=== PATIENT | female | born 1930 | race Caucasian/White ===

== ENCOUNTER 2018-09-30 15:38 | Emergency (ER) | payer OTHER ==
--- OUTSIDE RECORDS SUMMARY | 2018-09-30 15:40 | XMS REPORT ---
:1930 [facility] Address [address] [place] [address] Dr. Gerardo. [address] [place] [address] Care Team Providers Name Role Phone Unavailable Unavailable Unavailable Problems This patient has no known problems. Allergies, Adverse Reactions, Alerts This patient has no known allergies or adverse reactions. Medications This patient has no known medications.
[2018-09-30 16:52] LABS: Absolute Lymphocytes (CBC) 1.4 K/uL (0.7-4.9); Absolute Monocytes 0.6 K/uL (0.1-1.3); Absolute Neutrophil 5.8 K/uL (1.8-8.0); Basophils % 0.4 % (0-1.3); Hematocrit 41.9 % (36.0-45.0); Lymphocytes % 17.7 % (15.3-44.8); MPV 11.3 fL (7.6-11.3); Monocytes % 7.9 % (3.3-12.3); RBC Red Blood Cell Count 4.56 M/uL (3.86-4.86)
--- NOTE | 2018-09-30 17:02 | RAD REPORT ---
EXAM DESCRIPTION: RAD - Pelvis - 09/30/2018 4:27 pm CLINICAL HISTORY: Fall, pelvic and pain COMPARISON: April 2016 TECHNIQUE: AP imaging of the pelvis was obtained. FINDINGS: No fracture of the bony pelvis identified. Sacral ala assessment is more limited but no ab normality confirmed. Lower lumbar degenerative changes are present. Lower lumbar level is partially s acralized on the right. Bilateral hip prostheses in place. No dislocation of the femoral components. No suspicious soft tissu e finding. IMPRESSION: No fracture or acute finding identifiable.
--- NOTE | 2018-09-30 17:03 | RAD REPORT ---
EXAM DESCRIPTION: RAD - Hip Left 2 View - 09/30/2018 4:27 pm CLINICAL HISTORY: Fall, left hip pain COMPARISON: March 2008 FINDINGS: AP and frogleg views of the left hip were obtained. There is no fracture or dislocation. T otal hip prosthesis remains present on the left. No radiographic evidence for loosening. No soft tissue abnormality. IMPRESSION: Negative left hip examination for acute or significant findings.
--- NOTE | 2018-09-30 17:05 | RAD REPORT ---
EXAM DESCRIPTION: RAD - Hip Right 2 View - 09/30/2018 4:27 pm CLINICAL HISTORY: Fall, right hip pain COMPARISON: None. FINDINGS: AP and frog-leg views of the right hip were obtained. There is no fracture or dislocation . Right total hip prosthesis in place. No radiographic evidence for loosening. No acute finding seen . IMPRESSION: Negative right hip examination for acute findings.
--- NOTE | 2018-09-30 17:07 | RAD REPORT ---
EXAM DESCRIPTION: Shoulder Right 2 View - 09/30/2018 4:27 pm CLINICAL HISTORY: Fall, right shoulder pain COMPARISON: None. TECHNIQUE: Internal and external rotation views of the right shoulder were obtained. FINDINGS: No fracture identified and no dislocation. Severe glenohumeral degenerative changes are pr esent with effacement of the joint space. Large marginal spurs project from the glenoid and the humer al head. There is flattening of the contour. AC joint degenerative changes minimal. No pathologic viji ne process. IMPRESSION: Severe degenerative change but no fracture or acute finding seen in the right shoulder.
--- NOTE | 2018-09-30 17:17 | RAD REPORT ---
EXAM DESCRIPTION: CT - Chest Abd Pelvis Wo Con - 09/30/2018 4:56 pm CLINICAL HISTORY: Recurring falls, chest, abdomen and pelvic pain COMPARISON: None. TECHNIQUE: During dynamic enhancement using 100 milliliters nonionic IV contrast, axial 5 millimeter thick images of the chest, abdomen and pelvis were obtained. Biphasic technique was utilized through the abdomen. Oral contrast was administered. All CT scans are performed using dose optimization technique as appropriate and may include automated exposure control or mA/KV adjustment according to patient size. FINDINGS: The lungs are clear of mass and infiltrate. No pneumothorax or pleural effusion. No ches t wall mass or abnormal axillary lymphadenopathy seen. Mediastinal and hilar regions show no mass or lymphadenopathy. No significant cardiac finding. Severe right shoulder degenerative changes are pre sent without an acute finding seen. Moderate left shoulder degenerative change. Thoracic spine degene rative changes are present. No displaced rib fracture pathologic bone process. The liver, spleen and pancreas show no significant findings. Gallbladder and biliary tree are normal . No hydronephrosis. No obstructing or nonobstructing calculi. No adrenal abnormalities. No urinary bl adder abnormalities. A 19 millimeter, 6 HU mass projects from the lateral margin left mid kidney. Th is is almost certainly a benign cyst. No dilated bowel loops or focal ball bowel wall thickening. Minimal hiatal hernia is present. Modera te stool volume throughout the colon. There is diverticulosis without diverticulitis. Acute GI proces s is not identified. No free air, free fluid, pneumatosis or focal inflammatory stranding. No hernia, mass or bulky lymphadenopathy. Arterial calcifications are present. Pelvic floor assessment is limited by the bilateral hip prosthes is spray artifact. Advanced degenerative change present in the lumbar spine. Acute bony pelvic finding not identified. IMPRESSION: CT chest shows no significant or suspicious finding. CT abdomen and pelvis also without acute or significant finding. Full findings detailed in the body of the report.
--- NOTE | 2018-09-30 18:09 | ER ---
Nurse's Notes [facility] Name: Alina Karimi Age: 88 yrs Sex: Female : 1930 Arrival Date: 09/30/2018 Time: 15:41 Bed 2 Private MD: Diagnosis: Other slipping, tripping and stumbling and falls;Low back pain-from fall;Pain in unspecified hip-Bilateral from fall;Pain in right shoulder Presentation: 09/30 15:41 Presenting complaint: Patient states: "I just fell trying to get up and fell straight aa5 to my butt". Pt denies head injury, denies LOC. Pt c/o right hip pain. 15:41 Care prior to arrival: IV initiated. 22 GA, in the right antecubital area, Glucose aa5 check: 201. Mechanism of Injury: Fall. Trauma event details: Injury occurred in the [facility], Injury occurred: at home. Injury occurred: September 30, 2018. 15:41 Acuity: REMIGIO 3 aa5 15:41 Method Of Arrival: EMS: [facility] aa5 15:41 Transition of care: patient was not received from another setting of care. Onset of aa5 symptoms was September 30, 2018. Risk Assessment: Do you want to hurt yourself or someone else? Patient reports no desire to harm self or others. Initial Sepsis Screen: Does the patient meet any 2 criteria? No. Patient's initial sepsis screen is negative. Does the patient have a suspected source of infection? No. Patient's initial sepsis screen is negative. Trauma Activation: Alert Physician: ED Physician; Name: ; Notified At: ; Arrived At: Physician: General Surgeon; Name: ; Notified At: ; Arrived At: Physician: Radiology; Name: ; Notified At: ; Arrived At: Physician: Respiratory; Name: ; Notified At: ; Arrived At: Physician: Lab; Name: ; Notified At: ; Arrived At: Historical: - Allergies: 15:45 Iodine; aa5 15:45 PENICILLINS; aa5 - PMHx: 15:45 Atrial Fib; chronic back pain; Diabetes - NIDDM; High Cholesterol; Thyroid problem; aa5 15:45 Chronic right shoulder pain; aa5 - PSHx: 15:45 Cataract removal; Hip replacement (bilateral); Right knee replacement; aa5 - Immunization history:: Flu vaccine is up to date. - Social history:: Smoking status: Patient/guardian denies using tobacco. - Ebola Screening: : No symptoms or risks identified at this time. Screenin:45 Fall Risk Fall in past 12 months (25 points). IV access (20 points). Total Cruz Fall aa5 Scale indicates High Risk Score (45 or more points). Fall prevention measures have been instituted. Side Rails Up X 2 Placed Close to Nursing Station. 15:45 Abuse screen: No signs of abuse noted. aa5 15:45 Nutritional screening: No deficits noted. Tuberculosis screening: No symptoms or risk aa5 factors identified. Primary Survey: 15:41 NO uncontrolled hemorrhage observed. A: Airway: patent. Breathing/Chest: Chest aa5 inspection: symmetrical rise and fall of the chest. Circulation: Skin color: pink. Disability Alert. Exposure/Environment: A warming method has been applied: A warm blanket has been provided to the patient. 16:00 Reassessment Airway Airway Breathing/Chest Respiratory pattern Regular Respiratory aa5 effort Spontaneous Unlabored Breath sounds Clear Chest inspection Symmetrical Circulation Color [place] Disability Alert. Assessment: 15:45 General: Appears comfortable, Behavior is calm, cooperative. Pain: Complains of pain in aa5 right hip Pain does not radiate. Quality of pain is described as sharp, Pain began post fall today Is continuous. Neuro: Level of Consciousness is awake, alert, obeys commands, Oriented to person, place, time, situation, Broker In Charge are equal bilaterally Moves all extremities. Speech is normal, Facial symmetry appears normal, Pupils are PERRLA. EENT: No signs and/or symptoms were reported regarding the EENT system. Cardiovascular: Patient's skin is warm and dry. Respiratory: Airway is patent Respiratory effort is even, unlabored, Respiratory pattern is regular, symmetrical, Breath sounds are clear bilaterally. GI: Abdomen is round Bowel sounds present X 4 quads. Abd is soft and non tender X 4 quads. : Reports incontinence. Derm: Skin is pink, warm \\T\\ dry. Musculoskeletal: Reports pain in right hip. 16:10 Reassessment: Pt assisted with bedpan, pt unable to void at this time, urine noted to aa5 incontinence pad. . 16:35 Reassessment: Pt back from radiology. Blood drawn and sent to lab. Pt now taken to CT aa5 via stretcher . 17:00 Reassessment: Patient is alert, oriented x 3, equal unlabored respirations, skin aa5 warm/dry/pink. Pt's family at bedside Pt back from CT . 18:40 Reassessment: Patient is alert, oriented x 3, equal unlabored respirations, skin aa5 warm/dry/pink. Vital Signs: 15:42 BP 128 / 71; Pulse 65; Resp 16 S; Temp 97.0(O); Pulse Ox 98% on R/A; aa5 16:35 BP 124 / 70; Pulse 68; Resp 16 S; Pulse Ox 99% on R/A; aa5 17:30 BP 122 / 76; Pulse 70; Resp 18 S; Temp 97.3(TE); Pulse Ox 99% on R/A; Pain 5/10; aa5 [place] Coma Score: 15:42 Eye Response: spontaneous(4). Verbal Response: oriented(5). Motor Response: obeys aa5 commands(6). Total: 15. Trauma Score (Adult): 15:42 Eye Response: spontaneous(1); Verbal Response: oriented(1); Motor Response: obeys aa5 commands(2); Systolic BP: > 89 mm Hg(4); Respiratory Rate: 10 to 29 per min(4); [place] Score: 15; Trauma Score: 12 16:35 Eye Response: spontaneous(1); Verbal Response: oriented(1); Motor Response: obeys aa5 commands(2); Systolic BP: > 89 mm Hg(4); Respiratory Rate: 10 to 29 per min(4); Rachel Score: 15; Trauma Score: 12 17:30 Eye Response: spontaneous(1); Verbal Response: oriented(1); Motor Response: obeys aa5 commands(2); Systolic BP: > 89 mm Hg(4); Respiratory Rate: 10 to 29 per min(4); [place] Score: 15; Trauma Score: 12 ED Course: 15:41 Patient arrived in ED. hj 15:41 Babatunde Laurent PA is PHCP. cp 15:41 Kraig Borja MD is Attending Physician. cp 15:41 Arm band placed on. aa5 15:41 Patient has correct armband on for positive identification. Placed in gown. Bed in low aa5 position. Call light in reach. Side rails up X2. 15:45 Potter, Mayuri, RN is Primary Nurse. aa5 15:45 Patient maintains SpO2 saturation greater than 95% on room air. Thermoregulation: warm aa5 blanket given to patient. 15:57 Triage completed. aa5 16:27 XRAY Pelvis In Process Unspecified. EDMS 16:27 XRAY Hip LEFT 2 view In Process Unspecified. EDMS 16:28 XRAY Hip RIGHT 2 view In Process Unspecified. EDMS 16:28 Shoulder Right (2 View) XRAY In Process Unspecified. EDMS 16:56 CT Chest Abdomen Pelvis W/O Contrast In Process Unspecified. EDMS 17:00 No provider procedures requiring assistance completed. aa5 18:40 IV discontinued, intact, bleeding controlled, No redness/swelling at site. Pressure aa5 dressing applied. Administered Medications: No medications were administered Output: 18:00 Urine: 250ml (Voided); Total: 250ml. aa5 Outcome: 18:08 Discharge ordered by MD. cp 18:08 Patient's length of stay in the Emergency Department was greater than 2 hours. Due to aa5 awaiting radiology results. Patient's length of stay extended due to 18:40 Discharged to home via wheelchair, with family. aa5 18:40 Condition: stable 18:40 Discharge instructions given to patient, family, Instructed on discharge instructions, follow up and referral plans. medication usage, Demonstrated understanding of instructions, follow-up care, medications, Prescriptions given X 1. 18:48 Patient left the ED. aa5 Signatures: Dispatcher [employer] [facility] Mayuri Potter RN RN aa5 Hawk Daugherty RN RN hj Page, Corey, PA PA cp Corrections: (The following items were deleted from the chart) 16:12 15:42 BP 128 / 71; aa5 aa5
--- NOTE | 2018-09-30 18:09 | EDPHYS ---
Physician Documentation [facility] Name: Alina Karimi Age: 88 yrs Sex: Female : 1930 Arrival Date: 09/30/2018 Time: 15:41 Bed 2 Private MD: ED Physician Kraig Borja HPI: 09/30 16:00 This 88 yrs old Female presents to ER via EMS with complaints of Hip Injury. cp 16:00 The patient or guardian reports an injury, pain. that occurred at home, sustained from cp a fall, while walking, There is no obvious deformity, The patient is able to ambulate with assistance. The complaints affect the right hip and pelvis. Associated signs and symptoms: Pertinent positives: back pain, Pertinent negatives: headache, neck pain. Severity of symptoms: in the emergency department the symptoms have improved, moderately. Patient reports fall backward onto bottom while walking at home today. Patient denies striking head or LOC. Patient denies taking blood thinners. Historical: - Allergies: 15:45 Iodine; aa5 15:45 PENICILLINS; aa5 - PMHx: 15:45 Atrial Fib; chronic back pain; Diabetes - NIDDM; High Cholesterol; Thyroid problem; aa5 15:45 Chronic right shoulder pain; aa5 - PSHx: 15:45 Cataract removal; Hip replacement (bilateral); Right knee replacement; aa5 - Immunization history:: Flu vaccine is up to date. - Social history:: Smoking status: Patient/guardian denies using tobacco. - Ebola Screening: : No symptoms or risks identified at this time. ROS: 16:05 Constitutional: Negative for body aches, chills, fever, poor PO intake. cp 16:05 Eyes: Negative for injury, pain, redness, and discharge. cp 16:05 ENT: Negative for drainage from ear(s), ear pain, sore throat, difficulty swallowing, difficulty handling secretions. 16:05 Neck: Negative for pain with movement, pain at rest, stiffness. 16:05 Cardiovascular: Negative for chest pain. 16:05 Respiratory: Negative for cough, shortness of breath, wheezing. 16:05 Abdomen/GI: Negative for abdominal pain, vomiting, diarrhea, constipation. 16:05 Back: Positive for pain at rest, pain with movement. 16:05 MS/extremity: Positive for pain, of the pelvis and right hip, Negative for deformity. 16:05 Neuro: Negative for altered mental status, headache, loss of consciousness, syncope, weakness. 16:05 All other systems are negative. Exam: 16:12 Constitutional: The patient appears in no acute distress, alert, awake, cp non-diaphoretic, non-toxic, well developed, well nourished. 16:12 Head/Face: Normocephalic, atraumatic. cp 16:12 Eyes: Periorbital structures: appear normal, Pupils: equal, round, and reactive to light and accomodation, Extraocular movements: intact throughout, Conjunctiva: normal, no exudate, no injection, Lids and lashes: appear normal, bilaterally. 16:12 ENT: External ear(s): are unremarkable, Ear canal(s): are normal, clear, TM's: bulging, is not appreciated, bilaterally, dullness, bilaterally, erythema, is not appreciated, bilaterally, Nose: is normal, Mouth: is normal, Posterior pharynx: Airway: no evidence of obstruction, patent, Tonsils: are normal in appearance, Uvula: midline, swelling, is not appreciated, erythema, is not appreciated, exudate, is not appreciated, Voice: is normal. 16:12 Neck: C-spine: vertebral tenderness, is not appreciated, crepitus, is not appreciated, ROM/movement: is normal, is supple, without pain, no range of motions limitations, no nuchal rigidity. 16:12 Chest/axilla: Inspection: normal, Palpation: is normal, no crepitus, no tenderness. 16:12 Cardiovascular: Rate: normal, Rhythm: regular, Pulses: Pulses are 2+ in right radial artery and left radial artery. JVD: is not appreciated. 16:12 Respiratory: the patient does not display signs of respiratory distress, Respirations: normal, no use of accessory muscles, no retractions, no splinting, no tachypnea, labored breathing, is not present, Breath sounds: are clear throughout, no decreased breath sounds, no stridor, no wheezing. 16:12 Abdomen/GI: Inspection: abdomen appears normal, Bowel sounds: active, all quadrants, Palpation: abdomen is soft and non-tender, in all quadrants. 16:12 Back: pain, that is mild, ROM is normal. 16:12 Musculoskeletal/extremity: Extremities: grossly normal except: noted in the pelvis: pain, noted in the right shoulder: pain, noted in the right hip: pain, tenderness. 16:12 Neuro: Orientation: to person, place \T\ time. Mentation: is normal, Motor: moves all fours, strength is normal, Sensation: no obvious gross deficits. Vital Signs: 15:42 BP 128 / 71; Pulse 65; Resp 16 S; Temp 97.0(O); Pulse Ox 98% on R/A; aa5 16:35 BP 124 / 70; Pulse 68; Resp 16 S; Pulse Ox 99% on R/A; aa5 17:30 BP 122 / 76; Pulse 70; Resp 18 S; Temp 97.3(TE); Pulse Ox 99% on R/A; Pain 5/10; aa5 [place] Coma Score: 15:42 Eye Response: spontaneous(4). Verbal Response: oriented(5). Motor Response: obeys aa5 commands(6). Total: 15. Trauma Score (Adult): 15:42 Eye Response: spontaneous(1); Verbal Response: oriented(1); Motor Response: obeys aa5 commands(2); Systolic BP: > 89 mm Hg(4); Respiratory Rate: 10 to 29 per min(4); Rachel Score: 15; Trauma Score: 12 16:35 Eye Response: spontaneous(1); Verbal Response: oriented(1); Motor Response: obeys aa5 commands(2); Systolic BP: > 89 mm Hg(4); Respiratory Rate: 10 to 29 per min(4); Rachel Score: 15; Trauma Score: 12 17:30 Eye Response: spontaneous(1); Verbal Response: oriented(1); Motor Response: obeys aa5 commands(2); Systolic BP: > 89 mm Hg(4); Respiratory Rate: 10 to 29 per min(4); Rachel Score: 15; Trauma Score: 12 MDM: 15:41 Patient medically screened. cp 16:00 Differential diagnosis: hip fracture, intertrochanteric fracture, femoral neck cp fracture, femoral shaft fracture, contusion. 18:05 Data reviewed: vital signs, nurses notes, lab test result(s), radiologic studies, CT cp scan, plain films, and as a result, I will discharge patient. 18:05 Counseling: I had a detailed discussion with the patient and/or guardian regarding: the cp historical points, exam findings, and any diagnostic results supporting the discharge/admit diagnosis, lab results, radiology results, to return to the emergency department if symptoms worsen or persist or if there are any questions or concerns that arise at home. Response to treatment: the patient's symptoms have markedly improved after treatment, VSS. Radiology studies negative for acute injury, and as a result, I will discharge patient. 09/30 15:48 Order name: Basic Metabolic Panel; Complete Time: 17:59 cp 09/30 17:59 Interpretation: Normal except: GLUC 180; BUN 22; GFR 58. 09/30 15:48 Order name: CBC with Diff; Complete Time: 17:59 cp 09/30 17:59 Interpretation: Normal except: PLT 146. 09/30 15:48 Order name: XRAY Pelvis; Complete Time: 17:59 cp 09/30 17:59 Interpretation: Report reviewed. 09/30 15:48 Order name: Creatinine for Radiology; Complete Time: 17:59 09/30 15:48 Order name: Type And Screen; Complete Time: 17:59 cp 09/30 15:48 Order name: XRAY Hip LEFT 2 view; Complete Time: 17:59 cp 09/30 17:59 Interpretation: Report reviewed. 09/30 15:48 Order name: Labs collected and sent; Complete Time: 16:40 cp 09/30 15:48 Order name: XRAY Hip RIGHT 2 view; Complete Time: 17:59 cp 09/30 18:00 Interpretation: Report reviewed. 09/30 16:11 Order name: Shoulder Right (2 View) XRAY; Complete Time: 17:59 aa5 09/30 18:00 Interpretation: Reviewed. 09/30 16:28 Order name: CT Chest Abdomen Pelvis W/O Contrast; Complete Time: 17:59 cp Administered Medications: No medications were administered Disposition: 09/30/18 18:08 Discharged to Home. Impression: Other slipping, tripping and stumbling and falls, Low back pain - from fall, Pain in unspecified hip - Bilateral from fall, Pain in right shoulder. - Condition is Stable. - Discharge Instructions: Fall Prevention in the Home, Shoulder Pain, Hip Pain. - Prescriptions for Tramadol 50 mg Oral Tablet - take 1 tablet by ORAL route every 8 hours as needed; 12 tablet. - Medication Reconciliation Form, Thank You Letter, Antibiotic Education, Prescription Opioid Use form. - Follow up: Private Physician; When: 2 - 3 days; Reason: Recheck today's complaints. - Problem is new. - Symptoms have improved. Addendum: 10/03/2018 07:05 Co-signature as Attending Physician, Kraig Borja MD. r n Signatures: Dispatcher [employer] [facility] Kraig Borja MD MD rn Calderon, Audri RN RN aa5 Babatunde Laurent PA PA cp Corrections: (The following items were deleted from the chart) 09/30 18:48 18:08 09/30/2018 18:08 Discharged to Home. Impression: Other slipping, tripping and aa5 stumbling and falls; Low back pain - from fall; Pain in unspecified hip - Bilateral from fall; Pain in right shoulder. Condition is Stable. Forms are Medication Reconciliation Form, Thank You Letter, Antibiotic Education, Prescription Opioid Use. Follow up: Private Physician; When: 2 - 3 days; Reason: Recheck today's complaints. Problem is new. Symptoms have improved. cp
== END 2018-09-30 18:48 | disposition home or self-care (01) ==
LOC: ER 15:38
DX: M25.551 Pain in right hip (principal); M25.552 Pain in left hip; M54.5 Low back pain; M25.511 Pain in right shoulder; W01.0XXA Fall on same level from slipping, tripping and stumbling without subsequent striking against object, initial encounter; Y93.01 Activity, walking, marching and hiking; Y92.009 Unspecified place in unspecified non-institutional (private) residence as the place of occurrence of the external cause; I48.91 Unspecified atrial fibrillation; E11.9 Type 2 diabetes mellitus without complications; E78.00 Pure hypercholesterolemia, unspecified; Z88.0 Allergy status to penicillin; Z88.8 Allergy status to other drugs, medicaments and biological substances
CPT/HCPCS: 36415; 71250; 72170; 74176; 80048; 85025; 86850; 86900; 86901; 99284

== ENCOUNTER 2018-11-10 16:06 | Inpatient (IN) | payer OTHER ==
--- OUTSIDE RECORDS SUMMARY | 2018-11-10 16:08 | XMS REPORT ---
:1930 [facility] Address [address] [place] [address] Dr. Gerardo. [address] [place] [address] Care Team Providers Name Role Phone Unavailable Unavailable Unavailable Problems This patient has no known problems. Allergies, Adverse Reactions, Alerts This patient has no known allergies or adverse reactions. Medications This patient has no known medications.
[2018-11-10 17:32] LABS: Absolute Lymphocytes (CBC) 1.5 K/uL (0.7-4.9); Absolute Monocytes 0.9 K/uL (0.1-1.3); Absolute Neutrophil 5.2 K/uL (1.8-8.0); Basophils % 0.7 % (0-1.3); Eosinophils % 1.4 % (0-4.4); Hematocrit 41.2 % (36.0-45.0); Lymphocytes % 19.6 % (15.3-44.8); MPV 11.2 fL (7.6-11.3); Monocytes % 11.1 % (3.3-12.3); RBC Red Blood Cell Count 4.49 M/uL (3.86-4.86)
[2018-11-10 17:33] LABS: Protime INR 0.95
--- NOTE | 2018-11-10 17:42 | RAD REPORT ---
EXAM DESCRIPTION: RAD - Chest Single View - 11/10/2018 5:33 pm CLINICAL HISTORY: infection Chest pain. COMPARISON: Chest Pa And Lat (2 Views) dated 09/18/2017; Chest Single View dated 06/22/2016; CHEST SI NGLE VIEW dated 01/24/2015; CHEST PA AND LAT 2 VIEW dated 12/17/2010 FINDINGS: Portable technique limits examination quality. Small calcified granuloma is present in the left mid lung. The lungs are otherwise emphysematous but clear. The heart is normal in size. No displaced fractures. IMPRESSION: No acute intrathoracic process suspected.
--- NOTE | 2018-11-10 17:44 | RAD REPORT ---
EXAM DESCRIPTION: RAD - Foot Left 3 View - 11/10/2018 5:33 pm CLINICAL HISTORY: foul odor;Pain;Swelling COMPARISON: FOOT W OBLIQUES dated 06/01/2007 FINDINGS: Changes related to chronic Charcot arthropathy noted. Subluxation of the subtalar joints i s seen. Large soft tissue ulceration is seen adjacent to the medial forefoot. Fusion plate is present spanning the first MTP joint. No definitive radiographic finding for osteomyelitis.
[2018-11-10 17:55] LABS: Albumin 3.8 g/dL (3.4-5.0); Bilirubin Direct 0.1 mg/dL (0-0.2); Bilirubin Total 0.4 mg/dL (0.2-1.0); Magnesium 2.3 mg/dL (1.8-2.4); Potassium 4.2 mmol/L (3.5-5.1)
--- NOTE | 2018-11-10 18:03 | EDPHYS ---
Physician Documentation [facility] Name: Alina Karimi Age: 88 yrs Sex: Female : 1930 Arrival Date: 11/10/2018 Time: 16:08 Bed 23 Private MD: Nate Roland V ED Physician Kraig Borja HPI: 11/10 17:11 This 88 yrs old Female presents to ER via Wheelchair with complaints of Foot snw Infection. 17:11 Onset: The symptoms/episode began/occurred 7 month(s) ago, and became worse today. snw Associated signs and symptoms: Pertinent positives: malodorous foot wound . It is unknown whether or not the patient has had similar symptoms in the past. Saw Dr. Small 3 days ago, sees Dr. Lowe, Sees Dr. Roland. Historical: - Allergies: 16:32 Iodine; la1 16:32 PENICILLINS; la1 - Home Meds: 19:11 Synthroid Oral [Active]; Aspirin Oral [Active]; Betapace Oral [Active]; Cozaar Oral mg2 [Active]; Fish Oil Oral [Active]; Norvasc Oral [Active]; Vitamin B-12 Oral [Active]; Potassium Chloride Oral [Active]; tramadol Oral [Active]; Omeprazole Oral [Active]; tylenol 250 mg [Active]; - PMHx: 16:32 Atrial Fib; chronic back pain; Chronic right shoulder pain; Diabetes - NIDDM; High la1 Cholesterol; Thyroid problem; - Immunization history:: Adult Immunizations up to date. - Social history:: Smoking status: Patient/guardian denies using tobacco. - Ebola Screening: : No symptoms or risks identified at this time. ROS: 17:11 Constitutional: Negative for fever, chills, and weight loss, Eyes: Negative for injury, snw pain, redness, and discharge, ENT: Negative for injury, pain, and discharge, Neck: Negative for injury, pain, and swelling, Cardiovascular: Negative for chest pain, palpitations, and edema, Respiratory: Negative for shortness of breath, cough, wheezing, and pleuritic chest pain, Abdomen/GI: Negative for abdominal pain, nausea, vomiting, diarrhea, and constipation, Back: Negative for injury and pain, : Negative for injury, bleeding, discharge, and swelling, Skin: Negative for injury, rash, and discoloration, Neuro: Negative for headache, weakness, numbness, tingling, and seizure. 17:11 MS/extremity: Positive for callused area that home health nurse told her was red and malodorous. Exam: 17:11 Constitutional: This is a well developed, well nourished patient who is awake, alert, snw and in no acute distress. Head/Face: Normocephalic, atraumatic. Eyes: Pupils equal round and reactive to light, extra-ocular motions intact. Lids and lashes normal. Conjunctiva and sclera are non-icteric and not injected. Cornea within normal limits. Periorbital areas with no swelling, redness, or edema. ENT: Nares patent. No nasal discharge, no septal abnormalities noted. Tympanic membranes are normal and external auditory canals are clear. Oropharynx with no redness, swelling, or masses, exudates, or evidence of obstruction, uvula midline. Mucous membranes moist. Neck: Trachea midline, no thyromegaly or masses palpated, and no cervical lymphadenopathy. Supple, full range of motion without nuchal rigidity, or vertebral point tenderness. No Meningismus. Chest/axilla: Normal chest wall appearance and motion. Nontender with no deformity. No lesions are appreciated. Cardiovascular: Regular rate and rhythm with a normal S1 and S2. No gallops, murmurs, or rubs. Normal PMI, no JVD. No pulse deficits. Respiratory: Lungs have equal breath sounds bilaterally, clear to auscultation and percussion. No rales, rhonchi or wheezes noted. No increased work of breathing, no retractions or nasal flaring. Abdomen/GI: Soft, non-tender, with normal bowel sounds. No distension or tympany. No guarding or rebound. No evidence of tenderness throughout. Back: No spinal tenderness. No costovertebral tenderness. Full range of motion. Neuro: Awake and alert, GCS 15, oriented to person, place, time, and situation. Cranial nerves II-XII grossly intact. Motor strength 5/5 in all extremities. Sensory grossly intact. Cerebellar exam normal. Normal gait. Psych: Awake, alert, with orientation to person, place and time. Behavior, mood, and affect are within normal limits. 17:11 Musculoskeletal/extremity: Extremities: grossly normal except: noted in the right foot: swelling, right lateral pip of fifth toe with soft, pus filled, malodorous wound with surrounding erythema, ROM: no acute changes, Circulation is intact in all extremities. decreased sensation. Vital Signs: 16:34 Pulse 52; Resp 16; Temp 98.7; Pulse Ox 100% on R/A; Weight 76.66 kg; Height 5 ft. 6 in. la1 (167.64 cm); Pain 8/10; 16:36 BP 128 / 62; la1 18:23 BP 133 / 59; Pulse 51; Resp 18; Temp 98.8; Pulse Ox 100% on R/A; mg2 19:16 BP 138 / 62; Pulse 52; Resp 18; Temp 98.7; Pulse Ox 100% on R/A; Pain 0/10; mg2 16:34 Body Mass Index 27.28 (76.66 kg, 167.64 cm) la1 MDM: 16:42 Patient medically screened. snw 18:00 Data reviewed: vital signs, nurses notes. Data interpreted: Pulse oximetry: on room air snw is 100 %. Interpretation: normal. Counseling: I had a detailed discussion with the patient and/or guardian regarding: the historical points, exam findings, and any diagnostic results supporting the discharge/admit diagnosis, lab results, radiology results, the need for further work-up and treatment in the hospital. Physician consultation: Alonzo Valadez MD was called at 18:01, was contacted at 18:01, regarding admission, to the telemetry unit. to the medical/surgical unit. to Dr. Roland, would like admission per Dr. Nate Roland MD. 11/10 16:46 Order name: Basic Metabolic Panel snw 11/10 16:46 Order name: CBC with Diff snw 11/10 16:46 Order name: LFT's; Complete Time: 17:55 snw 11/10 16:46 Order name: Magnesium; Complete Time: 17:55 snw 11/10 16:46 Order name: NT PRO-BNP; Complete Time: 17:55 snw 11/10 16:46 Order name: PT-INR; Complete Time: 17:37 snw 11/10 16:46 Order name: Foot Left 3 View XRAY; Complete Time: 17:46 snw 11/10 16:46 Order name: XRAY Chest (1 view); Complete Time: 17:43 snw 11/10 16:46 Order name: EKG; Complete Time: 16:48 snw 11/10 16:46 Order name: Blood Culture Adult (2) snw 11/10 16:46 Order name: Sed Rate; Complete Time: 17:54 snw 11/10 16:47 Order name: Basic Metabolic Panel; Complete Time: 17:55 EDMS 11/10 16:47 Order name: CBC with Automated Diff; Complete Time: 17:54 EDMS 11/10 16:46 Order name: Cardiac monitoring; Complete Time: 17:05 snw 11/10 16:46 Order name: EKG - Nurse/Tech; Complete Time: 17:06 snw 11/10 16:46 Order name: IV Saline Lock; Complete Time: 17:29 snw 11/10 16:46 Order name: Labs collected and sent; Complete Time: 17:29 snw 11/10 16:46 Order name: O2 Per Protocol; Complete Time: 17:06 snw 11/10 16:46 Order name: O2 Sat Monitoring; Complete Time: 17:06 snw Administered Medications: 17:50 Drug: vancoMYCIN 1 grams Route: IVPB; Infused Over: 2 hrs; Site: left antecubital; mg2 19:33 Follow up: Response: No adverse reaction; IV Status: Infusion continued upon admission mg2 Disposition: 11/10/18 18:02 Hospitalization ordered by Nate Roland for Inpatient Admission. Preliminary diagnosis is Personal history of diabetic foot ulcer - with infection. - Bed requested for Telemetry/MedSurg (Inpatient). - Status is Inpatient Admission. mg2 - Condition is Stable. - Problem is an acute exacerbation. - Symptoms have worsened. UTI on Admission? No Addendum: 11/12/2018 07:02 Co-signature as Attending Physician, Kraig Borja MD. r n Signatures: Dispatcher [employer] [facility] Martha Love RN RN dw Jeanne Mayo, W[employer]-C WEL[employer] AR[employer]-Csnw Kraig Borja MD MD rn Attema, Lee RN RN la1 Mk Aguilar RN RN mg2 Corrections: (The following items were deleted from the chart) 11/10 18:39 18:02 Hospitalization Ordered by Nate Roland MD for Inpatient Admission. Preliminary dw diagnosis is Personal history of diabetic foot ulcer - with infection. Bed requested for Telemetry/MedSurg (Inpatient). Status is Inpatient Admission. Condition is Stable. Problem is an acute exacerbation. Symptoms have worsened. UTI on Admission? No. snw 19:50 18:39 11/10/2018 18:02 Hospitalization Ordered by Nate Roland MD for Inpatient mg2 Admission. Preliminary diagnosis is Personal history of diabetic foot ulcer - with infection. Bed requested for Telemetry/MedSurg (Inpatient). Status is Inpatient Admission. Condition is Stable. Problem is an acute exacerbation. Symptoms have worsened. UTI on Admission? No. dw
--- NOTE | 2018-11-10 18:03 | ER ---
Nurse's Notes [facility] Name: Alina Karimi Age: 88 yrs Sex: Female : 1930 Arrival Date: 11/10/2018 Time: 16:08 Bed 23 Private MD: Nate Roland V Diagnosis: Personal history of diabetic foot ulcer-with infection Presentation: 11/10 16:32 Presenting complaint:. Presenting complaint: Patient states: Home health care came by la1 today and she said she could smell my foot and it was swollen and I need to come to the hospital (Left foot), pt reports chronic right shoulder pain that is worse. Transition of care: patient was not received from another setting of care. Onset of symptoms was November 10, 2018. Risk Assessment: Do you want to hurt yourself or someone else? Patient reports no desire to harm self or others. Initial Sepsis Screen: Does the patient meet any 2 criteria? No. Patient's initial sepsis screen is negative. Does the patient have a suspected source of infection? No. Patient's initial sepsis screen is negative. Care prior to arrival: None. 16:32 Method Of Arrival: Wheelchair la1 16:32 Acuity: REMIGIO 3 la1 Historical: - Allergies: 16:32 Iodine; la1 16:32 PENICILLINS; la1 - Home Meds: 19:11 Synthroid Oral [Active]; Aspirin Oral [Active]; Betapace Oral [Active]; Cozaar Oral mg2 [Active]; Fish Oil Oral [Active]; Norvasc Oral [Active]; Vitamin B-12 Oral [Active]; Potassium Chloride Oral [Active]; tramadol Oral [Active]; Omeprazole Oral [Active]; tylenol 250 mg [Active]; - PMHx: 16:32 Atrial Fib; chronic back pain; Chronic right shoulder pain; Diabetes - NIDDM; High la1 Cholesterol; Thyroid problem; - Immunization history:: Adult Immunizations up to date. - Social history:: Smoking status: Patient/guardian denies using tobacco. - Ebola Screening: : No symptoms or risks identified at this time. Screenin:07 Abuse screen: Denies threats or abuse. Denies injuries from another. Nutritional mg2 screening: No deficits noted. Tuberculosis screening: No symptoms or risk factors identified. Fall Risk IV access (20 points). Ambulatory Aid- None/Bed Rest/Nurse Assist (0 pts). Assessment: 17:06 General: Appears comfortable, Behavior is calm, cooperative. Pain: Complains of pain in mg2 right foot. Neuro: Level of Consciousness is awake, alert, obeys commands, Oriented to person, place, time, situation. Cardiovascular: Capillary refill < 3 seconds Patient's skin is warm and dry. Respiratory: Airway is patent Respiratory effort is even, unlabored, Respiratory pattern is regular, symmetrical. GI: No signs and/or symptoms were reported involving the gastrointestinal system. : No signs and/or symptoms were reported regarding the genitourinary system. EENT: No signs and/or symptoms were reported regarding the EENT system. Derm: Skin is intact, is healthy with good turgor, Skin is pink, warm \T\ dry. normal. Musculoskeletal: Circulation, motion, and sensation intact. Capillary refill < 3 seconds, Swelling present in right foot. 18:22 Reassessment: patient informed about the plan for hospitalization. mg2 Vital Signs: 16:34 Pulse 52; Resp 16; Temp 98.7; Pulse Ox 100% on R/A; Weight 76.66 kg; Height 5 ft. 6 in. la1 (167.64 cm); Pain 8/10; 16:36 BP 128 / 62; la1 18:23 BP 133 / 59; Pulse 51; Resp 18; Temp 98.8; Pulse Ox 100% on R/A; mg2 19:16 BP 138 / 62; Pulse 52; Resp 18; Temp 98.7; Pulse Ox 100% on R/A; Pain 0/10; mg2 16:34 Body Mass Index 27.28 (76.66 kg, 167.64 cm) la1 ED Course: 16:08 Patient arrived in ED. rg4 16:08 Nate Roland MD is Private Physician. rg4 16:21 Jeanne Mayo FNP-C [facility]. snw 16:21 Kraig Borja MD is Attending Physician. snw 16:34 Triage completed. la1 16:34 Arm band placed on left wrist. la1 17:06 kM Aguilar, STEFFANIE is Primary Nurse. mg2 17:09 No provider procedures requiring assistance completed. mg2 17:30 Patient has correct armband on for positive identification. Pulse ox on. NIBP on. mg2 17:30 Inserted saline lock: 20 gauge in left antecubital area, using aseptic technique. Blood mg2 collected. 17:34 Foot Left 3 View XRAY In Process Unspecified. EDMS 17:34 XRAY Chest (1 view) In Process Unspecified. EDMS 18:02 Nate Roland MD is Hospitalizing Provider. snw 19:38 Patient admitted, IV remains in place. mg2 Administered Medications: 17:50 Drug: vancoMYCIN 1 grams Route: IVPB; Infused Over: 2 hrs; Site: left antecubital; mg2 19:33 Follow up: Response: No adverse reaction; IV Status: Infusion continued upon admission mg2 Outcome: 18:02 Decision to Hospitalize by Provider. snw 19:38 Admitted to Med/surg accompanied by nurse, via wheelchair, room 229, with chart, Report mg2 called to STEFFANIE Li 19:38 Condition: stable 19:38 Instructed on the need for admit, Demonstrated understanding of instructions. 19:50 Patient left the ED. mg2 Signatures: Dispatcher [employer] [facility] Jeanne Mayo, INSTRUCTOR [employer]-C INSTRUCTOR [employer]-Csnw Ender Araya, RN RN la1 Aileen Hernandez rg4 Mk Aguilar, RN RN mg2
[2018-11-10] MEDS ORDERED: VANCOMYCIN 1 GM/VIAL ONE (18:17)
[2018-11-10] MEDS ORDERED: NA CHLORIDE 0.9% 250 ML ONE (18:17)
[2018-11-10] MEDS ORDERED: D50W 25 GM/50 ML SYRINGE IV PRN (20:16)
[2018-11-10] MEDS ORDERED: GLUCAGON 1 MG/VIAL IM PRN (20:16)
[2018-11-10] MEDS ORDERED: VANCOMYCIN 500 MG in NA CHLORIDE 0.9% 100 ML IVPB ONE (21:00)
[2018-11-10] MEDS ORDERED: Levofloxacin500mg IV 500 MG/100 ML BAG IV ONE (21:00)
[2018-11-10] MEDS ORDERED: VANCOMYCIN 1 GM in NA CHLORIDE 0.9% 500 ML IVPB SCH (21:00)
[2018-11-10] MEDS ORDERED: INSULIN -REGULAR HUMAN 50 UNIT/0.5 ML ML SQ SCH (21:00)
[2018-11-10] MEDS: NA CHLORIDE 0.9% 1,000 ML IV SCH (22:32)
[2018-11-10] MEDS ORDERED: VANCOMYCIN 500 MG/VIAL ONE (22:37)
[2018-11-10] MEDS ORDERED: NA CHLORIDE 0.9% 100 ML ONE (22:39)
[2018-11-10] MEDS ORDERED: ACETAMINOPHEN 500 MG TAB PO PRN (23:48)
[2018-11-11 03:22] VITALS: BMI 27.2
[2018-11-11 04:21] LABS: Urine Appearance CLEAR; Urine Bilirubin NEGATIVE (NEG); Urine Blood NEGATIVE (NEG); Urine Color YELLOW; Urine Glucose 2+ (NEG); Urine Protein NEGATIVE (NEG); Urine Specific Gravity 1.015 (1.005-1.030); Urine pH 7.5 (5.0-7.0)
[2018-11-11 04:22] LABS: Urine Microscopic Reflex ORDER UMIC
[2018-11-11 05:08] LABS: Urine Bacteria <20 /HPF (<20); Urine Culture Reflex Order REFLEXED; Urine RBC <5 /HPF (NONE SEEN)
[2018-11-11 05:44] LABS: Potassium 3.8 mmol/L (3.5-5.1)
[2018-11-11 05:52] LABS: Absolute Lymphocytes (CBC) 1.5 K/uL (0.7-4.9); Absolute Monocytes 0.9 K/uL (0.1-1.3); Absolute Neutrophil 3.8 K/uL (1.8-8.0); Basophils % 0.5 % (0-1.3); Eosinophils % 2.1 % (0-4.4); Hematocrit 36.2 % (36.0-45.0); MPV 11.5 fL (7.6-11.3); Monocytes % 13.6 % (3.3-12.3); RBC Red Blood Cell Count 3.98 M/uL (3.86-4.86)
[2018-11-11] MEDS ORDERED: INSULIN -REGULAR HUMAN 50 UNIT/0.5 ML ML SQ SCH (06:05)
[2018-11-11] MEDS ORDERED: PNEUMOCOCCAL VACCINE 0.5 ML IMVAC ONE (08:00)
--- NOTE | 2018-11-11 08:48 | EKG ---
Test Date: 2018-11-10 Test Time: 17:04:04 [employer]ed Circuit [employer] Panels Plater: MEASUREMENT RESULTS: Intervals: Rate: 51 DC: 170 QRSD: 88 QT: 450 QTc: 414 Guadalupe: P: 22 DC: 170 QRS: 57 T: 73 INTERPRETIVE STATEMENTS: Sinus bradycardia Otherwise normal ECG Compared to ECG 06/22/2016 13:49:01 No significant changes Electronically Signed On 11-11-18 08:46:12 CDT by Enrique Scott
[2018-11-11] MEDS: NA CHLORIDE 0.9% 1,000 ML IV SCH ×2 (09:14→13:31)
--- NOTE | 2018-11-11 11:28 | P.HP ---
Certification for Inpatient Patient admitted to: Inpatient With expected LOS: >2 Midnights Practitioner: I am a practitioner with admitting privileges, knowledge of patient current condition, hospital course, and medical plan of care. Services: Services provided to patient in accordance with Admission requirements found in Title 42 Section 412.3 of the Code of Federal Regulations Patient History Date of Service: 11/11/18 Reason for admission: RIGHT FOOT INFECTION History of Present Illness: MS LA HAS CHRONIC DIABETIC ULCER TAKEN CARE BY DR. TAO WHO DEBRIDES IT INDICATED. HOME HEALTH NURSE SMELLED A FOUL DISCHARGE AND ASKED HER TO COME TO ER. IN ER SHE WAS SEEN BY A NPP AND PUT ON LEVAQUIN AND VANCOMYCIN. I SEE HER TODAY AND GOT MAIN HISTORY FROM DAUGHTER MS. LA CAN GO AROUND THE QUESTION WITH LOT OF UNNEEDED DETAILS AND THAT IS WHAT SHE DID TODAY. SHE NEVER CAME TO MY QUESTION ABOUT WHAT BROUGHT HER HERE SO I TURNED TO THE DAUGHTER. Allergies Penicillins Allergy (Intermediate, Verified 11/10/18 21:08) Itching/Hives/Rash iodine Allergy (Verified 11/10/18 21:08) Unknown Home Medications: Acetaminophen [Tylenol Extra Strength] 250 mg PO BEDTIME 11/11/18 Amlodipine Besylate 5 mg PO DAILY 11/11/18 Aspirin [Aspir-Low] 81 mg PO DAILY 11/11/18 Furosemide 20 mg PO DAILY 11/11/18 Insulin Aspart [Novolog] 10 unit SQ TID 11/11/18 Insulin NPH Human [Novolin N (Humulin N)*] 15 units SQ SEECOM 11/11/18 Insulin NPH Human [Novolin N (Humulin N)*] 20 unit SQ SEECOM 11/11/18 Levothyroxine [Synthroid] 50 mcg PO [id number] 11/11/18 Losartan Potassium 100 mg PO DAILY 11/11/18 Multivitamin [Multivitamins] 1 each PO DAILY 11/11/18 Renny/Polymyx B Sulf/Dexameth [Aledht-Qihhc-Wewpzbn Eye Ointm] 1 appl TOP BEDTIME 11/11/18 [place]-3 Fatty Acids [[place]-3] 1,040 mg PO DAILY 11/11/18 Potassium Chloride 10 meq PO DAILY 11/11/18 Sotalol HCl [Betapace] 40 mg PO DAILY 11/11/18 - Past Medical/Surgical History Has patient received pneumonia vaccine in the past: No Diabetic: Yes -: IDDM -: AFIB -: HTN -: heart problems -: diabetes -: hypothyroid -: neuopathy -: neuropathy -: cholelithiasis -: right and left hip replacements -: right knee replacement -: hysterectomy -: toe surg. -: left knee replacement -: bilateral carpal repair - Family History Father -: Diabetes Mother -: Heart disease, Hypertension Sister -: Heart disease, Diabetes, Cancer - Social History Smoking Status: Never smoker Alcohol use: No CD- Drugs: No Caffeine use: No Place of Residence: Home Review of Systems 10-point ROS is otherwise unremarkable Integumentary: As per HPI Physical Examination - Vital Signs Temperature: 98.0 F Blood Pressure: 151/65 Pulse: 57 Respirations: 16 Pulse Ox (%): 97 - Physical Exam General: Alert, Mild distress HEENT: Atraumatic, PERRLA, Mucous membr. 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 R FOOT SOLE HAS NECROTIC ULCER NEAR THE FIRST METATARSAL, WITH FLUCTUATING DARK AREA ABOUT 3-3 CM. ) Neurological: Normal speech, Abnormal strength (WALKS WITH WALKER OR MANY TIMES IN WHEELCHAIR.) Lymphatics: No axilla or inguinal lymphadenopathy - Studies Laboratory Data (last 24 hrs) 11/10/18 17:00: PT 11.2, INR 0.95 11/10/18 17:00: WBC 7.8, Hgb 14.2, Hct 41.2, Plt Count 182 11/10/18 17:00: Sodium 141, Potassium 4.2, BUN 22 H, Creatinine 0.95, Glucose 215 H, Magnesium 2.3, Total Bilirubin 0.4, AST 17, ALT 16, Alkaline Phosphatase 100 Assessment and Plan - Problems (Diagnosis) (1) Diabetic ulcer of right foot Current Visit: Yes Status: Chronic Plan: IV MERREM AND IV VACOMYCIN. STOP LEVAQUIN IT WILL NOT BE ENOUGH TO ANEROBES AND ALSO IT WILL INTERACT WITH SOTALOL. DEBRIDE BY DR. YOUSSEF. MAY NEED LTAC OR NH. MRI OF R FOOT IN AM. SHE HAS GOOD PT PULSE. WILL ORDER ARTERIAL DOPPLER. PROGNOSIS IS GUARDED. Qualifiers: Diabetic foot ulcer location: other Diabetes mellitus type: type 2 Non- pressure ulcer stage: with fat layer exposed Qualified Code(s): E11.621 - Type 2 diabetes mellitus with foot ulcer; L97.512 - Non-pressure chronic ulcer of other part of right foot with fat layer exposed - Advance Directives Does patient have a Living Will: Yes Does patient have a Durable POA for Healthcare: Yes
[2018-11-11] MEDS: INSULIN -REGULAR HUMAN 50 UNIT/0.5 ML ML SQ SCH ×3 (11:30→21:00)
[2018-11-11] MEDS: Meropenem 1,000 MG in NA CHLORIDE 0.9% 100 ML IV SCH ×2 (13:18→21:18)
[2018-11-11] MEDS: AMLODIPINE 5 MG TAB PO SCH (13:19)
[2018-11-11] MEDS: POTASSIUM CL SA 10 MEQ TAB PO SCH (13:19)
[2018-11-11] MEDS: LOSARTAN POTASSIUM 50 MG TABLET PO SCH (13:19)
[2018-11-11] MEDS: FUROSEMIDE 20 MG TABLET PO SCH (13:19)
[2018-11-11] MEDS ORDERED: INSULIN ASPART 10 UNIT SQ SCH (14:00)
[2018-11-11] MEDS: NPH (HUMAN) 100 UNITS/ML INSULIN SQ SCH (16:30)
--- NOTE | 2018-11-11 18:48 | RAD REPORT ---
EXAM DESCRIPTION: US - Lower Extremity Arterial Bilat - 11/11/2018 6:32 pm CLINICAL HISTORY: Leg pain COMPARISON: None FINDINGS: The waveforms of right common femoral, right superficial femoral, right popliteal, right p osterior tibial, and right anterior to arteries are biphasic. Waveforms of the left superficial femoral and left common femoral arteries R biphasic The waveform of the left popliteal, left dorsalis pedis artery and left posterior tibial arteries are monophasic. A high-grade proximal stenosis is not seen. An occlusion is not visualized IMPRESSION: Mild arterial disease involving the right lower extremity Mild arterial disease involving the proximal arteries of the left lower extremity Mild to moderate disease involving the mid and lower arteries of the left lower extremity
[2018-11-11] MEDS ORDERED: Meropenem 1000 MG/VIAL IV SCH (21:00)
[2018-11-11] MEDS ORDERED: Levofloxacin 250mg IV 250 MG/50 ML BAG IV SCH (21:00)
[2018-11-11] MEDS: ACETAMINOPHEN 500 MG TAB PO SCH (21:21)
--- NOTE | 2018-11-12 02:51 | CON ---
Date of Consultation: 11/11/2018 Reason For Consult: Left foot necrotic and infected diabetic ulcer. History Of Present Illness: This is a case of an 88-year-old patient with multiple medical problems including diabetes with an ulcer on the left foot that has been dealt with, with the primary doctors and also home comfort advisor, but this time she came to the hospital with foul smelling ulcer with infection, and a surgical consult was obtained for debridement. It is hard to get the information from her exac tly how this got initiated since this is chronic, she says being closed and then reopened once again on its own. She does not recall at least any trauma. She denies any dysuria, hematuria, hematochezi a, or melena. Denies any recent travel out of the country. Denies any family member sick at home. The patient was advised the importance of using proper diabetic shoes. Past Medical History: Includes diabetes, AFib, neuropathies. Past Surgical History: Surgeries includes knee replacement, hysterectomy, and multiple foot debridem ents. Family History: Includes diabetes, heart disease. Allergies: PENICILLIN AND IODINE. Social History: She does not smoke. She does not drink alcohol. Medications: Reviewed including aspirin. Review of Systems: Ten points otherwise unremarkable. Physical Examination: General: The patient is awake and alert. HEENT: Pupils are equal and reactive, anicteric. Neck: Supple. Chest: Clear. Abdomen: Soft and depressible. No guarding or rebound. Pelvic: Deferred. Breasts: Deferred. Rectal: Deferred. Extremities: Over the left foot region, the patient has a diabetic infected ulcer. This ulcer is lo cated in the medial aspect of the left foot into the metatarsophalangeal joint. Dorsalis pedis pulse s bilaterally are diminished. No cyanosis. Imaging: X-ray of the left foot interpreted by Dr. Astorga as large soft tissue ulceration adjacent to the forefoot. Fusion plate is present in the first MTP joint. Assessment: This is an 88-year-old patient with an area of infection of the left metatarsophalangeal joint. Right on that area, she has a plate. The patient cannot give information about when that pl ate was placed, but it is right in the area where she has an ulcer nearby and we cannot rule out that it is involved. in that area, I understand why this area heals and improves partially an d then reopened once again. We might have to keep that plate off, so I have to consult with the Orth opedics or Podiatry Service. CAITLYN Voice ID: [id number] Report ID: [id number]
[2018-11-12] MEDS: NA CHLORIDE 0.9% 1,000 ML IV SCH ×3 (04:29→18:00)
[2018-11-12] MEDS: LEVOTHYROXINE SOD 0.05 MG TABLET PO SCH (05:43)
[2018-11-12] MEDS ORDERED: NPH (HUMAN) 100 UNITS/ML INSULIN SQ SCH ×2 (07:30)
[2018-11-12] MEDS: FUROSEMIDE 20 MG TABLET PO SCH (08:47)
[2018-11-12] MEDS: SOTALOL HCL 80 MG TAB PO SCH (08:47)
[2018-11-12] MEDS: MULTIVIT W/ MINERAL TAB PO SCH (08:47)
[2018-11-12] MEDS: Meropenem 1,000 MG in NA CHLORIDE 0.9% 100 ML IV SCH ×2 (08:47→20:23)
[2018-11-12] MEDS: AMLODIPINE 5 MG TAB PO SCH (08:47)
[2018-11-12] MEDS: ASPIRIN EC 81 MG TAB PO SCH (08:48)
[2018-11-12] MEDS: LOSARTAN POTASSIUM 50 MG TABLET PO SCH (08:48)
[2018-11-12] MEDS: POTASSIUM CL SA 10 MEQ TAB PO SCH (08:48)
[2018-11-12] MEDS: INSULIN -REGULAR HUMAN 50 UNIT/0.5 ML ML SQ SCH ×4 (08:49→20:22)
--- NOTE | 2018-11-12 08:53 | RAD REPORT ---
EXAM DESCRIPTION: MRIFoot Left Wo Cont11/12/2018 8:35 am CLINICAL HISTORY: Left foot pain and swelling COMPARISON: November 10, 2018 x-ray TECHNIQUE: Axial, sagittal and coronal magnetic resonance imaging of the left foot was obtained. FINDINGS: Artifact from plate and screws within the first metatarsal and first proximal phalanx limi ts evaluation for osteomyelitis. Obvious significant abnormal signal in this region is not seen. No significant abnormal signal is not ed within the remainder of the bones A subcutaneous fluid collection medial to the first MTP joint measures 17 x 3 millimeters IMPRESSION: No obvious osteomyelitis involving the first metatarsal/first proximal phalanx although evaluation is limited as described above 17 x 3 millimeter subcutaneous fluid collection medial to the first MTP joint consistent with an absc ess
[2018-11-12] MEDS ORDERED: VANCOMYCIN 1.5 GM in NA CHLORIDE 0.9% 500 ML IVPB SCH (09:00)
[2018-11-12] MEDS: NPH (HUMAN) 100 UNITS/ML INSULIN SQ SCH (16:48)
--- NOTE | 2018-11-12 17:52 | P.PN ---
Subjective Date of Service: 11/12/18 Chief Complaint: RIGHT FOOT INFECTION Subjective: No new changes NO NEW ISSUES. SHE HAS BEEN GOING TO WATER TREATMENT OPERATOR FOR FOOT CARE AND ULCER CARE. SHE IS HERE FOR INFECTION OF THE FOOT. Review of Systems 10-point ROS is otherwise unremarkable Integumentary: As per HPI Physical Examination - Vital Signs Temperature: 97.5 F Blood Pressure: 168/72 Pulse: 51 Respirations: 20 Pulse Ox (%): 97 - Physical Exam General: Alert, In no apparent distress, Other (VERY DETAIL ORIENTED FOR ALL QUESTIONS AND ANSWERS ALSO. 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 STOP LEVAQUIN IT WILL NOT BE ENOUGH TO ANEROBES AND ALSO IT WILL INTERACT WITH SOTALOL. DEBRIDE BY DR. YOUSSEF. MAY NEED LTAC OR NH. MRI OF R FOOT IN AM. SHE HAS GOOD PT PULSE. WILL ORDER ARTERIAL DOPPLER. PROGNOSIS IS GUARDED. IV ABX. ADVISE NH OR LTAC BUT I KNOW SHE WILL REFUSE. SHE LIVES ALONE AND POSSIBLY NOT ABLE TO TAKE CARE OF FOOT. 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
[2018-11-12] MEDS: ACETAMINOPHEN 500 MG TAB PO SCH (20:23)
[2018-11-13 05:51] LABS: Absolute Lymphocytes (CBC) 1.6 K/uL (0.7-4.9); Absolute Monocytes 0.6 K/uL (0.1-1.3); Basophils % 0.5 % (0-1.3); Eosinophils % 2.7 % (0-4.4); Hematocrit 38.4 % (36.0-45.0); Lymphocytes % 24.8 % (15.3-44.8); MPV 11.2 fL (7.6-11.3); Monocytes % 9.9 % (3.3-12.3); RBC Red Blood Cell Count 4.17 M/uL (3.86-4.86)
[2018-11-13] MEDS: LEVOTHYROXINE SOD 0.05 MG TABLET PO SCH (06:00)
[2018-11-13 06:12] LABS: C-Reactive Protein 8.86 mg/L (<3.00)
[2018-11-13] MEDS ORDERED: PROPOFOL 200 MG/20 ML VIAL IV ONE (07:07)
[2018-11-13] MEDS ORDERED: FENTANYL CITR 100 MCG/2 ML ONE (07:08)
[2018-11-13] MEDS: INSULIN -REGULAR HUMAN 50 UNIT/0.5 ML ML SQ SCH ×4 (07:10→23:31)
[2018-11-13] MEDS ORDERED: LIDOCAINE 1% MPF 2 ML AMPULE ONE (07:10)
[2018-11-13] MEDS ORDERED: NPH (HUMAN) 100 UNITS/ML INSULIN SQ SCH (07:30)
[2018-11-13] MEDS ORDERED: BUPIVACA 0.5%/EPI 0.0005%/PF 10 ML VIAL ONE (07:37)
[2018-11-13] MEDS ORDERED: GLYCOPYRROLATE 0.2 MG/ML SYR ONE (08:01)
--- NOTE | 2018-11-13 08:13 | P.BOP ---
Preoperative diagnosis: LEft foot infected diabetic ulcer with abscess Postoperative diagnosis: same Primary procedure: I & D of left foot abscess with excisional subq debridement 4x4cm Estimated blood loss: <10cc Specimen: culture, devitalized tissue Findings: deep abscess with tendon exposed Anesthesia: General Complications: None Transferred to: Recovery Room Condition: Good
[2018-11-13] MEDS ORDERED: BUPIVACAINE 0.5% PF 10 ML VIAL ONE (08:46)
[2018-11-13] MEDS: ASPIRIN EC 81 MG TAB PO SCH (09:26)
[2018-11-13] MEDS: POTASSIUM CL SA 10 MEQ TAB PO SCH (09:26)
[2018-11-13] MEDS: LOSARTAN POTASSIUM 50 MG TABLET PO SCH (09:26)
[2018-11-13] MEDS: Meropenem 1,000 MG in NA CHLORIDE 0.9% 100 ML IV SCH ×2 (09:26→20:46)
[2018-11-13] MEDS: MULTIVIT W/ MINERAL TAB PO SCH (09:26)
[2018-11-13] MEDS: AMLODIPINE 5 MG TAB PO SCH (09:26)
[2018-11-13] MEDS: FUROSEMIDE 20 MG TABLET PO SCH (09:26)
[2018-11-13] MEDS: SOTALOL HCL 80 MG TAB PO SCH (09:27)
[2018-11-13] MEDS: VANCOMYCIN 1.5 GM in NA CHLORIDE 0.9% 500 ML IVPB SCH (10:02)
[2018-11-13] MEDS: NPH (HUMAN) 100 UNITS/ML INSULIN SQ SCH (16:18)
[2018-11-13] MEDS: NA CHLORIDE 0.9% 1,000 ML IV SCH (16:18)
--- NOTE | 2018-11-13 18:35 | P.PN ---
Subjective Date of Service: 11/13/18 Chief Complaint: RIGHT FOOT INFECTION NO NEW ISSUES. SHE HAS BEEN GOING TO EDUCATION NURSE FOR FOOT CARE AND ULCER CARE. SHE IS HERE FOR INFECTION OF THE FOOT. MS LA IS DOING BETTER. SHE WANT TO GO TO SNF IN [place]. SISTER CAMETO OFFICE. Review of Systems 10-point ROS is otherwise unremarkable General: Weakness, Malaise Physical Examination - Vital Signs Temperature: 97.2 F Blood Pressure: 155/67 Pulse: 51 Respirations: 18 Pulse Ox (%): 98 - Physical Exam General: Alert, In no apparent distress HEENT: Atraumatic, PERRLA, EOMI Neck: Supple, JVD not distended Respiratory: Clear to auscultation bilaterally, Normal air movement Cardiovascular: Regular rate/rhythm, Normal S1 S2 Gastrointestinal: Normal bowel sounds, No tenderness Musculoskeletal: No tenderness Integumentary: No rashes, Diabetic ulcer (PER DR. 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 STOP LEVAQUIN IT WILL NOT BE ENOUGH TO ANEROBES AND ALSO IT WILL INTERACT WITH SOTALOL. DEBRIDE BY DR. YOUSSEF. MAY NEED LTAC OR NH. MRI OF R FOOT IN AM. SHE HAS GOOD PT PULSE. WILL ORDER ARTERIAL DOPPLER. PROGNOSIS IS GUARDED. IV ABX. ADVISE NH OR LTAC BUT I KNOW SHE WILL REFUSE. SHE LIVES ALONE AND POSSIBLY NOT ABLE TO TAKE CARE OF FOOT. ADVISE SNF SHE AGREES AND I HAVE WRITTEN ORDER FOR SW. 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
--- NOTE | 2018-11-13 19:16 | OP ---
Date of Procedure: 11/13/2018 Surgeon: Hawk Matthews MD Preoperative Diagnosis: Left foot infected diabetic ulcer with abscess. Postoperative Diagnosis: Left foot infected diabetic ulcer with abscess. Procedures: Incision and drainage of left foot abscess with excision of the subcutaneous debridement , 4 x 4 cm. Anesthesia: General plus local. Findings: Deep abscess down to the tendon. There is a plate in the vicinity of this abscess, althou gh I did not see it during this procedure. Indications For Procedure: This is the case of 88-year-old patient with necrotic ulcer of the left f oot. She has been trying to heal this in the past. It is becoming difficult. Right now, she has an abscess present in that area with cellulitis. I was called for debridement incision and drainage wi th benefits, alternatives, and risks including, but not limited to infection, bleeding, damage to adj acent structures, anesthesia complication, nonhealing of wound, MO, and even . She also underst ands this may not relieve any symptoms. She might need more than one surgical intervention. Her and her family were instructed importance of following up with her orthopedic surgeons to see the possib ility of removing the metal plate that she has in the vicinity of this abscess since it is not possib le for me at this moment to say that is not involved and contaminated and may be of the reasons why t hat ulcer does not heal. Procedure In Detail: The patient was brought to the operating room, placed in supine position. A ti me-out was called. Left foot was prepped and draped in usual sterile fashion. Using a sharp instrum ent, we proceeded to make a sharp knife debridement of the necrotic blister. That led us into an abs cess. This abscess goes all the way down into the tendons and ligaments of the first metatarsal vinod on. I did not see the plate at this moment. I know it was in a very close vicinity, cannot rule out any involvement of this. The necrotic tissue was removed. Devitalized tissue was removed. All loc ulations were explored and opened and cultured. Area was packed with dry dressing after hemostasis. The patient tolerated the procedure well. The patient was sent to Recovery in stable condition. OPAL/JASS Voice ID: [id number] Report ID: [id number]
[2018-11-13] MEDS: ACETAMINOPHEN 500 MG TAB PO SCH (20:50)
[2018-11-14 06:07] LABS: Absolute Lymphocytes (CBC) 1.9 K/uL (0.7-4.9); Absolute Monocytes 0.8 K/uL (0.1-1.3); Absolute Neutrophil 4.3 K/uL (1.8-8.0); Basophils % 0.5 % (0-1.3); Eosinophils % 2.5 % (0-4.4); Hematocrit 40.1 % (36.0-45.0); Lymphocytes % 26.5 % (15.3-44.8); MPV 10.8 fL (7.6-11.3); Monocytes % 11.2 % (3.3-12.3)
[2018-11-14] MEDS: LEVOTHYROXINE SOD 0.05 MG TABLET PO SCH (06:47)
[2018-11-14] MEDS: INSULIN -REGULAR HUMAN 50 UNIT/0.5 ML ML SQ SCH ×4 (07:30→21:29)
[2018-11-14] MEDS: NPH (HUMAN) 100 UNITS/ML INSULIN SQ SCH ×2 (08:54→17:22)
[2018-11-14] MEDS: Meropenem 1,000 MG in NA CHLORIDE 0.9% 100 ML IV SCH ×2 (08:56→21:29)
[2018-11-14] MEDS: FUROSEMIDE 20 MG TABLET PO SCH (08:59)
[2018-11-14] MEDS: POTASSIUM CL SA 10 MEQ TAB PO SCH (08:59)
[2018-11-14] MEDS: MULTIVIT W/ MINERAL TAB PO SCH (08:59)
[2018-11-14] MEDS: ASPIRIN EC 81 MG TAB PO SCH (08:59)
[2018-11-14] MEDS: AMLODIPINE 5 MG TAB PO SCH (09:00)
[2018-11-14] MEDS: LOSARTAN POTASSIUM 50 MG TABLET PO SCH (09:00)
[2018-11-14] MEDS: NA CHLORIDE 0.9% 1,000 ML IV SCH (09:00)
[2018-11-14] MEDS: SOTALOL HCL 80 MG TAB PO SCH (09:02)
[2018-11-14] MEDS: VANCOMYCIN 1.5 GM in NA CHLORIDE 0.9% 500 ML IVPB SCH (09:19)
[2018-11-14] MEDS: ACETAMINOPHEN 500 MG TAB PO SCH (21:28)
--- NOTE | 2018-11-14 21:41 | P.PN ---
Subjective Date of Service: 11/14/18 Chief Complaint: RIGHT FOOT INFECTION Subjective: Improving NO NEW ISSUES. SHE HAS BEEN GOING TO INDUSTRIAL MAINTENANCE TECHNICIAN FOR FOOT CARE AND ULCER CARE. SHE IS HERE FOR INFECTION OF THE FOOT. MS LA IS DOING BETTER. SHE WANT TO GO TO SNF IN [place]. SISTER CAMET[facility] OFFICE. SHE IS VERY STABLE. 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 SHE TODAY ASKED FOR REHAB HERE BUT THERE IS NO NEW REHAB RELATED PROBLEM. Review of Systems 10-point ROS is otherwise unremarkable Integumentary: As per HPI Physical Examination - Vital Signs Temperature: 97.7 F Blood Pressure: 150/76 Pulse: 56 Respirations: 18 Pulse Ox (%): 94 - Physical Exam General: Alert, In no apparent distress HEENT: Atraumatic, PERRLA, EOMI Neck: Supple, JVD not distended Respiratory: Clear to auscultation bilaterally, Normal air movement Cardiovascular: Regular rate/rhythm, Normal S1 S2 Gastrointestinal: Normal bowel sounds, No tenderness Musculoskeletal: No tenderness Integumentary: No rashes, Diabetic ulcer (MANAGED BY DR Juan Luis YOUSSEF.) Neurological: Normal speech, Normal tone, Normal affect Lymphatics: No axilla or inguinal lymphadenopathy - Studies Medications List Reviewed: Yes Assessment And Plan - Current Problems (Diagnosis) (1) Diabetic ulcer of right foot Current Visit: Yes Status: Chronic Plan: IV MERREM AND IV VACOMYCIN. STOP LEVAQUIN IT WILL NOT BE ENOUGH TO ANEROBES AND ALSO IT WILL INTERACT WITH SOTALOL. DEBRIDE BY DR. YOUSSEF. MAY NEED LTAC OR NH. MRI OF R FOOT IN AM. SHE HAS GOOD PT PULSE. WILL ORDER ARTERIAL DOPPLER. PROGNOSIS IS GUARDED. IV ABX. ADVISE NH OR LTAC BUT I KNOW SHE WILL REFUSE. SHE LIVES ALONE AND POSSIBLY NOT ABLE TO TAKE CARE OF FOOT. ADVISE SNF SHE AGREES AND I HAVE WRITTEN ORDER FOR SW. CHANGE TO ORAL ABX BACTRIM IS GOING TO WORK PER CULTURE. 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
[2018-11-15] MEDS: SMZ./TMP. 800/160 MG TABLET PO SCH ×3 (01:27→22:43)
[2018-11-15] MEDS: NA CHLORIDE 0.9% 1,000 ML IV SCH (06:00)
[2018-11-15 06:04] LABS: Absolute Lymphocytes (CBC) 1.8 K/uL (0.7-4.9); Absolute Monocytes 0.8 K/uL (0.1-1.3); Absolute Neutrophil 5.1 K/uL (1.8-8.0); Basophils % 0.6 % (0-1.3); Eosinophils % 2.2 % (0-4.4); Hematocrit 39.5 % (36.0-45.0); Lymphocytes % 22.2 % (15.3-44.8); MPV 10.9 fL (7.6-11.3); Monocytes % 10.3 % (3.3-12.3); RBC Red Blood Cell Count 4.34 M/uL (3.86-4.86)
[2018-11-15 06:14] LABS: BUN Blood Urea Nitrogen 19 mg/dL (7-18); Bicarbonate 28 mmol/L (21-32); Glucose Level 98 mg/dL (74-106); Potassium 3.8 mmol/L (3.5-5.1); Sodium Level 143 mmol/L (136-145)
[2018-11-15] MEDS: LEVOTHYROXINE SOD 0.05 MG TABLET PO SCH (06:35)
[2018-11-15] MEDS: INSULIN -REGULAR HUMAN 50 UNIT/0.5 ML ML SQ SCH ×4 (07:30→22:50)
[2018-11-15] MEDS: POTASSIUM CL SA 10 MEQ TAB PO SCH (08:40)
[2018-11-15] MEDS: FUROSEMIDE 20 MG TABLET PO SCH (08:40)
[2018-11-15] MEDS: MULTIVIT W/ MINERAL TAB PO SCH (08:40)
[2018-11-15] MEDS: LOSARTAN POTASSIUM 50 MG TABLET PO SCH (08:41)
[2018-11-15] MEDS: SOTALOL HCL 80 MG TAB PO SCH (08:41)
[2018-11-15] MEDS: ASPIRIN EC 81 MG TAB PO SCH (08:41)
[2018-11-15] MEDS: AMLODIPINE 5 MG TAB PO SCH (08:45)
[2018-11-15] MEDS: NPH (HUMAN) 100 UNITS/ML INSULIN SQ SCH ×2 (08:45→17:53)
--- NOTE | 2018-11-15 20:33 | PN ---
Subjective: Status post foot debridement, doing well, no complaint. Objective: On exam, foot area was intact. Surgical site intact. Decreased erythema. Plan: The patient is waiting for placement for wound care and antibiotics. Continue dressing change s today. OPAL/JASS Voice ID: [id number] Report ID: [id number]
--- NOTE | 2018-11-15 21:11 | P.PN ---
Subjective Date of Service: 11/15/18 Chief Complaint: RIGHT FOOT INFECTION NO NEW ISSUES. SHE HAS BEEN GOING TO SPECIAL ASSEMBLIES SUPERVISOR FOR FOOT CARE AND ULCER CARE. SHE IS HERE FOR INFECTION OF THE FOOT. MS LA IS DOING BETTER. SHE WANT TO GO TO SNF IN [place]. SISTER CAMETO OFFICE. SHE IS VERY STABLE. 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 SHE TODAY ASKED FOR REHAB HERE BUT THERE IS NO NEW REHAB RELATED PROBLEM. SHE IS READY TO BE DISCHARGED BUT BECAUSE OF AMBULANCE ISSUES SHE CAN'T GO TONIGHT. [facility]. Review of Systems 10-point ROS is otherwise unremarkable Physical Examination - Vital Signs Temperature: 97.7 F Blood Pressure: 150/70 Pulse: 56 Respirations: 18 Pulse Ox (%): 98 - Physical Exam General: Alert, In no apparent distress HEENT: Atraumatic, PERRLA, EOMI Neck: Supple, JVD not distended Respiratory: Clear to auscultation bilaterally, Normal air movement Cardiovascular: Regular rate/rhythm, Normal S1 S2 Gastrointestinal: Normal bowel sounds, No tenderness Musculoskeletal: No tenderness Integumentary: No rashes, Diabetic ulcer (SP ABSCESS DRAINAGE. SHE HAS NO PAIN IN THE REGION. ULCER IS 3-3 CM. CLEAN, NO PUS, DOES NOT HAVE HEALTHY GRANULATION YET.) Neurological: Normal speech, Normal tone, Normal affect Lymphatics: No axilla or inguinal lymphadenopathy - Studies Microbiology Data (last 24 hrs): 11/10/18 17:15 Blood - Blood Aerobic Blood Culture - Final No growth in 5 days. 11/10/18 17:15 Blood - Blood Anaerobic Blood Culture - Final No growth in 5 days. 11/10/18 17:00 Blood - Blood Aerobic Blood Culture - Final No growth in 5 days. 11/10/18 17:00 Blood - Blood Anaerobic Blood Culture - Final No growth in 5 days. Medications List Reviewed: Yes Assessment And Plan - Current Problems (Diagnosis) (1) Diabetic ulcer of right foot Current Visit: Yes Status: Chronic Plan: IV MERREM AND IV VACOMYCIN. STOP LEVAQUIN IT WILL NOT BE ENOUGH TO ANEROBES AND ALSO IT WILL INTERACT WITH SOTALOL. DEBRIDE BY DR. YOUSSEF. MAY NEED LTAC OR NH. MRI OF R FOOT IN AM. SHE HAS GOOD PT PULSE. WILL ORDER ARTERIAL DOPPLER. PROGNOSIS IS GUARDED. IV ABX. ADVISE NH OR LTAC BUT I KNOW SHE WILL REFUSE. SHE LIVES ALONE AND POSSIBLY NOT ABLE TO TAKE CARE OF FOOT. ADVISE SNF SHE AGREES AND I HAVE WRITTEN ORDER FOR SW. CHANGE TO ORAL ABX BACTRIM IS GOING TO WORK PER CULTURE. ORAL ABX GIVEN. WOUND CARE ORDERS PER. DR. YOUSSEF. 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
[2018-11-15] MEDS ORDERED: SODIUM CHLORIDE 0.9% 10ML INJ IV PRN (21:47)
[2018-11-15] MEDS: ACETAMINOPHEN 500 MG TAB PO SCH (22:42)
[2018-11-15] MEDS ORDERED: PANTOPRAZOLE 40 MG INJ IVP SCH (23:00)
[2018-11-16] MEDS: PANTOPRAZOLE 40MG TABLET PO SCH ×3 (00:04→17:53)
[2018-11-16] MEDS: NA CHLORIDE 0.9% 1,000 ML IV SCH (02:00)
[2018-11-16 06:16] LABS: Absolute Lymphocytes (CBC) 1.8 K/uL (0.7-4.9); Absolute Monocytes 0.9 K/uL (0.1-1.3); Absolute Neutrophil 8.1 K/uL (1.8-8.0); Basophils % 0.5 % (0-1.3); Eosinophils % 1.5 % (0-4.4); Hematocrit 38.4 % (36.0-45.0); MPV 10.4 fL (7.6-11.3); Monocytes % 8.4 % (3.3-12.3); RBC Red Blood Cell Count 4.23 M/uL (3.86-4.86)
[2018-11-16 06:29] LABS: Potassium 3.9 mmol/L (3.5-5.1)
[2018-11-16] MEDS: LEVOTHYROXINE SOD 0.05 MG TABLET PO SCH (06:44)
[2018-11-16] MEDS: INSULIN -REGULAR HUMAN 50 UNIT/0.5 ML ML SQ SCH ×3 (07:30→16:30)
[2018-11-16] MEDS: NPH (HUMAN) 100 UNITS/ML INSULIN SQ SCH ×2 (08:59→16:30)
[2018-11-16] MEDS ORDERED: levoFLOXacin 250 MG TAB PO SCH (09:00)
[2018-11-16] MEDS: SOTALOL HCL 80 MG TAB PO SCH (09:01)
[2018-11-16] MEDS: ASPIRIN EC 81 MG TAB PO SCH (09:01)
[2018-11-16] MEDS: POTASSIUM CL SA 10 MEQ TAB PO SCH (09:01)
[2018-11-16] MEDS: AMLODIPINE 5 MG TAB PO SCH (09:02)
[2018-11-16] MEDS: SMZ./TMP. 800/160 MG TABLET PO SCH (09:02)
[2018-11-16] MEDS: LOSARTAN POTASSIUM 50 MG TABLET PO SCH (09:02)
[2018-11-16] MEDS: FUROSEMIDE 20 MG TABLET PO SCH (09:03)
[2018-11-16] MEDS: MULTIVIT W/ MINERAL TAB PO SCH (09:03)
[2018-11-16 10:32] VITALS: O2SAT 98
--- NOTE | 2018-11-16 10:40 | RAD REPORT ---
EXAM DESCRIPTION: RAD - Chest Single View - 11/16/2018 10:31 am CLINICAL HISTORY: cough Chest pain. COMPARISON: Chest Single View dated 11/10/2018; Chest Pa And Lat (2 Views) dated 09/18/2017; Chest Sin gle View dated 06/22/2016; CHEST SINGLE VIEW dated 01/24/2015 FINDINGS: Portable technique limits examination quality. Calcified granuloma is present in the left mid lung. The lungs are otherwise clear. The heart is norm al in size. Advanced arthritic changes right shoulder. IMPRESSION: No acute intrathoracic process suspected.
[2018-11-16] MEDS ORDERED: OSELTAMIVIR 75 MG CAP PO SCH (11:19)
--- NOTE | 2018-11-16 14:41 | P.DS ---
Admission Date: 11/10/18 Discharge Date: 11/16/18 Disposition: TRANSFER TO SNF - MEDICAL Discharge Condition: FAIR Reason for Admission: RIGHT FOOT INFECTION - Problems (1) Diabetic ulcer of right foot Current Visit: Yes Status: Chronic Qualifiers: Diabetic foot ulcer location: other Diabetes mellitus type: type 2 Non- pressure ulcer stage: with fat layer exposed Qualified Code(s): E11.621 - Type 2 diabetes mellitus with foot ulcer; L97.512 - Non-pressure chronic ulcer of other part of right foot with fat layer exposed Brief History of Present Illness: MS LA HAS CHRONIC DIABETIC ULCER TAKEN CARE BY DR. TAO WHO DEBRIDES IT INDICATED. HOME HEALTH NURSE SMELLED A FOUL DISCHARGE AND ASKED HER TO COME TO ER. IN ER SHE WAS SEEN BY A NPP AND PUT ON LEVAQUIN AND VANCOMYCIN. I SEE HER TODAY AND GOT MAIN HISTORY FROM DAUGHTER MS. AL CAN GO AROUND THE QUESTION WITH LOT OF UNNEEDED DETAILS AND THAT IS WHAT SHE DID TODAY. SHE NEVER CAME TO MY QUESTION ABOUT WHAT BROUGHT HER HERE SO I TURNED TO THE DAUGHTER. IS DOING GOOD. THIS AM SHE COMPLAINS OF FATIGUE AND SORE THROAT. SHE HAS FLU B POSITIVE AND WILL BE ON TAMIFLU. SHE IS MEDICALLY STABLE TO BE DISCHARGED FLU IS AN OUTPATIENT DISEASE. [facility] TO TAKE OVER THE CARE AND WOUND CARE CENTER CAN TAKE CARE OF HER WOUND. Vital Signs/Physical Exam: Temp Pulse Resp BP Pulse Ox 98 F 55 20 129/65 98 11/16/18 12:00 11/16/18 12:00 11/16/18 12:00 11/16/18 12:00 11/16/18 12:00 Laboratory Data at Discharge: WBC 11.1 K/uL (4.3-10.9) H D 11/16/18 06:03 Hgb 12.7 g/dL (12.0-15.0) 11/16/18 06:03 Hct 38.4 % (36.0-45.0) 11/16/18 06:03 Plt Count 184 K/uL (152-406) 11/16/18 06:03 PT 11.2 SECONDS (9.5-12.5) 11/10/18 17:00 INR 0.95 11/10/18 17:00 Sodium 141 mmol/L (136-145) 11/16/18 06:03 Potassium 3.9 mmol/L (3.5-5.1) 11/16/18 06:03 BUN 22 mg/dL (7-18) H 11/16/18 06:03 Creatinine 0.79 mg/dL (0.55-1.3) 11/16/18 06:03 Glucose 106 mg/dL (74-106) 11/16/18 06:03 Magnesium 2.3 mg/dL (1.8-2.4) 11/10/18 17:00 Total Bilirubin 0.4 mg/dL (0.2-1.0) 11/10/18 17:00 AST 17 U/L (15-37) 11/10/18 17:00 ALT 16 U/L (12-78) 11/10/18 17:00 Alkaline Phosphatase 100 U/L (45-117) 11/10/18 17:00 Home Medications: Acetaminophen [Tylenol Extra Strength] 250 mg PO BEDTIME 11/11/18 Amlodipine Besylate 5 mg PO DAILY 11/11/18 Aspirin [Aspir-Low] 81 mg PO DAILY 11/11/18 Furosemide 20 mg PO DAILY 11/11/18 Insulin Aspart [Novolog] 10 unit SQ TID 11/11/18 Insulin NPH Human [Novolin N (Humulin N)*] 15 units SQ SEECOM 11/11/18 Insulin NPH Human [Novolin N (Humulin N)*] 20 unit SQ SEECOM 11/11/18 Levothyroxine [Synthroid] 50 mcg PO [id number] 11/11/18 Losartan Potassium 100 mg PO DAILY 11/11/18 Multivitamin [Multivitamins] 1 each PO DAILY 11/11/18 Renny/Polymyx B Sulf/Dexameth [Huzcup-Qoivq-Hyxlepm Eye Ointm] 1 appl TOP BEDTIME 11/11/18 Selah-3 Fatty Acids [Selah-3] 1,040 mg PO DAILY 11/11/18 Potassium Chloride 10 meq PO DAILY 11/11/18 Sotalol HCl [Betapace] 40 mg PO DAILY 11/11/18 Smz./Tmp. [Bactrim Ds 800 MG/160 MG] 1 tab PO BID #20 tab 11/15/18 Oseltamivir [Tamiflu] 75 mg PO BID #9 cap 11/16/18 New Medications: Oseltamivir [Tamiflu] 75 mg PO BID #9 cap Smz./Tmp. [Bactrim Ds 800 MG/160 MG] 1 tab PO BID #20 tab Diet: ADA Followup: Nate Roland MD [Primary Care Provider] - Hawk Matthews MD [ACTIVE - CAN ADMIT] - 1-2 Weeks
[2018-11-16 18:28] VITALS: BP 143/79; TEMP 97.9
--- NOTE | 2018-11-19 19:15 | P.PN ---
Subjective Date of Service: 11/12/18 Chief Complaint: FOOT INFECTION/abscess Subjective: No new changes, Tolerating diet Review of Systems General: Weakness (no) Respiratory: Cough (no), Shortness of Breath (no) Cardiovascular: Chest Pain (no) Gastrointestinal: Nausea (no) Integumentary: As per HPI Physical Examination - Vital Signs Temperature: 97.9 F Blood Pressure: 143/79 Pulse: 56 Respirations: 20 Pulse Ox (%): 98 - Physical Exam General: Alert, Oriented x3, Cooperative HEENT: PERRLA, EOMI Integumentary: Erythema, Warmth (cellultis, abscess, infected ulcer) - Studies Medications List Reviewed: Yes Assessment And Plan - Plan Debridemetn BAR explained again. Per pt request family explained all plan and BAR and future expected treatment including revisiting her ortho surgeon for plates removal if possible abx
== END 2018-11-16 19:03 | disposition swing bed (61) | DRG 623 ==
LOC: ER 16:06 → ERHOLD 18:27 → 2ND 19:37
PROVIDERS: ADMIT Internal Medicine; ATTEND Internal Medicine
PROC: 0L9W0ZZ Drainage of Left Foot Tendon, Open Approach (ICD-10-PCS; 2018-11-13)
PROC: 0JBR0ZZ Excision of Left Foot Subcutaneous Tissue and Fascia, Open Approach (ICD-10-PCS; principal; 2018-11-13 07:30)
DX: E11.621 Type 2 diabetes mellitus with foot ulcer (principal); L02.612 Cutaneous abscess of left foot; L03.116 Cellulitis of left lower limb; L97.522 Non-pressure chronic ulcer of other part of left foot with fat layer exposed; E11.610 Type 2 diabetes mellitus with diabetic neuropathic arthropathy; I48.91 Unspecified atrial fibrillation; E11.40 Type 2 diabetes mellitus with diabetic neuropathy, unspecified; I10 Essential (primary) hypertension; E03.9 Hypothyroidism, unspecified; Z23 Encounter for immunization; Z79.82 Long term (current) use of aspirin; Z79.4 Long term (current) use of insulin; Z88.0 Allergy status to penicillin
CPT/HCPCS: 36415; 71045; 80048; 80076; 80202; 81003; 81015; 82962; 83735; 83880; 85025; 85610; 85652; 86140; 87040; 87070; 87075; 87077; 87081; 87086; 87088; 87186; 87205; 87804; 88304; 90670; 93005; 93925; 96365; 96366; 96367; 97116; 97163; 99285; C9113; J2001; J2704; J3010; J7030

== ENCOUNTER 2019-02-06 15:18 | Inpatient (IN) | payer OTHER ==
--- NOTE | 2019-02-06 11:49 | R.PREADM ---
SCREENING DATE AND TIME 02/05/2019 17:22 (CDT) ANTICIPATED REHAB ADMISSION DATE 02/07/2019 REFERRING FACILITY [facility] [place] [facility] BED REFERRAL DATE AND TIME 02/05/2019 17:22 (CDT) ACUTE ADMIT DATE 01/07/2019 Previous Rehabilitation(s): No. 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 Garcia REHAB FACILITY [facility] PHYSICIAN REVIEWER Dr. Leydi Kapadia MR# [id number] NAME MAC LA ADDRESS [address] PHONE [facility] [id number] DATE OF 1930 AGE 88 SSN# [id number] GENDER female MARITAL STATUS RACE white ADMIT FROM 03 - Assisted Facility (SNF) PRE-HOSPITAL LIVING SETTING 01 - Home (private home/apt. board/care, assisted living, custodial, transitional living) HOME TYPE AND DETAILS Type of home: single family house # of steps within the residence: 0 # of levels in the residence: 1 # of steps to enter the residence: 0 PRE-HOSPITAL LIVING WITH Alone FAMILY SUPPORT Yes PRIMARY FAMILY CONTACT NAME Kate Coulter PRIMARY FAMILY CONTACT PHONE PRIMARY FAMILY CONTACT RELATIONSHIP Sister PHONE PRIMARY FAMILY CONTACT ON ADM.? no IS PRIMARY FAMILY CONTACT AUTH. REP.? no 1ST EMERGENCY CONTACT Kate Coulter 1ST CONTACT PHONE 1ST CONTACT RELATIONSHIP Sister PHONE 1ST CONTACT ON ADM. no IS 1ST CONTACT AUTH. REP.? no PHONE 2ND CONTACT ON ADM.? no PATIENT EMPLOYMENT STATUS Retired (for age) PATIENT EMPLOYER No Employer PAYOR INFORMATION: 1ST PAYOR NAME MEDICARE 1ST PAYOR PHONE [phone] 1ST PAYOR INJURY/ILLNESS DUE TO ACCIDENT? No ANOTHER GREEN PARTY RESPONSIBLE? No PRIMARY REHAB/ACUTE DIAGNOSIS: Left Diabetic Foot Ulcer ONSET DATE 01/04/2019 REHAB IMPAIRMENT CATEGORY (KIP): 10 Amputation, lower extremity (Amp/LE) MEETS 60% rule AFFECTED EXTREMITIES: LLE PRIMARY DIAGNOSIS-RELATED SURGERIES: Left First Ray Partial Amputation - performed by Dr. 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 is a 88 yo Right-handed white female. On 01/04/2019 she was admitted to [facility] with diagnosis Left Diabetic Foot Ulcer. Her impairment category is Amputation of Limb 05 - Unilateral Lower Limb Below the Knee (BK) (05.4). Pre-morbidly, Pt. was independent/mod-I in Self-Care, Sphincter Control, Transfers Control, Locomotio n, Communication, and Social Cognition; and she had good Sphincter Control. Currently, she has deficits of Self-Care, Transfers Control, Locomotion, Endurance, Balance, and Safe ty Awareness. Pt. is now referred to [facility] for acute in-patient rehabilitation in order to maximize patient's functional independence in activities of daily living, strength, ROM, and mobi lity. Patient has realistic goal of being discharged at assistance level 6-Latoya to reside at Home with Fam rosi/Relatives. Mac La is an 88 old female that lives alone in a single alicia house. She was independent with self care and ADLs. On 01/04/2019, she had a diabetic foot ulcer and had an amputation of left great toe and treated at [facility]. She is now medically stable but in need of 24-hour nursing, doctor supervision and oversite while receivi ng active and ongoing intensive (PT, reasonably expected to participate in 3hours of therapy a day/15 hours per week and receive care with an intensive interdisciplinary approach. 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 Treatment - Per Physician's Orders. REVIEW OF SYSTEMS: - Gen Alert and awake Lying in bed No apparent distress Oriented to: person, time, and place - Vital Signs Temperature: 97.3 F SBP/DBP: 159/57 Pulse: 68 Resp: 16 Vital signs stable, afebrile - CVS RRR VITAL SIGNS Temperature: 97.3 F SBP/DBP: 159/57 Pulse: 68 Resp: 16 Vital signs stable, afebrile MEDICATIONS/TREATMENT: Other- See attached MAR (Medication Administration Record) Sachi Mac.pdf. CURRENT SPHINCTER CONTROL: Pre-hospital bladder status: continent # of bladder accidents in the last 7 days prior to screenin Pre-hospital bowel status: continent # of bowel accidents in the last 7 days prior to screenin Last Bowel Movement Date: DETAILED CURRENT FUNCTIONAL STATUS: - Bladder accident frequency: Ind - No accidents in the past 7 days - Bowel accident frequency: Ind - No accidents in the past 7 days - Walking score based on distance walked: 0(N/A) - Wheelchair score based on distance traveled: 0(N/A) FUNCTIONAL STATUS: - Self-Care A. Eating Ind sup B. Grooming Ind sup C. Bathing Ind sup D. Dressing - Upper Ind sup E. Dressing - Lower Ind modA F. Toileting Ind modA - Sphincter Control G: Bladder control Ind Ind H: Bowel control Ind Ind - Transfers Control I. Bed/Chair/Wheelchair Ind modA J. Toilet Ind modA K. Tub/Shower Ind ADNO - Locomotion L. Walk/Wheelchair (C) Ind Dep L. Walk/Wheelchair (W) Ind Dep M. Stairs Ind ADNO - Communication N. Comprehension (B) Ind Ind O. Expression (B) Ind Ind - Social Cognition P. Social Interaction Ind Ind Q. Problem Solving Ind Ind R. Memory Ind Ind - Endurance Fair - Balance Fair - Safety Awareness Fair CURRENT FUNC. DEFICITS: Self-Care, Transfers Control, Locomotion, Endurance, Balance, and Safety Awareness THERAPY NOTES FROM ACUTE CARE: Attached. SPECIAL NEEDS: - Safety Concerns Skin breakdown precautions needed due to skin breakdown risk PRECAUTIONS: - Weight Bearing Precaution NWB left LE PATIENT NEEDS ACTIVE AND ONGOING THERAPEUTIC INTERVENTION OF MULTIPLE THERAPY DISCIPLINES, INCLUDING: - Orthotics/Prosthetics Prosthetic Evaluation. - Dietary and Nutrition Adequate Nutrition. Nutritional Education. Nutritional Supplements. PATIENT NEEDS CLOSE MEDICAL SUPERVISION BY A REHABILITATION PHYSICIAN FOR: Bowel and Bladder Management Coordination of Treatment Team Diabetes Management Medical and Co-Morbidity Management Wound Care PATIENT REQUIRES 24X7 REHAB NURSING FOR MEDICAL AND FUNCTIONAL MGT. OF THE FOLLOWING DEFICITS: ADL's Ambulation Bowel and Bladder Management Communication Disease Management Medication Management Patient/Family Education Providing Safe Environment Skin Integrity Transfers DVT Management Pain Management PATIENT REQUIRES INTENSIVE, COORDINATED INTERDISCIPLINARY APPROACH TO REHAB: Arranging Home Equipment/Services Discharge Planning Family Intervention/Training Pharmacovigilance Scientist/Case Management PATIENT REHAB POTENTIAL: Juan LA is able and expected to receive 3 hours of individualized therapy daily on at least 5 of cain ry 7 days Juan ROAs prognosis for significant practical improvement within a reasonable period of time appears Good Expected level of measurable improvement will be of a practical value to Juan LA's functional capaci ty or adaptations to impairments Has a viable Discharge Plan Medically appropriate; condition is sufficiently stable to participate in intensive rehab program DISCHARGE PLAN: - Estimated Length of Stay (days) 11. - Consensus on plan Discharge plan has been discussed with primary caregiver. Patient/Family is in agreement with the gomez n. Primary caregiver is in agreement with the plan. - Patient/Family Goals Return home with assistance. - Planned Living Setting Upon Discharge Home, to live with Family/Relatives. Transitional Living. RECOMMENDED CARE LEVEL: IRF RECOMMENDATION DETAILS: Recommended Admission to Comprehensive Rehabilitation Program to Increase Functional [place] PHYSICIANS REVIEW AND ADMISSION DETERMINATION Admit - Based on my review of the Pre-Admission Screening results, in my medical judgment and experie nce, I concur with the findings and recommend admission to [facility], as this patient requires an IRF level of care. SIGNATURE PANEL: Clinical Liaison - [electronically] signed by Perry Cook on 02/06/2019 at 11:29 (CDT) Physician Reviewer - [electronically] signed by Dr. Leydi Kapadia on 02/06/2019 at 11:48 (CDT)
--- OUTSIDE RECORDS SUMMARY | 2019-02-06 15:32 | XMS REPORT ---
:1930 [facility] Address [address] [place] [address] Dr. Hernandez [address] [place] [id number] Care Team Providers Name Role Phone Unavailable Unavailable Unavailable Problems This patient has no known problems. Allergies, Adverse Reactions, Alerts This patient has no known allergies or adverse reactions. Medications This patient has no known medications.
--- OUTSIDE RECORDS SUMMARY | 2019-02-06 15:32 | XMS REPORT | Continuity of Care Document ---
:1930 Author Organization [facility] Address [address] [place] [address] Phone Unavailable Care Team Providers Name Role Phone MONIK PALMER MD Primary Care Physician Insurance Providers Guarantor Mac La Address [address] [place] [address] Email NONE Payer Medicare Policy Number [id number] Subscriber's Name Mac La Relationship Self / Same As Patient Group Number NA Group Name NA Payer [employer] Policy Number [id number] Subscriber's Name Mac La Relationship Self / Same As Patient Group Number [id number] Group Name NA Advance Directives Directive Response Recorded Date/Time Advance Directive on File No 01/03/19 7:43am Name of Surrogate/Decision Maker SISTER-AVTAR VILLARHUNTER 01/03/19 7:16am WILD Patient/Family Given Education Y - KR...01/03/19 01/03/19 7:43am Material R/T Directives? Chief Complaint and Reason for Visit Chief Complaint DIABETIC FOOT ULCER Reason for Visit Chronic osteomyelitis Hypothyroid Atrial fibrillation HTN (hypertension) Urinary incontinence Constipation Arthritis Diabetes mellitus Depression Anxiety Problems Medical Problem Onset Date Status Anxiety Unknown Chronic Arthritis Unknown Chronic Atrial fibrillation Unknown Chronic Chronic osteomyelitis Unknown Constipation Unknown Chronic Depression Unknown Chronic Diabetes mellitus Unknown Chronic HTN (hypertension) Unknown Chronic Hypothyroid Unknown Chronic Urinary incontinence Unknown Chronic Medications Current Home Medications Medication Dose Units Route Directions Days Qty Instructions Start Date Acetaminophen 325 Mg ORAL Every 4 Hours (Tylenol 325 As Needed Mg*) 325 Mg Tab Amlodipine 10 Mg ORAL Daily 30 30 Tablet Besylate Days (Norvasc *) 10 Mg Tab Aspirin 81 Mg 81 Mg ORAL Daily for Cad 30 Tablet 01/07/ Chew 19 Atorvastatin 20 Mg ORAL Once Daily for 30 Tablet 01/07/ Calcium (Lipitor Hld 19 *) 20 Mg Tab Diphenhydramine 25 Mg ORAL Every 4 Hrs As Hcl (Benadryl Needed Cap *) 25 Mg Cap Docusate Sodium 1 Cap ORAL Daily for 30 30 Cap (Docusate Sodium Constipation Days 100 Mg (Colace) *) 100 Mg Cap Insulin Human 15 Units SUBCUTANEOU Every Evening 100 07/08/ Isoph/Insulin S for Diabetes Millilite 19 Regular (Novolin r 70/30 100 Units/Ml Insulin *) 100 Units/ Inj Insulin Human 20 Units SUBCUTANEOU Every Morning 100 /08/ Isoph/Insulin S for Diabetes Millilite 19 Regular (Novolin r 70/30 100 Units/Ml Insulin *) 100 Units/ Inj Insulin Human 0 Units SUBCUTANEOU Sliding Scale 100 check blood 01/07/ Regular (Humulin S Insulin as Millilite sugars ac/hs 19 R) 100 Unit/Ml needed for r and cover Inj Hyperglycemia with regular insulin sliding scale Losartan 50 Mg ORAL Once Daily for 30 Tablet 01/07/ Potassium Hypertension 19 (Cozaar 50 Mg *) 50 Mg Tab Magnesium 30 Ml ORAL Daily As Hydroxide (Milk Needed as Of Magnesia *) needed for 400 Mg/5 Ml Idania Constipation Pantoprazole 40 Mg ORAL Daily 30 60 Tablet Sodium (Protonix Days Ec *) 40 Mg Tab Past Home Medications Medication Directions Ordered Status Meropenem (Merrem 500 Mg *) 500 Mg Inj, 500 Mg Every 12 Hours Discontinued Intravenous Social History Smoking Status Start Date Stop Date Never smoker Hospital Discharge Instructions No hospital discharge instruction information available. Plan of Care Discharge Date 01/07/19 8:32pm Disposition DC[facility] Instructions/Education Provided Bone and Joint Infections, Adult Losartan tablets Living With Depression Hypertension, Dapv-[id number] Generalized Anxiety Disorder, Adult Atorvastatin tablets Regular Insulin injection Type 2 Diabetes Mellitus, Diagnosis, Adult, [id number]-[id number] Forms Provided Portal Welcome Letter Prescriptions See Medication Section Additional Instructions/Education Notify Dr. Garcia if patient develops a fever Functional Status No functional status information available. Allergies, Adverse Reactions, Alerts Allergen Type Severity Reaction Status Last Updated Iodine ([id number]) Allergy Severe SWELLING Active 01/03/19 Penicillins ([id number]) Allergy Unknown Active 01/03/19 Immunizations No immunization information available. Vital Signs Acute Vital Signs Vital Response Date/Time Blood Pressure 165/71 mm Hg 01/07/2019 11:23am Pulse Pulse Rate (adult) 88 beats per minute (60 - 100) 01/07/2019 11:23am Respiratory Rate 18 breaths per minute (10 - 24) 01/07/2019 11:23am Temperature Source Oral 01/07/2019 11:23am Results Laboratory Results Test Name Result Units Flags Reference Collection Result Comments Date/Time Date/Time White Blood Count 7.2 K/ul 4.0-11.5 01/07/2019 01/07/2019 2:45am 4:55am Red Blood Count 3.93 M/ul 3.80-5.20 01/07/2019 01/07/2019 2:45am 4:55am Hemoglobin 11.1 g/dL 10.5-15.7 01/07/2019 01/07/2019 2:45am 4:55am Hematocrit 34.9 % 34.0-50.0 01/07/2019 01/07/2019 2:45am 4:55am Mean Corpuscular 88.8 fl 86-100 01/07/2019 01/07/2019 Volume 2:45am 4:55am Mean Corpuscular 28.2 pg 26.2-33.4 01/07/2019 01/07/2019 Hemoglobin 2:45am 4:55am Mean Corpuscular 31.8 g/dL 30-34 01/07/2019 01/07/2019 Hemoglobin Concent 2:45am 4:55am Red Cell 11.8 % L 12.0-15.5 01/07/2019 01/07/2019 Distribution Width 2:45am 4:55am Platelet Count 181 K/uL 165-450 01/07/2019 01/07/2019 2:45am 4:55am Mean Platelet 12.9 fL H 9.4-12.6 01/07/2019 01/07/2019 Volume 2:45am 4:55am Neutrophils (%) 69.1 % 44.4-80.1 01/07/2019 01/07/2019 (Auto) 2:45am 4:55am Immature 0.4 % 0.0-0.4 01/07/2019 01/07/2019 Granulocyte % 2:45am 4:55am (Auto) Lymphocytes (%) 18.6 % 10.0-50.0 01/07/2019 01/07/2019 (Auto) 2:45am 4:55am Monocytes (%) 9.5 % 3.6-12.0 01/07/2019 01/07/2019 (Auto) 2:45am 4:55am Eosinophils (%) 2.1 % 0.0-5.4 01/07/2019 01/07/2019 (Auto) 2:45am 4:55am Basophils (%) 0.3 % 0.1-1.2 01/07/2019 01/07/2019 (Auto) 2:45am 4:55am Neutrophils # 4.94 K/uL 1.56-6.13 01/07/2019 01/07/2019 (Auto) 2:45am 4:55am Absolute Immature 0.0 K/uL 0.0-0.03 01/07/2019 01/07/2019 Granulocyte (auto 2:45am 4:55am Lymphocytes # 1.3 K/uL 1.18-3.74 01/07/2019 01/07/2019 (Auto) 2:45am 4:55am Monocytes # (Auto) 0.68 K/uL 0.24-0.86 01/07/2019 01/07/2019 2:45am 4:55am Eosinophils # 0.15 K/uL 0.04-0.36 01/07/2019 01/07/2019 (Auto) 2:45am 4:55am Basophils # (Auto) 0.02 K/uL 0.01-0.08 01/07/2019 01/07/2019 2:45am 4:55am Nucleated Red 0 /100 WBC 0-0.2 01/07/2019 01/07/2019 Blood Cells % 2:45am 4:55am Nucleated Red 0 K/uL 0 01/07/2019 01/07/2019 Blood Cells # 2:45am 4:55am Erythrocyte 41 mm/hr H 0.00-20 01/03/2019 01/03/2019 Sedimentation Rate 8:48am 9:04am Prothrombin Time 10.3 SECONDS 10.3-12.3 01/04/2019 01/04/2019 3:23am 4:39am THERAPEUTIC LEVEL: 1.5 to 1.9 times normal range of PT Prothromb Time 0.93 01/04/2019 01/04/2019 International 3:23am 4:39am Recommended therapeutic range for patients receiving Ratio warfarin (coumadin) therapy: INR is 2.0 to 3.0 Recommended range for patients with mechanical prosthetic heart valves: INR is 2.5 to 3.5 POC Capillary 243 mg/dL H 70.0 - 110 01/07/2019 01/07/2019 Blood Glucose 11:25am 11:26am (Chem) Random Glucose 264 mg/dL H 82-115 01/07/2019 01/07/2019 2:45am 5:26am Blood Urea 17 mg/dL 8-23 01/07/2019 01/07/2019 Nitrogen 2:45am 5:26am Serum Osmolality 292 280-300 01/07/2019 01/07/2019 2:45am 5:26am Creatinine 0.7 mg/dL 0.50-0.90 01/07/2019 01/07/2019 2:45am 5:26am Glomerular > 60.00 01/07/2019 01/07/2019 GFR RESULTS ARE REPORTED IN mL/min/1.73m2. Filtration Rate 2:45am 5:26am Calc Normal GFR: >60mL/min Moderately decreased GFR: 30-59 mL/min Severely decreased GFR: 15-29 mL/min Kidney Failure (or Dialysis): <15 mL/min The calculated eGFR is not valid for patients younger than 18 years or older than 75 years. BUN/Creatinine 24.3 H 12-20 01/07/2019 01/07/2019 Ratio 2:45am 5:26am Sodium Level 141 mmol/L 135-145 01/07/2019 01/07/2019 2:45am 5:26am Potassium Level 4.5 mmol/L 3.5-5.2 01/07/2019 01/07/2019 2:45am 5:26am Chloride Level 105 mmol/L 98-108 01/07/2019 01/07/2019 2:45am 5:26am Carbon Dioxide 26 mmol/L 21-32 01/07/2019 01/07/2019 Level 2:45am 5:26am Anion Gap 14.5 mEq/L 12-20 01/07/2019 01/07/2019 2:45am 5:26am Calcium Level 9.0 mg/dL 8.8-10.2 01/07/2019 01/07/2019 2:45am 5:26am Total Protein 6.7 g/dL 6.6-8.7 01/07/2019 01/07/2019 2:45am 5:26am Albumin 3.6 g/dL 3.5-5.2 01/07/2019 01/07/2019 2:45am 5:26am Globulin 3.1 gm/dL 01/07/2019 01/07/2019 2:45am 5:26am Albumin/Globulin 1.2 >1.0 01/07/2019 01/07/2019 Ratio 2:45am 5:26am Total Bilirubin 0.5 mg/dL 0.0-1.2 01/07/2019 01/07/2019 2:45am 5:26am Aspartate Amino 16 U/L 15-32 01/07/2019 01/07/2019 Transf (AST/SGOT) 2:45am 5:26am Alanine 12 U/L 0-33 01/07/2019 01/07/2019 Aminotransferase 2:45am 5:26am (ALT/SGPT) Hemoglobin A1c 8.3 % H 4.0-6.0 01/03/2019 01/03/2019 8:48am 9:47am MF-Eaz-W-Type 80 pg/mL 0-450 01/03/2019 01/03/2019 Natriuretic 8:48am 9:48am Peptide Total Alkaline 128 U/L H 35-105 01/07/2019 01/07/2019 Phosphatase 2:45am 5:26am Cholesterol Level 229 mg/dL H 150-200 01/03/2019 01/03/2019 8:48am 10:26am Triglycerides 137 mg/dL <150 01/03/2019 01/03/2019 Level 8:48am 10:26am HDL Cholesterol 53 mg/dL L >65 01/03/2019 01/03/2019 HDL EXPECTED VALUES : 8:48am 10:26am FEMALES: >65 mg/dL NO RISK 45-65 mg/dL MODERATE RISK <45 mg/dL HIGH RISK MALES: >55 mg/dL NO RISK 35-55 mg/dL MODERATE RISK <35 mg/dL HIGH RISK LDL Cholesterol 180 mg/dL H <100 01/03/2019 01/03/2019 LDL Expected Values: 8:48am 10:26am Optimal <100 mg/dL Near optimal/above optimal 100-129 mg/dL Borderline high 130-159 mg/dL High 160-189 mg/dL Very high >190 mg/dL Coronary Heart 4.320 01/03/2019 01/03/2019 NATIONAL CHOLESTEROL GUIDELINES Disease Risk Ratio 8:48am 10:26am [facility] ([facility]) guidelines for classificaton, testing and management of cholesterol levels in adults over 20 years of age. This new classification creates three categories of risk for coronary heart disease, regardless of age or sex, according to total and LDL cholesterols levels: Based on total cholesterol level Desirable <200 mg/dl Borderline-high 200-239 mg/dl High >=240 mg/dl Based on cholesterol ratio CHD RISK CHOL/HDL RATIO MALE FEMALE 0.5 x Average 3.4 3.3 1.0 x Average 5.0 4.4 2.0 x Average 9.6 7.1 3.0 x Average 13.5 11.0 Thyroid 3.33 uIU/mL 0.36-3.74 01/03/2019 01/03/2019 Stimulating 8:48am 10:26am Hormone (TSH) Creatine Kinase 55 U/L 20-180 01/03/2019 01/03/2019 8:48am 9:48am Troponin I < 0.30 ng/mL 0.0-0.5 01/03/2019 01/03/2019 Published clinical studies have shown elevations of cTnI in 8:48am 9:48am patients with myocardial injury, as seen in unstable angina pectoris, cardiac contusions, and heart transplants. Elevations have also been seen in patients with rhabdomyolysis and polymyositis. Elevated troponin levels point to myocardial injury, but are not necessarily indicative of an ischemic mechanism. The term RI should be used when there is evidence of cardiac damage, as detected by marker proteins in a clinical setting consistent with myocardial ischemia. If the clinical circumstance suggests that an ischemic mechanism is unlikely, other causes of cardiac injury should be considered. For diagnostic purposes, the results should always be assessed in conjunction with the patient's medical history, clinical examination and other findings. Creatine Kinase MB 1.5 ng/ml 0.0-3.6 01/03/2019 01/03/2019 8:48am 9:48am DIAGNOSTIC CITERIA: CKMB CKMB RELATIVE INDEX SUGGESTIVE OF NON-AMI < or=5 N/A BURNS ZONE (INCONCLUSIVE) > 5 < or=4 SUGGESTIVE OF AMI >5 > 4 Procedures Procedure Status Date Provider(s) [facility] 5 YR+ W/O IMAGING Completed 12/25/18 LC BLACK DO US GUIDE VASCULAR ACCESS Completed 12/25/18 Partial First Ray Amputation Left [place].. Completed 01/04/19 JETHRO GARCIA DPFlora X-ray of chest, single view Completed 01/03/19 SAVANNAH BIANCHI MD X-ray of left foot, three views Completed 01/03/19 KHANH BEY THREAD SPINNER-C Magnetic resonance imaging of left foot Completed 01/04/19 KHANH BEY THREAD SPINNER-C without contrast X-ray of left foot, three views Completed 01/04/19 JETHRO GARCIA DPFlora Encounters Encounter Location Arrival/Admit Date Discharge/Depart Date Attending Provider Admitted [place] 01/04/19 12:27pm DAILY [facility], [facility] BRIA [facility] Registered [place] 12/25/18 8:32am LC BLACK [facility] DO Medical Ctr Recent Diagnosis Chronic osteomyelitis Hypothyroid Atrial fibrillation HTN (hypertension) Urinary incontinence Constipation Arthritis Diabetes mellitus Depression Anxiety
[2019-02-06] MEDS ORDERED: WATER FOR INJ,STERILE 10 ML IM PRN (15:34)
[2019-02-06] MEDS ORDERED: D50W 25 GM/50 ML SYRINGE IV PRN (15:34)
[2019-02-06] MEDS ORDERED: ZINC OXIDE 20% OINTMENT 60gm TOP PRN (15:34)
[2019-02-06] MEDS ORDERED: ZIPRASIDONE MESYLA 20 MG/VIAL IM PRN (15:34)
[2019-02-06] MEDS ORDERED: GLUCAGON 1 MG/VIAL IM PRN (15:34)
[2019-02-06] MEDS: INSULIN -REGULAR HUMAN 50 UNIT/0.5 ML ML SQ SCH ×2 (17:13→21:00)
[2019-02-06] MEDS: PIPER/TAZO/NS 3.375gm 3.375 GM/100 ML BAG IVPB SCH (17:13)
[2019-02-06] MEDS: ATORVASTATIN 20 MG TAB PO SCH (20:15)
[2019-02-06] MEDS: DOCUSATE NA 100 MG CAP PO SCH (20:16)
[2019-02-06] MEDS ORDERED: ACETAMINOPHEN 325 MG TABLET PO SCH (21:00)
[2019-02-06 21:22] LABS: Urine Appearance CLEAR; Urine Bilirubin NEGATIVE (NEG); Urine Blood NEGATIVE (NEG); Urine Color YELLOW; Urine Glucose NEGATIVE (NEG); Urine Protein NEGATIVE (NEG); Urine Specific Gravity 1.025 (1.005-1.030); Urine Urobilinogen 0.2 mg/dL (0.2-1.0)
[2019-02-06 21:29] LABS: Urine Bacteria <20 /HPF (<20); Urine Culture Reflex Order NOT NEEDED; Urine RBC <5 /HPF (NONE SEEN)
[2019-02-07] MEDS: PIPER/TAZO/NS 3.375gm 3.375 GM/100 ML BAG IVPB SCH ×3 (00:48→16:36)
--- NOTE | 2019-02-07 03:41 | FAST ---
SHIFT START DATE/TIME: 02/06/2019 19:00 (CDT) SHIFT END DATE/TIME: 02/07/2019 07:00 (CDT) NAME MAC LA DATE OF : 1930 DATE OF ADMISSION: 02/06/2019 15:18 (CDT) PHONE: AGE: 88 SSN# [id number] GENDER: Female ENCOUNTER PHYSICIAN: Dr. Leydi Kapadia ADMISSION DIAGNOSIS: - Amputation of Limb 05 - Unilateral Lower Limb Below the Knee (BK) (05.4) Left Diabetic Foot Ulcer. EATING: Activity did not occur on this shift EATING - SCORE: 0-UNK GROOMING: Activity did not occur on this shift GROOMING - SCORE: 0-UNK BATHING: Activity did not occur on this shift BATHING - SCORE: 0-UNK DRESSING - UPPER BODY: Activity did not occur on this shift ARTICLES SCORE Total number of steps: 0 DRESSING - UPPER BODY - SCORE: 0-UNK DRESSING - LOWER BODY: Activity did not occur on this shift ARTICLES SCORE Total number of steps: 0 DRESSING - LOWER BODY - SCORE: 0-UNK TOILETING: TOILETING - SCORE: 0-UNK BLADDER MANAGEMENT: BLADDER MANAGEMENT - STEP 1: Does the patient control the bladder completely and intentionally without equipment or devices or med ications, and is always continent? No. BLADDER MANAGEMENT - STEP 2: Does the patient require the assistance of a helper? Yes. BLADDER MANAGEMENT - STEP 3: How much assistance does the patient require from the helper? Patient requires contact assistance fro m the helper BLADDER MANAGEMENT - STEP 4: How much contact assistance does the patient require from the helper? Patient requires minimal assist ance to maintain an external device - by positioning, and the patient performs 75% or more of bladder management tasks, while the helper provides less than 25% of the assistance to position patient on / off bedpan BLADDER MANAGEMENT - SCORE: 4-MIN BLADDER MANAGEMENT - FREQUENCY OF ACCIDENTS: BLADDER MANAGEMENT(FA) - STEP 1: How many accidents has the patient had during the current shift? 0 BOWEL MANAGEMENT: Activity did not occur on this shift BOWEL MANAGEMENT - SCORE: 7-IND BOWEL MANAGEMENT - FREQUENCY OF ACCIDENTS: BOWEL MANAGEMENT(FA) - STEP 1: How many accidents has the patient had during the current shift? 0 TRANSFERS: BED, CHAIR, WHEELCHAIR: TRANSFERS: BED, CHAIR, WHEELCHAIR - STEP 1: Does the patient require assistance of a person or device, or need extra time with bed, chair, or whe elchair transfers? Yes. TRANSFERS: BED, CHAIR, WHEELCHAIR - STEP 2: Does the patient require the assistance of a helper? Yes. TRANSFERS: BED, CHAIR, WHEELCHAIR - STEP 3: How much assistance does the patient require from the helper? Lifting of the legs TRANSFERS: BED, CHAIR, WHEELCHAIR - STEP 4: How many legs does the patient require the helper to lift? both legs TRANSFERS: BED, CHAIR, WHEELCHAIR - SCORE: 3-MOD TRANSFERS: TOILET: TRANSFERS: TOILET - STEP 1: Does the patient require the assistance of a person or device, or need extra time with toilet transfe rs? Yes. TRANSFERS: TOILET - STEP 2: Does the patient require the assistance of a helper? Yes. TRANSFERS: TOILET - STEP 3: How much assistance does the patient require from the helper? Patient performs half or more of the tr ansferring tasks TRANSFERS: TOILET - STEP 4: Does the patient need only incidental help such as contact guard or steadying during toilet transfer? No. Patient needs more than incidental help TRANSFERS: TOILET - SCORE: 3-MOD TRANSFERS: SHOWER: Activity did not occur on this shift TRANSFERS: SHOWER - SCORE: 0-UNK TRANSFERS: TUB: Activity did not occur on this shift TRANSFERS: TUB - SCORE: 0-UNK LOCOMOTION: WALK: Activity did not occur on this shift LOCOMOTION: WALK - SCORE: 0-UNK LOCOMOTION: WHEELCHAIR: Activity did not occur on this shift LOCOMOTION: WHEELCHAIR - SCORE: 0-UNK COMPREHENSION: COMPREHENSION: TYPE: Both COMPREHENSION - STEP 1: Does the patient require help from a person or device, or need extra time to understand complex and a bstract ideas (such as current events, finances, discharge planning, medical issues, relationships, e tc)? Yes. COMPREHENSION - STEP 2: Does the patient require help to understand questions or statements about basic needs or ideas (such as hunger, thirst, sleep, safety, daily schedule, room location, or discomfort) half or more of the t marshall? No. COMPREHENSION - STEP 3: How often does the patient need help to understand directions and conversation about basic needs? 10% - 24% of the time COMPREHENSION - SCORE: 4-MIN EXPRESSION EXPRESSION: TYPE: Both EXPRESSION - STEP 1: Does the patient require help from a person or device, or need extra time expressing complex and abst ract ideas (such as current events, finances, discharge planning, medical issues, relationships, etc) ? Yes. EXPRESSION - STEP 2: Does the patient require help to express basic necessities or ideas (such as hunger, thirst, sleep, s afety, daily schedule, room location, or discomfort) half or more of the time? No. EXPRESSION - STEP 3: How often does the patient need help to express directions and conversation about basic needs? Less t peña 10% of the time EXPRESSION - SCORE: 5-SUP SOCIAL INTERACTION: SOCIAL INTERACTION - STEP 1: Does the patient require a helper to interact with others in social and therapeutic situations? No. SOCIAL INTERACTION - STEP 2: Does the patient need extra time in social situations, OR does s/he interact with staff, other patien ts, and family members ONLY in structured environments, OR does s/he require medication for social in teraction? Yes, patient needs extra time SOCIAL INTERACTION - SCORE: 6-BETH PROBLEM SOLVING: PROBLEM SOLVING - STEP 1: Does the patient need help from a person or device, or need extra time to solve complex problems such as managing a checking account or confronting interpersonal problems? Yes. PROBLEM SOLVING - STEP 2: Does the patient solve basic routine problems half or more of the time? Yes. PROBLEM SOLVING - STEP 3: How often does the patient need help to solve basic routine problems? 10%-24% of the time PROBLEM SOLVING - SCORE: 4-MIN MEMORY: MEMORY - STEP 1: Does the patient need help from a person or device, or need extra time to remember frequently encount ered people, daily routines, and executing requests? Yes. MEMORY - STEP 2: How often does the patient need help to remember frequently encountered people, daily routines, and e xecuting requests? 25% - 49% of the time MEMORY - SCORE: 3-MOD SIGNATURE PANEL: The following modified sections: Eating - Score, Grooming - Score, Bathing - Score, Dressing - Upper Body - Score, Dressing - Lower Body - Score, Bladder Management - Score, Bowel Management - Score, Tr ansfers: Bed, Chair, Wheelchair - Score, Transfers: Toilet - Score, Transfers: Shower - Score, Transf ers: Tub - Score, Locomotion: Walk - Score, Locomotion: Wheelchair - Score, Comprehension - Score, Ex pression - Score, Social Interaction - Score, Problem Solving - Score, Memory - Score were [vilma [email or web address]] signed by Summer Martinez RN on MonFeb 07 2019 03:41:15 GMT-0500 (Central Daylight Time)
[2019-02-07] MEDS: ENOXAPARIN 40 MG/0.4 ML SQ SCH (06:26)
[2019-02-07] MEDS: PANTOPRAZOLE 40MG TABLET PO SCH (06:26)
[2019-02-07] MEDS: LEVOTHYROXINE SOD 0.05 MG TABLET PO SCH (06:26)
[2019-02-07 06:40] LABS: Absolute Lymphocytes (CBC) 1.3 K/uL (0.7-4.9); Basophils % 0.9 % (0-1.3); Hematocrit 34.8 % (36.0-45.0); Lymphocytes % 19.3 % (15.3-44.8); MPV 10.8 fL (7.6-11.3); RBC Red Blood Cell Count 3.84 M/uL (3.86-4.86)
[2019-02-07] MEDS: INSULIN -REGULAR HUMAN 50 UNIT/0.5 ML ML SQ SCH ×4 (06:43→21:00)
[2019-02-07 06:58] LABS: Albumin 3.3 g/dL (3.4-5.0); Magnesium 2.3 mg/dL (1.8-2.4); Potassium 3.8 mmol/L (3.5-5.1)
[2019-02-07] MEDS: LOSARTAN POTASSIUM 50 MG TABLET PO SCH (07:16)
[2019-02-07] MEDS: DOCUSATE NA 100 MG CAP PO SCH ×2 (08:55→20:00)
[2019-02-07] MEDS: ASPIRIN 81 MG CHEWABLE TABLET PO SCH (08:55)
[2019-02-07] MEDS: AMLODIPINE 5 MG TAB PO SCH (08:55)
[2019-02-07] MEDS: FUROSEMIDE 20 MG TABLET PO SCH (08:56)
[2019-02-07] MEDS: NPH (HUMAN) 100 UNITS/ML INSULIN SQ SCH (09:00)
--- NOTE | 2019-02-07 10:14 | P.RH.PN ---
Estimated Length of Stay: 12 Expected Discharge Date: 02/17/19 Discharge Disposition Plan[facility] Family Support: No Dinkey Brakeman Goal: Mobility Vital Signs: Last Vital Signs Temp 96.8 F 02/07/19 07:09 Pulse 59 02/07/19 08:56 Resp 16 02/07/19 07:09 BP 181/85 H 02/07/19 08:56 Pulse Ox 98 02/07/19 07:09 Laboratory: Laboratory Last Values WBC 6.5 K/uL (4.3-10.9) 02/07/19 06:15 RBC 3.84 M/uL (3.86-4.86) L 02/07/19 06:15 Hgb 11.5 g/dL (12.0-15.0) L 02/07/19 06:15 Hct 34.8 % (36.0-45.0) L 02/07/19 06:15 MCV 90.7 fL (80-100) 02/07/19 06:15 MCH 30.1 pg (27.0-35.0) 02/07/19 06:15 MCHC 33.2 g/dL (32.0-36.0) 02/07/19 06:15 RDW 13.1 % (12.1-15.2) 02/07/19 06:15 Plt Count 181 K/uL (152-406) 02/07/19 06:15 MPV 10.8 fL (7.6-11.3) 02/07/19 06:15 Neutrophils % 64.1 % (41.7-73.7) 02/07/19 06:15 Lymphocytes % 19.3 % (15.3-44.8) 02/07/19 06:15 Monocytes % 11.9 % (3.3-12.3) 02/07/19 06:15 Eosinophils % 3.8 % (0-4.4) 02/07/19 06:15 Basophils % 0.9 % (0-1.3) 02/07/19 06:15 Absolute Neutrophils 4.2 K/uL (1.8-8.0) 02/07/19 06:15 Absolute Lymphocytes 1.3 K/uL (0.7-4.9) 02/07/19 06:15 Absolute Monocytes 0.8 K/uL (0.1-1.3) 02/07/19 06:15 Absolute Eosinophils 0.2 K/uL (0-0.5) 02/07/19 06:15 Absolute Basophils 0.1 K/uL (0-0.5) 02/07/19 06:15 Sodium 144 mmol/L (136-145) 02/07/19 06:15 Potassium 3.8 mmol/L (3.5-5.1) 02/07/19 06:15 Chloride 110 mmol/L (98-107) H 02/07/19 06:15 Carbon Dioxide 30 mmol/L (21-32) 02/07/19 06:15 BUN 21 mg/dL (7-18) H 02/07/19 06:15 Creatinine 0.97 mg/dL (0.55-1.3) 02/07/19 06:15 Estimated GFR 54 mL/min (=/>90) L 02/07/19 06:15 Glucose 168 mg/dL (74-106) H 02/07/19 06:15 POC Glucose 194 mg/dl (65-120) H 02/07/19 06:31 Calcium 8.6 mg/dL (8.5-10.1) 02/07/19 06:15 Magnesium 2.3 mg/dL (1.8-2.4) 02/07/19 06:15 Albumin 3.3 g/dL (3.4-5.0) L 02/07/19 06:15 Prealbumin 17.0 mg/dL (20-40) L 02/07/19 06:15 Urine Color Yellow 02/06/19 19:40 Urine Appearance Clear 02/06/19 19:40 Urine pH 5.0 (5.0-7.0) 02/06/19 19:40 Ur Specific [place] 1.025 (1.005-1.030) 02/06/19 19:40 Urine Ketones Negative (NEG) 02/06/19 19:40 Urine Blood Negative (NEG) 02/06/19 19:40 Urine Nitrite Negative (NEG) 02/06/19 19:40 Urine Bilirubin Negative (NEG) 02/06/19 19:40 Urine Urobilinogen 0.2 mg/dL (0.2-1.0) 02/06/19 19:40 Ur Leukocyte Esterase 1+ (NEG) H 02/06/19 19:40 Urine RBC <5 /HPF (NONE SEEN) 02/06/19 19:40 Urine WBC 5-10 /HPF (<5) H 02/06/19 19:40 Ur Squamous Epith Cells 5-10 /HPF (NONE SEEN) H 02/06/19 19:40 Ur Urothelial Cells <5 /HPF (NONE SEEN) 02/06/19 19:40 Urine Bacteria <20 /HPF (<20) 02/06/19 19:40 Urine Culture Reflexed Not needed 02/06/19 19:40 Urine Glucose Negative (NEG) 02/06/19 19:40 Urine Total Protein Negative (NEG) 02/06/19 19:40 Vancomycin Trough 14.3 ug/mL (5.0-20.0) 02/07/19 06:15 Wound Present: Yes Closed Surgical Incision Present: Yes Negative Pressure Wound Therapy Present: No Physician Update: to evaluate today Summary: 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 Please see the Rehabilitation Signature page for all necessary signatures.
[2019-02-07] MEDS: SPIRONOLACTONE 25 MG TABLET PO SCH (10:34)
[2019-02-07] MEDS: VANCOMYCIN 1.5 GM in NA CHLORIDE 0.9% 500 ML IVPB SCH (10:35)
--- NOTE | 2019-02-07 11:47 | PAPE ---
PATIENT: [facility] MR# [id number] REFERRING DOCTOR Dr. Garcia EVALUATION DATE AND TIME 02/07/2019 11:44 (CDT) NAME MAC LA DATE OF 1930 AGE 88 PHONE N# [id number] GENDER female EVALUATING PHYSICIAN Dr. 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 PRE-ADMISSION FUNCTIONAL/MEDICAL STATUS: - Bladder accident frequency: 7-Ind - No accidents in the past 7 days - Bowel accident frequency: 7-Ind - No accidents in the past 7 days - Walking score based on distance walked: 0(N/A) - Wheelchair score based on distance traveled: 0(N/A) PATIENT NEEDS CLOSE MEDICAL SUPERVISION BY A REHABILITATION PHYSICIAN FOR: Bowel and Bladder Management Coordination of Treatment Team Diabetes Management Medical and Co-Morbidity Management Wound Care PATIENT REQUIRES 24X7 REHAB NURSING FOR MEDICAL AND FUNCTIONAL MGT. OF THE FOLLOWING DEFICITS: ADL's Ambulation Bowel and Bladder Management Communication Disease Management Medication Management Patient/Family Education Providing Safe Environment Skin Integrity Transfers DVT Management Pain Management PATIENT REQUIRES INTENSIVE, COORDINATED INTERDISCIPLINARY APPROACH TO REHAB: Arranging Home Equipment/Services Discharge Planning Family Intervention/Training Bus Repair Supervisor/Case Management LIST OF IDENTIFIED AND POTENTIAL PROBLEMS: Alteration in leisure activities Bladder, Incontinence Bowel, Incontinence Diabetes, Hyperglycemia/hypoglycemia Issues Fluid volume overload related to Congestive Heart Failure (CHF) Infection, Actual or Potential Mobility Impaired Pain, Alteration in Comfort Self Care Deficit Skin Integrity, Actual or Potential Urinary Tract Infection (UTI), Actual or Potential RISK FOR COMPLICATIONS - Atrial Fibrillation CVA. Heart failure. Limb embolus. - GERD Alteration in sleep. Aspiration. Dehydration. Malnutrition. Pain. INTERVENTIONS - Atrial Fibrillation Anticoagulation. Medications. VS. - GERD Altered diet. Elevation of head of bed. Medications. Nausea/vomiting. Nighttime food/fluid restrictio ns. Nutrition. PATIENT COULD BE AT RISK FOR COMPLICATIONS FROM ADVERSE MEDICAL CONDITIONS DUE TO HIS/HER COMORBIDITI ES AND THE RIGORS OF THE INTENSIVE REHABILLITATION PROGRAM. METHODS OR INTERVENTIONS TO AVOID COMPLIC ATIONS INCLUDE: - Bleeding Assess lab values and manage abnormalities. Nursing to teach precautions for anti-coagulation therapy . Wound to be assessed every shift. - Infection Clinical staff to assess and manage the signs and symptoms of infection including fever, redness, war mth, etc. - Urinary Tract Infection - Falls Patient will be evaluated for Fall Precautions and will be placed on Fall Precautions as indicated pe r protocol. - Skin Breakdown Nursing will assess skin daily using assessment tool and will place on Skin Breakdown Precautions as indicated per protocol. - Pain Clinical staff may employ non-medication methods such as massage, distraction, decrease stimulus, etc . as needed. Clinical staff will assess patient's pain level every shift per protocol to assess and e nsure pain management effectiveness. Medications will be given and the pain level re-assessed. PRELIMINARY PLAN OF CARE: - Physical Therapy Patient needs Physical Therapy for a daily minimum of 1.5 hours at least 5 out of 7 days, to improve: Mobility, Strengthening, Transfers, Stretching, ROM, Endurance, Ability to manage stairs, Gait, and Balance. - Speech Therapy Patient needs Speech Therapy for a daily minimum of 1 hours at least 5 out of 7 days, to improve: Swa llowing, Cognition, Language Skills, and Compensatory Strategies. - Rehabilitation Nursing Patient requires 24x7 Rehabilitation Nursing for: Pain Issues, Identifying and preventing risk factor s, Monitoring and reporting current medical conditions, Assisting with ambulation and transfer, [place] ting with all ADL-s, Teaching patients about disease process and medications, Family teaching, Provid ing safe environment, Bowel and Bladder Issues, Skin Integrity, and Medication Management. Patient needs Bus Repair Supervisor and/or Case Management for: Discharge Planning, Arranging Home Equipmen t or Services, and Family Interventions. - Dietary and Nutrition Services Patient needs Dietary and Nutrition Services for: Adequate Nutrition, Nutritional Supplements, and Nu tritional Education. - Occupational Therapy Patient needs Occupational Therapy for a daily minimum of 1.5 hours at least 5 out of 7 days, to impr ove Activities of Daily Living, including: Eating, Grooming, Bathing, Dressing, Toileting, Toilet Tra nsfers, Community Reintegration, Higher functional activities, Adaptive Equipment, Splinting, Househo ld Tasks, and Other activities as determined. POTENTIAL FUNCTIONAL GOALS FOR PATIENT TO ACHIEVE BY DISCHARGE: - Safety Precaution Patient will remain free from falls or injury at time of discharge. - Bed Mobility Patient will perform bed mobility at 4-Joanna level of assistance. - Transfers Patient will complete transfers from bed to chair at 4-Joanna level of assistance. - Mobility Patient will ambulate 150 ft with 4-Joanna level of assistance with RW. PATIENT REHAB POTENTIAL Juan LA is able and expected to receive 3 hours of individualized therapy daily on at least 5 of cain ry 7 days Juan LA's prognosis for significant practical improvement within a reasonable period of time appears Good Expected level of measurable improvement will be of a practical value to Juan LA's functional capaci ty or adaptations to impairments Has a viable Discharge Plan Medically appropriate; condition is sufficiently stable to participate in intensive rehab program DISCHARGE PLAN: - Estimated Length of Stay (days) 11. - Consensus on plan Discharge plan has been discussed with primary caregiver. Patient/Family is in agreement with the gomez n. Primary caregiver is in agreement with the plan. - Patient/Family Goals Return home with assistance. - Planned Living Setting Upon Discharge Home, to live with Family/Relatives. Transitional Living. CONCLUSION ON REHABILITATION NECESSITY: I have evaluated patient's pre-admission functional status and, comparing it to the patient's post-ad mission functional status now, I conclude that the pre-admission assessment was accurate. Patient's c ondition on admission supports the medical necessity of admission to [facility]. It is safe to proceed with patient's therapy program. SIGNATURE PANEL: (CDT)
--- NOTE | 2019-02-07 11:53 | R.HP ---
FACILITY: [facility] ENCOUNTER DATE AND TIME: 02/07/2019 11:50 (CDT) MR#: [id number] NAME MAC KARIMI ADDRESS: [address] [place] [address] [address] CITY: [place]IP [id number] PHONE: DATE OF : 1930 AGE: 88 SSN# [id number] GENDER: Female DEXTERITY Right-handed MARITAL STATUS RACE White PRE-HOSPITAL LIVING SETTING 01 - Home (private home/apt. board/care, assisted living, fci, transitional living) PRE-HOSPITAL LIVING WITH Alone ENCOUNTER PHYSICIAN: Dr. Leydi Kapadia REFERRING DOCTOR: Dr. Garcia DATE OF ADMISSION: 02/06/2019 15:18 (CDT) REFERRING FACILITY [facility] HOME TYPE AND DETAILS: Type of home: single family house # of steps within the residence: 0 # of levels in the residence: 1 # of steps to enter the residence: 0 ADMISSION DIAGNOSIS: Left Diabetic Foot Ulcer ONSET DATE: 01/04/2019 PRIMARY DIAGNOSIS-RELATED SURGERIES: Left First Ray Partial Amputation - performed by Dr. 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 is a 88 yo Right-handed white female. On 01/04/2019 she was admitted to [facility] with diagnosis Left Diabetic Foot Ulcer. Her impairment category is Amputation of Limb 05 - Unilateral Lower Limb Below the Knee (BK) (05.4). Pre-morbidly, Pt. was independent/mod-I in Self-Care, Sphincter Control, Transfers Control, Locomotio n, Communication, and Social Cognition; and she had good Sphincter Control. Currently, she has deficits of Self-Care, Transfers Control, Locomotion, Endurance, Balance, and Safe ty Awareness. Pt. is now referred to [facility] for acute in-patient rehabilitation in order to maximize patient's functional independence in activities of daily living, strength, ROM, and mobi lity. Patient has realistic goal of being discharged at assistance level 6-Latoya to reside at Home with Fam rosi/Relatives. Mac Karimi is an 88 old female that lives alone in a single alicia house. She was independent with self care and ADLs. On 01/04/2019, she had a diabetic foot ulcer and had an amputation of left great toe and treated at [facility]. She is now medically stable but in need of 24-hour nursing, doctor supervision and oversite while receivi ng active and ongoing intensive (PT, reasonably expected to participate in 3hours of therapy a day/15 hours per week and receive care with an intensive interdisciplinary approach. 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 SOCIAL HISTORY: - Home Living Alone REVIEW OF SYSTEMS: - Gen No Chills No Fatigue No Fever - Eyes No Double Vision No itchiness - ENMT No Difficulty Swallowing - CVS No Chest Discomfort No Chest Pain No Fatigue No Weight Gain - Resp No Cough No Shortness of Breath - GI Continent No Abdominal Pain No Constipation No Diarrhea - Continent No Kidney Pain No Painful Urination No Urinary Urgency - MSK No Joint Pain No Muscle Cramps No Stiffness - Skin No Itching No Rash No Suspicious Lesions - Neuro No Coordination Difficulty No Difficulty with Concentration No Memory Loss No Seizures No Weakness - Psych No Anxiety No Depression No HIV Exposure No Persistent Infections No Seasonal Allergies - Endo No Cold/Heat Intolerance No Excessive Hunger No Excessive Thirst No Excessive Urination PHYSICAL EXAM - Gen Alert and awake Lying in bed No apparent distress Oriented to: person, time, and place - Vital Signs Temperature: 97.3 F SBP/DBP: 159/57 Pulse: 68 Resp: 16 Vital signs stable, afebrile - CVS RRR VITAL SIGNS Temperature: 97.3 F SBP/DBP: 159/57 Pulse: 68 Resp: 16 Vital signs stable, afebrile NURSING: - Shower allowing shower - Lab Results blood Sugar Check ACHS - Skin care per protocol PRECAUTIONS: - Weight Bearing Precaution NWB left LE ACTIVITIES OOB only with supervision FUNCTIONAL STATUS: - Self-Care A. Eating Ind sup B. Grooming Ind sup C. Bathing Ind sup D. Dressing - Upper Ind sup E. Dressing - Lower Ind modA F. Toileting Ind modA - Sphincter Control G: Bladder control Ind Ind H: Bowel control Ind Ind - Transfers Control I. Bed/Chair/Wheelchair Ind modA J. Toilet Ind modA K. Tub/Shower Ind ADNO - Locomotion L. Walk/Wheelchair (C) Ind Dep L. Walk/Wheelchair (W) Ind Dep M. Stairs Ind ADNO - Communication N. Comprehension (B) Ind Ind O. Expression (B) Ind Ind - Social Cognition P. Social Interaction Ind Ind Q. Problem Solving Ind Ind R. Memory Ind Ind - Endurance Fair - Balance Fair - Safety Awareness Fair CURRENT FUNC. DEFICITS: Self-Care, Transfers Control, Locomotion, Endurance, Balance, and Safety Awareness MEDICATIONS: - Other See attached MAR (Medication Administration Record) Mac Karimi.pdf ASSESSMENT: Pt. is a 88 yo Right-handed white female.On 01/04/2019 she was admitted to [facility] with diag nosis Left Diabetic Foot Ulcer.Her impairment category is Amputation of Limb 05 - Unilateral Lower L imb Below the Knee (BK) (05.4).Pre-morbidly, Pt. was independent/mod-I in Self-Care, Sphincter Contro l, Transfers Control, Locomotion, Communication, and Social Cognition; and she had good Sphincter Con trol.Currently, she has deficits of Self-Care, Transfers Control, Locomotion, Endurance, Balance, and Safety Awareness.Pt. is now referred to [facility] for acute in-patient rehab ilitation in order to maximize patient's functional independence in activities of daily living, stren gth, ROM, and mobility.- Rehab Goal Patient has realistic goal of being discharged at assistance level 6-Latoya to reside at Home with Fam rosi/Relatives. Mac Karimi is an 88 old female that lives alone in a single alicia house. She was independent with self care and ADLs. On 01/04/2019, she had a diabetic foot ulcer and had an amputation of left great toe and treated at [facility]. She is now medically stable but in need of 24-hour nursing, doctor supervision and oversite while receivi ng active and ongoing intensive (PT, reasonably expected to participate in 3hours of therapy a day/15 hours per week and receive care with an intensive interdisciplinary approach.REHAB PLAN: - Physical Therapy Gait dysfunction - to improve, our physical therapists will perform initial evaluation of pt's status upon admission and devise an individualized program for Gait Training, and Wheel Chair mobility Inability to transfer - to improve, our physical therapists will perform initial evaluation of pt's s tatus upon admission and devise an individualized program for Bed mobility Need for home safety evaluation - to improve, our physical therapists will perform initial evaluation of pt's status upon admission and devise an individualized program for Home Evaluation Need in caregiver upon discharge - to improve, our physical therapists will perform initial evaluatio n of pt's status upon admission and devise an individualized program for Caregiver Training New precaution - to improve, our physical therapists will perform initial evaluation of pt's status u vivian admission and devise an individualized program for Patient precaution education Poor balance - to improve, our physical therapists will perform initial evaluation of pt's status upo n admission and devise an individualized program for Balance Training Poor endurance - to improve, our physical therapists will perform initial evaluation of pt's status u vivian admission and devise an individualized program for Endurance Training Weakness - to improve, our physical therapists will perform initial evaluation of pt's status upon ad mission and devise an individualized program for Aquatic Therapy, Neuromuscular Reeducation, and Stre ngthening Achieving independence - to improve, our physical therapists will perform initial evaluation of pt's status upon admission and devise an individualized program for Community Reintegration Activities - Occupational Therapy ADL deficits - to improve, our occupation therapists will perform initial evaluation of pt's status u vivian admission and devise an individualized program for Bathing, Bed mobility, Community Reintegration , Cooking, Dressing, Eating, Fine Motor Skills, Grooming, Homemaking, Kitchen Mobility, Laundry, Wendy ent Education, Safety Awareness, Splinting - Positioning, Transfers(Toilet, Tub, Shower), and Wheel C hair Management Need for respiratory care assistant - to improve, our occupation therapists will perform initial evaluation of pt's s tatus upon admission and devise an individualized program for Caregiver Training Weakness - to improve, our occupation therapists will perform initial evaluation of pt's status upon admission and devise an individualized program for Aquatic Therapy, Balance, Endurance, UE ROM, and U E strengthening MEDICAL PLAN: - Diet Type Start Regular - Diet - Liquid Texture Start Regular - Tube Feed Start N/A - Lab Results blood Sugar Check ACHS - Weight Bearing Precaution WBAT left LE NWB left LE - Skin care per protocol - Other See attached MAR (Medication Administration Record) See attached MAR (Medication Administration Record) Mac Karimi.pdf - N/A Perform Consult Certified Prosthetic for prosthesis construction - Diet - Solid Texture Regular - Shower shower DISCHARGE PLAN: - Estimated Length of Stay (days) 11. - Consensus on plan Discharge plan has been discussed with primary caregiver. Patient/Family is in agreement with the gomez n. Primary caregiver is in agreement with the plan. - Patient/Family Goals Return home with assistance. - Planned Living Setting Upon Discharge Home, to live with Family/Relatives. Transitional Living. SIGNATURE PANEL: (CDT)
[2019-02-07] MEDS ORDERED: ACETAMINOPHEN 325 MG TABLET PO PRN (12:07)
--- NOTE | 2019-02-07 16:49 | FAST ---
ENCOUNTER DATE AND TIME: 02/07/2019 08:00 (CDT) NAME MAC LA DATE OF : 1930 DATE OF ADMISSION: 02/06/2019 15:18 (CDT) PHONE: AGE: 88 SSN# [id number] GENDER: Female ENCOUNTER PHYSICIAN: Dr. Leydi Kapadia ADMISSION DIAGNOSIS: - Amputation of Limb 05 - Unilateral Lower Limb Below the Knee (BK) (05.4) Left Diabetic Foot Ulcer. EATING: Activity did not occur on this shift EATING - SCORE: 0-UNK GROOMING: Activity did not occur on this shift GROOMING - SCORE: 0-UNK BATHING: Activity did not occur on this shift BATHING - SCORE: 0-UNK DRESSING - UPPER BODY: Activity did not occur on this shift Patient is not dressing in public clothing ARTICLES SCORE Total number of steps: 0 DRESSING - UPPER BODY - SCORE: 0-UNK DRESSING - LOWER BODY: Activity did not occur on this shift Patient is not dressing in public clothing ARTICLES SCORE Total number of steps: 0 DRESSING - LOWER BODY - SCORE: 0-UNK TOILETING: Activity did not occur on this shift TOILETING - SCORE: 0-UNK BLADDER MANAGEMENT: Activity did not occur on this shift BLADDER MANAGEMENT - SCORE: 7-IND BOWEL MANAGEMENT: Activity did not occur on this shift BOWEL MANAGEMENT - SCORE: 7-IND TRANSFERS: BED, CHAIR, WHEELCHAIR: TRANSFERS: BED, CHAIR, WHEELCHAIR - STEP 1: Does the patient require assistance of a person or device, or need extra time with bed, chair, or whe elchair transfers? Yes. TRANSFERS: BED, CHAIR, WHEELCHAIR - STEP 2: Does the patient require the assistance of a helper? Yes. TRANSFERS: BED, CHAIR, WHEELCHAIR - STEP 3: How much assistance does the patient require from the helper? Lifting of the patient TRANSFERS: BED, CHAIR, WHEELCHAIR - STEP 4: Does the helper lift the patient ONLY up? ONLY down? Up AND Down? Up AND Down. TRANSFERS: BED, CHAIR, WHEELCHAIR - SCORE: 2-MAX TRANSFERS: TOILET: Activity did not occur on this shift TRANSFERS: TOILET - SCORE: 0-UNK TRANSFERS: SHOWER: Activity did not occur on this shift TRANSFERS: SHOWER - SCORE: 0-UNK TRANSFERS: TUB: Activity did not occur on this shift TRANSFERS: TUB - SCORE: 0-UNK LOCOMOTION: WALK: Activity did not occur on this shift LOCOMOTION: WALK - SCORE: 0-UNK LOCOMOTION: WHEELCHAIR: Patient propels wheelchair less than 50 ft LOCOMOTION: WHEELCHAIR - SCORE: 1-DEP LOCOMOTION: STAIRS: Activity did not occur on this shift LOCOMOTION: STAIRS - SCORE: 0-UNK COMPREHENSION: COMPREHENSION - SCORE: 0-UNK EXPRESSION EXPRESSION - SCORE: 0-UNK SOCIAL INTERACTION: SOCIAL INTERACTION - SCORE: 0-UNK PROBLEM SOLVING: PROBLEM SOLVING - SCORE: 0-UNK MEMORY: MEMORY - SCORE: 0-UNK SIGNATURE PANEL: The following modified sections: Transfers: Bed, Chair, Wheelchair - Score, Transfers: Toilet - Score , Locomotion: Walk - Score, Locomotion: Wheelchair - Score, Locomotion: Stairs - Score were [electron paula] signed by Bruce Jensen, PT on MonFeb 07 2019 16:48:01 T-0500 (Central Daylight Time)
[2019-02-07] MEDS: CRANBERRY FRUIT EXTRACT 200 MG CAP PO SCH (20:30)
[2019-02-07] MEDS: PROMOD 30 ML DOSE PO SCH (20:30)
[2019-02-07] MEDS: ATORVASTATIN 20 MG TAB PO SCH (20:30)
[2019-02-08] MEDS: PIPER/TAZO/NS 3.375gm 3.375 GM/100 ML BAG IVPB SCH ×3 (00:58→17:31)
--- NOTE | 2019-02-08 03:34 | FAST ---
SHIFT START DATE/TIME: 02/07/2019 19:00 (CDT) SHIFT END DATE/TIME: 02/08/2019 07:00 (CDT) NAME MAC LA DATE OF : 1930 DATE OF ADMISSION: 02/06/2019 15:18 (CDT) PHONE: AGE: 88 SSN# [id number] GENDER: Female ENCOUNTER PHYSICIAN: Dr. Leydi Kapadia ADMISSION DIAGNOSIS: - Amputation of Limb 05 - Unilateral Lower Limb Below the Knee (BK) (05.4) Left Diabetic Foot Ulcer. EATING: Activity did not occur on this shift EATING - SCORE: 0-UNK GROOMING: Activity did not occur on this shift GROOMING - SCORE: 0-UNK BATHING: Activity did not occur on this shift BATHING - SCORE: 0-UNK DRESSING - UPPER BODY: Activity did not occur on this shift ARTICLES SCORE Total number of steps: 0 DRESSING - UPPER BODY - SCORE: 0-UNK DRESSING - LOWER BODY: Activity did not occur on this shift ARTICLES SCORE Total number of steps: 0 DRESSING - LOWER BODY - SCORE: 0-UNK TOILETING: TOILETING - SCORE: 0-UNK BLADDER MANAGEMENT: BLADDER MANAGEMENT - STEP 1: Does the patient control the bladder completely and intentionally without equipment or devices or med ications, and is always continent? No. BLADDER MANAGEMENT - STEP 2: Does the patient require the assistance of a helper? Yes. BLADDER MANAGEMENT - STEP 3: How much assistance does the patient require from the helper? Only set-up of equipment - such as plac ing it within reach of the patient or emptying a device - to maintain either satisfactory voiding pat tern or managing an external device, such as an absorbent pad, ileal device, or catheter BLADDER MANAGEMENT - SCORE: 5-SUP BLADDER MANAGEMENT - FREQUENCY OF ACCIDENTS: BLADDER MANAGEMENT(FA) - STEP 1: How many accidents has the patient had during the current shift? 0 BOWEL MANAGEMENT: BOWEL MANAGEMENT - STEP 1: Does the patient control bowels completely and intentionally without equipment devices or medications AND is always continent? No. BOWEL MANAGEMENT - STEP 2: Does the patient require the assistance of a helper? Yes. BOWEL MANAGEMENT - STEP 3: How much assistance does the patient require from the helper? Patient requires supervision, stand by, cueing, coaxing, or setup of equipment - placing within reach of patient and emptying device / bedpa nd or BSC bucket - to maintain either satisfactory bowel pattern or managing an external device such as an absorbent pad, colostomy bag / ileostomy bag BOWEL MANAGEMENT - SCORE: 5-SUP BOWEL MANAGEMENT - FREQUENCY OF ACCIDENTS: BOWEL MANAGEMENT(FA) - STEP 1: How many accidents has the patient had during the current shift? 0 TRANSFERS: BED, CHAIR, WHEELCHAIR: TRANSFERS: BED, CHAIR, WHEELCHAIR - STEP 1: Does the patient require assistance of a person or device, or need extra time with bed, chair, or whe elchair transfers? Yes. TRANSFERS: BED, CHAIR, WHEELCHAIR - STEP 2: Does the patient require the assistance of a helper? Yes. TRANSFERS: BED, CHAIR, WHEELCHAIR - STEP 3: How much assistance does the patient require from the helper? Lifting of the legs TRANSFERS: BED, CHAIR, WHEELCHAIR - STEP 4: How many legs does the patient require the helper to lift? both legs TRANSFERS: BED, CHAIR, WHEELCHAIR - SCORE: 3-MOD TRANSFERS: TOILET: TRANSFERS: TOILET - STEP 1: Does the patient require the assistance of a person or device, or need extra time with toilet transfe rs? Yes. TRANSFERS: TOILET - STEP 2: Does the patient require the assistance of a helper? Yes. TRANSFERS: TOILET - STEP 3: How much assistance does the patient require from the helper? Patient performs half or more of the tr ansferring tasks TRANSFERS: TOILET - STEP 4: Does the patient need only incidental help such as contact guard or steadying during toilet transfer? No. Patient needs more than incidental help TRANSFERS: TOILET - SCORE: 3-MOD TRANSFERS: SHOWER: Activity did not occur on this shift TRANSFERS: SHOWER - SCORE: 0-UNK TRANSFERS: TUB: Activity did not occur on this shift TRANSFERS: TUB - SCORE: 0-UNK LOCOMOTION: WALK: Activity did not occur on this shift LOCOMOTION: WALK - SCORE: 0-UNK LOCOMOTION: WHEELCHAIR: Activity did not occur on this shift LOCOMOTION: WHEELCHAIR - SCORE: 0-UNK COMPREHENSION: COMPREHENSION: TYPE: Both COMPREHENSION - STEP 1: Does the patient require help from a person or device, or need extra time to understand complex and a bstract ideas (such as current events, finances, discharge planning, medical issues, relationships, e tc)? Yes. COMPREHENSION - STEP 2: Does the patient require help to understand questions or statements about basic needs or ideas (such as hunger, thirst, sleep, safety, daily schedule, room location, or discomfort) half or more of the t marshall? No. COMPREHENSION - STEP 3: How often does the patient need help to understand directions and conversation about basic needs? Les s than 10% of the time COMPREHENSION - SCORE: 5-SUP EXPRESSION EXPRESSION: TYPE: Both EXPRESSION - STEP 1: Does the patient require help from a person or device, or need extra time expressing complex and abst ract ideas (such as current events, finances, discharge planning, medical issues, relationships, etc) ? Yes. EXPRESSION - STEP 2: Does the patient require help to express basic necessities or ideas (such as hunger, thirst, sleep, s afety, daily schedule, room location, or discomfort) half or more of the time? No. EXPRESSION - STEP 3: How often does the patient need help to express directions and conversation about basic needs? Less t peña 10% of the time EXPRESSION - SCORE: 5-SUP SOCIAL INTERACTION: SOCIAL INTERACTION - STEP 1: Does the patient require a helper to interact with others in social and therapeutic situations? Yes. SOCIAL INTERACTION - STEP 2: Does the patient interact appropriately half or more of the time? Yes. SOCIAL INTERACTION - STEP 3: How often does the patient need help to interact appropriately? Less than 10% of the time SOCIAL INTERACTION - SCORE: 5-SUP PROBLEM SOLVING: PROBLEM SOLVING - STEP 1: Does the patient need help from a person or device, or need extra time to solve complex problems such as managing a checking account or confronting interpersonal problems? Yes. PROBLEM SOLVING - STEP 2: Does the patient solve basic routine problems half or more of the time? Yes. PROBLEM SOLVING - STEP 3: How often does the patient need help to solve basic routine problems? Less than 10% of the time PROBLEM SOLVING - SCORE: 5-SUP MEMORY: MEMORY - STEP 1: Does the patient need help from a person or device, or need extra time to remember frequently encount ered people, daily routines, and executing requests? Yes. MEMORY - STEP 2: How often does the patient need help to remember frequently encountered people, daily routines, and e xecuting requests? 10% - 24% of the time MEMORY - SCORE: 4-MIN SIGNATURE PANEL: The following modified sections: Eating - Score, Grooming - Score, Bathing - Score, Dressing - Upper Body - Score, Dressing - Lower Body - Score, Bladder Management - Score, Bowel Management - Score, Tr ansfers: Bed, Chair, Wheelchair - Score, Transfers: Toilet - Score, Transfers: Shower - Score, Transf ers: Tub - Score, Locomotion: Walk - Score, Locomotion: Wheelchair - Score, Comprehension - Score, Ex pression - Score, Social Interaction - Score, Problem Solving - Score, Memory - Score were [vilma [email or web address]] signed by Summer Martinez RN on MonFeb 08 2019 03:33:48 GMT-0500 (Central Daylight Time)
[2019-02-08] MEDS: PANTOPRAZOLE 40MG TABLET PO SCH (06:49)
[2019-02-08] MEDS: LEVOTHYROXINE SOD 0.05 MG TABLET PO SCH (06:50)
[2019-02-08] MEDS: INSULIN -REGULAR HUMAN 50 UNIT/0.5 ML ML SQ SCH ×4 (07:30→21:12)
[2019-02-08] MEDS: ENOXAPARIN 40 MG/0.4 ML SQ SCH (08:19)
[2019-02-08] MEDS: NPH (HUMAN) 100 UNITS/ML INSULIN SQ SCH (08:19)
[2019-02-08] MEDS: FUROSEMIDE 20 MG TABLET PO SCH (08:21)
[2019-02-08] MEDS: ASPIRIN 81 MG CHEWABLE TABLET PO SCH (08:21)
[2019-02-08] MEDS: AMLODIPINE 5 MG TAB PO SCH (08:22)
[2019-02-08] MEDS: LOSARTAN POTASSIUM 50 MG TABLET PO SCH (08:23)
[2019-02-08] MEDS: SPIRONOLACTONE 25 MG TABLET PO SCH (08:23)
[2019-02-08] MEDS: DOCUSATE NA 100 MG CAP PO SCH ×2 (08:23→20:13)
[2019-02-08] MEDS: CRANBERRY FRUIT EXTRACT 200 MG CAP PO SCH ×2 (08:23→20:13)
[2019-02-08] MEDS: PROMOD 30 ML DOSE PO SCH ×2 (08:24→20:13)
[2019-02-08] MEDS: VANCOMYCIN 1.5 GM in NA CHLORIDE 0.9% 500 ML IVPB SCH (09:00)
--- NOTE | 2019-02-08 15:29 | FAST ---
ENCOUNTER DATE AND TIME: 02/08/2019 08:00 (CDT) NAME MAC LA DATE OF : 1930 DATE OF ADMISSION: 02/06/2019 15:18 (CDT) PHONE: AGE: 88 SSN# [id number] GENDER: Female ENCOUNTER PHYSICIAN: Dr. Leydi Kapadia ADMISSION DIAGNOSIS: - Amputation of Limb 05 - Unilateral Lower Limb Below the Knee (BK) (05.4) Left Diabetic Foot Ulcer. EATING: Activity did not occur on this shift EATING - SCORE: 0-UNK GROOMING: Activity did not occur on this shift GROOMING - SCORE: 0-UNK BATHING: Activity did not occur on this shift BATHING - SCORE: 0-UNK DRESSING - UPPER BODY: Activity did not occur on this shift Patient is not dressing in public clothing ARTICLES SCORE Total number of steps: 0 DRESSING - UPPER BODY - SCORE: 0-UNK DRESSING - LOWER BODY: Activity did not occur on this shift Patient is not dressing in public clothing ARTICLES SCORE Total number of steps: 0 DRESSING - LOWER BODY - SCORE: 0-UNK TOILETING: Activity did not occur on this shift TOILETING - SCORE: 0-UNK BLADDER MANAGEMENT: Activity did not occur on this shift BLADDER MANAGEMENT - SCORE: 7-IND BOWEL MANAGEMENT: Activity did not occur on this shift BOWEL MANAGEMENT - SCORE: 7-IND TRANSFERS: BED, CHAIR, WHEELCHAIR: TRANSFERS: BED, CHAIR, WHEELCHAIR - STEP 1: Does the patient require assistance of a person or device, or need extra time with bed, chair, or whe elchair transfers? Yes. TRANSFERS: BED, CHAIR, WHEELCHAIR - STEP 2: Does the patient require the assistance of a helper? Yes. TRANSFERS: BED, CHAIR, WHEELCHAIR - STEP 3: How much assistance does the patient require from the helper? Lifting of the legs TRANSFERS: BED, CHAIR, WHEELCHAIR - STEP 4: How many legs does the patient require the helper to lift? both legs TRANSFERS: BED, CHAIR, WHEELCHAIR - SCORE: 3-MOD TRANSFERS: TOILET: Activity did not occur on this shift TRANSFERS: TOILET - SCORE: 0-UNK TRANSFERS: SHOWER: Activity did not occur on this shift TRANSFERS: SHOWER - SCORE: 0-UNK TRANSFERS: TUB: Activity did not occur on this shift TRANSFERS: TUB - SCORE: 0-UNK LOCOMOTION: WALK: Activity did not occur on this shift LOCOMOTION: WALK - SCORE: 0-UNK LOCOMOTION: WHEELCHAIR: Activity did not occur on this shift LOCOMOTION: WHEELCHAIR - SCORE: 0-UNK LOCOMOTION: STAIRS: Activity did not occur on this shift LOCOMOTION: STAIRS - SCORE: 0-UNK COMPREHENSION: COMPREHENSION - SCORE: 0-UNK EXPRESSION EXPRESSION - SCORE: 0-UNK SOCIAL INTERACTION: SOCIAL INTERACTION - SCORE: 0-UNK PROBLEM SOLVING: PROBLEM SOLVING - SCORE: 0-UNK MEMORY: MEMORY - SCORE: 0-UNK SIGNATURE PANEL: The following modified sections: Transfers: Bed, Chair, Wheelchair - Score, Transfers: Toilet - Score , Locomotion: Walk - Score, Locomotion: Wheelchair - Score, Locomotion: Stairs - Score were [electron ically] signed by Michael Esteban PTA on MonFeb 08 2019 15:28:45 GMT-0500 (Central Daylight Time)
[2019-02-08] MEDS: ATORVASTATIN 20 MG TAB PO SCH (20:13)
[2019-02-09] MEDS: PIPER/TAZO/NS 3.375gm 3.375 GM/100 ML BAG IVPB SCH ×3 (00:45→17:06)
--- NOTE | 2019-02-09 02:23 | FAST ---
SHIFT START DATE/TIME: 02/08/2019 19:00 (CDT) SHIFT END DATE/TIME: 02/09/2019 07:00 (CDT) NAME MAC LA DATE OF : 1930 DATE OF ADMISSION: 02/06/2019 15:18 (CDT) PHONE: AGE: 88 SSN# [id number] GENDER: Female ENCOUNTER PHYSICIAN: Dr. Leydi Kapadia ADMISSION DIAGNOSIS: - Amputation of Limb 05 - Unilateral Lower Limb Below the Knee (BK) (05.4) Left Diabetic Foot Ulcer. EATING: Activity did not occur on this shift EATING - SCORE: 0-UNK GROOMING: Comb/brush hair Oral care Wash, rinse, and dry face Wash, rinse, and dry hands GROOMING - STEP 1: Does the patient require the assistance of a person or device, or need extra time when grooming? Yes. GROOMING - STEP 2: Does the patient require the assistance of a helper? Yes. GROOMING - STEP 3: How much assistance does the patient require from the helper? Steadying assistance from the helper GROOMING - SCORE: 4-MIN BATHING: Activity did not occur on this shift BATHING - SCORE: 0-UNK DRESSING - UPPER BODY: Patient is not dressing in public clothing ARTICLES SCORE Total number of steps: 0 DRESSING - UPPER BODY - SCORE: 0-UNK DRESSING - LOWER BODY: Patient is not dressing in public clothing ARTICLES SCORE Total number of steps: 0 DRESSING - LOWER BODY - SCORE: 0-UNK TOILETING: TOILETING - STEP 1: Does the patient require the assistance of a person or device, or need extra time with toileting? Yes . TOILETING - STEP 2: Does the patient require the assistance of a helper? Yes. TOILETING - STEP 3: How much assistance does the patient require from the helper? Hands-on assistance from the helper TOILETING - STEP 4: Of the 3 tasks: 1) Adjusting clothing prior to use, 2) Cleansing of perineal area, 3) Adjusting clot [place] after use; How many tasks does the patient perform WITHOUT assistance of the helper? Two tasks TOILETING - SCORE: 3-MOD BLADDER MANAGEMENT: BLADDER MANAGEMENT - STEP 1: Does the patient control the bladder completely and intentionally without equipment or devices or med ications, and is always continent? No. BLADDER MANAGEMENT - STEP 2: Does the patient require the assistance of a helper? Yes. BLADDER MANAGEMENT - STEP 3: How much assistance does the patient require from the helper? Patient requires contact assistance fro m the helper BLADDER MANAGEMENT - STEP 4: How much contact assistance does the patient require from the helper? Patient requires minimal assist ance to maintain an external device - by positioning, and the patient performs 75% or more of bladder management tasks, while the helper provides less than 25% of the assistance to position patient on / off bedpan BLADDER MANAGEMENT - SCORE: 4-MIN BOWEL MANAGEMENT: Activity did not occur on this shift BOWEL MANAGEMENT - SCORE: 7-IND TRANSFERS: BED, CHAIR, WHEELCHAIR: TRANSFERS: BED, CHAIR, WHEELCHAIR - STEP 1: Does the patient require assistance of a person or device, or need extra time with bed, chair, or whe elchair transfers? Yes. TRANSFERS: BED, CHAIR, WHEELCHAIR - STEP 2: Does the patient require the assistance of a helper? Yes. TRANSFERS: BED, CHAIR, WHEELCHAIR - STEP 3: How much assistance does the patient require from the helper? Lifting of the legs TRANSFERS: BED, CHAIR, WHEELCHAIR - STEP 4: How many legs does the patient require the helper to lift? both legs TRANSFERS: BED, CHAIR, WHEELCHAIR - SCORE: 3-MOD TRANSFERS: TOILET: TRANSFERS: TOILET - STEP 1: Does the patient require the assistance of a person or device, or need extra time with toilet transfe rs? Yes. TRANSFERS: TOILET - STEP 2: Does the patient require the assistance of a helper? Yes. TRANSFERS: TOILET - STEP 3: How much assistance does the patient require from the helper? Patient performs half or more of the tr ansferring tasks TRANSFERS: TOILET - STEP 4: Does the patient need only incidental help such as contact guard or steadying during toilet transfer? No. Patient needs more than incidental help TRANSFERS: TOILET - SCORE: 3-MOD TRANSFERS: SHOWER: Activity did not occur on this shift TRANSFERS: SHOWER - SCORE: 0-UNK TRANSFERS: TUB: Activity did not occur on this shift TRANSFERS: TUB - SCORE: 0-UNK LOCOMOTION: WALK: Activity did not occur on this shift LOCOMOTION: WALK - SCORE: 0-UNK LOCOMOTION: WHEELCHAIR: Activity did not occur on this shift LOCOMOTION: WHEELCHAIR - SCORE: 0-UNK COMPREHENSION: COMPREHENSION: TYPE: Both COMPREHENSION - STEP 1: Does the patient require help from a person or device, or need extra time to understand complex and a bstract ideas (such as current events, finances, discharge planning, medical issues, relationships, e tc)? Yes. COMPREHENSION - STEP 2: Does the patient require help to understand questions or statements about basic needs or ideas (such as hunger, thirst, sleep, safety, daily schedule, room location, or discomfort) half or more of the t marshall? No. COMPREHENSION - STEP 3: How often does the patient need help to understand directions and conversation about basic needs? Les s than 10% of the time COMPREHENSION - SCORE: 5-SUP EXPRESSION EXPRESSION: TYPE: Both EXPRESSION - STEP 1: Does the patient require help from a person or device, or need extra time expressing complex and abst ract ideas (such as current events, finances, discharge planning, medical issues, relationships, etc) ? Yes. EXPRESSION - STEP 2: Does the patient require help to express basic necessities or ideas (such as hunger, thirst, sleep, s afety, daily schedule, room location, or discomfort) half or more of the time? No. EXPRESSION - STEP 3: How often does the patient need help to express directions and conversation about basic needs? Less t peña 10% of the time EXPRESSION - SCORE: 5-SUP SOCIAL INTERACTION: SOCIAL INTERACTION - STEP 1: Does the patient require a helper to interact with others in social and therapeutic situations? Yes. SOCIAL INTERACTION - STEP 2: Does the patient interact appropriately half or more of the time? Yes. SOCIAL INTERACTION - STEP 3: How often does the patient need help to interact appropriately? Less than 10% of the time SOCIAL INTERACTION - SCORE: 5-SUP PROBLEM SOLVING: PROBLEM SOLVING - STEP 1: Does the patient need help from a person or device, or need extra time to solve complex problems such as managing a checking account or confronting interpersonal problems? Yes. PROBLEM SOLVING - STEP 2: Does the patient solve basic routine problems half or more of the time? Yes. PROBLEM SOLVING - STEP 3: How often does the patient need help to solve basic routine problems? Less than 10% of the time PROBLEM SOLVING - SCORE: 5-SUP MEMORY: MEMORY - STEP 1: Does the patient need help from a person or device, or need extra time to remember frequently encount ered people, daily routines, and executing requests? Yes. MEMORY - STEP 2: How often does the patient need help to remember frequently encountered people, daily routines, and e xecuting requests? 10% - 24% of the time MEMORY - SCORE: 4-MIN
[2019-02-09] MEDS: ENOXAPARIN 40 MG/0.4 ML SQ SCH (06:59)
[2019-02-09] MEDS: PANTOPRAZOLE 40MG TABLET PO SCH (07:00)
[2019-02-09] MEDS: LEVOTHYROXINE SOD 0.05 MG TABLET PO SCH (07:00)
[2019-02-09] MEDS: INSULIN -REGULAR HUMAN 50 UNIT/0.5 ML ML SQ SCH ×4 (08:23→21:00)
[2019-02-09] MEDS: CRANBERRY FRUIT EXTRACT 200 MG CAP PO SCH ×2 (08:24→21:33)
[2019-02-09] MEDS: NPH (HUMAN) 100 UNITS/ML INSULIN SQ SCH (08:24)
[2019-02-09] MEDS: SPIRONOLACTONE 25 MG TABLET PO SCH (08:24)
[2019-02-09] MEDS: ASPIRIN 81 MG CHEWABLE TABLET PO SCH (08:25)
[2019-02-09] MEDS: LOSARTAN POTASSIUM 50 MG TABLET PO SCH (08:25)
[2019-02-09] MEDS: FUROSEMIDE 20 MG TABLET PO SCH (08:25)
[2019-02-09] MEDS: AMLODIPINE 5 MG TAB PO SCH (08:25)
[2019-02-09] MEDS: DOCUSATE NA 100 MG CAP PO SCH ×2 (08:26→20:00)
[2019-02-09] MEDS: PROMOD 30 ML DOSE PO SCH ×2 (08:26→21:38)
--- NOTE | 2019-02-09 09:55 | FAST ---
ENCOUNTER DATE AND TIME: 02/07/2019 08:00 (CDT) NAME MAC LA DATE OF : 1930 DATE OF ADMISSION: 02/06/2019 15:18 (CDT) PHONE: AGE: 88 SSN# [id number] GENDER: Female ENCOUNTER PHYSICIAN: Dr. Leydi Kapadia ADMISSION DIAGNOSIS: - Amputation of Limb 05 - Unilateral Lower Limb Below the Knee (BK) (05.4) Left Diabetic Foot Ulcer. EATING: EATING - STEP 1: Does the patient require the assistance of a person or device, or need extra time when eating? Yes. EATING - STEP 2: Does the patient require the assistance of a helper? Yes. EATING - STEP 3: Does the patient perform half or more of the eating tasks? Yes. EATING - STEP 4: Does the patient need only supervision, cuing, coaxing OR help to apply an orthosis OR help to cut fo od, open containers, pour liquids, or butter bread? Yes. EATING - SCORE: 5-SUP GROOMING: Comb/brush hair Oral care Wash, rinse, and dry face Wash, rinse, and dry hands GROOMING - STEP 1: Does the patient require the assistance of a person or device, or need extra time when grooming? Yes. GROOMING - STEP 2: Does the patient require the assistance of a helper? No. The patient only requires an assistive devic e, OR takes more than reasonable time to groom, OR there is a concern for safety as the patient groom s GROOMING - SCORE: 6-BETH BATHING: Abdomen Buttocks Chest Left arm Left lower leg and foot Left upper leg Perineal area Right arm Right lower leg and foot Right upper leg BATHING - STEP 1: Does the patient require the assistance of a person or device, or need extra time when bathing? Yes. BATHING - STEP 2: Does the patient require the assistance of a helper? Yes. BATHING - STEP 3: How much assistance does the patient require from the helper? More than just incidental help BATHING - STEP 4: What percent of the body parts did the patient bathe WITHOUT the helper? Less than half of the body p arts BATHING - SCORE: 2-MAX DRESSING - UPPER BODY: T-shirt/pullover shirt (four steps) ARTICLES SCORE Total number of steps: 4 DRESSING - UPPER BODY - STEP 1: Does the patient require help from a person or device, or need extra time when dressing above the pilar st? Yes. DRESSING - UPPER BODY - STEP 2: Does the patient require the assistance of a helper? Yes. DRESSING - UPPER BODY - STEP 3: Does the helper touch the patient while dressing? No. DRESSING - UPPER BODY - SCORE: 5-SUP DRESSING - LOWER BODY: Slip-on shoe - Right foot (one step) Sock - Right foot (one step) Underwear (three steps) ARTICLES SCORE Total number of steps: 5 DRESSING - LOWER BODY - STEP 1: Does the patient require help from a person or device, or need extra time when dressing below the pilar st? Yes. DRESSING - LOWER BODY - STEP 2: Does the patient require the assistance of a helper? Yes. DRESSING - LOWER BODY - STEP 3: Does the helper touch the patient while dressing? Yes. DRESSING - LOWER BODY - STEP 4: How many of the total steps does the patient complete on his/her own? 0 DRESSING - LOWER BODY - STEP 5: Does patient require total assistance for dressing below the waist such as the helper holding clothin g and performing basically all the activities? Yes. DRESSING - LOWER BODY - SCORE: 1-DEP TOILETING: Activity did not occur on this shift TOILETING - SCORE: 0-UNK BLADDER MANAGEMENT: Activity did not occur on this shift BLADDER MANAGEMENT - SCORE: 7-IND BOWEL MANAGEMENT: Activity did not occur on this shift BOWEL MANAGEMENT - SCORE: 7-IND TRANSFERS: BED, CHAIR, WHEELCHAIR: Activity did not occur on this shift TRANSFERS: BED, CHAIR, WHEELCHAIR - SCORE: 0-UNK TRANSFERS: TOILET: Activity did not occur on this shift TRANSFERS: TOILET - SCORE: 0-UNK TRANSFERS: SHOWER: TRANSFERS: SHOWER - STEP 1: Does the patient require the assistance of a person or device, or need extra time with shower transfe rs? Yes. TRANSFERS: SHOWER - STEP 2: Does the patient require the assistance of a helper? Yes. TRANSFERS: SHOWER - STEP 3: How much assistance does the patient require from the helper? More than incidental help TRANSFERS: SHOWER - STEP 4: How much more help does the patient require from the helper? Lifting the patient either up OR down fr om the wheelchair onto the shower chair TRANSFERS: SHOWER - SCORE: 3-MOD TRANSFERS: TUB: Activity did not occur on this shift TRANSFERS: TUB - SCORE: 0-UNK LOCOMOTION: WALK: Activity did not occur on this shift LOCOMOTION: WALK - SCORE: 0-UNK LOCOMOTION: WHEELCHAIR: Activity did not occur on this shift LOCOMOTION: WHEELCHAIR - SCORE: 0-UNK LOCOMOTION: STAIRS: Activity did not occur on this shift LOCOMOTION: STAIRS - SCORE: 0-UNK COMPREHENSION: COMPREHENSION: TYPE: Both COMPREHENSION - STEP 1: Does the patient require help from a person or device, or need extra time to understand complex and a bstract ideas (such as current events, finances, discharge planning, medical issues, relationships, e tc)? Yes. COMPREHENSION - STEP 2: Does the patient require help to understand questions or statements about basic needs or ideas (such as hunger, thirst, sleep, safety, daily schedule, room location, or discomfort) half or more of the t marshall? No. COMPREHENSION - STEP 3: How often does the patient need help to understand directions and conversation about basic needs? 10% - 24% of the time COMPREHENSION - SCORE: 4-MIN EXPRESSION EXPRESSION: TYPE: Both EXPRESSION - STEP 1: Does the patient require help from a person or device, or need extra time expressing complex and abst ract ideas (such as current events, finances, discharge planning, medical issues, relationships, etc) ? Yes. EXPRESSION - STEP 2: Does the patient require help to express basic necessities or ideas (such as hunger, thirst, sleep, s afety, daily schedule, room location, or discomfort) half or more of the time? No. EXPRESSION - STEP 3: How often does the patient need help to express directions and conversation about basic needs? Less t peña 10% of the time EXPRESSION - SCORE: 5-SUP SOCIAL INTERACTION: SOCIAL INTERACTION - STEP 1: Does the patient require a helper to interact with others in social and therapeutic situations? Yes. SOCIAL INTERACTION - STEP 2: Does the patient interact appropriately half or more of the time? Yes. SOCIAL INTERACTION - STEP 3: How often does the patient need help to interact appropriately? Less than 10% of the time SOCIAL INTERACTION - SCORE: 5-SUP PROBLEM SOLVING: PROBLEM SOLVING - STEP 1: Does the patient need help from a person or device, or need extra time to solve complex problems such as managing a checking account or confronting interpersonal problems? Yes. PROBLEM SOLVING - STEP 2: Does the patient solve basic routine problems half or more of the time? Yes. PROBLEM SOLVING - STEP 3: How often does the patient need help to solve basic routine problems? 10%-24% of the time PROBLEM SOLVING - SCORE: 4-MIN MEMORY: MEMORY - STEP 1: Does the patient need help from a person or device, or need extra time to remember frequently encount ered people, daily routines, and executing requests? Yes. MEMORY - STEP 2: How often does the patient need help to remember frequently encountered people, daily routines, and e xecuting requests? 25% - 49% of the time MEMORY - SCORE: 3-MOD SIGNATURE PANEL: The following modified sections: Eating - Score, Grooming - Score, Bathing - Score, Dressing - Upper Body - Score, Dressing - Lower Body - Score, Toileting - Score, Transfers: Bed, Chair, Wheelchair - S core, Transfers: Toilet - Score, Transfers: Tub - Score, Transfers: Shower - Score, Comprehension - S core, Expression - Score, Social Interaction - Score, Problem Solving - Score, Memory - Score were [e lectronically] signed by Smita Sloan OT on MonFeb 09 2019 09:54:47 GMT-0500 ([facility] [place] T marshall)
--- NOTE | 2019-02-09 10:09 | FAST ---
SHIFT START DATE/TIME: 02/09/2019 07:00 (CDT) SHIFT END DATE/TIME: 02/09/2019 19:00 (CDT) NAME MAC LA DATE OF : 1930 DATE OF ADMISSION: 02/06/2019 15:18 (CDT) PHONE: AGE: 88 N# [id number] GENDER: Female ENCOUNTER PHYSICIAN: Dr. Leydi Kapadia ADMISSION DIAGNOSIS: - Amputation of Limb 05 - Unilateral Lower Limb Below the Knee (BK) (05.4) Left Diabetic Foot Ulcer. EATING: EATING - STEP 1: Does the patient require the assistance of a person or device, or need extra time when eating? Yes. EATING - STEP 2: Does the patient require the assistance of a helper? Yes. EATING - STEP 3: Does the patient perform half or more of the eating tasks? Yes. EATING - STEP 4: Does the patient need only supervision, cuing, coaxing OR help to apply an orthosis OR help to cut fo od, open containers, pour liquids, or butter bread? Yes. EATING - SCORE: 5-SUP GROOMING: Comb/brush hair Patient applied make-up Wash, rinse, and dry hands GROOMING - STEP 1: Does the patient require the assistance of a person or device, or need extra time when grooming? Yes. GROOMING - STEP 2: Does the patient require the assistance of a helper? Yes. GROOMING - STEP 3: How much assistance does the patient require from the helper? Cuing, coaxing, instructions, or encour agement for completion of grooming GROOMING - SCORE: 5-SUP BATHING: Activity did not occur on this shift BATHING - SCORE: 0-UNK DRESSING - UPPER BODY: Activity did not occur on this shift ARTICLES SCORE Total number of steps: 0 DRESSING - UPPER BODY - SCORE: 0-UNK DRESSING - LOWER BODY: Activity did not occur on this shift ARTICLES SCORE Total number of steps: 0 DRESSING - LOWER BODY - SCORE: 0-UNK TOILETING: TOILETING - STEP 1: Does the patient require the assistance of a person or device, or need extra time with toileting? Yes . TOILETING - STEP 2: Does the patient require the assistance of a helper? Yes. TOILETING - STEP 3: How much assistance does the patient require from the helper? Hands-on assistance from the helper TOILETING - STEP 4: Of the 3 tasks: 1) Adjusting clothing prior to use, 2) Cleansing of perineal area, 3) Adjusting clot [place] after use; How many tasks does the patient perform WITHOUT assistance of the helper? One task TOILETING - SCORE: 2-MAX BLADDER MANAGEMENT: BLADDER MANAGEMENT - STEP 1: Does the patient control the bladder completely and intentionally without equipment or devices or med ications, and is always continent? No. BLADDER MANAGEMENT - STEP 2: Does the patient require the assistance of a helper? No, patient requires and independently uses an a ssistive device, such as a urinal, bedpan, bedside commode, catheter, absorbent pad, or collecting de vice BLADDER MANAGEMENT - SCORE: 6-BETH BOWEL MANAGEMENT: Activity did not occur on this shift BOWEL MANAGEMENT - SCORE: 7-IND TRANSFERS: BED, CHAIR, WHEELCHAIR: TRANSFERS: BED, CHAIR, WHEELCHAIR - STEP 1: Does the patient require assistance of a person or device, or need extra time with bed, chair, or whe elchair transfers? Yes. TRANSFERS: BED, CHAIR, WHEELCHAIR - STEP 2: Does the patient require the assistance of a helper? Yes. TRANSFERS: BED, CHAIR, WHEELCHAIR - STEP 3: How much assistance does the patient require from the helper? Lifting of the patient TRANSFERS: BED, CHAIR, WHEELCHAIR - STEP 4: Does the helper lift the patient ONLY up? ONLY down? Up AND Down? Up AND Down. TRANSFERS: BED, CHAIR, WHEELCHAIR - SCORE: 2-MAX TRANSFERS: TOILET: TRANSFERS: TOILET - STEP 1: Does the patient require the assistance of a person or device, or need extra time with toilet transfe rs? Yes. TRANSFERS: TOILET - STEP 2: Does the patient require the assistance of a helper? Yes. TRANSFERS: TOILET - STEP 3: How much assistance does the patient require from the helper? Patient performs less than half of the transferring tasks TRANSFERS: TOILET - STEP 4: Does the patient require total assistance for the toilet transfer such as the helper doing basically all the lifting? No. TRANSFERS: TOILET - SCORE: 2-MAX TRANSFERS: SHOWER: Activity did not occur on this shift TRANSFERS: SHOWER - SCORE: 0-UNK TRANSFERS: TUB: Activity did not occur on this shift TRANSFERS: TUB - SCORE: 0-UNK LOCOMOTION: WALK: Activity did not occur on this shift LOCOMOTION: WALK - SCORE: 0-UNK LOCOMOTION: WHEELCHAIR: Activity did not occur on this shift LOCOMOTION: WHEELCHAIR - SCORE: 0-UNK COMPREHENSION: COMPREHENSION: TYPE: Both COMPREHENSION - STEP 1: Does the patient require help from a person or device, or need extra time to understand complex and a bstract ideas (such as current events, finances, discharge planning, medical issues, relationships, e tc)? Yes. COMPREHENSION - STEP 2: Does the patient require help to understand questions or statements about basic needs or ideas (such as hunger, thirst, sleep, safety, daily schedule, room location, or discomfort) half or more of the t marshall? No. COMPREHENSION - STEP 3: How often does the patient need help to understand directions and conversation about basic needs? 25% - 49% of the time COMPREHENSION - SCORE: 3-MOD EXPRESSION EXPRESSION: TYPE: Both EXPRESSION - STEP 1: Does the patient require help from a person or device, or need extra time expressing complex and abst ract ideas (such as current events, finances, discharge planning, medical issues, relationships, etc) ? Yes. EXPRESSION - STEP 2: Does the patient require help to express basic necessities or ideas (such as hunger, thirst, sleep, s afety, daily schedule, room location, or discomfort) half or more of the time? No. EXPRESSION - STEP 3: How often does the patient need help to express directions and conversation about basic needs? 25-49% of the time EXPRESSION - SCORE: 3-MOD SOCIAL INTERACTION: SOCIAL INTERACTION - STEP 1: Does the patient require a helper to interact with others in social and therapeutic situations? Yes. SOCIAL INTERACTION - STEP 2: Does the patient interact appropriately half or more of the time? Yes. SOCIAL INTERACTION - STEP 3: How often does the patient need help to interact appropriately? 25-49% of the time SOCIAL INTERACTION - SCORE: 3-MOD PROBLEM SOLVING: PROBLEM SOLVING - STEP 1: Does the patient need help from a person or device, or need extra time to solve complex problems such as managing a checking account or confronting interpersonal problems? Yes. PROBLEM SOLVING - STEP 2: Does the patient solve basic routine problems half or more of the time? Yes. PROBLEM SOLVING - STEP 3: How often does the patient need help to solve basic routine problems? 10%-24% of the time PROBLEM SOLVING - SCORE: 4-MIN MEMORY: MEMORY - STEP 1: Does the patient need help from a person or device, or need extra time to remember frequently encount ered people, daily routines, and executing requests? Yes. MEMORY - STEP 2: How often does the patient need help to remember frequently encountered people, daily routines, and e xecuting requests? 25% - 49% of the time MEMORY - SCORE: 3-MOD SIGNATURE PANEL: The following modified sections: Eating - Score, Grooming - Score, Bathing - Score, Dressing - Upper Body - Score, Dressing - Lower Body - Score, Toileting - Score, Bladder Management - Score, Bowel Man agement - Score, Transfers: Bed, Chair, Wheelchair - Score, Transfers: Toilet - Score, Transfers: Mary wer - Score, Transfers: Tub - Score, Locomotion: Walk - Score, Locomotion: Wheelchair - Score, Compre hension - Score, Expression - Score, Social Interaction - Score, Problem Solving - Score, Memory - Sc ore were [electronically] signed by Rufus Redding on Sat Feb 09 2019 10:08:28 GMT-0500 (Central Daylight Time)
[2019-02-09] MEDS: VANCOMYCIN 1.5 GM in NA CHLORIDE 0.9% 500 ML IVPB SCH (10:10)
--- NOTE | 2019-02-09 13:30 | FAST ---
ENCOUNTER DATE AND TIME: 02/09/2019 08:00 (CDT) NAME MAC LA DATE OF : 1930 DATE OF ADMISSION: 02/06/2019 15:18 (CDT) PHONE: AGE: 88 SSN# [id number] GENDER: Female ENCOUNTER PHYSICIAN: Dr. Leydi Kapadia ADMISSION DIAGNOSIS: - Amputation of Limb 05 - Unilateral Lower Limb Below the Knee (BK) (05.4) Left Diabetic Foot Ulcer. EATING: Activity did not occur on this shift EATING - SCORE: 0-UNK GROOMING: Activity did not occur on this shift GROOMING - SCORE: 0-UNK BATHING: Activity did not occur on this shift BATHING - SCORE: 0-UNK DRESSING - UPPER BODY: Activity did not occur on this shift Patient is not dressing in public clothing ARTICLES SCORE Total number of steps: 0 DRESSING - UPPER BODY - SCORE: 0-UNK DRESSING - LOWER BODY: Activity did not occur on this shift Patient is not dressing in public clothing ARTICLES SCORE Total number of steps: 0 DRESSING - LOWER BODY - SCORE: 0-UNK TOILETING: Activity did not occur on this shift TOILETING - SCORE: 0-UNK BLADDER MANAGEMENT: Activity did not occur on this shift BLADDER MANAGEMENT - SCORE: 7-IND BOWEL MANAGEMENT: Activity did not occur on this shift BOWEL MANAGEMENT - SCORE: 7-IND TRANSFERS: BED, CHAIR, WHEELCHAIR: TRANSFERS: BED, CHAIR, WHEELCHAIR - STEP 1: Does the patient require assistance of a person or device, or need extra time with bed, chair, or whe elchair transfers? Yes. TRANSFERS: BED, CHAIR, WHEELCHAIR - STEP 2: Does the patient require the assistance of a helper? Yes. TRANSFERS: BED, CHAIR, WHEELCHAIR - STEP 3: How much assistance does the patient require from the helper? Lifting of the patient TRANSFERS: BED, CHAIR, WHEELCHAIR - STEP 4: Does the helper lift the patient ONLY up? ONLY down? Up AND Down? Patient needs help with all lifting TRANSFERS: BED, CHAIR, WHEELCHAIR - SCORE: 1-DEP TRANSFERS: TOILET: Activity did not occur on this shift TRANSFERS: TOILET - SCORE: 0-UNK TRANSFERS: SHOWER: Activity did not occur on this shift TRANSFERS: SHOWER - SCORE: 0-UNK TRANSFERS: TUB: Activity did not occur on this shift TRANSFERS: TUB - SCORE: 0-UNK LOCOMOTION: WALK: Activity did not occur on this shift LOCOMOTION: WALK - SCORE: 0-UNK LOCOMOTION: WHEELCHAIR: LOCOMOTION: WHEELCHAIR - STEP 1: Does the patient need help to go 150 feet in a wheelchair? Yes. LOCOMOTION: WHEELCHAIR - STEP 2: How much assistance does the patient need from the helper? More than incidental help LOCOMOTION: WHEELCHAIR - SCORE: 3-MOD LOCOMOTION: STAIRS: Activity did not occur on this shift LOCOMOTION: STAIRS - SCORE: 0-UNK COMPREHENSION: COMPREHENSION - SCORE: 0-UNK EXPRESSION EXPRESSION - SCORE: 0-UNK SOCIAL INTERACTION: SOCIAL INTERACTION - SCORE: 0-UNK PROBLEM SOLVING: PROBLEM SOLVING - SCORE: 0-UNK MEMORY: MEMORY - SCORE: 0-UNK SIGNATURE PANEL: The following modified sections: Transfers: Bed, Chair, Wheelchair - Score, Transfers: Toilet - Score , Locomotion: Walk - Score, Locomotion: Wheelchair - Score, Locomotion: Stairs - Score were [electron paula] signed by Pau Bartholomew PTA on Sat Feb 09 2019 13:29:26 T-0500 (Central Daylight Time)
--- NOTE | 2019-02-09 17:01 | FAST ---
ENCOUNTER DATE AND TIME: 02/09/2019 08:00 (CDT) NAME MAC LA DATE OF : 1930 DATE OF ADMISSION: 02/06/2019 15:18 (CDT) PHONE: AGE: 88 SSN# [id number] GENDER: Female ENCOUNTER PHYSICIAN: Dr. Leydi Kapadia ADMISSION DIAGNOSIS: - Amputation of Limb 05 - Unilateral Lower Limb Below the Knee (BK) (05.4) Left Diabetic Foot Ulcer. EATING: Activity did not occur on this shift EATING - SCORE: 0-UNK GROOMING: Comb/brush hair Oral care Patient applied make-up Wash, rinse, and dry face GROOMING - STEP 1: Does the patient require the assistance of a person or device, or need extra time when grooming? Yes. GROOMING - STEP 2: Does the patient require the assistance of a helper? No. The patient only requires an assistive devic e, OR takes more than reasonable time to groom, OR there is a concern for safety as the patient groom s GROOMING - SCORE: 6-BETH BATHING: Abdomen Buttocks Chest Left arm Left lower leg and foot Left upper leg Perineal area Right arm Right lower leg and foot Right upper leg BATHING - STEP 1: Does the patient require the assistance of a person or device, or need extra time when bathing? Yes. BATHING - STEP 2: Does the patient require the assistance of a helper? Yes. BATHING - STEP 3: How much assistance does the patient require from the helper? Only incidental help such as placement of a wash cloth in his/her hand a few times as s/he bathes OR help to bathe just one or two areas of the body BATHING - SCORE: 4-MIN DRESSING - UPPER BODY: T-shirt/pullover shirt (four steps) ARTICLES SCORE Total number of steps: 4 DRESSING - UPPER BODY - STEP 1: Does the patient require help from a person or device, or need extra time when dressing above the pilar st? Yes. DRESSING - UPPER BODY - STEP 2: Does the patient require the assistance of a helper? Yes. DRESSING - UPPER BODY - STEP 3: Does the helper touch the patient while dressing? No. DRESSING - UPPER BODY - SCORE: 5-SUP DRESSING - LOWER BODY: Underwear (three steps) ARTICLES SCORE Total number of steps: 3 DRESSING - LOWER BODY - STEP 1: Does the patient require help from a person or device, or need extra time when dressing below the pilar st? Yes. DRESSING - LOWER BODY - STEP 2: Does the patient require the assistance of a helper? Yes. DRESSING - LOWER BODY - STEP 3: Does the helper touch the patient while dressing? Yes. DRESSING - LOWER BODY - STEP 4: How many of the total steps does the patient complete on his/her own? 2 DRESSING - LOWER BODY - SCORE: 3-MOD TOILETING: Activity did not occur on this shift TOILETING - SCORE: 0-UNK BLADDER MANAGEMENT: Activity did not occur on this shift BLADDER MANAGEMENT - SCORE: 7-IND BOWEL MANAGEMENT: Activity did not occur on this shift BOWEL MANAGEMENT - SCORE: 7-IND TRANSFERS: BED, CHAIR, WHEELCHAIR: Activity did not occur on this shift TRANSFERS: BED, CHAIR, WHEELCHAIR - SCORE: 0-UNK TRANSFERS: TOILET: Activity did not occur on this shift TRANSFERS: TOILET - SCORE: 0-UNK TRANSFERS: SHOWER: TRANSFERS: SHOWER - STEP 1: Does the patient require the assistance of a person or device, or need extra time with shower transfe rs? Yes. TRANSFERS: SHOWER - STEP 2: Does the patient require the assistance of a helper? Yes. TRANSFERS: SHOWER - STEP 3: How much assistance does the patient require from the helper? More than incidental help TRANSFERS: SHOWER - STEP 4: How much more help does the patient require from the helper? Lifting the patient up AND down from the wheelchair onto the shower chair TRANSFERS: SHOWER - SCORE: 2-MAX TRANSFERS: TUB: Activity did not occur on this shift TRANSFERS: TUB - SCORE: 0-UNK LOCOMOTION: WALK: Activity did not occur on this shift LOCOMOTION: WALK - SCORE: 0-UNK LOCOMOTION: WHEELCHAIR: Activity did not occur on this shift LOCOMOTION: WHEELCHAIR - SCORE: 0-UNK LOCOMOTION: STAIRS: Activity did not occur on this shift LOCOMOTION: STAIRS - SCORE: 0-UNK COMPREHENSION: COMPREHENSION - SCORE: 0-UNK EXPRESSION EXPRESSION - SCORE: 0-UNK SOCIAL INTERACTION: SOCIAL INTERACTION - SCORE: 0-UNK PROBLEM SOLVING: PROBLEM SOLVING - SCORE: 0-UNK MEMORY: MEMORY - SCORE: 0-UNK SIGNATURE PANEL: The following modified sections: Eating - Score, Grooming - Score, Bathing - Score, Dressing - Upper Body - Score, Dressing - Lower Body - Score, Toileting - Score, Transfers: Bed, Chair, Wheelchair - S core, Transfers: Toilet - Score, Transfers: Shower - Score, Transfers: Tub - Score, Comprehension - S core, Expression - Score, Social Interaction - Score, Problem Solving - Score, Memory - Score were [e lectronically] signed by EVELYN Chase on Sat Feb 09 2019 16:59:51 [facility]-0500 ([place] [facility])
[2019-02-09] MEDS: ATORVASTATIN 20 MG TAB PO SCH (21:38)
[2019-02-10] MEDS: PIPER/TAZO/NS 3.375gm 3.375 GM/100 ML BAG IVPB SCH ×4 (01:15→17:12)
[2019-02-10] MEDS: LEVOTHYROXINE SOD 0.05 MG TABLET PO SCH (05:32)
[2019-02-10] MEDS: PANTOPRAZOLE 40MG TABLET PO SCH (05:32)
[2019-02-10] MEDS: CRANBERRY FRUIT EXTRACT 200 MG CAP PO SCH ×2 (06:43→22:25)
[2019-02-10] MEDS: FUROSEMIDE 20 MG TABLET PO SCH (06:46)
[2019-02-10] MEDS: SPIRONOLACTONE 25 MG TABLET PO SCH (06:48)
[2019-02-10] MEDS: DOCUSATE NA 100 MG CAP PO SCH ×2 (06:48→22:25)
[2019-02-10] MEDS: AMLODIPINE 5 MG TAB PO SCH (06:50)
[2019-02-10] MEDS: ENOXAPARIN 40 MG/0.4 ML SQ SCH (06:50)
[2019-02-10] MEDS: LOSARTAN POTASSIUM 50 MG TABLET PO SCH (06:50)
[2019-02-10] MEDS: NPH (HUMAN) 100 UNITS/ML INSULIN SQ SCH (06:51)
[2019-02-10] MEDS: PROMOD 30 ML DOSE PO SCH ×2 (06:51→22:27)
[2019-02-10] MEDS: ASPIRIN 81 MG CHEWABLE TABLET PO SCH (06:55)
[2019-02-10] MEDS: INSULIN -REGULAR HUMAN 50 UNIT/0.5 ML ML SQ SCH ×4 (07:36→22:27)
--- NOTE | 2019-02-10 11:29 | FAST ---
SHIFT START DATE/TIME: 02/10/2019 07:00 (CDT) SHIFT END DATE/TIME: 02/10/2019 19:00 (CDT) NAME MAC LA DATE OF : 1930 DATE OF ADMISSION: 02/06/2019 15:18 (CDT) PHONE: AGE: 88 SSN# [id number] GENDER: Female ENCOUNTER PHYSICIAN: Dr. Leydi Kapadia ADMISSION DIAGNOSIS: - Amputation of Limb 05 - Unilateral Lower Limb Below the Knee (BK) (05.4) Left Diabetic Foot Ulcer. EATING: EATING - STEP 1: Does the patient require the assistance of a person or device, or need extra time when eating? Yes. EATING - STEP 2: Does the patient require the assistance of a helper? Yes. EATING - STEP 3: Does the patient perform half or more of the eating tasks? Yes. EATING - STEP 4: Does the patient need only supervision, cuing, coaxing OR help to apply an orthosis OR help to cut fo od, open containers, pour liquids, or butter bread? Yes. EATING - SCORE: 5-SUP GROOMING: Comb/brush hair Patient applied make-up Wash, rinse, and dry face Wash, rinse, and dry hands GROOMING - STEP 1: Does the patient require the assistance of a person or device, or need extra time when grooming? Yes. GROOMING - STEP 2: Does the patient require the assistance of a helper? No. The patient only requires an assistive devic e, OR takes more than reasonable time to groom, OR there is a concern for safety as the patient groom s GROOMING - SCORE: 6-BETH BATHING: Activity did not occur on this shift BATHING - SCORE: 0-UNK DRESSING - UPPER BODY: T-shirt/pullover shirt (four steps) ARTICLES SCORE Total number of steps: 4 DRESSING - UPPER BODY - STEP 1: Does the patient require help from a person or device, or need extra time when dressing above the pilar st? Yes. DRESSING - UPPER BODY - STEP 2: Does the patient require the assistance of a helper? Yes. DRESSING - UPPER BODY - STEP 3: Does the helper touch the patient while dressing? Yes. DRESSING - UPPER BODY - STEP 4: How many of the total steps does the patient complete on his/her own? 2 DRESSING - UPPER BODY - SCORE: 3-MOD DRESSING - LOWER BODY: Activity did not occur on this shift ARTICLES SCORE Total number of steps: 0 DRESSING - LOWER BODY - SCORE: 0-UNK TOILETING: TOILETING - STEP 1: Does the patient require the assistance of a person or device, or need extra time with toileting? Yes . TOILETING - STEP 2: Does the patient require the assistance of a helper? Yes. TOILETING - STEP 3: How much assistance does the patient require from the helper? Hands-on assistance from the helper TOILETING - STEP 4: Of the 3 tasks: 1) Adjusting clothing prior to use, 2) Cleansing of perineal area, 3) Adjusting clot [place] after use; How many tasks does the patient perform WITHOUT assistance of the helper? Two tasks TOILETING - SCORE: 3-MOD BLADDER MANAGEMENT: BLADDER MANAGEMENT - STEP 1: Does the patient control the bladder completely and intentionally without equipment or devices or med ications, and is always continent? Yes. BLADDER MANAGEMENT - SCORE: 7-IND BOWEL MANAGEMENT: Activity did not occur on this shift BOWEL MANAGEMENT - SCORE: 7-IND TRANSFERS: BED, CHAIR, WHEELCHAIR: TRANSFERS: BED, CHAIR, WHEELCHAIR - STEP 1: Does the patient require assistance of a person or device, or need extra time with bed, chair, or whe elchair transfers? Yes. TRANSFERS: BED, CHAIR, WHEELCHAIR - STEP 2: Does the patient require the assistance of a helper? Yes. TRANSFERS: BED, CHAIR, WHEELCHAIR - STEP 3: How much assistance does the patient require from the helper? Lifting of the patient TRANSFERS: BED, CHAIR, WHEELCHAIR - STEP 4: Does the helper lift the patient ONLY up? ONLY down? Up AND Down? ONLY up. TRANSFERS: BED, CHAIR, WHEELCHAIR - SCORE: 3-MOD TRANSFERS: TOILET: TRANSFERS: TOILET - STEP 1: Does the patient require the assistance of a person or device, or need extra time with toilet transfe rs? Yes. TRANSFERS: TOILET - STEP 2: Does the patient require the assistance of a helper? Yes. TRANSFERS: TOILET - STEP 3: How much assistance does the patient require from the helper? Patient performs half or more of the tr ansferring tasks TRANSFERS: TOILET - STEP 4: Does the patient need only incidental help such as contact guard or steadying during toilet transfer? Yes. TRANSFERS: TOILET - SCORE: 4-MIN TRANSFERS: SHOWER: Activity did not occur on this shift TRANSFERS: SHOWER - SCORE: 0-UNK TRANSFERS: TUB: Activity did not occur on this shift TRANSFERS: TUB - SCORE: 0-UNK LOCOMOTION: WALK: Activity did not occur on this shift LOCOMOTION: WALK - SCORE: 0-UNK LOCOMOTION: WHEELCHAIR: Activity did not occur on this shift LOCOMOTION: WHEELCHAIR - SCORE: 0-UNK COMPREHENSION: COMPREHENSION: TYPE: Both COMPREHENSION - STEP 1: Does the patient require help from a person or device, or need extra time to understand complex and a bstract ideas (such as current events, finances, discharge planning, medical issues, relationships, e tc)? Yes. COMPREHENSION - STEP 2: Does the patient require help to understand questions or statements about basic needs or ideas (such as hunger, thirst, sleep, safety, daily schedule, room location, or discomfort) half or more of the t marshall? No. COMPREHENSION - STEP 3: How often does the patient need help to understand directions and conversation about basic needs? Les s than 10% of the time COMPREHENSION - SCORE: 5-SUP EXPRESSION EXPRESSION: TYPE: Both EXPRESSION - STEP 1: Does the patient require help from a person or device, or need extra time expressing complex and abst ract ideas (such as current events, finances, discharge planning, medical issues, relationships, etc) ? Yes. EXPRESSION - STEP 2: Does the patient require help to express basic necessities or ideas (such as hunger, thirst, sleep, s afety, daily schedule, room location, or discomfort) half or more of the time? No. EXPRESSION - STEP 3: How often does the patient need help to express directions and conversation about basic needs? 10-24% of the time EXPRESSION - SCORE: 4-MIN SOCIAL INTERACTION: SOCIAL INTERACTION - STEP 1: Does the patient require a helper to interact with others in social and therapeutic situations? Yes. SOCIAL INTERACTION - STEP 2: Does the patient interact appropriately half or more of the time? Yes. SOCIAL INTERACTION - STEP 3: How often does the patient need help to interact appropriately? 10-24% of the time SOCIAL INTERACTION - SCORE: 4-MIN PROBLEM SOLVING: PROBLEM SOLVING - STEP 1: Does the patient need help from a person or device, or need extra time to solve complex problems such as managing a checking account or confronting interpersonal problems? Yes. PROBLEM SOLVING - STEP 2: Does the patient solve basic routine problems half or more of the time? Yes. PROBLEM SOLVING - STEP 3: How often does the patient need help to solve basic routine problems? 10%-24% of the time PROBLEM SOLVING - SCORE: 4-MIN MEMORY: MEMORY - STEP 1: Does the patient need help from a person or device, or need extra time to remember frequently encount ered people, daily routines, and executing requests? Yes. MEMORY - STEP 2: How often does the patient need help to remember frequently encountered people, daily routines, and e xecuting requests? 10% - 24% of the time MEMORY - SCORE: 4-MIN SIGNATURE PANEL: The following modified sections: Eating - Score, Grooming - Score, Bathing - Score, Dressing - Upper Body - Score, Dressing - Lower Body - Score, Toileting - Score, Bladder Management - Score, Bowel Man agement - Score, Transfers: Bed, Chair, Wheelchair - Score, Transfers: Toilet - Score, Transfers: Mary wer - Score, Transfers: Tub - Score, Locomotion: Walk - Score, Locomotion: Wheelchair - Score, Compre hension - Score, Expression - Score, Social Interaction - Score, Problem Solving - Score, Memory - Sc ore were [electronically] signed by Rufus Redding on MonFeb 10 2019 11:28:21 GMT-0500 (Central Daylight Time)
[2019-02-10] MEDS: VANCOMYCIN 1.5 GM in NA CHLORIDE 0.9% 500 ML IVPB SCH (12:48)
[2019-02-10] MEDS: ATORVASTATIN 20 MG TAB PO SCH (22:25)
[2019-02-11] MEDS: PIPER/TAZO/NS 3.375gm 3.375 GM/100 ML BAG IVPB SCH ×3 (00:55→16:12)
--- NOTE | 2019-02-11 02:15 | FAST ---
SHIFT START DATE/TIME: 02/10/2019 19:00 (CDT) SHIFT END DATE/TIME: 02/11/2019 07:00 (CDT) NAME MAC LA DATE OF : 1930 DATE OF ADMISSION: 02/06/2019 15:18 (CDT) PHONE: AGE: 88 SSN# [id number] GENDER: Female ENCOUNTER PHYSICIAN: Dr. Leydi Kapadia ADMISSION DIAGNOSIS: - Amputation of Limb 05 - Unilateral Lower Limb Below the Knee (BK) (05.4) Left Diabetic Foot Ulcer. EATING: Activity did not occur on this shift EATING - SCORE: 0-UNK GROOMING: Oral care Wash, rinse, and dry hands GROOMING - STEP 1: Does the patient require the assistance of a person or device, or need extra time when grooming? Yes. GROOMING - STEP 2: Does the patient require the assistance of a helper? Yes. GROOMING - STEP 3: How much assistance does the patient require from the helper? Only prior equipment preparation/set up from the helper GROOMING - SCORE: 5-SUP BATHING: Activity did not occur on this shift BATHING - SCORE: 0-UNK DRESSING - UPPER BODY: Patient is not dressing in public clothing ARTICLES SCORE Total number of steps: 0 DRESSING - UPPER BODY - SCORE: 0-UNK DRESSING - LOWER BODY: Patient is not dressing in public clothing ARTICLES SCORE Total number of steps: 0 DRESSING - LOWER BODY - SCORE: 0-UNK TOILETING: TOILETING - STEP 1: Does the patient require the assistance of a person or device, or need extra time with toileting? Yes . TOILETING - STEP 2: Does the patient require the assistance of a helper? Yes. TOILETING - STEP 3: How much assistance does the patient require from the helper? Hands-on assistance from the helper TOILETING - STEP 4: Of the 3 tasks: 1) Adjusting clothing prior to use, 2) Cleansing of perineal area, 3) Adjusting clot [place] after use; How many tasks does the patient perform WITHOUT assistance of the helper? One task TOILETING - SCORE: 2-MAX BLADDER MANAGEMENT: BLADDER MANAGEMENT - STEP 1: Does the patient control the bladder completely and intentionally without equipment or devices or med ications, and is always continent? No. BLADDER MANAGEMENT - STEP 2: Does the patient require the assistance of a helper? Yes. BLADDER MANAGEMENT - STEP 3: How much assistance does the patient require from the helper? Only set-up of equipment - such as plac ing it within reach of the patient or emptying a device - to maintain either satisfactory voiding pat tern or managing an external device, such as an absorbent pad, ileal device, or catheter BLADDER MANAGEMENT - SCORE: 5-SUP BOWEL MANAGEMENT: BOWEL MANAGEMENT - STEP 1: Does the patient control bowels completely and intentionally without equipment devices or medications AND is always continent? No. BOWEL MANAGEMENT - STEP 2: Does the patient require the assistance of a helper? No, patient requires medication for control such as stool softeners, suppositories, laxatives, enemas, or OTC medications BOWEL MANAGEMENT - SCORE: 6-BETH TRANSFERS: BED, CHAIR, WHEELCHAIR: TRANSFERS: BED, CHAIR, WHEELCHAIR - STEP 1: Does the patient require assistance of a person or device, or need extra time with bed, chair, or whe elchair transfers? Yes. TRANSFERS: BED, CHAIR, WHEELCHAIR - STEP 2: Does the patient require the assistance of a helper? Yes. TRANSFERS: BED, CHAIR, WHEELCHAIR - STEP 3: How much assistance does the patient require from the helper? Lifting of the legs TRANSFERS: BED, CHAIR, WHEELCHAIR - STEP 4: How many legs does the patient require the helper to lift? both legs TRANSFERS: BED, CHAIR, WHEELCHAIR - SCORE: 3-MOD TRANSFERS: TOILET: TRANSFERS: TOILET - STEP 1: Does the patient require the assistance of a person or device, or need extra time with toilet transfe rs? Yes. TRANSFERS: TOILET - STEP 2: Does the patient require the assistance of a helper? Yes. TRANSFERS: TOILET - STEP 3: How much assistance does the patient require from the helper? Patient performs half or more of the tr ansferring tasks TRANSFERS: TOILET - STEP 4: Does the patient need only incidental help such as contact guard or steadying during toilet transfer? Yes. TRANSFERS: TOILET - SCORE: 4-MIN TRANSFERS: SHOWER: Activity did not occur on this shift TRANSFERS: SHOWER - SCORE: 0-UNK TRANSFERS: TUB: Activity did not occur on this shift TRANSFERS: TUB - SCORE: 0-UNK LOCOMOTION: WALK: Activity did not occur on this shift LOCOMOTION: WALK - SCORE: 0-UNK LOCOMOTION: WHEELCHAIR: Activity did not occur on this shift LOCOMOTION: WHEELCHAIR - SCORE: 0-UNK COMPREHENSION: COMPREHENSION: TYPE: Both COMPREHENSION - STEP 1: Does the patient require help from a person or device, or need extra time to understand complex and a bstract ideas (such as current events, finances, discharge planning, medical issues, relationships, e tc)? Yes. COMPREHENSION - STEP 2: Does the patient require help to understand questions or statements about basic needs or ideas (such as hunger, thirst, sleep, safety, daily schedule, room location, or discomfort) half or more of the t marshall? No. COMPREHENSION - STEP 3: How often does the patient need help to understand directions and conversation about basic needs? 25% - 49% of the time COMPREHENSION - SCORE: 3-MOD EXPRESSION EXPRESSION: TYPE: Both EXPRESSION - STEP 1: Does the patient require help from a person or device, or need extra time expressing complex and abst ract ideas (such as current events, finances, discharge planning, medical issues, relationships, etc) ? No. EXPRESSION - STEP 2: Does the patient need extra time, require an assistive device (such as augmentive communication syste m or a communication board), OR does s/he have mild difficulty expressing complex and abstract ideas (including mild dysarthria or mild word-find problems)? Yes. EXPRESSION - SCORE: 6-BETH SOCIAL INTERACTION: SOCIAL INTERACTION - STEP 1: Does the patient require a helper to interact with others in social and therapeutic situations? No. SOCIAL INTERACTION - STEP 2: Does the patient need extra time in social situations, OR does s/he interact with staff, other patien ts, and family members ONLY in structured environments, OR does s/he require medication for social in teraction? Yes, patient needs extra time SOCIAL INTERACTION - SCORE: 6-BETH PROBLEM SOLVING: PROBLEM SOLVING - STEP 1: Does the patient need help from a person or device, or need extra time to solve complex problems such as managing a checking account or confronting interpersonal problems? Yes. PROBLEM SOLVING - STEP 2: Does the patient solve basic routine problems half or more of the time? Yes. PROBLEM SOLVING - STEP 3: How often does the patient need help to solve basic routine problems? 25%-49% of the time PROBLEM SOLVING - SCORE: 3-MOD MEMORY: MEMORY - STEP 1: Does the patient need help from a person or device, or need extra time to remember frequently encount ered people, daily routines, and executing requests? Yes. MEMORY - STEP 2: How often does the patient need help to remember frequently encountered people, daily routines, and e xecuting requests? 25% - 49% of the time MEMORY - SCORE: 3-MOD SIGNATURE PANEL: The following modified sections: Eating - Score, Grooming - Score, Dressing - Upper Body - Score, Cosmo ssing - Lower Body - Score, Toileting - Score, Bladder Management - Score, Bowel Management - Score, Transfers: Bed, Chair, Wheelchair - Score, Transfers: Toilet - Score, Transfers: Shower - Score, [place] sfers: Tub - Score, Locomotion: Walk - Score, Locomotion: Wheelchair - Score, Comprehension - Score, Expression - Score, Social Interaction - Score, Problem Solving - Score, Memory - Score were [electro nically] signed by Lisa Wolf CNA on MonFeb 11 2019 02:14:35 T-0500 (Central Daylight Time)
[2019-02-11] MEDS: LEVOTHYROXINE SOD 0.05 MG TABLET PO SCH (05:15)
[2019-02-11] MEDS: PANTOPRAZOLE 40MG TABLET PO SCH (05:15)
[2019-02-11] MEDS: ENOXAPARIN 40 MG/0.4 ML SQ SCH (06:30)
[2019-02-11] MEDS: INSULIN -REGULAR HUMAN 50 UNIT/0.5 ML ML SQ SCH ×4 (07:25→21:30)
[2019-02-11] MEDS: CRANBERRY FRUIT EXTRACT 200 MG CAP PO SCH ×2 (08:34→20:13)
[2019-02-11] MEDS: ASPIRIN 81 MG CHEWABLE TABLET PO SCH (08:35)
[2019-02-11] MEDS: FUROSEMIDE 20 MG TABLET PO SCH (08:35)
[2019-02-11] MEDS: SPIRONOLACTONE 25 MG TABLET PO SCH (08:36)
[2019-02-11] MEDS: AMLODIPINE 5 MG TAB PO SCH (08:36)
[2019-02-11] MEDS: DOCUSATE NA 100 MG CAP PO SCH ×2 (08:36→20:13)
[2019-02-11] MEDS: NPH (HUMAN) 100 UNITS/ML INSULIN SQ SCH (08:37)
[2019-02-11] MEDS: PROMOD 30 ML DOSE PO SCH ×2 (08:38→20:14)
[2019-02-11 10:04] LABS: Albumin 3.4 g/dL (3.4-5.0); Bilirubin Total 0.6 mg/dL (0.2-1.0); Magnesium 2.2 mg/dL (1.8-2.4); Phosphorus 3.6 mg/dL (2.5-4.9); Protein, Total 7.2 g/dL (6.4-8.2)
[2019-02-11 10:10] LABS: Absolute Lymphocytes (CBC) 1.2 K/uL (0.7-4.9); Basophils % 0.7 % (0-1.3); Hematocrit 35.1 % (36.0-45.0); Lymphocytes % 17.1 % (15.3-44.8); RBC Red Blood Cell Count 3.86 M/uL (3.86-4.86)
[2019-02-11] MEDS: LOSARTAN POTASSIUM 50 MG TABLET PO SCH (11:00)
[2019-02-11] MEDS: VANCOMYCIN 1.5 GM in NA CHLORIDE 0.9% 500 ML IVPB SCH (11:00)
[2019-02-11] MEDS: ATORVASTATIN 20 MG TAB PO SCH (20:13)
[2019-02-12] MEDS: PIPER/TAZO/NS 3.375gm 3.375 GM/100 ML BAG IVPB SCH ×3 (00:38→16:18)
--- NOTE | 2019-02-12 04:57 | FAST ---
SHIFT START DATE/TIME: 02/11/2019 19:00 (CDT) SHIFT END DATE/TIME: 02/12/2019 07:00 (CDT) NAME MAC LA DATE OF : 1930 DATE OF ADMISSION: 02/06/2019 15:18 (CDT) PHONE: AGE: 88 SSN# [id number] GENDER: Female ENCOUNTER PHYSICIAN: Dr. Leydi Kapadia ADMISSION DIAGNOSIS: - Amputation of Limb 05 - Unilateral Lower Limb Below the Knee (BK) (05.4) Left Diabetic Foot Ulcer. EATING: Activity did not occur on this shift EATING - SCORE: 0-UNK GROOMING: Activity did not occur on this shift GROOMING - SCORE: 0-UNK BATHING: Activity did not occur on this shift BATHING - SCORE: 0-UNK DRESSING - UPPER BODY: Activity did not occur on this shift ARTICLES SCORE Total number of steps: 0 DRESSING - UPPER BODY - SCORE: 0-UNK DRESSING - LOWER BODY: Activity did not occur on this shift ARTICLES SCORE Total number of steps: 0 DRESSING - LOWER BODY - SCORE: 0-UNK TOILETING: TOILETING - SCORE: 0-UNK BLADDER MANAGEMENT: BLADDER MANAGEMENT - STEP 1: Does the patient control the bladder completely and intentionally without equipment or devices or med ications, and is always continent? No. BLADDER MANAGEMENT - STEP 2: Does the patient require the assistance of a helper? Yes. BLADDER MANAGEMENT - STEP 3: How much assistance does the patient require from the helper? Only set-up of equipment - such as plac ing it within reach of the patient or emptying a device - to maintain either satisfactory voiding pat tern or managing an external device, such as an absorbent pad, ileal device, or catheter BLADDER MANAGEMENT - SCORE: 5-SUP BLADDER MANAGEMENT - FREQUENCY OF ACCIDENTS: BLADDER MANAGEMENT(FA) - STEP 1: How many accidents has the patient had during the current shift? 0 BOWEL MANAGEMENT: Activity did not occur on this shift BOWEL MANAGEMENT - SCORE: 7-IND BOWEL MANAGEMENT - FREQUENCY OF ACCIDENTS: BOWEL MANAGEMENT(FA) - STEP 1: How many accidents has the patient had during the current shift? 0 TRANSFERS: BED, CHAIR, WHEELCHAIR: TRANSFERS: BED, CHAIR, WHEELCHAIR - STEP 1: Does the patient require assistance of a person or device, or need extra time with bed, chair, or whe elchair transfers? Yes. TRANSFERS: BED, CHAIR, WHEELCHAIR - STEP 2: Does the patient require the assistance of a helper? Yes. TRANSFERS: BED, CHAIR, WHEELCHAIR - STEP 3: How much assistance does the patient require from the helper? Lifting of the legs TRANSFERS: BED, CHAIR, WHEELCHAIR - STEP 4: How many legs does the patient require the helper to lift? both legs TRANSFERS: BED, CHAIR, WHEELCHAIR - SCORE: 3-MOD TRANSFERS: TOILET: TRANSFERS: TOILET - STEP 1: Does the patient require the assistance of a person or device, or need extra time with toilet transfe rs? Yes. TRANSFERS: TOILET - STEP 2: Does the patient require the assistance of a helper? Yes. TRANSFERS: TOILET - STEP 3: How much assistance does the patient require from the helper? Patient performs half or more of the tr ansferring tasks TRANSFERS: TOILET - STEP 4: Does the patient need only incidental help such as contact guard or steadying during toilet transfer? No. Patient needs more than incidental help TRANSFERS: TOILET - SCORE: 3-MOD TRANSFERS: SHOWER: Activity did not occur on this shift TRANSFERS: SHOWER - SCORE: 0-UNK TRANSFERS: TUB: Activity did not occur on this shift TRANSFERS: TUB - SCORE: 0-UNK LOCOMOTION: WALK: Activity did not occur on this shift LOCOMOTION: WALK - SCORE: 0-UNK LOCOMOTION: WHEELCHAIR: Activity did not occur on this shift LOCOMOTION: WHEELCHAIR - SCORE: 0-UNK COMPREHENSION: COMPREHENSION: TYPE: Both COMPREHENSION - STEP 1: Does the patient require help from a person or device, or need extra time to understand complex and a bstract ideas (such as current events, finances, discharge planning, medical issues, relationships, e tc)? Yes. COMPREHENSION - STEP 2: Does the patient require help to understand questions or statements about basic needs or ideas (such as hunger, thirst, sleep, safety, daily schedule, room location, or discomfort) half or more of the t marshall? No. COMPREHENSION - STEP 3: How often does the patient need help to understand directions and conversation about basic needs? Les s than 10% of the time COMPREHENSION - SCORE: 5-SUP EXPRESSION EXPRESSION: TYPE: Both EXPRESSION - STEP 1: Does the patient require help from a person or device, or need extra time expressing complex and abst ract ideas (such as current events, finances, discharge planning, medical issues, relationships, etc) ? Yes. EXPRESSION - STEP 2: Does the patient require help to express basic necessities or ideas (such as hunger, thirst, sleep, s afety, daily schedule, room location, or discomfort) half or more of the time? No. EXPRESSION - STEP 3: How often does the patient need help to express directions and conversation about basic needs? Less t peña 10% of the time EXPRESSION - SCORE: 5-SUP SOCIAL INTERACTION: SOCIAL INTERACTION - STEP 1: Does the patient require a helper to interact with others in social and therapeutic situations? Yes. SOCIAL INTERACTION - STEP 2: Does the patient interact appropriately half or more of the time? Yes. SOCIAL INTERACTION - STEP 3: How often does the patient need help to interact appropriately? Less than 10% of the time SOCIAL INTERACTION - SCORE: 5-SUP PROBLEM SOLVING: PROBLEM SOLVING - STEP 1: Does the patient need help from a person or device, or need extra time to solve complex problems such as managing a checking account or confronting interpersonal problems? Yes. PROBLEM SOLVING - STEP 2: Does the patient solve basic routine problems half or more of the time? Yes. PROBLEM SOLVING - STEP 3: How often does the patient need help to solve basic routine problems? Less than 10% of the time PROBLEM SOLVING - SCORE: 5-SUP MEMORY: MEMORY - STEP 1: Does the patient need help from a person or device, or need extra time to remember frequently encount ered people, daily routines, and executing requests? Yes. MEMORY - STEP 2: How often does the patient need help to remember frequently encountered people, daily routines, and e xecuting requests? 10% - 24% of the time MEMORY - SCORE: 4-MIN SIGNATURE PANEL: The following modified sections: Eating - Score, Grooming - Score, Bathing - Score, Dressing - Upper Body - Score, Dressing - Lower Body - Score, Bladder Management - Score, Bowel Management - Score, Tr ansfers: Bed, Chair, Wheelchair - Score, Transfers: Toilet - Score, Transfers: Shower - Score, Transf ers: Tub - Score, Locomotion: Walk - Score, Locomotion: Wheelchair - Score, Comprehension - Score, Ex pression - Score, Social Interaction - Score, Problem Solving - Score, Memory - Score were [vilma [email or web address]] signed by Summer Martinez RN on MonFeb 12 2019 04:56:07 T-0500 (Central Daylight Time)
[2019-02-12] MEDS: INSULIN -REGULAR HUMAN 50 UNIT/0.5 ML ML SQ SCH ×4 (07:30→21:42)
[2019-02-12] MEDS: PANTOPRAZOLE 40MG TABLET PO SCH (08:06)
[2019-02-12] MEDS: LEVOTHYROXINE SOD 0.05 MG TABLET PO SCH (08:06)
[2019-02-12] MEDS: CRANBERRY FRUIT EXTRACT 200 MG CAP PO SCH ×2 (08:07→20:02)
[2019-02-12] MEDS: ASPIRIN 81 MG CHEWABLE TABLET PO SCH (08:07)
[2019-02-12] MEDS: ENOXAPARIN 40 MG/0.4 ML SQ SCH (08:07)
[2019-02-12] MEDS: DOCUSATE NA 100 MG CAP PO SCH ×2 (08:08→20:03)
[2019-02-12] MEDS: SPIRONOLACTONE 25 MG TABLET PO SCH (08:09)
[2019-02-12] MEDS: FUROSEMIDE 20 MG TABLET PO SCH (08:10)
[2019-02-12] MEDS: LOSARTAN POTASSIUM 50 MG TABLET PO SCH (08:10)
[2019-02-12] MEDS: PROMOD 30 ML DOSE PO SCH ×2 (08:10→20:02)
[2019-02-12] MEDS: AMLODIPINE 5 MG TAB PO SCH (08:10)
[2019-02-12] MEDS: NPH (HUMAN) 100 UNITS/ML INSULIN SQ SCH (09:28)
[2019-02-12] MEDS: VANCOMYCIN 1.5 GM in NA CHLORIDE 0.9% 500 ML IVPB SCH (12:43)
[2019-02-12] MEDS: ATORVASTATIN 20 MG TAB PO SCH (20:02)
[2019-02-12] MEDS ORDERED: INSULIN -REGULAR HUMAN 50 UNIT/0.5 ML ML ONE (21:41)
[2019-02-13] MEDS: PIPER/TAZO/NS 3.375gm 3.375 GM/100 ML BAG IVPB SCH ×3 (00:41→16:49)
--- NOTE | 2019-02-13 02:55 | FAST ---
SHIFT START DATE/TIME: 02/12/2019 19:00 (CDT) SHIFT END DATE/TIME: 02/13/2019 07:00 (CDT) NAME MAC LA DATE OF : 1930 DATE OF ADMISSION: 02/06/2019 15:18 (CDT) PHONE: AGE: 88 SSN# [id number] GENDER: Female ENCOUNTER PHYSICIAN: Dr. Leydi Kapadia ADMISSION DIAGNOSIS: - Amputation of Limb 05 - Unilateral Lower Limb Below the Knee (BK) (05.4) Left Diabetic Foot Ulcer. EATING: Activity did not occur on this shift EATING - SCORE: 0-UNK GROOMING: Comb/brush hair Oral care Wash, rinse, and dry face Wash, rinse, and dry hands GROOMING - STEP 1: Does the patient require the assistance of a person or device, or need extra time when grooming? Yes. GROOMING - STEP 2: Does the patient require the assistance of a helper? Yes. GROOMING - STEP 3: How much assistance does the patient require from the helper? Only prior equipment preparation/set up from the helper GROOMING - SCORE: 5-SUP BATHING: Activity did not occur on this shift BATHING - SCORE: 0-UNK DRESSING - UPPER BODY: Patient is not dressing in public clothing ARTICLES SCORE Total number of steps: 0 DRESSING - UPPER BODY - SCORE: 0-UNK DRESSING - LOWER BODY: Patient is not dressing in public clothing ARTICLES SCORE Total number of steps: 0 DRESSING - LOWER BODY - SCORE: 0-UNK TOILETING: TOILETING - STEP 1: Does the patient require the assistance of a person or device, or need extra time with toileting? Yes . TOILETING - STEP 2: Does the patient require the assistance of a helper? Yes. TOILETING - STEP 3: How much assistance does the patient require from the helper? Hands-on assistance from the helper TOILETING - STEP 4: Of the 3 tasks: 1) Adjusting clothing prior to use, 2) Cleansing of perineal area, 3) Adjusting clot [place] after use; How many tasks does the patient perform WITHOUT assistance of the helper? Two tasks TOILETING - SCORE: 3-MOD BLADDER MANAGEMENT: BLADDER MANAGEMENT - STEP 1: Does the patient control the bladder completely and intentionally without equipment or devices or med ications, and is always continent? No. BLADDER MANAGEMENT - STEP 2: Does the patient require the assistance of a helper? Yes. BLADDER MANAGEMENT - STEP 3: How much assistance does the patient require from the helper? Only set-up of equipment - such as plac ing it within reach of the patient or emptying a device - to maintain either satisfactory voiding pat tern or managing an external device, such as an absorbent pad, ileal device, or catheter BLADDER MANAGEMENT - SCORE: 5-SUP BOWEL MANAGEMENT: Activity did not occur on this shift BOWEL MANAGEMENT - SCORE: 7-IND TRANSFERS: BED, CHAIR, WHEELCHAIR: TRANSFERS: BED, CHAIR, WHEELCHAIR - STEP 1: Does the patient require assistance of a person or device, or need extra time with bed, chair, or whe elchair transfers? Yes. TRANSFERS: BED, CHAIR, WHEELCHAIR - STEP 2: Does the patient require the assistance of a helper? Yes. TRANSFERS: BED, CHAIR, WHEELCHAIR - STEP 3: How much assistance does the patient require from the helper? Lifting of the legs TRANSFERS: BED, CHAIR, WHEELCHAIR - STEP 4: How many legs does the patient require the helper to lift? both legs TRANSFERS: BED, CHAIR, WHEELCHAIR - SCORE: 3-MOD TRANSFERS: TOILET: TRANSFERS: TOILET - STEP 1: Does the patient require the assistance of a person or device, or need extra time with toilet transfe rs? Yes. TRANSFERS: TOILET - STEP 2: Does the patient require the assistance of a helper? Yes. TRANSFERS: TOILET - STEP 3: How much assistance does the patient require from the helper? Patient performs half or more of the tr ansferring tasks TRANSFERS: TOILET - STEP 4: Does the patient need only incidental help such as contact guard or steadying during toilet transfer? No. Patient needs more than incidental help TRANSFERS: TOILET - SCORE: 3-MOD TRANSFERS: SHOWER: Activity did not occur on this shift TRANSFERS: SHOWER - SCORE: 0-UNK TRANSFERS: TUB: Activity did not occur on this shift TRANSFERS: TUB - SCORE: 0-UNK LOCOMOTION: WALK: Activity did not occur on this shift LOCOMOTION: WALK - SCORE: 0-UNK LOCOMOTION: WHEELCHAIR: Activity did not occur on this shift LOCOMOTION: WHEELCHAIR - SCORE: 0-UNK COMPREHENSION: COMPREHENSION: TYPE: Both COMPREHENSION - STEP 1: Does the patient require help from a person or device, or need extra time to understand complex and a bstract ideas (such as current events, finances, discharge planning, medical issues, relationships, e tc)? Yes. COMPREHENSION - STEP 2: Does the patient require help to understand questions or statements about basic needs or ideas (such as hunger, thirst, sleep, safety, daily schedule, room location, or discomfort) half or more of the t marshall? No. COMPREHENSION - STEP 3: How often does the patient need help to understand directions and conversation about basic needs? Les s than 10% of the time COMPREHENSION - SCORE: 5-SUP EXPRESSION EXPRESSION: TYPE: Both EXPRESSION - STEP 1: Does the patient require help from a person or device, or need extra time expressing complex and abst ract ideas (such as current events, finances, discharge planning, medical issues, relationships, etc) ? Yes. EXPRESSION - STEP 2: Does the patient require help to express basic necessities or ideas (such as hunger, thirst, sleep, s afety, daily schedule, room location, or discomfort) half or more of the time? No. EXPRESSION - STEP 3: How often does the patient need help to express directions and conversation about basic needs? Less t peña 10% of the time EXPRESSION - SCORE: 5-SUP SOCIAL INTERACTION: SOCIAL INTERACTION - STEP 1: Does the patient require a helper to interact with others in social and therapeutic situations? Yes. SOCIAL INTERACTION - STEP 2: Does the patient interact appropriately half or more of the time? Yes. SOCIAL INTERACTION - STEP 3: How often does the patient need help to interact appropriately? Less than 10% of the time SOCIAL INTERACTION - SCORE: 5-SUP PROBLEM SOLVING: PROBLEM SOLVING - STEP 1: Does the patient need help from a person or device, or need extra time to solve complex problems such as managing a checking account or confronting interpersonal problems? Yes. PROBLEM SOLVING - STEP 2: Does the patient solve basic routine problems half or more of the time? Yes. PROBLEM SOLVING - STEP 3: How often does the patient need help to solve basic routine problems? Less than 10% of the time PROBLEM SOLVING - SCORE: 5-SUP MEMORY: MEMORY - STEP 1: Does the patient need help from a person or device, or need extra time to remember frequently encount ered people, daily routines, and executing requests? Yes. MEMORY - STEP 2: How often does the patient need help to remember frequently encountered people, daily routines, and e xecuting requests? 10% - 24% of the time MEMORY - SCORE: 4-MIN
[2019-02-13] MEDS: PANTOPRAZOLE 40MG TABLET PO SCH (07:09)
[2019-02-13] MEDS: LEVOTHYROXINE SOD 0.05 MG TABLET PO SCH (07:09)
[2019-02-13] MEDS: CRANBERRY FRUIT EXTRACT 200 MG CAP PO SCH ×2 (08:47→19:38)
[2019-02-13] MEDS: ASPIRIN 81 MG CHEWABLE TABLET PO SCH (08:47)
[2019-02-13] MEDS: DOCUSATE NA 100 MG CAP PO SCH ×2 (08:47→19:38)
[2019-02-13] MEDS: SPIRONOLACTONE 25 MG TABLET PO SCH (08:47)
[2019-02-13] MEDS: FUROSEMIDE 20 MG TABLET PO SCH (08:49)
[2019-02-13] MEDS: AMLODIPINE 5 MG TAB PO SCH (08:49)
[2019-02-13] MEDS: NPH (HUMAN) 100 UNITS/ML INSULIN SQ SCH (08:50)
[2019-02-13] MEDS: ENOXAPARIN 40 MG/0.4 ML SQ SCH (08:50)
[2019-02-13] MEDS: INSULIN -REGULAR HUMAN 50 UNIT/0.5 ML ML SQ SCH ×4 (09:00→19:51)
[2019-02-13] MEDS: PROMOD 30 ML DOSE PO SCH ×2 (12:13→19:41)
[2019-02-13] MEDS: LOSARTAN POTASSIUM 50 MG TABLET PO SCH (12:13)
[2019-02-13] MEDS: VANCOMYCIN 1.5 GM in NA CHLORIDE 0.9% 500 ML IVPB SCH (12:13)
--- NOTE | 2019-02-13 14:55 | FAST ---
SHIFT START DATE/TIME: 02/13/2019 07:00 (CDT) SHIFT END DATE/TIME: 02/13/2019 19:00 (CDT) NAME MAC LA DATE OF : 1930 DATE OF ADMISSION: 02/06/2019 15:18 (CDT) PHONE: AGE: 88 N# [id number] GENDER: Female ENCOUNTER PHYSICIAN: Dr. Leydi Kapadia ADMISSION DIAGNOSIS: - Amputation of Limb 05 - Unilateral Lower Limb Below the Knee (BK) (05.4) Left Diabetic Foot Ulcer. EATING: EATING - STEP 1: Does the patient require the assistance of a person or device, or need extra time when eating? Yes. EATING - STEP 2: Does the patient require the assistance of a helper? Yes. EATING - STEP 3: Does the patient perform half or more of the eating tasks? Yes. EATING - STEP 4: Does the patient need only supervision, cuing, coaxing OR help to apply an orthosis OR help to cut fo od, open containers, pour liquids, or butter bread? Yes. EATING - SCORE: 5-SUP GROOMING: Activity did not occur on this shift GROOMING - SCORE: 0-UNK BATHING: Activity did not occur on this shift BATHING - SCORE: 0-UNK DRESSING - UPPER BODY: Activity did not occur on this shift ARTICLES SCORE Total number of steps: 0 DRESSING - UPPER BODY - SCORE: 0-UNK DRESSING - LOWER BODY: Activity did not occur on this shift ARTICLES SCORE Total number of steps: 0 DRESSING - LOWER BODY - SCORE: 0-UNK TOILETING: TOILETING - STEP 1: Does the patient require the assistance of a person or device, or need extra time with toileting? Yes . TOILETING - STEP 2: Does the patient require the assistance of a helper? Yes. TOILETING - STEP 3: How much assistance does the patient require from the helper? Hands-on assistance from the helper TOILETING - STEP 4: Of the 3 tasks: 1) Adjusting clothing prior to use, 2) Cleansing of perineal area, 3) Adjusting clot [place] after use; How many tasks does the patient perform WITHOUT assistance of the helper? Two tasks TOILETING - SCORE: 3-MOD BLADDER MANAGEMENT: BLADDER MANAGEMENT - STEP 1: Does the patient control the bladder completely and intentionally without equipment or devices or med ications, and is always continent? No. BLADDER MANAGEMENT - STEP 2: Does the patient require the assistance of a helper? No, patient requires and independently uses an a ssistive device, such as a urinal, bedpan, bedside commode, catheter, absorbent pad, or collecting de vice BLADDER MANAGEMENT - SCORE: 6-BETH BOWEL MANAGEMENT: Activity did not occur on this shift BOWEL MANAGEMENT - SCORE: 7-IND TRANSFERS: BED, CHAIR, WHEELCHAIR: TRANSFERS: BED, CHAIR, WHEELCHAIR - STEP 1: Does the patient require assistance of a person or device, or need extra time with bed, chair, or whe elchair transfers? Yes. TRANSFERS: BED, CHAIR, WHEELCHAIR - STEP 2: Does the patient require the assistance of a helper? Yes. TRANSFERS: BED, CHAIR, WHEELCHAIR - STEP 3: How much assistance does the patient require from the helper? Lifting of the patient TRANSFERS: BED, CHAIR, WHEELCHAIR - STEP 4: Does the helper lift the patient ONLY up? ONLY down? Up AND Down? ONLY up. TRANSFERS: BED, CHAIR, WHEELCHAIR - SCORE: 3-MOD TRANSFERS: TOILET: TRANSFERS: TOILET - STEP 1: Does the patient require the assistance of a person or device, or need extra time with toilet transfe rs? Yes. TRANSFERS: TOILET - STEP 2: Does the patient require the assistance of a helper? Yes. TRANSFERS: TOILET - STEP 3: How much assistance does the patient require from the helper? Patient performs half or more of the tr ansferring tasks TRANSFERS: TOILET - STEP 4: Does the patient need only incidental help such as contact guard or steadying during toilet transfer? No. Patient needs more than incidental help TRANSFERS: TOILET - SCORE: 3-MOD TRANSFERS: SHOWER: Activity did not occur on this shift TRANSFERS: SHOWER - SCORE: 0-UNK TRANSFERS: TUB: Activity did not occur on this shift TRANSFERS: TUB - SCORE: 0-UNK LOCOMOTION: WALK: Activity did not occur on this shift LOCOMOTION: WALK - SCORE: 0-UNK LOCOMOTION: WHEELCHAIR: Activity did not occur on this shift LOCOMOTION: WHEELCHAIR - SCORE: 0-UNK COMPREHENSION: COMPREHENSION: TYPE: Both COMPREHENSION - STEP 1: Does the patient require help from a person or device, or need extra time to understand complex and a bstract ideas (such as current events, finances, discharge planning, medical issues, relationships, e tc)? Yes. COMPREHENSION - STEP 2: Does the patient require help to understand questions or statements about basic needs or ideas (such as hunger, thirst, sleep, safety, daily schedule, room location, or discomfort) half or more of the t marshall? No. COMPREHENSION - STEP 3: How often does the patient need help to understand directions and conversation about basic needs? 10% - 24% of the time COMPREHENSION - SCORE: 4-MIN EXPRESSION EXPRESSION: TYPE: Both EXPRESSION - STEP 1: Does the patient require help from a person or device, or need extra time expressing complex and abst ract ideas (such as current events, finances, discharge planning, medical issues, relationships, etc) ? Yes. EXPRESSION - STEP 2: Does the patient require help to express basic necessities or ideas (such as hunger, thirst, sleep, s afety, daily schedule, room location, or discomfort) half or more of the time? No. EXPRESSION - STEP 3: How often does the patient need help to express directions and conversation about basic needs? 10-24% of the time EXPRESSION - SCORE: 4-MIN SOCIAL INTERACTION: SOCIAL INTERACTION - STEP 1: Does the patient require a helper to interact with others in social and therapeutic situations? Yes. SOCIAL INTERACTION - STEP 2: Does the patient interact appropriately half or more of the time? Yes. SOCIAL INTERACTION - STEP 3: How often does the patient need help to interact appropriately? Less than 10% of the time SOCIAL INTERACTION - SCORE: 5-SUP PROBLEM SOLVING: PROBLEM SOLVING - STEP 1: Does the patient need help from a person or device, or need extra time to solve complex problems such as managing a checking account or confronting interpersonal problems? Yes. PROBLEM SOLVING - STEP 2: Does the patient solve basic routine problems half or more of the time? Yes. PROBLEM SOLVING - STEP 3: How often does the patient need help to solve basic routine problems? 10%-24% of the time PROBLEM SOLVING - SCORE: 4-MIN MEMORY: MEMORY - STEP 1: Does the patient need help from a person or device, or need extra time to remember frequently encount ered people, daily routines, and executing requests? Yes. MEMORY - STEP 2: How often does the patient need help to remember frequently encountered people, daily routines, and e xecuting requests? 10% - 24% of the time MEMORY - SCORE: 4-MIN SIGNATURE PANEL: The following modified sections: Eating - Score, Grooming - Score, Bathing - Score, Dressing - Upper Body - Score, Dressing - Lower Body - Score, Toileting - Score, Bladder Management - Score, Bowel Man agement - Score, Transfers: Bed, Chair, Wheelchair - Score, Transfers: Toilet - Score, Transfers: Mary wer - Score, Transfers: Tub - Score, Locomotion: Walk - Score, Locomotion: Wheelchair - Score, Compre hension - Score, Expression - Score, Social Interaction - Score, Problem Solving - Score, Memory - Sc ore were [electronically] signed by Rufus Redding on MonFeb 13 2019 14:53:42 GMT-0500 (Central Daylight Time)
[2019-02-13] MEDS: ATORVASTATIN 20 MG TAB PO SCH (19:38)
--- NOTE | 2019-02-14 00:03 | R.PN ---
ENCOUNTER DATE AND TIME: 02/13/2019 23:55 (CDT) NAME MAC LA DATE OF : 1930 DATE OF ADMISSION: 02/06/2019 15:18 (CDT) Left Diabetic Foot UlcerCHIEF COMPLAINT: Debility SUBJECTIVE: Pt denied any depression. Pt denied any Shortness of Breath. Ambulated 750' with standby assistance using a rolling walker. VITAL SIGNS Temperature: 97.3 F SBP/DBP: 159/57 Pulse: 68 Resp: 16 MEDICATION ALLERGIES: PENICILLIN Iodine ENVIRONMENTAL ALLERGIES: None Known - Substance Allergies None Known - Other Allergies None Known CONSULT: Perform Consult Certified Prosthetic for prosthesis construction NURSING: - Shower allowing shower - Lab Results blood Sugar Check ACHS - Skin care per protocol PRECAUTIONS: - Weight Bearing Precaution NWB left LE ACTIVITIES OOB only with supervision THERAPIES: - Orthotics/Prosthetics Prosthetic Evaluation. - Dietary and Nutrition Adequate Nutrition. Nutritional Education. Nutritional Supplements. PHYSICAL EXAM - Gen Alert and awake Lying in bed No apparent distress Oriented to: person, time, and place - Skin No skin breakdown. No abnormalities - Eyes No abnormalities - ENMT No abnormalities - Neck No abnormalities - CVS RRR - Chest No abnormalities - Abd Soft - GI Non distended Deferred - No abnormalities - Ext No significant edema. - MSK 4/5 weakness in both lower extremities. - Neuro No focal deficits - Psych No abnormalities ASSESSMENT: Pt. 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 was independent/mod-I in Self-Care, Sphincter Contro l, Transfers Control, Locomotion, Communication, and Social Cognition; and she had good Sphincter Con trol.Currently, she has deficits of Self-Care, Transfers Control, Locomotion, Endurance, Balance, and Safety Awareness.Pt. is now referred to [facility] for acute in-patient rehab ilitation in order to maximize patient's functional independence in activities of daily living, stren gth, ROM, and mobility.- Rehab Goal Patient has realistic goal of being discharged at assistance level 6-Latoya to reside at Home with Fam rosi/Relatives. MDM/PLAN: - Physical Therapy Gait dysfunction - to improve, our physical therapists will perform initial evaluation of pt's statu s upon admission and devise an individualized program for Gait Training, and Wheel Chair mobility Inability to transfer - to improve, our physical therapists will perform initial evaluation of pt's status upon admission and devise an individualized program for Bed mobility Need for home safety evaluation - to improve, our physical therapists will perform initial evaluatio n of pt's status upon admission and devise an individualized program for Home Evaluation Need in caregiver upon discharge - to improve, our physical therapists will perform initial evaluati on of pt's status upon admission and devise an individualized program for Caregiver Training New precaution - to improve, our physical therapists will perform initial evaluation of pt's status upon admission and devise an individualized program for Patient precaution education Poor balance - to improve, our physical therapists will perform initial evaluation of pt's status up on admission and devise an individualized program for Balance Training Poor endurance - to improve, our physical therapists will perform initial evaluation of pt's status upon admission and devise an individualized program for Endurance Training Weakness - to improve, our physical therapists will perform initial evaluation of pt's status upon a dmission and devise an individualized program for Aquatic Therapy, Neuromuscular Reeducation, and Str engthening Achieving independence - to improve, our physical therapists will perform initial evaluation of pt's status upon admission and devise an individualized program for Community Reintegration Activities - Occupational Therapy ADL deficits - to improve, our occupation therapists will perform initial evaluation of pt's status upon admission and devise an individualized program for Bathing, Bed mobility, Community Reintegratio n, Cooking, Dressing, Eating, Fine Motor Skills, Grooming, Homemaking, Kitchen Mobility, Laundry, Pat ient Education, Safety Awareness, Splinting - Positioning, Transfers(Toilet, Tub, Shower), and Wheel Chair Management Need for foster care therapist - to improve, our occupation therapists will perform initial evaluation of pt's status upon admission and devise an individualized program for Caregiver Training Weakness - to improve, our occupation therapists will perform initial evaluation of pt's status upon admission and devise an individualized program for Aquatic Therapy, Balance, Endurance, UE ROM, and UE strengthening - Other See attached MAR (Medication Administration Record) Picha, [email or web address].pdf See attached MAR (Medication Administration Record) Picha, Mac.pdf See attached MAR (Medication Administration Record) - Diet Type Continue Regular - Diet - Liquid Texture Continue Regular - Tube Feed Continue N/A - Lab Results blood Sugar Check ACHS - Weight Bearing Precaution NWB left LE WBAT left LE - Skin care per protocol - N/A Perform Consult Certified Prosthetic for prosthesis construction - Diet - Solid Texture Continue Regular - Shower allowing shower FUNCTIONAL STATUS: - Self-Care A. Eating sup B. Grooming sup C. Bathing sup D. Dressing - Upper sup E. Dressing - Lower modA F. Toileting modA - Sphincter Control G: Bladder control Ind H: Bowel control Ind - Transfers Control I. Bed/Chair/Wheelchair modA J. Toilet modA K. Tub/Shower ADNO - Locomotion L. Walk/Wheelchair (C) Dep L. Walk/Wheelchair (W) Dep M. Stairs ADNO - Communication N. Comprehension (B) Ind O. Expression (B) Ind - Social Cognition P. Social Interaction Ind Q. Problem Solving Ind R. Memory Ind - Endurance Fair - Balance Fair - Safety Awareness Fair CURRENT FUNC. DEFICITS: Self-Care, Transfers Control, Locomotion, Endurance, Balance, and Safety Awareness SIGNATURE PANEL: (CDT)
[2019-02-14] MEDS: PIPER/TAZO/NS 3.375gm 3.375 GM/100 ML BAG IVPB SCH ×3 (01:09→17:09)
[2019-02-14] MEDS: HYDROCODONE/APAP 10/325 TAB PO PRN (01:36)
[2019-02-14] MEDS: PANTOPRAZOLE 40MG TABLET PO SCH (06:29)
[2019-02-14] MEDS: LEVOTHYROXINE SOD 0.05 MG TABLET PO SCH (06:29)
[2019-02-14 07:17] LABS: Absolute Lymphocytes (CBC) 1.4 K/uL (0.7-4.9); Basophils % 0.8 % (0-1.3); Hematocrit 33.9 % (36.0-45.0); Lymphocytes % 21.3 % (15.3-44.8); MPV 10.8 fL (7.6-11.3); RBC Red Blood Cell Count 3.81 M/uL (3.86-4.86)
[2019-02-14] MEDS: INSULIN -REGULAR HUMAN 50 UNIT/0.5 ML ML SQ SCH ×4 (07:30→22:05)
[2019-02-14 07:37] LABS: Albumin 3.3 g/dL (3.4-5.0); Magnesium 2.3 mg/dL (1.8-2.4); Potassium 3.7 mmol/L (3.5-5.1); Prealbumin 17.7 mg/dL (20-40)
[2019-02-14] MEDS: PROMOD 30 ML DOSE PO SCH ×2 (08:00→22:05)
--- NOTE | 2019-02-14 08:25 | FAST ---
ENCOUNTER DATE AND TIME: 02/12/2019 08:00 (CDT) NAME MAC LA DATE OF : 1930 DATE OF ADMISSION: 02/06/2019 15:18 (CDT) PHONE: AGE: 88 SSN# [id number] GENDER: Female ENCOUNTER PHYSICIAN: Dr. Óscar Gibson M.D. 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 EATING: Activity did not occur on this shift EATING - SCORE: 0-UNK GROOMING: Activity did not occur on this shift GROOMING - SCORE: 0-UNK BATHING: Activity did not occur on this shift BATHING - SCORE: 0-UNK DRESSING - UPPER BODY: Activity did not occur on this shift Patient is not dressing in public clothing ARTICLES SCORE Total number of steps: 0 DRESSING - UPPER BODY - SCORE: 0-UNK DRESSING - LOWER BODY: Activity did not occur on this shift Patient is not dressing in public clothing ARTICLES SCORE Total number of steps: 0 DRESSING - LOWER BODY - SCORE: 0-UNK TOILETING: Activity did not occur on this shift TOILETING - SCORE: 0-UNK BLADDER MANAGEMENT: Activity did not occur on this shift BLADDER MANAGEMENT - SCORE: 7-IND BOWEL MANAGEMENT: Activity did not occur on this shift BOWEL MANAGEMENT - SCORE: 7-IND TRANSFERS: BED, CHAIR, WHEELCHAIR: TRANSFERS: BED, CHAIR, WHEELCHAIR - STEP 1: Does the patient require assistance of a person or device, or need extra time with bed, chair, or whe elchair transfers? Yes. TRANSFERS: BED, CHAIR, WHEELCHAIR - STEP 2: Does the patient require the assistance of a helper? Yes. TRANSFERS: BED, CHAIR, WHEELCHAIR - STEP 3: How much assistance does the patient require from the helper? Lifting of the legs TRANSFERS: BED, CHAIR, WHEELCHAIR - STEP 4: How many legs does the patient require the helper to lift? both legs TRANSFERS: BED, CHAIR, WHEELCHAIR - SCORE: 3-MOD TRANSFERS: TOILET: Activity did not occur on this shift TRANSFERS: TOILET - SCORE: 0-UNK TRANSFERS: SHOWER: Activity did not occur on this shift TRANSFERS: SHOWER - SCORE: 0-UNK TRANSFERS: TUB: Activity did not occur on this shift TRANSFERS: TUB - SCORE: 0-UNK LOCOMOTION: WALK: LOCOMOTION: WALK - STEP 1: Does the patient need help from a person or device, or need extra time to walk 150 feet? Yes. LOCOMOTION: WALK - STEP 2: How much assistance does the patient require to walk a minimum of 150 feet? Only supervision, cuing, or coaxing LOCOMOTION: WALK - SCORE: 5-SUP LOCOMOTION: WHEELCHAIR: LOCOMOTION: WHEELCHAIR - STEP 1: Does the patient need help to go 150 feet in a wheelchair? Yes. LOCOMOTION: WHEELCHAIR - STEP 2: How much assistance does the patient need from the helper? Only supervision, cuing, or coaxing LOCOMOTION: WHEELCHAIR - SCORE: 5-SUP LOCOMOTION: STAIRS: Patient goes up and down less than 4 to 6 stairs LOCOMOTION: STAIRS - SCORE: 1-DEP COMPREHENSION: COMPREHENSION - SCORE: 0-UNK EXPRESSION EXPRESSION - SCORE: 0-UNK SOCIAL INTERACTION: SOCIAL INTERACTION - SCORE: 0-UNK PROBLEM SOLVING: PROBLEM SOLVING - SCORE: 0-UNK MEMORY: MEMORY - SCORE: 0-UNK SIGNATURE PANEL: The following modified sections: Transfers: Bed, Chair, Wheelchair - Score, Transfers: Toilet - Score , Locomotion: Walk - Score, Locomotion: Wheelchair - Score, Locomotion: Stairs - Score were [electron paula] signed by Michael Esteban PTA on MonFeb 14 2019 08:23:18 GMT-0500 (Central Daylight Time)
--- NOTE | 2019-02-14 08:32 | FAST ---
ENCOUNTER DATE AND TIME: 02/13/2019 08:00 (CDT) NAME MAC LA DATE OF : 1930 DATE OF ADMISSION: 02/06/2019 15:18 (CDT) PHONE: AGE: 88 SSN# [id number] GENDER: Female ENCOUNTER PHYSICIAN: Dr. Óscar Gibson M.D. 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 EATING: Activity did not occur on this shift EATING - SCORE: 0-UNK GROOMING: Activity did not occur on this shift GROOMING - SCORE: 0-UNK BATHING: Activity did not occur on this shift BATHING - SCORE: 0-UNK DRESSING - UPPER BODY: Activity did not occur on this shift Patient is not dressing in public clothing ARTICLES SCORE Total number of steps: 0 DRESSING - UPPER BODY - SCORE: 0-UNK DRESSING - LOWER BODY: Activity did not occur on this shift Patient is not dressing in public clothing ARTICLES SCORE Total number of steps: 0 DRESSING - LOWER BODY - SCORE: 0-UNK TOILETING: Activity did not occur on this shift TOILETING - SCORE: 0-UNK BLADDER MANAGEMENT: Activity did not occur on this shift BLADDER MANAGEMENT - SCORE: 7-IND BOWEL MANAGEMENT: Activity did not occur on this shift BOWEL MANAGEMENT - SCORE: 7-IND TRANSFERS: BED, CHAIR, WHEELCHAIR: TRANSFERS: BED, CHAIR, WHEELCHAIR - STEP 1: Does the patient require assistance of a person or device, or need extra time with bed, chair, or whe elchair transfers? Yes. TRANSFERS: BED, CHAIR, WHEELCHAIR - STEP 2: Does the patient require the assistance of a helper? Yes. TRANSFERS: BED, CHAIR, WHEELCHAIR - STEP 3: How much assistance does the patient require from the helper? Lifting of the legs TRANSFERS: BED, CHAIR, WHEELCHAIR - STEP 4: How many legs does the patient require the helper to lift? both legs TRANSFERS: BED, CHAIR, WHEELCHAIR - SCORE: 3-MOD TRANSFERS: TOILET: Activity did not occur on this shift TRANSFERS: TOILET - SCORE: 0-UNK TRANSFERS: SHOWER: Activity did not occur on this shift TRANSFERS: SHOWER - SCORE: 0-UNK TRANSFERS: TUB: Activity did not occur on this shift TRANSFERS: TUB - SCORE: 0-UNK LOCOMOTION: WALK: LOCOMOTION: WALK - STEP 1: Does the patient need help from a person or device, or need extra time to walk 150 feet? Yes. LOCOMOTION: WALK - STEP 2: How much assistance does the patient require to walk a minimum of 150 feet? Only supervision, cuing, or coaxing LOCOMOTION: WALK - SCORE: 5-SUP LOCOMOTION: WHEELCHAIR: LOCOMOTION: WHEELCHAIR - STEP 1: Does the patient need help to go 150 feet in a wheelchair? Yes. LOCOMOTION: WHEELCHAIR - STEP 2: How much assistance does the patient need from the helper? Only supervision, cuing, or coaxing LOCOMOTION: WHEELCHAIR - SCORE: 5-SUP LOCOMOTION: STAIRS: Activity did not occur on this shift LOCOMOTION: STAIRS - SCORE: 0-UNK COMPREHENSION: COMPREHENSION - SCORE: 0-UNK EXPRESSION EXPRESSION - SCORE: 0-UNK SOCIAL INTERACTION: SOCIAL INTERACTION - SCORE: 0-UNK PROBLEM SOLVING: PROBLEM SOLVING - SCORE: 0-UNK MEMORY: MEMORY - SCORE: 0-UNK SIGNATURE PANEL: The following modified sections: Transfers: Bed, Chair, Wheelchair - Score, Transfers: Toilet - Score , Locomotion: Walk - Score, Locomotion: Wheelchair - Score, Locomotion: Stairs - Score were [electron ically] signed by Michael Esteban PTA on MonFeb 14 2019 08:30:24 GMT-0500 (Central Daylight Time)
--- NOTE | 2019-02-14 08:36 | FAST ---
ENCOUNTER DATE AND TIME: 02/11/2019 08:00 (CDT) NAME MAC LA DATE OF : 1930 DATE OF ADMISSION: 02/06/2019 15:18 (CDT) PHONE: AGE: 88 SSN# [id number] GENDER: Female ENCOUNTER PHYSICIAN: Dr. Óscar Gibson M.D. 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 EATING: Activity did not occur on this shift EATING - SCORE: 0-UNK GROOMING: Activity did not occur on this shift GROOMING - SCORE: 0-UNK BATHING: Activity did not occur on this shift BATHING - SCORE: 0-UNK DRESSING - UPPER BODY: Activity did not occur on this shift Patient is not dressing in public clothing ARTICLES SCORE Total number of steps: 0 DRESSING - UPPER BODY - SCORE: 0-UNK DRESSING - LOWER BODY: Activity did not occur on this shift Patient is not dressing in public clothing ARTICLES SCORE Total number of steps: 0 DRESSING - LOWER BODY - SCORE: 0-UNK TOILETING: Activity did not occur on this shift TOILETING - SCORE: 0-UNK BLADDER MANAGEMENT: Activity did not occur on this shift BLADDER MANAGEMENT - SCORE: 7-IND BOWEL MANAGEMENT: Activity did not occur on this shift BOWEL MANAGEMENT - SCORE: 7-IND TRANSFERS: BED, CHAIR, WHEELCHAIR: TRANSFERS: BED, CHAIR, WHEELCHAIR - STEP 1: Does the patient require assistance of a person or device, or need extra time with bed, chair, or whe elchair transfers? Yes. TRANSFERS: BED, CHAIR, WHEELCHAIR - STEP 2: Does the patient require the assistance of a helper? Yes. TRANSFERS: BED, CHAIR, WHEELCHAIR - STEP 3: How much assistance does the patient require from the helper? Lifting of the legs TRANSFERS: BED, CHAIR, WHEELCHAIR - STEP 4: How many legs does the patient require the helper to lift? both legs TRANSFERS: BED, CHAIR, WHEELCHAIR - SCORE: 3-MOD TRANSFERS: TOILET: Activity did not occur on this shift TRANSFERS: TOILET - SCORE: 0-UNK TRANSFERS: SHOWER: Activity did not occur on this shift TRANSFERS: SHOWER - SCORE: 0-UNK TRANSFERS: TUB: Activity did not occur on this shift TRANSFERS: TUB - SCORE: 0-UNK LOCOMOTION: WALK: Activity did not occur on this shift LOCOMOTION: WALK - SCORE: 0-UNK LOCOMOTION: WHEELCHAIR: LOCOMOTION: WHEELCHAIR - STEP 1: Does the patient need help to go 150 feet in a wheelchair? Yes. LOCOMOTION: WHEELCHAIR - STEP 2: How much assistance does the patient need from the helper? Only supervision, cuing, or coaxing LOCOMOTION: WHEELCHAIR - SCORE: 5-SUP LOCOMOTION: STAIRS: Activity did not occur on this shift LOCOMOTION: STAIRS - SCORE: 0-UNK COMPREHENSION: COMPREHENSION - SCORE: 0-UNK EXPRESSION EXPRESSION - SCORE: 0-UNK SOCIAL INTERACTION: SOCIAL INTERACTION - SCORE: 0-UNK PROBLEM SOLVING: PROBLEM SOLVING - SCORE: 0-UNK MEMORY: MEMORY - SCORE: 0-UNK SIGNATURE PANEL: The following modified sections: Transfers: Bed, Chair, Wheelchair - Score, Transfers: Toilet - Score , Locomotion: Walk - Score, Locomotion: Wheelchair - Score, Locomotion: Stairs - Score were [electron paula] signed by Michael Esteban PTA on MonFeb 14 2019 08:34:28 T-0500 (Central Daylight Time)
[2019-02-14] MEDS: VANCOMYCIN 1.5 GM in NA CHLORIDE 0.9% 500 ML IVPB SCH (09:00)
[2019-02-14] MEDS: ENOXAPARIN 40 MG/0.4 ML SQ SCH (09:10)
[2019-02-14] MEDS: CRANBERRY FRUIT EXTRACT 200 MG CAP PO SCH ×2 (09:11→22:03)
[2019-02-14] MEDS: ASPIRIN 81 MG CHEWABLE TABLET PO SCH (09:11)
[2019-02-14] MEDS: DOCUSATE NA 100 MG CAP PO SCH ×2 (09:11→22:03)
[2019-02-14] MEDS: FUROSEMIDE 20 MG TABLET PO SCH (09:12)
[2019-02-14] MEDS: SPIRONOLACTONE 25 MG TABLET PO SCH (09:12)
[2019-02-14] MEDS: AMLODIPINE 5 MG TAB PO SCH (09:12)
[2019-02-14] MEDS: LOSARTAN POTASSIUM 50 MG TABLET PO SCH (09:13)
[2019-02-14] MEDS: NPH (HUMAN) 100 UNITS/ML INSULIN SQ SCH (09:14)
--- NOTE | 2019-02-14 14:41 | FAST ---
SHIFT START DATE/TIME: 02/14/2019 07:00 (CDT) SHIFT END DATE/TIME: 02/14/2019 19:00 (CDT) NAME MAC LA DATE OF : 1930 DATE OF ADMISSION: 02/06/2019 15:18 (CDT) PHONE: AGE: 88 N# [id number] GENDER: Female ENCOUNTER PHYSICIAN: Dr. Óscar Gibson M.D. 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 EATING: EATING - STEP 1: Does the patient require the assistance of a person or device, or need extra time when eating? Yes. EATING - STEP 2: Does the patient require the assistance of a helper? Yes. EATING - STEP 3: Does the patient perform half or more of the eating tasks? Yes. EATING - STEP 4: Does the patient need only supervision, cuing, coaxing OR help to apply an orthosis OR help to cut fo od, open containers, pour liquids, or butter bread? Yes. EATING - SCORE: 5-SUP GROOMING: GROOMING - STEP 1: Does the patient require the assistance of a person or device, or need extra time when grooming? Yes. GROOMING - STEP 2: Does the patient require the assistance of a helper? No. The patient only requires an assistive devic e, OR takes more than reasonable time to groom, OR there is a concern for safety as the patient groom s GROOMING - SCORE: 6-BETH BATHING: Activity did not occur on this shift BATHING - SCORE: 0-UNK DRESSING - UPPER BODY: Activity did not occur on this shift ARTICLES SCORE Total number of steps: 0 DRESSING - UPPER BODY - SCORE: 0-UNK DRESSING - LOWER BODY: Activity did not occur on this shift ARTICLES SCORE Total number of steps: 0 DRESSING - LOWER BODY - SCORE: 0-UNK TOILETING: TOILETING - STEP 1: Does the patient require the assistance of a person or device, or need extra time with toileting? Yes . TOILETING - STEP 2: Does the patient require the assistance of a helper? Yes. TOILETING - STEP 3: How much assistance does the patient require from the helper? Hands-on assistance from the helper TOILETING - STEP 4: Of the 3 tasks: 1) Adjusting clothing prior to use, 2) Cleansing of perineal area, 3) Adjusting clot [place] after use; How many tasks does the patient perform WITHOUT assistance of the helper? Two tasks TOILETING - SCORE: 3-MOD BLADDER MANAGEMENT: BLADDER MANAGEMENT - STEP 1: Does the patient control the bladder completely and intentionally without equipment or devices or med ications, and is always continent? No. BLADDER MANAGEMENT - STEP 2: Does the patient require the assistance of a helper? No, patient requires and independently uses an a ssistive device, such as a urinal, bedpan, bedside commode, catheter, absorbent pad, or collecting de vice BLADDER MANAGEMENT - SCORE: 6-BETH BOWEL MANAGEMENT: Activity did not occur on this shift BOWEL MANAGEMENT - SCORE: 7-IND TRANSFERS: BED, CHAIR, WHEELCHAIR: TRANSFERS: BED, CHAIR, WHEELCHAIR - STEP 1: Does the patient require assistance of a person or device, or need extra time with bed, chair, or whe elchair transfers? Yes. TRANSFERS: BED, CHAIR, WHEELCHAIR - STEP 2: Does the patient require the assistance of a helper? Yes. TRANSFERS: BED, CHAIR, WHEELCHAIR - STEP 3: How much assistance does the patient require from the helper? Lifting of the legs TRANSFERS: BED, CHAIR, WHEELCHAIR - STEP 4: How many legs does the patient require the helper to lift? both legs TRANSFERS: BED, CHAIR, WHEELCHAIR - SCORE: 3-MOD TRANSFERS: TOILET: TRANSFERS: TOILET - STEP 1: Does the patient require the assistance of a person or device, or need extra time with toilet transfe rs? Yes. TRANSFERS: TOILET - STEP 2: Does the patient require the assistance of a helper? Yes. TRANSFERS: TOILET - STEP 3: How much assistance does the patient require from the helper? Patient performs half or more of the tr ansferring tasks TRANSFERS: TOILET - STEP 4: Does the patient need only incidental help such as contact guard or steadying during toilet transfer? No. Patient needs more than incidental help TRANSFERS: TOILET - SCORE: 3-MOD TRANSFERS: SHOWER: Activity did not occur on this shift TRANSFERS: SHOWER - SCORE: 0-UNK TRANSFERS: TUB: Activity did not occur on this shift TRANSFERS: TUB - SCORE: 0-UNK LOCOMOTION: WALK: Activity did not occur on this shift LOCOMOTION: WALK - SCORE: 0-UNK LOCOMOTION: WHEELCHAIR: Activity did not occur on this shift LOCOMOTION: WHEELCHAIR - SCORE: 0-UNK COMPREHENSION: COMPREHENSION: TYPE: Both COMPREHENSION - STEP 1: Does the patient require help from a person or device, or need extra time to understand complex and a bstract ideas (such as current events, finances, discharge planning, medical issues, relationships, e tc)? Yes. COMPREHENSION - STEP 2: Does the patient require help to understand questions or statements about basic needs or ideas (such as hunger, thirst, sleep, safety, daily schedule, room location, or discomfort) half or more of the t marshall? No. COMPREHENSION - STEP 3: How often does the patient need help to understand directions and conversation about basic needs? 10% - 24% of the time COMPREHENSION - SCORE: 4-MIN EXPRESSION EXPRESSION: TYPE: Both EXPRESSION - STEP 1: Does the patient require help from a person or device, or need extra time expressing complex and abst ract ideas (such as current events, finances, discharge planning, medical issues, relationships, etc) ? Yes. EXPRESSION - STEP 2: Does the patient require help to express basic necessities or ideas (such as hunger, thirst, sleep, s afety, daily schedule, room location, or discomfort) half or more of the time? No. EXPRESSION - STEP 3: How often does the patient need help to express directions and conversation about basic needs? 25-49% of the time EXPRESSION - SCORE: 3-MOD SOCIAL INTERACTION: SOCIAL INTERACTION - STEP 1: Does the patient require a helper to interact with others in social and therapeutic situations? Yes. SOCIAL INTERACTION - STEP 2: Does the patient interact appropriately half or more of the time? Yes. SOCIAL INTERACTION - STEP 3: How often does the patient need help to interact appropriately? Less than 10% of the time SOCIAL INTERACTION - SCORE: 5-SUP PROBLEM SOLVING: PROBLEM SOLVING - STEP 1: Does the patient need help from a person or device, or need extra time to solve complex problems such as managing a checking account or confronting interpersonal problems? Yes. PROBLEM SOLVING - STEP 2: Does the patient solve basic routine problems half or more of the time? Yes. PROBLEM SOLVING - STEP 3: How often does the patient need help to solve basic routine problems? 25%-49% of the time PROBLEM SOLVING - SCORE: 3-MOD MEMORY: MEMORY - STEP 1: Does the patient need help from a person or device, or need extra time to remember frequently encount ered people, daily routines, and executing requests? Yes. MEMORY - STEP 2: How often does the patient need help to remember frequently encountered people, daily routines, and e xecuting requests? 25% - 49% of the time MEMORY - SCORE: 3-MOD SIGNATURE PANEL: The following modified sections: Eating - Score, Grooming - Score, Bathing - Score, Dressing - Upper Body - Score, Dressing - Lower Body - Score, Toileting - Score, Bladder Management - Score, Bowel Man agement - Score, Transfers: Bed, Chair, Wheelchair - Score, Transfers: Toilet - Score, Transfers: Mary wer - Score, Transfers: Tub - Score, Locomotion: Walk - Score, Locomotion: Wheelchair - Score, Compre hension - Score, Expression - Score, Social Interaction - Score, Problem Solving - Score, Memory - Sc ore were [electronically] signed by Rufus Redding on MonFeb 14 2019 14:40:26 GMT-0500 (Central Daylight Time)
--- NOTE | 2019-02-14 15:19 | FAST ---
ENCOUNTER DATE AND TIME: 02/14/2019 08:00 (CDT) NAME MAC LA DATE OF : 1930 DATE OF ADMISSION: 02/06/2019 15:18 (CDT) PHONE: AGE: 88 SSN# [id number] GENDER: Female ENCOUNTER PHYSICIAN: Dr. Óscar Gibson M.D. 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 EATING: Activity did not occur on this shift EATING - SCORE: 0-UNK GROOMING: Activity did not occur on this shift GROOMING - SCORE: 0-UNK BATHING: Activity did not occur on this shift BATHING - SCORE: 0-UNK DRESSING - UPPER BODY: Activity did not occur on this shift Patient is not dressing in public clothing ARTICLES SCORE Total number of steps: 0 DRESSING - UPPER BODY - SCORE: 0-UNK DRESSING - LOWER BODY: Activity did not occur on this shift Patient is not dressing in public clothing ARTICLES SCORE Total number of steps: 0 DRESSING - LOWER BODY - SCORE: 0-UNK TOILETING: Activity did not occur on this shift TOILETING - SCORE: 0-UNK BLADDER MANAGEMENT: Activity did not occur on this shift BLADDER MANAGEMENT - SCORE: 7-IND BOWEL MANAGEMENT: Activity did not occur on this shift BOWEL MANAGEMENT - SCORE: 7-IND TRANSFERS: BED, CHAIR, WHEELCHAIR: TRANSFERS: BED, CHAIR, WHEELCHAIR - STEP 1: Does the patient require assistance of a person or device, or need extra time with bed, chair, or whe elchair transfers? Yes. TRANSFERS: BED, CHAIR, WHEELCHAIR - STEP 2: Does the patient require the assistance of a helper? Yes. TRANSFERS: BED, CHAIR, WHEELCHAIR - STEP 3: How much assistance does the patient require from the helper? Only supervision TRANSFERS: BED, CHAIR, WHEELCHAIR - SCORE: 5-SUP TRANSFERS: TOILET: Activity did not occur on this shift TRANSFERS: TOILET - SCORE: 0-UNK TRANSFERS: SHOWER: Activity did not occur on this shift TRANSFERS: SHOWER - SCORE: 0-UNK TRANSFERS: TUB: Activity did not occur on this shift TRANSFERS: TUB - SCORE: 0-UNK LOCOMOTION: WALK: LOCOMOTION: WALK - STEP 1: Does the patient need help from a person or device, or need extra time to walk 150 feet? Yes. LOCOMOTION: WALK - STEP 2: How much assistance does the patient require to walk a minimum of 150 feet? Only supervision, cuing, or coaxing LOCOMOTION: WALK - SCORE: 5-SUP LOCOMOTION: WHEELCHAIR: Activity did not occur on this shift LOCOMOTION: WHEELCHAIR - SCORE: 0-UNK LOCOMOTION: STAIRS: LOCOMOTION: STAIRS - STEP 1: Does the patient need help to go up and down 12 to 14 stairs? Yes. LOCOMOTION: STAIRS - STEP 2: How much assistance does the patient need from the helper to go a minimum of 12 to 14 stairs? The pat ient goes less than 12 stairs, but at least 4 stairs LOCOMOTION: STAIRS - SCORE: 2-MAX COMPREHENSION: COMPREHENSION - SCORE: 0-UNK EXPRESSION EXPRESSION - SCORE: 0-UNK SOCIAL INTERACTION: SOCIAL INTERACTION - SCORE: 0-UNK PROBLEM SOLVING: PROBLEM SOLVING - SCORE: 0-UNK MEMORY: MEMORY - SCORE: 0-UNK SIGNATURE PANEL: The following modified sections: Transfers: Bed, Chair, Wheelchair - Score, Transfers: Toilet - Score , Locomotion: Walk - Score, Locomotion: Wheelchair - Score, Locomotion: Stairs - Score were [electron [email or web address]] signed by Bruce Jensen PT on MonFeb 14 2019 15:19:27 T-0500 (Central Daylight Time)
[2019-02-14] MEDS: ATORVASTATIN 20 MG TAB PO SCH (22:03)
[2019-02-15] MEDS: PIPER/TAZO/NS 3.375gm 3.375 GM/100 ML BAG IVPB SCH ×3 (01:26→17:31)
--- NOTE | 2019-02-15 01:30 | FAST ---
SHIFT START DATE/TIME: 02/14/2019 19:00 (CDT) SHIFT END DATE/TIME: 02/15/2019 07:00 (CDT) NAME MAC LA DATE OF : 1930 DATE OF ADMISSION: 02/06/2019 15:18 (CDT) PHONE: AGE: 88 N# [id number] GENDER: Female ENCOUNTER PHYSICIAN: Dr. Óscar Gibson M.D. 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 EATING: Activity did not occur on this shift EATING - SCORE: 0-UNK GROOMING: Comb/brush hair Oral care Wash, rinse, and dry face Wash, rinse, and dry hands GROOMING - STEP 1: Does the patient require the assistance of a person or device, or need extra time when grooming? Yes. GROOMING - STEP 2: Does the patient require the assistance of a helper? Yes. GROOMING - STEP 3: How much assistance does the patient require from the helper? Only prior equipment preparation/set up from the helper GROOMING - SCORE: 5-SUP BATHING: Activity did not occur on this shift BATHING - SCORE: 0-UNK DRESSING - UPPER BODY: Patient is not dressing in public clothing ARTICLES SCORE Total number of steps: 0 DRESSING - UPPER BODY - SCORE: 0-UNK DRESSING - LOWER BODY: Patient is not dressing in public clothing ARTICLES SCORE Total number of steps: 0 DRESSING - LOWER BODY - SCORE: 0-UNK TOILETING: TOILETING - STEP 1: Does the patient require the assistance of a person or device, or need extra time with toileting? Yes . TOILETING - STEP 2: Does the patient require the assistance of a helper? Yes. TOILETING - STEP 3: How much assistance does the patient require from the helper? Hands-on assistance from the helper TOILETING - STEP 4: Of the 3 tasks: 1) Adjusting clothing prior to use, 2) Cleansing of perineal area, 3) Adjusting clot [place] after use; How many tasks does the patient perform WITHOUT assistance of the helper? Two tasks TOILETING - SCORE: 3-MOD BLADDER MANAGEMENT: BLADDER MANAGEMENT - STEP 1: Does the patient control the bladder completely and intentionally without equipment or devices or med ications, and is always continent? No. BLADDER MANAGEMENT - STEP 2: Does the patient require the assistance of a helper? Yes. BLADDER MANAGEMENT - STEP 3: How much assistance does the patient require from the helper? Only set-up of equipment - such as plac ing it within reach of the patient or emptying a device - to maintain either satisfactory voiding pat tern or managing an external device, such as an absorbent pad, ileal device, or catheter BLADDER MANAGEMENT - SCORE: 5-SUP BOWEL MANAGEMENT: BOWEL MANAGEMENT - STEP 1: Does the patient control bowels completely and intentionally without equipment devices or medications AND is always continent? No. BOWEL MANAGEMENT - STEP 2: Does the patient require the assistance of a helper? No, patient requires medication for control such as stool softeners, suppositories, laxatives, enemas, or OTC medications BOWEL MANAGEMENT - SCORE: 6-BETH TRANSFERS: BED, CHAIR, WHEELCHAIR: TRANSFERS: BED, CHAIR, WHEELCHAIR - STEP 1: Does the patient require assistance of a person or device, or need extra time with bed, chair, or whe elchair transfers? Yes. TRANSFERS: BED, CHAIR, WHEELCHAIR - STEP 2: Does the patient require the assistance of a helper? Yes. TRANSFERS: BED, CHAIR, WHEELCHAIR - STEP 3: How much assistance does the patient require from the helper? Lifting of the legs TRANSFERS: BED, CHAIR, WHEELCHAIR - STEP 4: How many legs does the patient require the helper to lift? both legs TRANSFERS: BED, CHAIR, WHEELCHAIR - SCORE: 3-MOD TRANSFERS: TOILET: TRANSFERS: TOILET - STEP 1: Does the patient require the assistance of a person or device, or need extra time with toilet transfe rs? Yes. TRANSFERS: TOILET - STEP 2: Does the patient require the assistance of a helper? Yes. TRANSFERS: TOILET - STEP 3: How much assistance does the patient require from the helper? Patient performs half or more of the tr ansferring tasks TRANSFERS: TOILET - STEP 4: Does the patient need only incidental help such as contact guard or steadying during toilet transfer? Yes. TRANSFERS: TOILET - SCORE: 4-MIN TRANSFERS: SHOWER: Activity did not occur on this shift TRANSFERS: SHOWER - SCORE: 0-UNK TRANSFERS: TUB: Activity did not occur on this shift TRANSFERS: TUB - SCORE: 0-UNK LOCOMOTION: WALK: Activity did not occur on this shift LOCOMOTION: WALK - SCORE: 0-UNK LOCOMOTION: WHEELCHAIR: Activity did not occur on this shift LOCOMOTION: WHEELCHAIR - SCORE: 0-UNK COMPREHENSION: COMPREHENSION: TYPE: Both COMPREHENSION - STEP 1: Does the patient require help from a person or device, or need extra time to understand complex and a bstract ideas (such as current events, finances, discharge planning, medical issues, relationships, e tc)? Yes. COMPREHENSION - STEP 2: Does the patient require help to understand questions or statements about basic needs or ideas (such as hunger, thirst, sleep, safety, daily schedule, room location, or discomfort) half or more of the t marshall? No. COMPREHENSION - STEP 3: How often does the patient need help to understand directions and conversation about basic needs? 10% - 24% of the time COMPREHENSION - SCORE: 4-MIN EXPRESSION EXPRESSION: TYPE: Both EXPRESSION - STEP 1: Does the patient require help from a person or device, or need extra time expressing complex and abst ract ideas (such as current events, finances, discharge planning, medical issues, relationships, etc) ? No. EXPRESSION - STEP 2: Does the patient need extra time, require an assistive device (such as augmentive communication syste m or a communication board), OR does s/he have mild difficulty expressing complex and abstract ideas (including mild dysarthria or mild word-find problems)? Yes. EXPRESSION - SCORE: 6-BETH SOCIAL INTERACTION: SOCIAL INTERACTION - STEP 1: Does the patient require a helper to interact with others in social and therapeutic situations? No. SOCIAL INTERACTION - STEP 2: Does the patient need extra time in social situations, OR does s/he interact with staff, other patien ts, and family members ONLY in structured environments, OR does s/he require medication for social in teraction? Yes, patient needs extra time SOCIAL INTERACTION - SCORE: 6-BETH PROBLEM SOLVING: PROBLEM SOLVING - STEP 1: Does the patient need help from a person or device, or need extra time to solve complex problems such as managing a checking account or confronting interpersonal problems? Yes. PROBLEM SOLVING - STEP 2: Does the patient solve basic routine problems half or more of the time? Yes. PROBLEM SOLVING - STEP 3: How often does the patient need help to solve basic routine problems? 10%-24% of the time PROBLEM SOLVING - SCORE: 4-MIN MEMORY: MEMORY - STEP 1: Does the patient need help from a person or device, or need extra time to remember frequently encount ered people, daily routines, and executing requests? No. MEMORY - STEP 2: Does the patient have slight difficulty recognizing frequently encountered people, daily routines, or executing requests without the need for repetition or using self-initiated or environmental cues to remember? Yes. MEMORY - SCORE: 6-BETH SIGNATURE PANEL: The following modified sections: Eating - Score, Grooming - Score, Dressing - Upper Body - Score, Cosmo ssing - Lower Body - Score, Toileting - Score, Bladder Management - Score, Bowel Management - Score, Transfers: Bed, Chair, Wheelchair - Score, Transfers: Toilet - Score, Transfers: Shower - Score, [place] sfers: Tub - Score, Locomotion: Walk - Score, Locomotion: Wheelchair - Score, Comprehension - Score, Expression - Score, Social Interaction - Score, Problem Solving - Score, Memory - Score were [electro nically] signed by Lisa Wolf CNA on MonFeb 15 2019 01:29:30 T-0500 (Central Daylight Time)
[2019-02-15] MEDS: HYDROCODONE/APAP 10/325 TAB PO PRN (01:37)
[2019-02-15] MEDS: INSULIN -REGULAR HUMAN 50 UNIT/0.5 ML ML SQ SCH ×4 (07:30→21:57)
[2019-02-15] MEDS: PANTOPRAZOLE 40MG TABLET PO SCH (07:37)
[2019-02-15] MEDS: LEVOTHYROXINE SOD 0.05 MG TABLET PO SCH (07:37)
[2019-02-15] MEDS: ENOXAPARIN 40 MG/0.4 ML SQ SCH (07:38)
[2019-02-15] MEDS: NPH (HUMAN) 100 UNITS/ML INSULIN SQ SCH (07:45)
[2019-02-15] MEDS: FUROSEMIDE 20 MG TABLET PO SCH (08:02)
[2019-02-15] MEDS: LOSARTAN POTASSIUM 50 MG TABLET PO SCH (08:02)
[2019-02-15] MEDS: CRANBERRY FRUIT EXTRACT 200 MG CAP PO SCH ×2 (08:02→21:58)
[2019-02-15] MEDS: ASPIRIN 81 MG CHEWABLE TABLET PO SCH (08:03)
[2019-02-15] MEDS: DOCUSATE NA 100 MG CAP PO SCH ×2 (08:03→21:58)
[2019-02-15] MEDS: SPIRONOLACTONE 25 MG TABLET PO SCH (08:03)
[2019-02-15] MEDS: AMLODIPINE 5 MG TAB PO SCH (08:03)
[2019-02-15] MEDS: PROMOD 30 ML DOSE PO SCH ×2 (08:04→20:00)
[2019-02-15] MEDS ORDERED: PROPOFOL 200 MG/20 ML VIAL IV ONE (08:41)
[2019-02-15] MEDS ORDERED: GLYCOPYRROLATE 0.2 MG/ML SYR ONE ×2 (08:41→08:42)
[2019-02-15] MEDS ORDERED: MIDAZOLAM HCL 2 MG/2 ML INJ ONE (08:41)
[2019-02-15] MEDS ORDERED: LIDOCAINE 2% MPF 5 ML VIAL ONE (08:42)
[2019-02-15] MEDS ORDERED: FENTANYL CITR 250 MCG/5 ML ONE (08:43)
[2019-02-15] MEDS ORDERED: ONDANSETRON 4 MG/2 ML VIAL ONE (08:46)
[2019-02-15] MEDS ORDERED: NEOSTIGMINE 1 MG/ML -10 ML VIAL ONE (08:46)
[2019-02-15] MEDS ORDERED: ROCURONIUM 50 MG/5 ML VIAL IV ONE (08:48)
--- NOTE | 2019-02-15 09:46 | P.RH.PN ---
Estimated Length of Stay: 15 Expected Discharge Date: 02/20/19 Discharge Disposition Plan: Home Family Support: Yes Custodial Goal: Mobility, Transfers, Self Care Vital Signs: Last Vital Signs Temp 97.2 F 02/15/19 07:45 Pulse 73 02/15/19 08:03 Resp 16 02/15/19 07:45 BP 158/82 H 02/15/19 08:03 Pulse Ox 99 02/15/19 07:45 Laboratory: Laboratory Last Values WBC 6.4 K/uL (4.3-10.9) 02/14/19 07:00 RBC 3.81 M/uL (3.86-4.86) L 02/14/19 07:00 Hgb 11.3 g/dL (12.0-15.0) L 02/14/19 07:00 Hct 33.9 % (36.0-45.0) L 02/14/19 07:00 MCV 88.9 fL (80-100) 02/14/19 07:00 MCH 29.6 pg (27.0-35.0) 02/14/19 07:00 MCHC 33.3 g/dL (32.0-36.0) 02/14/19 07:00 RDW 13.3 % (12.1-15.2) 02/14/19 07:00 Plt Count 186 K/uL (152-406) 02/14/19 07:00 MPV 10.8 fL (7.6-11.3) 02/14/19 07:00 Neutrophils % 61.7 % (41.7-73.7) 02/14/19 07:00 Lymphocytes % 21.3 % (15.3-44.8) 02/14/19 07:00 Monocytes % 11.4 % (3.3-12.3) 02/14/19 07:00 Eosinophils % 4.8 % (0-4.4) H 02/14/19 07:00 Basophils % 0.8 % (0-1.3) 02/14/19 07:00 Absolute Neutrophils 4.0 K/uL (1.8-8.0) 02/14/19 07:00 Absolute Lymphocytes 1.4 K/uL (0.7-4.9) 02/14/19 07:00 Absolute Monocytes 0.7 K/uL (0.1-1.3) 02/14/19 07:00 Absolute Eosinophils 0.3 K/uL (0-0.5) 02/14/19 07:00 Absolute Basophils 0.1 K/uL (0-0.5) 02/14/19 07:00 Sodium 144 mmol/L (136-145) 02/14/19 07:00 Potassium 3.7 mmol/L (3.5-5.1) 02/14/19 07:00 Chloride 109 mmol/L (98-107) H 02/14/19 07:00 Carbon Dioxide 27 mmol/L (21-32) 02/14/19 07:00 BUN 20 mg/dL (7-18) H 02/14/19 07:00 Creatinine 0.84 mg/dL (0.55-1.3) 02/15/19 07:55 Estimated GFR 64 mL/min (=/>90) L 02/15/19 07:55 Glucose 163 mg/dL (74-106) H 02/14/19 07:00 POC Glucose 153 mg/dl (65-120) H 02/15/19 07:43 Calcium 8.9 mg/dL (8.5-10.1) 02/14/19 07:00 Phosphorus 3.6 mg/dL (2.5-4.9) 02/11/19 09:39 Magnesium 2.3 mg/dL (1.8-2.4) 02/14/19 07:00 Total Bilirubin 0.6 mg/dL (0.2-1.0) 02/11/19 09:39 AST 18 U/L (15-37) 02/11/19 09:39 ALT 26 U/L (12-78) 02/11/19 09:39 Alkaline Phosphatase 108 U/L (45-117) 02/11/19 09:39 Serum Total Protein 7.2 g/dL (6.4-8.2) 02/11/19 09:39 Albumin 3.3 g/dL (3.4-5.0) L 02/14/19 07:00 Globulin 3.8 g/dL (2.3-3.5) H 02/11/19 09:39 Albumin/Globulin Ratio 0.9 (1.1-1.8) L 02/11/19 09:39 Prealbumin 17.7 mg/dL (20-40) L 02/14/19 07:00 Urine Color Yellow 02/06/19 19:40 Urine Appearance Clear 02/06/19 19:40 Urine pH 5.0 (5.0-7.0) 02/06/19 19:40 Ur Specific [place] 1.025 (1.005-1.030) 02/06/19 19:40 Urine Ketones Negative (NEG) 02/06/19 19:40 Urine Blood Negative (NEG) 02/06/19 19:40 Urine Nitrite Negative (NEG) 02/06/19 19:40 Urine Bilirubin Negative (NEG) 02/06/19 19:40 Urine Urobilinogen 0.2 mg/dL (0.2-1.0) 02/06/19 19:40 Ur Leukocyte Esterase 1+ (NEG) H 02/06/19 19:40 Urine RBC <5 /HPF (NONE SEEN) 02/06/19 19:40 Urine WBC 5-10 /HPF (<5) H 02/06/19 19:40 Ur Squamous Epith Cells 5-10 /HPF (NONE SEEN) H 02/06/19 19:40 Ur Urothelial Cells <5 /HPF (NONE SEEN) 02/06/19 19:40 Urine Bacteria <20 /HPF (<20) 02/06/19 19:40 Urine Culture Reflexed Not needed 02/06/19 19:40 Urine Glucose Negative (NEG) 02/06/19 19:40 Urine Total Protein Negative (NEG) 02/06/19 19:40 Vancomycin Trough 17.5 ug/mL (5.0-20.0) 02/15/19 07:55 Weight: 163 lb 1.6 oz Wound Present: No Closed Surgical Incision Present: Yes Negative Pressure Wound Therapy Present: No Physician Update: Labs reviewed and are stable. She is doing well. Standby 250' and transfers with standby. Medical Issues: DVT Prophylaxis - Enoxaparine 40mg SQ Daily. Vancomycin 1.5gm Q24H IVPB. Zosuyn 3.375gm Q8H IVPB Pain Issues: [place] 10mg Q6H PRN PO Functional Improvement: pt has demonstrated good progress with functional mobility. pt exhibits improved ability with ambulation now that she is WBAT. pt does require verbal cues for safety and proper technique for ambulation and functional transfers. Functional Improvement Occupational Therapy: Pt can benifit with further therapy to address pt's overall UB/LB strength by educating pt on safety and energy conservation techniques by providing A/E as need, which pt stated she doesn't need, but has dificulty with socks/shoes. Cont to address pt's static standing and UB strength for adl tasks and for functional transfers. Summary: Patient's care plan and terminal gauger goals have been reviewed and revised as necessary. Please see the Rehabilitation Signature page for all necessary signatures.
[2019-02-15] MEDS: VANCOMYCIN 1.5 GM in NA CHLORIDE 0.9% 500 ML IVPB SCH (11:31)
--- NOTE | 2019-02-15 16:59 | FAST ---
SHIFT START DATE/TIME: 02/15/2019 07:00 (CDT) SHIFT END DATE/TIME: 02/15/2019 19:00 (CDT) NAME MAC LA DATE OF : 1930 DATE OF ADMISSION: 02/06/2019 15:18 (CDT) PHONE: AGE: 88 N# [id number] GENDER: Female ENCOUNTER PHYSICIAN: Dr. Óscar Gibson M.D. 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 EATING: EATING - STEP 1: Does the patient require the assistance of a person or device, or need extra time when eating? No. EATING - SCORE: 7-IND GROOMING: GROOMING - STEP 1: Does the patient require the assistance of a person or device, or need extra time when grooming? No. GROOMING - SCORE: 7-IND BATHING: Activity did not occur on this shift BATHING - SCORE: 0-UNK DRESSING - UPPER BODY: T-shirt/pullover shirt (four steps) ARTICLES SCORE Total number of steps: 4 DRESSING - UPPER BODY - STEP 1: Does the patient require help from a person or device, or need extra time when dressing above the pilar st? Yes. DRESSING - UPPER BODY - STEP 2: Does the patient require the assistance of a helper? Yes. DRESSING - UPPER BODY - STEP 3: Does the helper touch the patient while dressing? Yes. DRESSING - UPPER BODY - STEP 4: How many of the total steps does the patient complete on his/her own? 4 DRESSING - UPPER BODY - SCORE: 4-MIN DRESSING - LOWER BODY: Activity did not occur on this shift ARTICLES SCORE Total number of steps: 0 DRESSING - LOWER BODY - SCORE: 0-UNK TOILETING: TOILETING - STEP 1: Does the patient require the assistance of a person or device, or need extra time with toileting? Yes . TOILETING - STEP 2: Does the patient require the assistance of a helper? Yes. TOILETING - STEP 3: How much assistance does the patient require from the helper? Only supervision TOILETING - SCORE: 5-SUP BLADDER MANAGEMENT: BLADDER MANAGEMENT - STEP 1: Does the patient control the bladder completely and intentionally without equipment or devices or med ications, and is always continent? Yes. BLADDER MANAGEMENT - SCORE: 7-IND BLADDER MANAGEMENT - FREQUENCY OF ACCIDENTS: BLADDER MANAGEMENT(FA) - STEP 1: How many accidents has the patient had during the current shift? 0 BOWEL MANAGEMENT: BOWEL MANAGEMENT - STEP 1: Does the patient control bowels completely and intentionally without equipment devices or medications AND is always continent? Yes. BOWEL MANAGEMENT - SCORE: 7-IND BOWEL MANAGEMENT - FREQUENCY OF ACCIDENTS: BOWEL MANAGEMENT(FA) - STEP 1: How many accidents has the patient had during the current shift? 0 TRANSFERS: BED, CHAIR, WHEELCHAIR: TRANSFERS: BED, CHAIR, WHEELCHAIR - STEP 1: Does the patient require assistance of a person or device, or need extra time with bed, chair, or whe elchair transfers? Yes. TRANSFERS: BED, CHAIR, WHEELCHAIR - STEP 2: Does the patient require the assistance of a helper? Yes. TRANSFERS: BED, CHAIR, WHEELCHAIR - STEP 3: How much assistance does the patient require from the helper? Steadying/guiding assistance TRANSFERS: BED, CHAIR, WHEELCHAIR - SCORE: 4-MIN TRANSFERS: TOILET: TRANSFERS: TOILET - STEP 1: Does the patient require the assistance of a person or device, or need extra time with toilet transfe rs? Yes. TRANSFERS: TOILET - STEP 2: Does the patient require the assistance of a helper? Yes. TRANSFERS: TOILET - STEP 3: How much assistance does the patient require from the helper? Patient performs half or more of the tr ansferring tasks TRANSFERS: TOILET - STEP 4: Does the patient need only incidental help such as contact guard or steadying during toilet transfer? Yes. TRANSFERS: TOILET - SCORE: 4-MIN TRANSFERS: SHOWER: Activity did not occur on this shift TRANSFERS: SHOWER - SCORE: 0-UNK TRANSFERS: TUB: Activity did not occur on this shift TRANSFERS: TUB - SCORE: 0-UNK LOCOMOTION: WALK: Activity did not occur on this shift LOCOMOTION: WALK - SCORE: 0-UNK LOCOMOTION: WHEELCHAIR: Activity did not occur on this shift LOCOMOTION: WHEELCHAIR - SCORE: 0-UNK COMPREHENSION: COMPREHENSION - SCORE: 0-UNK EXPRESSION EXPRESSION - SCORE: 0-UNK SOCIAL INTERACTION: SOCIAL INTERACTION - SCORE: 0-UNK PROBLEM SOLVING: PROBLEM SOLVING - SCORE: 0-UNK MEMORY: MEMORY - SCORE: 0-UNK SIGNATURE PANEL: The following modified sections: Eating - Score, Grooming - Score, Bathing - Score, Dressing - Upper Body - Score, Dressing - Lower Body - Score, Toileting - Score, Bladder Management - Score, Bowel Man agement - Score, Transfers: Bed, Chair, Wheelchair - Score, Transfers: Toilet - Score, Transfers: Mary wer - Score, Transfers: Tub - Score, Locomotion: Walk - Score, Locomotion: Wheelchair - Score, Compre hension - Score, Expression - Score, Social Interaction - Score, Problem Solving - Score, Memory - Sc ore were [electronically] signed by Betsey Guzman CNA on MonFeb 15 2019 16:58:24 T-0500 (Centra l Daylight Time)
[2019-02-15] MEDS: ATORVASTATIN 20 MG TAB PO SCH (21:58)
[2019-02-16] MEDS: PIPER/TAZO/NS 3.375gm 3.375 GM/100 ML BAG IVPB SCH ×3 (01:54→16:58)
[2019-02-16 05:44] VITALS: BMI 26.9
[2019-02-16] MEDS: ENOXAPARIN 40 MG/0.4 ML SQ SCH (07:06)
[2019-02-16] MEDS: LEVOTHYROXINE SOD 0.05 MG TABLET PO SCH (07:06)
[2019-02-16] MEDS: PANTOPRAZOLE 40MG TABLET PO SCH (07:06)
[2019-02-16] MEDS: PROMOD 30 ML DOSE PO SCH ×2 (08:00→20:00)
[2019-02-16] MEDS: NPH (HUMAN) 100 UNITS/ML INSULIN SQ SCH (08:00)
[2019-02-16] MEDS: FUROSEMIDE 20 MG TABLET PO SCH ×2 (08:00→08:08)
[2019-02-16] MEDS: INSULIN -REGULAR HUMAN 50 UNIT/0.5 ML ML SQ SCH ×4 (08:01→21:05)
[2019-02-16] MEDS: CRANBERRY FRUIT EXTRACT 200 MG CAP PO SCH ×2 (08:02→21:00)
[2019-02-16] MEDS: LOSARTAN POTASSIUM 50 MG TABLET PO SCH (08:03)
[2019-02-16] MEDS: SPIRONOLACTONE 25 MG TABLET PO SCH (08:03)
[2019-02-16] MEDS: DOCUSATE NA 100 MG CAP PO SCH ×2 (08:03→21:00)
[2019-02-16] MEDS: ASPIRIN 81 MG CHEWABLE TABLET PO SCH (08:04)
[2019-02-16] MEDS: AMLODIPINE 5 MG TAB PO SCH (08:04)
[2019-02-16] MEDS: VANCOMYCIN 1.5 GM in NA CHLORIDE 0.9% 500 ML IVPB SCH (11:26)
[2019-02-16] MEDS: ATORVASTATIN 20 MG TAB PO SCH (21:00)
[2019-02-17] MEDS: PIPER/TAZO/NS 3.375gm 3.375 GM/100 ML BAG IVPB SCH ×3 (00:52→17:18)
--- NOTE | 2019-02-17 00:54 | FAST ---
SHIFT START DATE/TIME: 02/16/2019 19:00 (CDT) SHIFT END DATE/TIME: 02/17/2019 07:00 (CDT) NAME MAC LA DATE OF : 1930 DATE OF ADMISSION: 02/06/2019 15:18 (CDT) PHONE: AGE: 88 N# [id number] GENDER: Female ENCOUNTER PHYSICIAN: Dr. Óscar Gibson M.D. 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 EATING: Activity did not occur on this shift EATING - SCORE: 0-UNK GROOMING: Comb/brush hair Oral care Wash, rinse, and dry face Wash, rinse, and dry hands GROOMING - STEP 1: Does the patient require the assistance of a person or device, or need extra time when grooming? Yes. GROOMING - STEP 2: Does the patient require the assistance of a helper? Yes. GROOMING - STEP 3: How much assistance does the patient require from the helper? Only prior equipment preparation/set up from the helper GROOMING - SCORE: 5-SUP BATHING: Activity did not occur on this shift BATHING - SCORE: 0-UNK DRESSING - UPPER BODY: Patient is not dressing in public clothing ARTICLES SCORE Total number of steps: 0 DRESSING - UPPER BODY - SCORE: 0-UNK DRESSING - LOWER BODY: Patient is not dressing in public clothing ARTICLES SCORE Total number of steps: 0 DRESSING - LOWER BODY - SCORE: 0-UNK TOILETING: TOILETING - STEP 1: Does the patient require the assistance of a person or device, or need extra time with toileting? Yes . TOILETING - STEP 2: Does the patient require the assistance of a helper? Yes. TOILETING - STEP 3: How much assistance does the patient require from the helper? Hands-on assistance from the helper TOILETING - STEP 4: Of the 3 tasks: 1) Adjusting clothing prior to use, 2) Cleansing of perineal area, 3) Adjusting clot [place] after use; How many tasks does the patient perform WITHOUT assistance of the helper? Two tasks TOILETING - SCORE: 3-MOD BLADDER MANAGEMENT: BLADDER MANAGEMENT - STEP 1: Does the patient control the bladder completely and intentionally without equipment or devices or med ications, and is always continent? No. BLADDER MANAGEMENT - STEP 2: Does the patient require the assistance of a helper? Yes. BLADDER MANAGEMENT - STEP 3: How much assistance does the patient require from the helper? Only supervision, stand-by, cuing, or c oaxing BLADDER MANAGEMENT - SCORE: 5-SUP BOWEL MANAGEMENT: BOWEL MANAGEMENT - STEP 1: Does the patient control bowels completely and intentionally without equipment devices or medications AND is always continent? No. BOWEL MANAGEMENT - STEP 2: Does the patient require the assistance of a helper? No, patient requires medication for control such as stool softeners, suppositories, laxatives, enemas, or OTC medications BOWEL MANAGEMENT - SCORE: 6-BETH TRANSFERS: BED, CHAIR, WHEELCHAIR: TRANSFERS: BED, CHAIR, WHEELCHAIR - STEP 1: Does the patient require assistance of a person or device, or need extra time with bed, chair, or whe elchair transfers? Yes. TRANSFERS: BED, CHAIR, WHEELCHAIR - STEP 2: Does the patient require the assistance of a helper? Yes. TRANSFERS: BED, CHAIR, WHEELCHAIR - STEP 3: How much assistance does the patient require from the helper? Lifting of the legs TRANSFERS: BED, CHAIR, WHEELCHAIR - STEP 4: How many legs does the patient require the helper to lift? both legs TRANSFERS: BED, CHAIR, WHEELCHAIR - SCORE: 3-MOD TRANSFERS: TOILET: TRANSFERS: TOILET - STEP 1: Does the patient require the assistance of a person or device, or need extra time with toilet transfe rs? Yes. TRANSFERS: TOILET - STEP 2: Does the patient require the assistance of a helper? Yes. TRANSFERS: TOILET - STEP 3: How much assistance does the patient require from the helper? Patient performs half or more of the tr ansferring tasks TRANSFERS: TOILET - STEP 4: Does the patient need only incidental help such as contact guard or steadying during toilet transfer? Yes. TRANSFERS: TOILET - SCORE: 4-MIN TRANSFERS: SHOWER: Activity did not occur on this shift TRANSFERS: SHOWER - SCORE: 0-UNK TRANSFERS: TUB: Activity did not occur on this shift TRANSFERS: TUB - SCORE: 0-UNK LOCOMOTION: WALK: Activity did not occur on this shift LOCOMOTION: WALK - SCORE: 0-UNK LOCOMOTION: WHEELCHAIR: Activity did not occur on this shift LOCOMOTION: WHEELCHAIR - SCORE: 0-UNK COMPREHENSION: COMPREHENSION: TYPE: Both COMPREHENSION - STEP 1: Does the patient require help from a person or device, or need extra time to understand complex and a bstract ideas (such as current events, finances, discharge planning, medical issues, relationships, e tc)? Yes. COMPREHENSION - STEP 2: Does the patient require help to understand questions or statements about basic needs or ideas (such as hunger, thirst, sleep, safety, daily schedule, room location, or discomfort) half or more of the t marshall? No. COMPREHENSION - STEP 3: How often does the patient need help to understand directions and conversation about basic needs? 10% - 24% of the time COMPREHENSION - SCORE: 4-MIN EXPRESSION EXPRESSION: TYPE: Both EXPRESSION - STEP 1: Does the patient require help from a person or device, or need extra time expressing complex and abst ract ideas (such as current events, finances, discharge planning, medical issues, relationships, etc) ? No. EXPRESSION - STEP 2: Does the patient need extra time, require an assistive device (such as augmentive communication syste m or a communication board), OR does s/he have mild difficulty expressing complex and abstract ideas (including mild dysarthria or mild word-find problems)? No. EXPRESSION - SCORE: 7-IND SOCIAL INTERACTION: SOCIAL INTERACTION - STEP 1: Does the patient require a helper to interact with others in social and therapeutic situations? No. SOCIAL INTERACTION - STEP 2: Does the patient need extra time in social situations, OR does s/he interact with staff, other patien ts, and family members ONLY in structured environments, OR does s/he require medication for social in teraction? Yes, patient needs extra time SOCIAL INTERACTION - SCORE: 6-BETH PROBLEM SOLVING: PROBLEM SOLVING - STEP 1: Does the patient need help from a person or device, or need extra time to solve complex problems such as managing a checking account or confronting interpersonal problems? Yes. PROBLEM SOLVING - STEP 2: Does the patient solve basic routine problems half or more of the time? Yes. PROBLEM SOLVING - STEP 3: How often does the patient need help to solve basic routine problems? 10%-24% of the time PROBLEM SOLVING - SCORE: 4-MIN MEMORY: MEMORY - STEP 1: Does the patient need help from a person or device, or need extra time to remember frequently encount ered people, daily routines, and executing requests? No. MEMORY - STEP 2: Does the patient have slight difficulty recognizing frequently encountered people, daily routines, or executing requests without the need for repetition or using self-initiated or environmental cues to remember? Yes. MEMORY - SCORE: 6-BETH SIGNATURE PANEL: The following modified sections: Eating - Score, Grooming - Score, Dressing - Upper Body - Score, Cosmo ssing - Lower Body - Score, Toileting - Score, Bladder Management - Score, Bowel Management - Score, Transfers: Bed, Chair, Wheelchair - Score, Transfers: Toilet - Score, Transfers: Shower - Score, [place] sfers: Tub - Score, Locomotion: Walk - Score, Locomotion: Wheelchair - Score, Comprehension - Score, Expression - Score, Social Interaction - Score, Problem Solving - Score, Memory - Score were [electro nically] signed by Lisa Wolf CNA on MonFeb 17 2019 00:54:02 GMT-0500 (Central Daylight Time)
[2019-02-17] MEDS: PANTOPRAZOLE 40MG TABLET PO SCH (06:44)
[2019-02-17] MEDS: LEVOTHYROXINE SOD 0.05 MG TABLET PO SCH (06:44)
[2019-02-17] MEDS: INSULIN -REGULAR HUMAN 50 UNIT/0.5 ML ML SQ SCH ×4 (07:30→21:27)
[2019-02-17] MEDS: PROMOD 30 ML DOSE PO SCH ×2 (08:00→20:00)
[2019-02-17] MEDS: CRANBERRY FRUIT EXTRACT 200 MG CAP PO SCH ×2 (08:38→20:07)
[2019-02-17] MEDS: ENOXAPARIN 40 MG/0.4 ML SQ SCH (08:38)
[2019-02-17] MEDS: SPIRONOLACTONE 25 MG TABLET PO SCH (08:38)
[2019-02-17] MEDS: DOCUSATE NA 100 MG CAP PO SCH ×2 (08:39→20:07)
[2019-02-17] MEDS: ASPIRIN 81 MG CHEWABLE TABLET PO SCH (08:39)
[2019-02-17] MEDS: AMLODIPINE 5 MG TAB PO SCH (08:39)
[2019-02-17] MEDS: FUROSEMIDE 20 MG TABLET PO SCH (08:39)
[2019-02-17] MEDS: LOSARTAN POTASSIUM 50 MG TABLET PO SCH (08:40)
[2019-02-17] MEDS: NPH (HUMAN) 100 UNITS/ML INSULIN SQ SCH (10:06)
[2019-02-17] MEDS: VANCOMYCIN 1.5 GM in NA CHLORIDE 0.9% 500 ML IVPB SCH (10:08)
[2019-02-17] MEDS: ATORVASTATIN 20 MG TAB PO SCH (20:07)
--- NOTE | 2019-02-18 02:33 | FAST ---
SHIFT START DATE/TIME: 02/17/2019 19:00 (CDT) SHIFT END DATE/TIME: 02/18/2019 07:00 (CDT) NAME MAC LA DATE OF : 1930 DATE OF ADMISSION: 02/06/2019 15:18 (CDT) PHONE: AGE: 88 N# [id number] GENDER: Female ENCOUNTER PHYSICIAN: Dr. Óscar Gibson M.D. 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 EATING: Activity did not occur on this shift EATING - SCORE: 0-UNK GROOMING: Activity did not occur on this shift GROOMING - SCORE: 0-UNK BATHING: Activity did not occur on this shift BATHING - SCORE: 0-UNK DRESSING - UPPER BODY: Patient is not dressing in public clothing ARTICLES SCORE Total number of steps: 0 DRESSING - UPPER BODY - SCORE: 0-UNK DRESSING - LOWER BODY: Patient is not dressing in public clothing ARTICLES SCORE Total number of steps: 0 DRESSING - LOWER BODY - SCORE: 0-UNK TOILETING: TOILETING - STEP 1: Does the patient require the assistance of a person or device, or need extra time with toileting? Yes . TOILETING - STEP 2: Does the patient require the assistance of a helper? Yes. TOILETING - STEP 3: How much assistance does the patient require from the helper? Hands-on assistance from the helper TOILETING - STEP 4: Of the 3 tasks: 1) Adjusting clothing prior to use, 2) Cleansing of perineal area, 3) Adjusting clot [place] after use; How many tasks does the patient perform WITHOUT assistance of the helper? Two tasks TOILETING - SCORE: 3-MOD BLADDER MANAGEMENT: BLADDER MANAGEMENT - STEP 1: Does the patient control the bladder completely and intentionally without equipment or devices or med ications, and is always continent? No. BLADDER MANAGEMENT - STEP 2: Does the patient require the assistance of a helper? Yes. BLADDER MANAGEMENT - STEP 3: How much assistance does the patient require from the helper? Only supervision, stand-by, cuing, or c oaxing BLADDER MANAGEMENT - SCORE: 5-SUP BOWEL MANAGEMENT: BOWEL MANAGEMENT - STEP 1: Does the patient control bowels completely and intentionally without equipment devices or medications AND is always continent? No. BOWEL MANAGEMENT - STEP 2: Does the patient require the assistance of a helper? No, patient requires medication for control such as stool softeners, suppositories, laxatives, enemas, or OTC medications BOWEL MANAGEMENT - SCORE: 6-BETH TRANSFERS: BED, CHAIR, WHEELCHAIR: TRANSFERS: BED, CHAIR, WHEELCHAIR - STEP 1: Does the patient require assistance of a person or device, or need extra time with bed, chair, or whe elchair transfers? Yes. TRANSFERS: BED, CHAIR, WHEELCHAIR - STEP 2: Does the patient require the assistance of a helper? Yes. TRANSFERS: BED, CHAIR, WHEELCHAIR - STEP 3: How much assistance does the patient require from the helper? Lifting of the legs TRANSFERS: BED, CHAIR, WHEELCHAIR - STEP 4: How many legs does the patient require the helper to lift? both legs TRANSFERS: BED, CHAIR, WHEELCHAIR - SCORE: 3-MOD TRANSFERS: TOILET: TRANSFERS: TOILET - STEP 1: Does the patient require the assistance of a person or device, or need extra time with toilet transfe rs? Yes. TRANSFERS: TOILET - STEP 2: Does the patient require the assistance of a helper? Yes. TRANSFERS: TOILET - STEP 3: How much assistance does the patient require from the helper? Only supervision, cuing, coaxing, OR he lp to set out transfer equipment or to lock brakes and/or lift foot rests TRANSFERS: TOILET - SCORE: 5-SUP TRANSFERS: SHOWER: Activity did not occur on this shift TRANSFERS: SHOWER - SCORE: 0-UNK TRANSFERS: TUB: Activity did not occur on this shift TRANSFERS: TUB - SCORE: 0-UNK LOCOMOTION: WALK: Activity did not occur on this shift LOCOMOTION: WALK - SCORE: 0-UNK LOCOMOTION: WHEELCHAIR: Activity did not occur on this shift LOCOMOTION: WHEELCHAIR - SCORE: 0-UNK COMPREHENSION: COMPREHENSION: TYPE: Both COMPREHENSION - STEP 1: Does the patient require help from a person or device, or need extra time to understand complex and a bstract ideas (such as current events, finances, discharge planning, medical issues, relationships, e tc)? No. COMPREHENSION - STEP 2: Does the patient need extra time, require an assistive device (such as glasses for visual comprehensi on or a hearing aid for auditory comprehension) or does s/he have mild difficulty understanding compl ex and abstract information? Yes. COMPREHENSION - SCORE: 6-BETH EXPRESSION EXPRESSION: TYPE: Both EXPRESSION - STEP 1: Does the patient require help from a person or device, or need extra time expressing complex and abst ract ideas (such as current events, finances, discharge planning, medical issues, relationships, etc) ? No. EXPRESSION - STEP 2: Does the patient need extra time, require an assistive device (such as augmentive communication syste m or a communication board), OR does s/he have mild difficulty expressing complex and abstract ideas (including mild dysarthria or mild word-find problems)? Yes. EXPRESSION - SCORE: 6-BETH SOCIAL INTERACTION: SOCIAL INTERACTION - STEP 1: Does the patient require a helper to interact with others in social and therapeutic situations? No. SOCIAL INTERACTION - STEP 2: Does the patient need extra time in social situations, OR does s/he interact with staff, other patien ts, and family members ONLY in structured environments, OR does s/he require medication for social in teraction? Yes, patient needs extra time SOCIAL INTERACTION - SCORE: 6-BETH PROBLEM SOLVING: PROBLEM SOLVING - STEP 1: Does the patient need help from a person or device, or need extra time to solve complex problems such as managing a checking account or confronting interpersonal problems? Yes. PROBLEM SOLVING - STEP 2: Does the patient solve basic routine problems half or more of the time? Yes. PROBLEM SOLVING - STEP 3: How often does the patient need help to solve basic routine problems? 10%-24% of the time PROBLEM SOLVING - SCORE: 4-MIN MEMORY: MEMORY - STEP 1: Does the patient need help from a person or device, or need extra time to remember frequently encount ered people, daily routines, and executing requests? No. MEMORY - STEP 2: Does the patient have slight difficulty recognizing frequently encountered people, daily routines, or executing requests without the need for repetition or using self-initiated or environmental cues to remember? Yes. MEMORY - SCORE: 6-BETH SIGNATURE PANEL: The following modified sections: Eating - Score, Grooming - Score, Dressing - Upper Body - Score, Cosmo ssing - Lower Body - Score, Toileting - Score, Bladder Management - Score, Bowel Management - Score, Transfers: Bed, Chair, Wheelchair - Score, Transfers: Toilet - Score, Transfers: Shower - Score, [place]eral[place] sfers: Tub - Score, Locomotion: Walk - Score, Locomotion: Wheelchair - Score, Comprehension - Score, Expression - Score, Social Interaction - Score, Problem Solving - Score, Memory - Score were [electro nically] signed by Lisa Wolf CNA on MonFeb 18 2019 02:31:52 GMT-0500 (Central Daylight Time)
[2019-02-18] MEDS: INSULIN -REGULAR HUMAN 50 UNIT/0.5 ML ML SQ SCH ×4 (07:30→20:43)
[2019-02-18] MEDS: LEVOTHYROXINE SOD 0.05 MG TABLET PO SCH (07:34)
[2019-02-18] MEDS: PANTOPRAZOLE 40MG TABLET PO SCH (07:34)
[2019-02-18] MEDS: PROMOD 30 ML DOSE PO SCH ×2 (08:00→21:14)
[2019-02-18] MEDS: NPH (HUMAN) 100 UNITS/ML INSULIN SQ SCH (08:35)
[2019-02-18] MEDS: ENOXAPARIN 40 MG/0.4 ML SQ SCH (08:35)
[2019-02-18] MEDS: AMLODIPINE 5 MG TAB PO SCH (08:35)
[2019-02-18] MEDS: CRANBERRY FRUIT EXTRACT 200 MG CAP PO SCH ×2 (08:36→21:13)
[2019-02-18] MEDS: FUROSEMIDE 20 MG TABLET PO SCH (08:36)
[2019-02-18] MEDS: DOCUSATE NA 100 MG CAP PO SCH ×2 (08:36→21:14)
[2019-02-18] MEDS: ASPIRIN 81 MG CHEWABLE TABLET PO SCH (08:36)
[2019-02-18] MEDS: SPIRONOLACTONE 25 MG TABLET PO SCH (08:36)
[2019-02-18] MEDS: LOSARTAN POTASSIUM 50 MG TABLET PO SCH (08:36)
--- NOTE | 2019-02-18 15:12 | FAST ---
SHIFT START DATE/TIME: 02/18/2019 07:00 (CDT) SHIFT END DATE/TIME: 02/18/2019 19:00 (CDT) NAME MAC LA DATE OF : 1930 DATE OF ADMISSION: 02/06/2019 15:18 (CDT) PHONE: AGE: 88 N# [id number] GENDER: Female ENCOUNTER PHYSICIAN: Dr. Ócsar Gibson M.D. 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 EATING: EATING - STEP 1: Does the patient require the assistance of a person or device, or need extra time when eating? Yes. EATING - STEP 2: Does the patient require the assistance of a helper? Yes. EATING - STEP 3: Does the patient perform half or more of the eating tasks? Yes. EATING - STEP 4: Does the patient need only supervision, cuing, coaxing OR help to apply an orthosis OR help to cut fo od, open containers, pour liquids, or butter bread? Yes. EATING - SCORE: 5-SUP GROOMING: GROOMING - STEP 1: Does the patient require the assistance of a person or device, or need extra time when grooming? No. GROOMING - SCORE: 7-IND BATHING: Activity did not occur on this shift BATHING - SCORE: 0-UNK DRESSING - UPPER BODY: Activity did not occur on this shift ARTICLES SCORE Total number of steps: 0 DRESSING - UPPER BODY - SCORE: 0-UNK DRESSING - LOWER BODY: Activity did not occur on this shift ARTICLES SCORE Total number of steps: 0 DRESSING - LOWER BODY - SCORE: 0-UNK TOILETING: TOILETING - STEP 1: Does the patient require the assistance of a person or device, or need extra time with toileting? Yes . TOILETING - STEP 2: Does the patient require the assistance of a helper? Yes. TOILETING - STEP 3: How much assistance does the patient require from the helper? Hands-on assistance from the helper TOILETING - STEP 4: Of the 3 tasks: 1) Adjusting clothing prior to use, 2) Cleansing of perineal area, 3) Adjusting clot [place] after use; How many tasks does the patient perform WITHOUT assistance of the helper? Two tasks TOILETING - SCORE: 3-MOD BLADDER MANAGEMENT: Activity did not occur on this shift BLADDER MANAGEMENT - SCORE: 7-IND BOWEL MANAGEMENT: Activity did not occur on this shift BOWEL MANAGEMENT - SCORE: 7-IND TRANSFERS: BED, CHAIR, WHEELCHAIR: TRANSFERS: BED, CHAIR, WHEELCHAIR - STEP 1: Does the patient require assistance of a person or device, or need extra time with bed, chair, or whe elchair transfers? Yes. TRANSFERS: BED, CHAIR, WHEELCHAIR - STEP 2: Does the patient require the assistance of a helper? Yes. TRANSFERS: BED, CHAIR, WHEELCHAIR - STEP 3: How much assistance does the patient require from the helper? Lifting of the legs TRANSFERS: BED, CHAIR, WHEELCHAIR - STEP 4: How many legs does the patient require the helper to lift? both legs TRANSFERS: BED, CHAIR, WHEELCHAIR - SCORE: 3-MOD TRANSFERS: TOILET: TRANSFERS: TOILET - STEP 1: Does the patient require the assistance of a person or device, or need extra time with toilet transfe rs? Yes. TRANSFERS: TOILET - STEP 2: Does the patient require the assistance of a helper? Yes. TRANSFERS: TOILET - STEP 3: How much assistance does the patient require from the helper? Patient performs half or more of the tr ansferring tasks TRANSFERS: TOILET - STEP 4: Does the patient need only incidental help such as contact guard or steadying during toilet transfer? Yes. TRANSFERS: TOILET - SCORE: 4-MIN TRANSFERS: SHOWER: Activity did not occur on this shift TRANSFERS: SHOWER - SCORE: 0-UNK TRANSFERS: TUB: Activity did not occur on this shift TRANSFERS: TUB - SCORE: 0-UNK LOCOMOTION: WALK: Activity did not occur on this shift LOCOMOTION: WALK - SCORE: 0-UNK LOCOMOTION: WHEELCHAIR: Activity did not occur on this shift LOCOMOTION: WHEELCHAIR - SCORE: 0-UNK COMPREHENSION: COMPREHENSION: TYPE: Both COMPREHENSION - STEP 1: Does the patient require help from a person or device, or need extra time to understand complex and a bstract ideas (such as current events, finances, discharge planning, medical issues, relationships, e tc)? No. COMPREHENSION - STEP 2: Does the patient need extra time, require an assistive device (such as glasses for visual comprehensi on or a hearing aid for auditory comprehension) or does s/he have mild difficulty understanding compl ex and abstract information? Yes. COMPREHENSION - SCORE: 6-BETH EXPRESSION EXPRESSION: TYPE: Both EXPRESSION - STEP 1: Does the patient require help from a person or device, or need extra time expressing complex and abst ract ideas (such as current events, finances, discharge planning, medical issues, relationships, etc) ? No. EXPRESSION - STEP 2: Does the patient need extra time, require an assistive device (such as augmentive communication syste m or a communication board), OR does s/he have mild difficulty expressing complex and abstract ideas (including mild dysarthria or mild word-find problems)? Yes. EXPRESSION - SCORE: 6-BETH SOCIAL INTERACTION: SOCIAL INTERACTION - STEP 1: Does the patient require a helper to interact with others in social and therapeutic situations? No. SOCIAL INTERACTION - STEP 2: Does the patient need extra time in social situations, OR does s/he interact with staff, other patien ts, and family members ONLY in structured environments, OR does s/he require medication for social in teraction? Yes, patient needs extra time SOCIAL INTERACTION - SCORE: 6-BETH PROBLEM SOLVING: PROBLEM SOLVING - STEP 1: Does the patient need help from a person or device, or need extra time to solve complex problems such as managing a checking account or confronting interpersonal problems? No. PROBLEM SOLVING - STEP 2: Does the patient require extra time to make decisions or solve problems, OR does s/he have slight dif ficulty reading, initiating, or self-correcting in unfamiliar situations? Yes, patient needs extra ti me. PROBLEM SOLVING - SCORE: 6-BETH MEMORY: MEMORY - STEP 1: Does the patient need help from a person or device, or need extra time to remember frequently encount ered people, daily routines, and executing requests? No. MEMORY - STEP 2: Does the patient have slight difficulty recognizing frequently encountered people, daily routines, or executing requests without the need for repetition or using self-initiated or environmental cues to remember? Yes. MEMORY - SCORE: 6-BETH SIGNATURE PANEL: The following modified sections: Eating - Score, Grooming - Score, Bathing - Score, Dressing - Upper Body - Score, Dressing - Lower Body - Score, Toileting - Score, Bladder Management - Score, Bowel Man agement - Score, Transfers: Bed, Chair, Wheelchair - Score, Transfers: Toilet - Score, Transfers: Mary wer - Score, Transfers: Tub - Score, Locomotion: Walk - Score, Locomotion: Wheelchair - Score, Compre hension - Score, Expression - Score, Social Interaction - Score, Problem Solving - Score, Memory - Sc ore were [electronically] signed by Rufus Redding on MonFeb 18 2019 15:11:37 GMT-0500 (Central Daylight Time)
--- NOTE | 2019-02-18 15:35 | FAST ---
ENCOUNTER DATE AND TIME: 02/18/2019 08:00 (CDT) NAME MAC LA DATE OF : 1930 DATE OF ADMISSION: 02/06/2019 15:18 (CDT) PHONE: AGE: 88 SSN# [id number] GENDER: Female ENCOUNTER PHYSICIAN: Dr. Óscar Gibson M.D. 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 EATING: Activity did not occur on this shift EATING - SCORE: 0-UNK GROOMING: Activity did not occur on this shift GROOMING - SCORE: 0-UNK BATHING: Activity did not occur on this shift BATHING - SCORE: 0-UNK DRESSING - UPPER BODY: Activity did not occur on this shift Patient is not dressing in public clothing ARTICLES SCORE Total number of steps: 0 DRESSING - UPPER BODY - SCORE: 0-UNK DRESSING - LOWER BODY: Activity did not occur on this shift Patient is not dressing in public clothing ARTICLES SCORE Total number of steps: 0 DRESSING - LOWER BODY - SCORE: 0-UNK TOILETING: Activity did not occur on this shift TOILETING - SCORE: 0-UNK BLADDER MANAGEMENT: Activity did not occur on this shift BLADDER MANAGEMENT - SCORE: 7-IND BOWEL MANAGEMENT: Activity did not occur on this shift BOWEL MANAGEMENT - SCORE: 7-IND TRANSFERS: BED, CHAIR, WHEELCHAIR: TRANSFERS: BED, CHAIR, WHEELCHAIR - STEP 1: Does the patient require assistance of a person or device, or need extra time with bed, chair, or whe elchair transfers? Yes. TRANSFERS: BED, CHAIR, WHEELCHAIR - STEP 2: Does the patient require the assistance of a helper? Yes. TRANSFERS: BED, CHAIR, WHEELCHAIR - STEP 3: How much assistance does the patient require from the helper? Only supervision TRANSFERS: BED, CHAIR, WHEELCHAIR - SCORE: 5-SUP TRANSFERS: TOILET: Activity did not occur on this shift TRANSFERS: TOILET - SCORE: 0-UNK TRANSFERS: SHOWER: Activity did not occur on this shift TRANSFERS: SHOWER - SCORE: 0-UNK TRANSFERS: TUB: Activity did not occur on this shift TRANSFERS: TUB - SCORE: 0-UNK LOCOMOTION: WALK: LOCOMOTION: WALK - STEP 1: Does the patient need help from a person or device, or need extra time to walk 150 feet? No. LOCOMOTION: WALK - STEP 2: Does the patient need an assistive device (such as an orthosis, prosthesis, crutches, or walker) to g o 150 feet, OR does s/he take more than reasonable time, OR is there a concern for safety? Yes, the p atient needs an assistive device LOCOMOTION: WALK - SCORE: 6-BETH LOCOMOTION: WHEELCHAIR: Activity did not occur on this shift LOCOMOTION: WHEELCHAIR - SCORE: 0-UNK LOCOMOTION: STAIRS: LOCOMOTION: STAIRS - STEP 1: Does the patient need help to go up and down 12 to 14 stairs? Yes. LOCOMOTION: STAIRS - STEP 2: How much assistance does the patient need from the helper to go a minimum of 12 to 14 stairs? The pat ient goes less than 12 stairs, but at least 4 stairs LOCOMOTION: STAIRS - SCORE: 2-MAX COMPREHENSION: COMPREHENSION - SCORE: 0-UNK EXPRESSION EXPRESSION - SCORE: 0-UNK SOCIAL INTERACTION: SOCIAL INTERACTION - SCORE: 0-UNK PROBLEM SOLVING: PROBLEM SOLVING - SCORE: 0-UNK MEMORY: MEMORY - SCORE: 0-UNK SIGNATURE PANEL: The following modified sections: Transfers: Bed, Chair, Wheelchair - Score, Transfers: Toilet - Score , Locomotion: Walk - Score, Locomotion: Wheelchair - Score, Locomotion: Stairs - Score were [[email or web address]] signed by Bruce Jensen PT on MonFeb 18 2019 15:35:04 T-0500 (Central Daylight Time)
--- NOTE | 2019-02-18 18:42 | R.PN ---
ENCOUNTER DATE AND TIME: 02/18/2019 18:39 (CDT) NAME MAC KARIMI DATE OF : 1930 DATE OF ADMISSION: 02/06/2019 15:18 (CDT) Left Diabetic Foot UlcerCHIEF COMPLAINT: Debility SUBJECTIVE: Pt denied any depression. Pt denied any Shortness of Breath. Ambulated 650' with modified independence using a rolling walker. VITAL SIGNS Temperature: 98.0 F SBP/DBP: 182/74 Pulse: 62 Resp: 16 MEDICATION ALLERGIES: PENICILLIN Iodine ENVIRONMENTAL ALLERGIES: None Known - Substance Allergies None Known - Other Allergies None Known CONSULT: Perform Consult Certified Prosthetic for prosthesis construction NURSING: - Shower allowing shower - Lab Results blood Sugar Check ACHS - Skin care per protocol PRECAUTIONS: - Weight Bearing Precaution NWB left LE ACTIVITIES OOB only with supervision THERAPIES: - Orthotics/Prosthetics Prosthetic Evaluation. - Dietary and Nutrition Adequate Nutrition. Nutritional Education. Nutritional Supplements. PHYSICAL EXAM - Gen Alert and awake Lying in bed No apparent distress Oriented to: person, time, and place - Skin No skin breakdown. No abnormalities - Eyes No abnormalities - ENMT No abnormalities - Neck No abnormalities - CVS RRR - Chest No abnormalities - Abd Soft - GI Non distended Deferred - No abnormalities - Ext No significant edema. - MSK 4/5 weakness in both lower extremities. - Neuro No focal deficits - Psych No abnormalities ASSESSMENT: Pt. is a 88 yo Right-handed white female.On 01/04/2019 she was admitted to [facility] BED with diag nosis Left Diabetic Foot Ulcer.Her impairment category is Amputation of Limb 05 - Unilateral Lower L imb Below the Knee (BK) (05.4).Pre-morbidly, Pt. was independent/mod-I in Self-Care, Sphincter Contro l, Transfers Control, Locomotion, Communication, and Social Cognition; and she had good Sphincter Con trol.Currently, she has deficits of Self-Care, Transfers Control, Locomotion, Endurance, Balance, and Safety Awareness.Pt. is now referred to [facility] for acute in-patient rehab ilitation in order to maximize patient's functional independence in activities of daily living, stren gth, ROM, and mobility.- Rehab Goal Patient has realistic goal of being discharged at assistance level 6-Latoya to reside at Home with Fam rosi/Relatives. MDM/PLAN: - Physical Therapy Gait dysfunction - to improve, our physical therapists will perform initial evaluation of pt's statu s upon admission and devise an individualized program for Gait Training, and Wheel Chair mobility Inability to transfer - to improve, our physical therapists will perform initial evaluation of pt's status upon admission and devise an individualized program for Bed mobility Need for home safety evaluation - to improve, our physical therapists will perform initial evaluatio n of pt's status upon admission and devise an individualized program for Home Evaluation Need in caregiver upon discharge - to improve, our physical therapists will perform initial evaluati on of pt's status upon admission and devise an individualized program for Caregiver Training New precaution - to improve, our physical therapists will perform initial evaluation of pt's status upon admission and devise an individualized program for Patient precaution education Poor balance - to improve, our physical therapists will perform initial evaluation of pt's status up on admission and devise an individualized program for Balance Training Poor endurance - to improve, our physical therapists will perform initial evaluation of pt's status upon admission and devise an individualized program for Endurance Training Weakness - to improve, our physical therapists will perform initial evaluation of pt's status upon a dmission and devise an individualized program for Aquatic Therapy, Neuromuscular Reeducation, and Str engthening Achieving independence - to improve, our physical therapists will perform initial evaluation of pt's status upon admission and devise an individualized program for Community Reintegration Activities - Occupational Therapy ADL deficits - to improve, our occupation therapists will perform initial evaluation of pt's status upon admission and devise an individualized program for Bathing, Bed mobility, Community Reintegratio n, Cooking, Dressing, Eating, Fine Motor Skills, Grooming, Homemaking, Kitchen Mobility, Laundry, Pat ient Education, Safety Awareness, Splinting - Positioning, Transfers(Toilet, Tub, Shower), and Wheel Chair Management Need for respiratory care faculty - to improve, our occupation therapists will perform initial evaluation of pt's status upon admission and devise an individualized program for Caregiver Training Weakness - to improve, our occupation therapists will perform initial evaluation of pt's status upon admission and devise an individualized program for Aquatic Therapy, Balance, Endurance, UE ROM, and UE strengthening - Other See attached MAR (Medication Administration Record) Mac Karimi.pdf See attached MAR (Medication Administration Record) - Diet Type Continue Regular - Diet - Liquid Texture Continue Regular - Tube Feed Continue N/A - Lab Results blood Sugar Check ACHS - Weight Bearing Precaution NWB left LE WBAT left LE - Skin care per protocol - N/A Perform Consult Certified Prosthetic for prosthesis construction - Diet - Solid Texture Continue Regular - Shower allowing shower FUNCTIONAL STATUS: UPDATED AT WEEKLY TEAM CONFERENCE - Bladder Same accident frequency: 7-Ind - No accidents in the past 7 days - Bowel Same accident frequency: 7-Ind - No accidents in the past 7 days - Walking Same score based on distance walked: 0(N/A) - Wheelchair Same score based on distance traveled: 0(N/A) FUNCTIONAL STATUS: - Self-Care A. Eating sup B. Grooming sup C. Bathing sup D. Dressing - Upper sup E. Dressing - Lower modA F. Toileting modA - Sphincter Control G: Bladder control Ind H: Bowel control Ind - Transfers Control I. Bed/Chair/Wheelchair modA J. Toilet modA K. Tub/Shower ADNO - Locomotion L. Walk/Wheelchair (C) Dep L. Walk/Wheelchair (W) Dep M. Stairs ADNO - Communication N. Comprehension (B) Ind O. Expression (B) Ind - Social Cognition P. Social Interaction Ind Q. Problem Solving Ind R. Memory Ind - Endurance Fair - Balance Fair - Safety Awareness Fair CURRENT FUNC. DEFICITS: Self-Care, Transfers Control, Locomotion, Endurance, Balance, and Safety Awareness SIGNATURE PANEL: (CDT)
[2019-02-18] MEDS: ATORVASTATIN 20 MG TAB PO SCH (21:13)
--- NOTE | 2019-02-19 02:39 | FAST ---
SHIFT START DATE/TIME: 02/18/2019 19:00 (CDT) SHIFT END DATE/TIME: 02/19/2019 07:00 (CDT) NAME MAC LA DATE OF : 1930 DATE OF ADMISSION: 02/06/2019 15:18 (CDT) PHONE: AGE: 88 N# [id number] GENDER: Female ENCOUNTER PHYSICIAN: Dr. Óscar Gibson M.D. 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 EATING: Activity did not occur on this shift EATING - SCORE: 0-UNK GROOMING: Comb/brush hair Oral care Wash, rinse, and dry face Wash, rinse, and dry hands GROOMING - STEP 1: Does the patient require the assistance of a person or device, or need extra time when grooming? Yes. GROOMING - STEP 2: Does the patient require the assistance of a helper? Yes. GROOMING - STEP 3: How much assistance does the patient require from the helper? Only prior equipment preparation/set up from the helper GROOMING - SCORE: 5-SUP BATHING: Activity did not occur on this shift BATHING - SCORE: 0-UNK DRESSING - UPPER BODY: Patient is not dressing in public clothing ARTICLES SCORE Total number of steps: 0 DRESSING - UPPER BODY - SCORE: 0-UNK DRESSING - LOWER BODY: Patient is not dressing in public clothing ARTICLES SCORE Total number of steps: 0 DRESSING - LOWER BODY - SCORE: 0-UNK TOILETING: TOILETING - STEP 1: Does the patient require the assistance of a person or device, or need extra time with toileting? Yes . TOILETING - STEP 2: Does the patient require the assistance of a helper? Yes. TOILETING - STEP 3: How much assistance does the patient require from the helper? Hands-on assistance from the helper TOILETING - STEP 4: Of the 3 tasks: 1) Adjusting clothing prior to use, 2) Cleansing of perineal area, 3) Adjusting clot [place] after use; How many tasks does the patient perform WITHOUT assistance of the helper? Three tasks with steadying assistance from the helper TOILETING - SCORE: 4-MIN BLADDER MANAGEMENT: BLADDER MANAGEMENT - STEP 1: Does the patient control the bladder completely and intentionally without equipment or devices or med ications, and is always continent? No. BLADDER MANAGEMENT - STEP 2: Does the patient require the assistance of a helper? Yes. BLADDER MANAGEMENT - STEP 3: How much assistance does the patient require from the helper? Only set-up of equipment - such as plac ing it within reach of the patient or emptying a device - to maintain either satisfactory voiding pat tern or managing an external device, such as an absorbent pad, ileal device, or catheter BLADDER MANAGEMENT - SCORE: 5-SUP BOWEL MANAGEMENT: Activity did not occur on this shift BOWEL MANAGEMENT - SCORE: 7-IND TRANSFERS: BED, CHAIR, WHEELCHAIR: TRANSFERS: BED, CHAIR, WHEELCHAIR - STEP 1: Does the patient require assistance of a person or device, or need extra time with bed, chair, or whe elchair transfers? Yes. TRANSFERS: BED, CHAIR, WHEELCHAIR - STEP 2: Does the patient require the assistance of a helper? Yes. TRANSFERS: BED, CHAIR, WHEELCHAIR - STEP 3: How much assistance does the patient require from the helper? Lifting of the legs TRANSFERS: BED, CHAIR, WHEELCHAIR - STEP 4: How many legs does the patient require the helper to lift? both legs TRANSFERS: BED, CHAIR, WHEELCHAIR - SCORE: 3-MOD TRANSFERS: TOILET: TRANSFERS: TOILET - STEP 1: Does the patient require the assistance of a person or device, or need extra time with toilet transfe rs? Yes. TRANSFERS: TOILET - STEP 2: Does the patient require the assistance of a helper? Yes. TRANSFERS: TOILET - STEP 3: How much assistance does the patient require from the helper? Patient performs half or more of the tr ansferring tasks TRANSFERS: TOILET - STEP 4: Does the patient need only incidental help such as contact guard or steadying during toilet transfer? No. Patient needs more than incidental help TRANSFERS: TOILET - SCORE: 3-MOD TRANSFERS: SHOWER: Activity did not occur on this shift TRANSFERS: SHOWER - SCORE: 0-UNK TRANSFERS: TUB: Activity did not occur on this shift TRANSFERS: TUB - SCORE: 0-UNK LOCOMOTION: WALK: Activity did not occur on this shift LOCOMOTION: WALK - SCORE: 0-UNK LOCOMOTION: WHEELCHAIR: Activity did not occur on this shift LOCOMOTION: WHEELCHAIR - SCORE: 0-UNK COMPREHENSION: COMPREHENSION: TYPE: Both COMPREHENSION - STEP 1: Does the patient require help from a person or device, or need extra time to understand complex and a bstract ideas (such as current events, finances, discharge planning, medical issues, relationships, e tc)? Yes. COMPREHENSION - STEP 2: Does the patient require help to understand questions or statements about basic needs or ideas (such as hunger, thirst, sleep, safety, daily schedule, room location, or discomfort) half or more of the t marshall? No. COMPREHENSION - STEP 3: How often does the patient need help to understand directions and conversation about basic needs? 10% - 24% of the time COMPREHENSION - SCORE: 4-MIN EXPRESSION EXPRESSION: TYPE: Both EXPRESSION - STEP 1: Does the patient require help from a person or device, or need extra time expressing complex and abst ract ideas (such as current events, finances, discharge planning, medical issues, relationships, etc) ? Yes. EXPRESSION - STEP 2: Does the patient require help to express basic necessities or ideas (such as hunger, thirst, sleep, s afety, daily schedule, room location, or discomfort) half or more of the time? No. EXPRESSION - STEP 3: How often does the patient need help to express directions and conversation about basic needs? Less t peña 10% of the time EXPRESSION - SCORE: 5-SUP SOCIAL INTERACTION: SOCIAL INTERACTION - STEP 1: Does the patient require a helper to interact with others in social and therapeutic situations? No. SOCIAL INTERACTION - STEP 2: Does the patient need extra time in social situations, OR does s/he interact with staff, other patien ts, and family members ONLY in structured environments, OR does s/he require medication for social in teraction? Yes, patient needs extra time SOCIAL INTERACTION - SCORE: 6-BETH PROBLEM SOLVING: PROBLEM SOLVING - STEP 1: Does the patient need help from a person or device, or need extra time to solve complex problems such as managing a checking account or confronting interpersonal problems? Yes. PROBLEM SOLVING - STEP 2: Does the patient solve basic routine problems half or more of the time? Yes. PROBLEM SOLVING - STEP 3: How often does the patient need help to solve basic routine problems? 10%-24% of the time PROBLEM SOLVING - SCORE: 4-MIN MEMORY: MEMORY - STEP 1: Does the patient need help from a person or device, or need extra time to remember frequently encount ered people, daily routines, and executing requests? Yes. MEMORY - STEP 2: How often does the patient need help to remember frequently encountered people, daily routines, and e xecuting requests? Less than 10% of the time MEMORY - SCORE: 5-SUP
[2019-02-19] MEDS: ENOXAPARIN 40 MG/0.4 ML SQ SCH (06:51)
[2019-02-19] MEDS: PANTOPRAZOLE 40MG TABLET PO SCH (06:51)
[2019-02-19] MEDS: LEVOTHYROXINE SOD 0.05 MG TABLET PO SCH (06:51)
[2019-02-19] MEDS: NPH (HUMAN) 100 UNITS/ML INSULIN SQ SCH (07:13)
[2019-02-19] MEDS: FUROSEMIDE 20 MG TABLET PO SCH (07:15)
[2019-02-19] MEDS: AMLODIPINE 5 MG TAB PO SCH (07:15)
[2019-02-19] MEDS: SPIRONOLACTONE 25 MG TABLET PO SCH (07:15)
[2019-02-19] MEDS: LOSARTAN POTASSIUM 50 MG TABLET PO SCH (07:16)
[2019-02-19] MEDS: INSULIN -REGULAR HUMAN 50 UNIT/0.5 ML ML SQ SCH ×4 (07:55→21:05)
[2019-02-19] MEDS: ASPIRIN 81 MG CHEWABLE TABLET PO SCH (07:56)
[2019-02-19] MEDS: DOCUSATE NA 100 MG CAP PO SCH ×2 (07:56→19:43)
[2019-02-19] MEDS: CRANBERRY FRUIT EXTRACT 200 MG CAP PO SCH ×2 (07:56→19:44)
[2019-02-19] MEDS: PROMOD 30 ML DOSE PO SCH ×3 (07:57→19:44)
[2019-02-19] MEDS ORDERED: VANCOMYCIN 1.5 GM in NA CHLORIDE 0.9% 500 ML IVPB SCH (09:00)
--- NOTE | 2019-02-19 13:26 | FAST ---
SHIFT START DATE/TIME: 02/19/2019 07:00 (CDT) SHIFT END DATE/TIME: 02/19/2019 19:00 (CDT) NAME MAC LA DATE OF : 1930 DATE OF ADMISSION: 02/06/2019 15:18 (CDT) PHONE: AGE: 88 N# [id number] GENDER: Female ENCOUNTER PHYSICIAN: Dr. Óscar Gibson M.D. 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 EATING: EATING - STEP 1: Does the patient require the assistance of a person or device, or need extra time when eating? Yes. EATING - STEP 2: Does the patient require the assistance of a helper? No, patient only requires an assistive device, O R s/he takes more than reasonable time to eat, OR there is a safety concern, OR s/he requires modifie d food consistency EATING - SCORE: 6-BETH GROOMING: Comb/brush hair Oral care Patient applied make-up GROOMING - STEP 1: Does the patient require the assistance of a person or device, or need extra time when grooming? Yes. GROOMING - STEP 2: Does the patient require the assistance of a helper? No. The patient only requires an assistive devic e, OR takes more than reasonable time to groom, OR there is a concern for safety as the patient groom s GROOMING - SCORE: 6-BETH BATHING: Activity did not occur on this shift BATHING - SCORE: 0-UNK DRESSING - UPPER BODY: Activity did not occur on this shift ARTICLES SCORE Total number of steps: 0 DRESSING - UPPER BODY - SCORE: 0-UNK DRESSING - LOWER BODY: Activity did not occur on this shift ARTICLES SCORE Total number of steps: 0 DRESSING - LOWER BODY - SCORE: 0-UNK TOILETING: TOILETING - STEP 1: Does the patient require the assistance of a person or device, or need extra time with toileting? Yes . TOILETING - STEP 2: Does the patient require the assistance of a helper? Yes. TOILETING - STEP 3: How much assistance does the patient require from the helper? Hands-on assistance from the helper TOILETING - STEP 4: Of the 3 tasks: 1) Adjusting clothing prior to use, 2) Cleansing of perineal area, 3) Adjusting clot [place] after use; How many tasks does the patient perform WITHOUT assistance of the helper? Two tasks TOILETING - SCORE: 3-MOD BLADDER MANAGEMENT: BLADDER MANAGEMENT - STEP 1: Does the patient control the bladder completely and intentionally without equipment or devices or med ications, and is always continent? No. BLADDER MANAGEMENT - STEP 2: Does the patient require the assistance of a helper? No, patient requires and independently uses an a ssistive device, such as a urinal, bedpan, bedside commode, catheter, absorbent pad, or collecting de vice BLADDER MANAGEMENT - SCORE: 6-BETH BOWEL MANAGEMENT: Activity did not occur on this shift BOWEL MANAGEMENT - SCORE: 7-IND TRANSFERS: BED, CHAIR, WHEELCHAIR: TRANSFERS: BED, CHAIR, WHEELCHAIR - STEP 1: Does the patient require assistance of a person or device, or need extra time with bed, chair, or whe elchair transfers? Yes. TRANSFERS: BED, CHAIR, WHEELCHAIR - STEP 2: Does the patient require the assistance of a helper? Yes. TRANSFERS: BED, CHAIR, WHEELCHAIR - STEP 3: How much assistance does the patient require from the helper? Steadying/guiding assistance TRANSFERS: BED, CHAIR, WHEELCHAIR - SCORE: 4-MIN TRANSFERS: TOILET: TRANSFERS: TOILET - STEP 1: Does the patient require the assistance of a person or device, or need extra time with toilet transfe rs? Yes. TRANSFERS: TOILET - STEP 2: Does the patient require the assistance of a helper? Yes. TRANSFERS: TOILET - STEP 3: How much assistance does the patient require from the helper? Patient performs half or more of the tr ansferring tasks TRANSFERS: TOILET - STEP 4: Does the patient need only incidental help such as contact guard or steadying during toilet transfer? No. Patient needs more than incidental help TRANSFERS: TOILET - SCORE: 3-MOD TRANSFERS: SHOWER: Activity did not occur on this shift TRANSFERS: SHOWER - SCORE: 0-UNK TRANSFERS: TUB: Activity did not occur on this shift TRANSFERS: TUB - SCORE: 0-UNK LOCOMOTION: WALK: Activity did not occur on this shift LOCOMOTION: WALK - SCORE: 0-UNK LOCOMOTION: WHEELCHAIR: Activity did not occur on this shift LOCOMOTION: WHEELCHAIR - SCORE: 0-UNK COMPREHENSION: COMPREHENSION: TYPE: Both COMPREHENSION - STEP 1: Does the patient require help from a person or device, or need extra time to understand complex and a bstract ideas (such as current events, finances, discharge planning, medical issues, relationships, e tc)? Yes. COMPREHENSION - STEP 2: Does the patient require help to understand questions or statements about basic needs or ideas (such as hunger, thirst, sleep, safety, daily schedule, room location, or discomfort) half or more of the t marshall? No. COMPREHENSION - STEP 3: How often does the patient need help to understand directions and conversation about basic needs? Les s than 10% of the time COMPREHENSION - SCORE: 5-SUP EXPRESSION EXPRESSION: TYPE: Both EXPRESSION - STEP 1: Does the patient require help from a person or device, or need extra time expressing complex and abst ract ideas (such as current events, finances, discharge planning, medical issues, relationships, etc) ? Yes. EXPRESSION - STEP 2: Does the patient require help to express basic necessities or ideas (such as hunger, thirst, sleep, s afety, daily schedule, room location, or discomfort) half or more of the time? No. EXPRESSION - STEP 3: How often does the patient need help to express directions and conversation about basic needs? Less t peña 10% of the time EXPRESSION - SCORE: 5-SUP SOCIAL INTERACTION: SOCIAL INTERACTION - STEP 1: Does the patient require a helper to interact with others in social and therapeutic situations? Yes. SOCIAL INTERACTION - STEP 2: Does the patient interact appropriately half or more of the time? Yes. SOCIAL INTERACTION - STEP 3: How often does the patient need help to interact appropriately? Less than 10% of the time SOCIAL INTERACTION - SCORE: 5-SUP PROBLEM SOLVING: PROBLEM SOLVING - STEP 1: Does the patient need help from a person or device, or need extra time to solve complex problems such as managing a checking account or confronting interpersonal problems? No. PROBLEM SOLVING - STEP 2: Does the patient require extra time to make decisions or solve problems, OR does s/he have slight dif ficulty reading, initiating, or self-correcting in unfamiliar situations? Yes, patient needs extra ti me. PROBLEM SOLVING - SCORE: 6-BETH MEMORY: MEMORY - STEP 1: Does the patient need help from a person or device, or need extra time to remember frequently encount ered people, daily routines, and executing requests? No. MEMORY - STEP 2: Does the patient have slight difficulty recognizing frequently encountered people, daily routines, or executing requests without the need for repetition or using self-initiated or environmental cues to remember? Yes. MEMORY - SCORE: 6-BETH SIGNATURE PANEL: The following modified sections: Eating - Score, Grooming - Score, Bathing - Score, Dressing - Upper Body - Score, Dressing - Lower Body - Score, Toileting - Score, Bladder Management - Score, Bowel Man agement - Score, Transfers: Bed, Chair, Wheelchair - Score, Transfers: Toilet - Score, Transfers: Mary wer - Score, Transfers: Tub - Score, Locomotion: Walk - Score, Locomotion: Wheelchair - Score, Compre hension - Score, Expression - Score, Social Interaction - Score, Problem Solving - Score, Memory - Sc ore were [electronically] signed by Rufus Redding on MonFeb 19 2019 13:26:04 T-0500 (Central Daylight Time)
--- NOTE | 2019-02-19 15:19 | FAST ---
ENCOUNTER DATE AND TIME: 02/15/2019 08:00 (CDT) NAME MAC LA DATE OF : 1930 DATE OF ADMISSION: 02/06/2019 15:18 (CDT) PHONE: AGE: 88 SSN# [id number] GENDER: Female ENCOUNTER PHYSICIAN: Dr. Óscar Gibson M.D. 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 EATING: Activity did not occur on this shift EATING - SCORE: 0-UNK GROOMING: Activity did not occur on this shift GROOMING - SCORE: 0-UNK BATHING: Activity did not occur on this shift BATHING - SCORE: 0-UNK DRESSING - UPPER BODY: Activity did not occur on this shift Patient is not dressing in public clothing ARTICLES SCORE Total number of steps: 0 DRESSING - UPPER BODY - SCORE: 0-UNK DRESSING - LOWER BODY: Activity did not occur on this shift Patient is not dressing in public clothing ARTICLES SCORE Total number of steps: 0 DRESSING - LOWER BODY - SCORE: 0-UNK TOILETING: Activity did not occur on this shift TOILETING - SCORE: 0-UNK BLADDER MANAGEMENT: Activity did not occur on this shift BLADDER MANAGEMENT - SCORE: 7-IND BOWEL MANAGEMENT: Activity did not occur on this shift BOWEL MANAGEMENT - SCORE: 7-IND TRANSFERS: BED, CHAIR, WHEELCHAIR: TRANSFERS: BED, CHAIR, WHEELCHAIR - STEP 1: Does the patient require assistance of a person or device, or need extra time with bed, chair, or whe elchair transfers? Yes. TRANSFERS: BED, CHAIR, WHEELCHAIR - STEP 2: Does the patient require the assistance of a helper? Yes. TRANSFERS: BED, CHAIR, WHEELCHAIR - STEP 3: How much assistance does the patient require from the helper? Only supervision TRANSFERS: BED, CHAIR, WHEELCHAIR - SCORE: 5-SUP TRANSFERS: TOILET: Activity did not occur on this shift TRANSFERS: TOILET - SCORE: 0-UNK TRANSFERS: SHOWER: Activity did not occur on this shift TRANSFERS: SHOWER - SCORE: 0-UNK TRANSFERS: TUB: Activity did not occur on this shift TRANSFERS: TUB - SCORE: 0-UNK LOCOMOTION: WALK: LOCOMOTION: WALK - STEP 1: Does the patient need help from a person or device, or need extra time to walk 150 feet? Yes. LOCOMOTION: WALK - STEP 2: How much assistance does the patient require to walk a minimum of 150 feet? Only supervision, cuing, or coaxing LOCOMOTION: WALK - SCORE: 5-SUP LOCOMOTION: WHEELCHAIR: Activity did not occur on this shift LOCOMOTION: WHEELCHAIR - SCORE: 0-UNK LOCOMOTION: STAIRS: Activity did not occur on this shift LOCOMOTION: STAIRS - SCORE: 0-UNK COMPREHENSION: COMPREHENSION - SCORE: 0-UNK EXPRESSION EXPRESSION - SCORE: 0-UNK SOCIAL INTERACTION: SOCIAL INTERACTION - SCORE: 0-UNK PROBLEM SOLVING: PROBLEM SOLVING - SCORE: 0-UNK MEMORY: MEMORY - SCORE: 0-UNK SIGNATURE PANEL: The following modified sections: Transfers: Bed, Chair, Wheelchair - Score, Transfers: Toilet - Score , Locomotion: Walk - Score, Locomotion: Wheelchair - Score, Locomotion: Stairs - Score were [electron paula] signed by Michael Esteban PTA on MonFeb 19 2019 15:18:51 T-0500 (Central Daylight Time)
--- NOTE | 2019-02-19 15:36 | FAST ---
ENCOUNTER DATE AND TIME: 02/19/2019 08:00 (CDT) NAME MAC LA DATE OF : 1930 DATE OF ADMISSION: 02/06/2019 15:18 (CDT) PHONE: AGE: 88 SSN# [id number] GENDER: Female ENCOUNTER PHYSICIAN: Dr. Óscar Gibson M.D. 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 EATING: Activity did not occur on this shift EATING - SCORE: 0-UNK GROOMING: Activity did not occur on this shift GROOMING - SCORE: 0-UNK BATHING: Activity did not occur on this shift BATHING - SCORE: 0-UNK DRESSING - UPPER BODY: Activity did not occur on this shift Patient is not dressing in public clothing ARTICLES SCORE Total number of steps: 0 DRESSING - UPPER BODY - SCORE: 0-UNK DRESSING - LOWER BODY: Activity did not occur on this shift Patient is not dressing in public clothing ARTICLES SCORE Total number of steps: 0 DRESSING - LOWER BODY - SCORE: 0-UNK TOILETING: Activity did not occur on this shift TOILETING - SCORE: 0-UNK BLADDER MANAGEMENT: Activity did not occur on this shift BLADDER MANAGEMENT - SCORE: 7-IND BOWEL MANAGEMENT: Activity did not occur on this shift BOWEL MANAGEMENT - SCORE: 7-IND TRANSFERS: BED, CHAIR, WHEELCHAIR: TRANSFERS: BED, CHAIR, WHEELCHAIR - STEP 1: Does the patient require assistance of a person or device, or need extra time with bed, chair, or whe elchair transfers? Yes. TRANSFERS: BED, CHAIR, WHEELCHAIR - STEP 2: Does the patient require the assistance of a helper? Yes. TRANSFERS: BED, CHAIR, WHEELCHAIR - STEP 3: How much assistance does the patient require from the helper? Only supervision TRANSFERS: BED, CHAIR, WHEELCHAIR - SCORE: 5-SUP TRANSFERS: TOILET: Activity did not occur on this shift TRANSFERS: TOILET - SCORE: 0-UNK TRANSFERS: SHOWER: Activity did not occur on this shift TRANSFERS: SHOWER - SCORE: 0-UNK TRANSFERS: TUB: Activity did not occur on this shift TRANSFERS: TUB - SCORE: 0-UNK LOCOMOTION: WALK: LOCOMOTION: WALK - STEP 1: Does the patient need help from a person or device, or need extra time to walk 150 feet? No. LOCOMOTION: WALK - STEP 2: Does the patient need an assistive device (such as an orthosis, prosthesis, crutches, or walker) to g o 150 feet, OR does s/he take more than reasonable time, OR is there a concern for safety? Yes, the p atient needs an assistive device LOCOMOTION: WALK - SCORE: 6-BETH LOCOMOTION: WHEELCHAIR: LOCOMOTION: WHEELCHAIR - STEP 1: Does the patient need help to go 150 feet in a wheelchair? No. LOCOMOTION: WHEELCHAIR - SCORE: 6-BETH LOCOMOTION: STAIRS: LOCOMOTION: STAIRS - STEP 1: Does the patient need help to go up and down 12 to 14 stairs? Yes. LOCOMOTION: STAIRS - STEP 2: How much assistance does the patient need from the helper to go a minimum of 12 to 14 stairs? Only in cidental help such as contact guarding or steadying LOCOMOTION: STAIRS - SCORE: 4-MIN COMPREHENSION: COMPREHENSION - SCORE: 0-UNK EXPRESSION EXPRESSION - SCORE: 0-UNK SOCIAL INTERACTION: SOCIAL INTERACTION - SCORE: 0-UNK PROBLEM SOLVING: PROBLEM SOLVING - SCORE: 0-UNK MEMORY: MEMORY - SCORE: 0-UNK SIGNATURE PANEL: The following modified sections: Transfers: Bed, Chair, Wheelchair - Score, Transfers: Toilet - Score , Locomotion: Walk - Score, Locomotion: Wheelchair - Score, Locomotion: Stairs - Score were [electron paula] signed by Michael Esteban PTA on MonFeb 19 2019 15:35:04 GMT-0500 (Central Daylight Time)
--- NOTE | 2019-02-19 17:36 | R.PN ---
ENCOUNTER DATE AND TIME: 02/19/2019 17:34 (CDT) NAME MAC KARIMI DATE OF : 1930 DATE OF ADMISSION: 02/06/2019 15:18 (CDT) Left Diabetic Foot UlcerCHIEF COMPLAINT: Debility SUBJECTIVE: Pt denied any depression. Pt denied any Shortness of Breath. Ambulated 650' with modified independence using a rolling walker. Up and down 12 steps with bilateral handrails VITAL SIGNS Temperature: 97.6 F SBP/DBP: 142/61 Pulse: 62 Resp: 16 MEDICATION ALLERGIES: PENICILLIN Iodine ENVIRONMENTAL ALLERGIES: None Known - Substance Allergies None Known - Other Allergies None Known CONSULT: Perform Consult Certified Prosthetic for prosthesis construction NURSING: - Shower allowing shower - Lab Results blood Sugar Check ACHS - Skin care per protocol PRECAUTIONS: - Weight Bearing Precaution NWB left LE ACTIVITIES OOB only with supervision THERAPIES: - Orthotics/Prosthetics Prosthetic Evaluation. - Dietary and Nutrition Adequate Nutrition. Nutritional Education. Nutritional Supplements. PHYSICAL EXAM - Gen Alert and awake Lying in bed No apparent distress Oriented to: person, time, and place - Skin No skin breakdown. No abnormalities - Eyes No abnormalities - ENMT No abnormalities - Neck No abnormalities - CVS RRR - Chest No abnormalities - Abd Soft - GI Non distended Deferred - No abnormalities - Ext No significant edema. - MSK 4/5 weakness in both lower extremities. - Neuro No focal deficits - Psych No abnormalities ASSESSMENT: Pt. 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 was independent/mod-I in Self-Care, Sphincter Contro l, Transfers Control, Locomotion, Communication, and Social Cognition; and she had good Sphincter Con trol.Currently, she has deficits of Self-Care, Transfers Control, Locomotion, Endurance, Balance, and Safety Awareness.Pt. is now referred to [facility] for acute in-patient rehab ilitation in order to maximize patient's functional independence in activities of daily living, stren gth, ROM, and mobility.- Rehab Goal Patient has realistic goal of being discharged at assistance level 6-Latoya to reside at Home with Fam rosi/Relatives. MDM/PLAN: - Physical Therapy Gait dysfunction - to improve, our physical therapists will perform initial evaluation of pt's statu s upon admission and devise an individualized program for Gait Training, and Wheel Chair mobility Inability to transfer - to improve, our physical therapists will perform initial evaluation of pt's status upon admission and devise an individualized program for Bed mobility Need for home safety evaluation - to improve, our physical therapists will perform initial evaluatio n of pt's status upon admission and devise an individualized program for Home Evaluation Need in caregiver upon discharge - to improve, our physical therapists will perform initial evaluati on of pt's status upon admission and devise an individualized program for Caregiver Training New precaution - to improve, our physical therapists will perform initial evaluation of pt's status upon admission and devise an individualized program for Patient precaution education Poor balance - to improve, our physical therapists will perform initial evaluation of pt's status up on admission and devise an individualized program for Balance Training Poor endurance - to improve, our physical therapists will perform initial evaluation of pt's status upon admission and devise an individualized program for Endurance Training Weakness - to improve, our physical therapists will perform initial evaluation of pt's status upon a dmission and devise an individualized program for Aquatic Therapy, Neuromuscular Reeducation, and Str engthening Achieving independence - to improve, our physical therapists will perform initial evaluation of pt's status upon admission and devise an individualized program for Community Reintegration Activities - Occupational Therapy ADL deficits - to improve, our occupation therapists will perform initial evaluation of pt's status upon admission and devise an individualized program for Bathing, Bed mobility, Community Reintegratio n, Cooking, Dressing, Eating, Fine Motor Skills, Grooming, Homemaking, Kitchen Mobility, Laundry, Pat ient Education, Safety Awareness, Splinting - Positioning, Transfers(Toilet, Tub, Shower), and Wheel Chair Management Need for progressive care unit registered nurse - to improve, our occupation therapists will perform initial evaluation of pt's status upon admission and devise an individualized program for Caregiver Training Weakness - to improve, our occupation therapists will perform initial evaluation of pt's status upon admission and devise an individualized program for Aquatic Therapy, Balance, Endurance, UE ROM, and UE strengthening - Other See attached MAR (Medication Administration Record) Mac Karimi.pdf See attached MAR (Medication Administration Record) - Diet Type Continue Regular - Diet - Liquid Texture Continue Regular - Tube Feed Continue N/A - Lab Results blood Sugar Check ACHS - Weight Bearing Precaution NWB left LE WBAT left LE - Skin care per protocol - N/A Perform Consult Certified Prosthetic for prosthesis construction - Diet - Solid Texture Continue Regular - Shower allowing shower FUNCTIONAL STATUS: UPDATED AT WEEKLY TEAM CONFERENCE - Bladder Same accident frequency: 7-Ind - No accidents in the past 7 days - Bowel Same accident frequency: 7-Ind - No accidents in the past 7 days - Walking Same score based on distance walked: 0(N/A) - Wheelchair Same score based on distance traveled: 0(N/A) FUNCTIONAL STATUS: - Self-Care A. Eating sup B. Grooming sup C. Bathing sup D. Dressing - Upper sup E. Dressing - Lower modA F. Toileting modA - Sphincter Control G: Bladder control Ind H: Bowel control Ind - Transfers Control I. Bed/Chair/Wheelchair modA J. Toilet modA K. Tub/Shower ADNO - Locomotion L. Walk/Wheelchair (C) Dep L. Walk/Wheelchair (W) Dep M. Stairs ADNO - Communication N. Comprehension (B) Ind O. Expression (B) Ind - Social Cognition P. Social Interaction Ind Q. Problem Solving Ind R. Memory Ind - Endurance Fair - Balance Fair - Safety Awareness Fair CURRENT FUNC. DEFICITS: Self-Care, Transfers Control, Locomotion, Endurance, Balance, and Safety Awareness SIGNATURE PANEL: (CDT)
[2019-02-19] MEDS: ATORVASTATIN 20 MG TAB PO SCH (19:44)
--- NOTE | 2019-02-20 01:55 | FAST ---
SHIFT START DATE/TIME: 02/19/2019 19:00 (CDT) SHIFT END DATE/TIME: 02/20/2019 07:00 (CDT) NAME MAC LA DATE OF : 1930 DATE OF ADMISSION: 02/06/2019 15:18 (CDT) PHONE: AGE: 88 N# [id number] GENDER: Female ENCOUNTER PHYSICIAN: Dr. Óscar Gibson M.D. 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 EATING: Activity did not occur on this shift EATING - SCORE: 0-UNK GROOMING: Comb/brush hair Oral care Wash, rinse, and dry face Wash, rinse, and dry hands GROOMING - STEP 1: Does the patient require the assistance of a person or device, or need extra time when grooming? Yes. GROOMING - STEP 2: Does the patient require the assistance of a helper? Yes. GROOMING - STEP 3: How much assistance does the patient require from the helper? Only prior equipment preparation/set up from the helper GROOMING - SCORE: 5-SUP BATHING: Activity did not occur on this shift BATHING - SCORE: 0-UNK DRESSING - UPPER BODY: Patient is not dressing in public clothing ARTICLES SCORE Total number of steps: 0 DRESSING - UPPER BODY - SCORE: 0-UNK DRESSING - LOWER BODY: Patient is not dressing in public clothing ARTICLES SCORE Total number of steps: 0 DRESSING - LOWER BODY - SCORE: 0-UNK TOILETING: TOILETING - STEP 1: Does the patient require the assistance of a person or device, or need extra time with toileting? Yes . TOILETING - STEP 2: Does the patient require the assistance of a helper? Yes. TOILETING - STEP 3: How much assistance does the patient require from the helper? Hands-on assistance from the helper TOILETING - STEP 4: Of the 3 tasks: 1) Adjusting clothing prior to use, 2) Cleansing of perineal area, 3) Adjusting clot [place] after use; How many tasks does the patient perform WITHOUT assistance of the helper? Two tasks TOILETING - SCORE: 3-MOD BLADDER MANAGEMENT: BLADDER MANAGEMENT - STEP 1: Does the patient control the bladder completely and intentionally without equipment or devices or med ications, and is always continent? No. BLADDER MANAGEMENT - STEP 2: Does the patient require the assistance of a helper? Yes. BLADDER MANAGEMENT - STEP 3: How much assistance does the patient require from the helper? Only supervision, stand-by, cuing, or c oaxing BLADDER MANAGEMENT - SCORE: 5-SUP BOWEL MANAGEMENT: BOWEL MANAGEMENT - STEP 1: Does the patient control bowels completely and intentionally without equipment devices or medications AND is always continent? No. BOWEL MANAGEMENT - STEP 2: Does the patient require the assistance of a helper? No, patient requires medication for control such as stool softeners, suppositories, laxatives, enemas, or OTC medications BOWEL MANAGEMENT - SCORE: 6-BETH TRANSFERS: BED, CHAIR, WHEELCHAIR: TRANSFERS: BED, CHAIR, WHEELCHAIR - STEP 1: Does the patient require assistance of a person or device, or need extra time with bed, chair, or whe elchair transfers? Yes. TRANSFERS: BED, CHAIR, WHEELCHAIR - STEP 2: Does the patient require the assistance of a helper? Yes. TRANSFERS: BED, CHAIR, WHEELCHAIR - STEP 3: How much assistance does the patient require from the helper? Lifting of the legs TRANSFERS: BED, CHAIR, WHEELCHAIR - STEP 4: How many legs does the patient require the helper to lift? both legs TRANSFERS: BED, CHAIR, WHEELCHAIR - SCORE: 3-MOD TRANSFERS: TOILET: TRANSFERS: TOILET - STEP 1: Does the patient require the assistance of a person or device, or need extra time with toilet transfe rs? Yes. TRANSFERS: TOILET - STEP 2: Does the patient require the assistance of a helper? Yes. TRANSFERS: TOILET - STEP 3: How much assistance does the patient require from the helper? Only supervision, cuing, coaxing, OR he lp to set out transfer equipment or to lock brakes and/or lift foot rests TRANSFERS: TOILET - SCORE: 5-SUP TRANSFERS: SHOWER: Activity did not occur on this shift TRANSFERS: SHOWER - SCORE: 0-UNK TRANSFERS: TUB: Activity did not occur on this shift TRANSFERS: TUB - SCORE: 0-UNK LOCOMOTION: WALK: Activity did not occur on this shift LOCOMOTION: WALK - SCORE: 0-UNK LOCOMOTION: WHEELCHAIR: Activity did not occur on this shift LOCOMOTION: WHEELCHAIR - SCORE: 0-UNK COMPREHENSION: COMPREHENSION: TYPE: Both COMPREHENSION - STEP 1: Does the patient require help from a person or device, or need extra time to understand complex and a bstract ideas (such as current events, finances, discharge planning, medical issues, relationships, e tc)? Yes. COMPREHENSION - STEP 2: Does the patient require help to understand questions or statements about basic needs or ideas (such as hunger, thirst, sleep, safety, daily schedule, room location, or discomfort) half or more of the t marshall? No. COMPREHENSION - STEP 3: How often does the patient need help to understand directions and conversation about basic needs? 10% - 24% of the time COMPREHENSION - SCORE: 4-MIN EXPRESSION EXPRESSION: TYPE: Both EXPRESSION - STEP 1: Does the patient require help from a person or device, or need extra time expressing complex and abst ract ideas (such as current events, finances, discharge planning, medical issues, relationships, etc) ? No. EXPRESSION - STEP 2: Does the patient need extra time, require an assistive device (such as augmentive communication syste m or a communication board), OR does s/he have mild difficulty expressing complex and abstract ideas (including mild dysarthria or mild word-find problems)? Yes. EXPRESSION - SCORE: 6-BETH SOCIAL INTERACTION: SOCIAL INTERACTION - STEP 1: Does the patient require a helper to interact with others in social and therapeutic situations? No. SOCIAL INTERACTION - STEP 2: Does the patient need extra time in social situations, OR does s/he interact with staff, other patien ts, and family members ONLY in structured environments, OR does s/he require medication for social in teraction? Yes, patient needs extra time SOCIAL INTERACTION - SCORE: 6-BETH PROBLEM SOLVING: PROBLEM SOLVING - STEP 1: Does the patient need help from a person or device, or need extra time to solve complex problems such as managing a checking account or confronting interpersonal problems? Yes. PROBLEM SOLVING - STEP 2: Does the patient solve basic routine problems half or more of the time? Yes. PROBLEM SOLVING - STEP 3: How often does the patient need help to solve basic routine problems? 10%-24% of the time PROBLEM SOLVING - SCORE: 4-MIN MEMORY: MEMORY - STEP 1: Does the patient need help from a person or device, or need extra time to remember frequently encount ered people, daily routines, and executing requests? Yes. MEMORY - STEP 2: How often does the patient need help to remember frequently encountered people, daily routines, and e xecuting requests? 10% - 24% of the time MEMORY - SCORE: 4-MIN SIGNATURE PANEL: The following modified sections: Eating - Score, Grooming - Score, Dressing - Upper Body - Score, Cosmo ssing - Lower Body - Score, Toileting - Score, Bladder Management - Score, Bowel Management - Score, Transfers: Bed, Chair, Wheelchair - Score, Transfers: Toilet - Score, Transfers: Shower - Score, [place] sfers: Tub - Score, Locomotion: Walk - Score, Locomotion: Wheelchair - Score, Comprehension - Score, Expression - Score, Social Interaction - Score, Problem Solving - Score, Memory - Score were [electro nically] signed by Lisa Wolf CNA on MonFeb 20 2019 01:54:05 GMT-0500 (Central Daylight Time)
[2019-02-20] MEDS: LEVOTHYROXINE SOD 0.05 MG TABLET PO SCH (06:55)
[2019-02-20] MEDS: ENOXAPARIN 40 MG/0.4 ML SQ SCH (06:55)
[2019-02-20] MEDS: PANTOPRAZOLE 40MG TABLET PO SCH (06:55)
[2019-02-20 07:21] VITALS: TEMP 97
[2019-02-20] MEDS: INSULIN -REGULAR HUMAN 50 UNIT/0.5 ML ML SQ SCH ×2 (07:30→12:41)
[2019-02-20] MEDS: AMLODIPINE 5 MG TAB PO SCH (08:47)
[2019-02-20] MEDS: DOCUSATE NA 100 MG CAP PO SCH (08:47)
[2019-02-20] MEDS: CRANBERRY FRUIT EXTRACT 200 MG CAP PO SCH (08:47)
[2019-02-20] MEDS: ASPIRIN 81 MG CHEWABLE TABLET PO SCH (08:48)
[2019-02-20] MEDS: FUROSEMIDE 20 MG TABLET PO SCH (08:48)
[2019-02-20] MEDS: SPIRONOLACTONE 25 MG TABLET PO SCH (08:48)
[2019-02-20] MEDS: LOSARTAN POTASSIUM 50 MG TABLET PO SCH (08:49)
[2019-02-20] MEDS: NPH (HUMAN) 100 UNITS/ML INSULIN SQ SCH (08:49)
[2019-02-20] MEDS: PROMOD 30 ML DOSE PO SCH (08:50)
[2019-02-20 15:18] VITALS: BP 140/65
== END 2019-02-20 14:30 | disposition home health service (06) | DRG 639 ==
LOC: 5TH 15:18
PROVIDERS: ADMIT Psychiatry & Neurology Neurology with Special Qualifications in Child Neurology; ATTEND Psychiatry & Neurology Neurology with Special Qualifications in Child Neurology
DX: E11.621 Type 2 diabetes mellitus with foot ulcer (principal); Z89.412 Acquired absence of left great toe; E11.22 Type 2 diabetes mellitus with diabetic chronic kidney disease; N18.9 Chronic kidney disease, unspecified; I50.9 Heart failure, unspecified; E03.9 Hypothyroidism, unspecified; K21.9 Gastro-esophageal reflux disease without esophagitis; I48.91 Unspecified atrial fibrillation; E11.42 Type 2 diabetes mellitus with diabetic polyneuropathy
CPT/HCPCS: 36415; 80048; 80053; 80202; 81001; 82040; 82565; 82962; 83735; 84100; 84134; 85025; 87086; 87088; 92523; 97010; 97110; 97112; 97116; 97163; 97530; J1650; J2250; J2405; J2543; J2704; J2710; J3010

== ENCOUNTER 2020-01-18 11:01 | Emergency (ER) | payer OTHER ==
--- OUTSIDE RECORDS SUMMARY | 2020-01-18 11:04 | XMS REPORT | Continuity of Care Document ---
:1930 Author Organization [facility] t Address [address] [place] [address] Care Team Providers Name Role Phone Unavailable Unavailable Unavailable Problems This patient has no known problems. Allergies, Adverse Reactions, Alerts This patient has no known allergies or adverse reactions. Medications This patient has no known medications. Procedures This patient has no known procedures. Results This patient has no known results.
--- NOTE | 2020-01-18 12:13 | RAD REPORT ---
EXAM DESCRIPTION: - Head C Spine Mpr Wo Con - 01/18/2020 11:49 am CLINICAL HISTORY: Head and neck injury status post fall. Head and neck pain COMPARISON: 2009 TECHNIQUE: Computed axial tomography of the head and cervical spine was obtained. Sagittal and coronal reconstruction was performed. All CT scans are performed using dose optimization technique as appropriate and may include automated exposure control or mA/KV adjustment according to patient size. FINDINGS: Left frontal scalp hematoma 3 x 1 millimeter bleed abuts the left anterior falx consistent with subdural hematoma. The ventricles are normal in caliber. An extra-axial fluid collection is not noted.Fluid within the v isualized sinuses and mastoids is not seen A cervical fracture is not visualized. No dislocation is noted. Mild anterior subluxation C6 on C7 an d C7 on T1 unchanged from the prior exam. Spondylosis involves the cervical spine IMPRESSION: Very small left subdural hematoma along the left anterior falx A cervical fracture is not visualized. Tita Steele notified 12:06 p.m. January 18, 2020
--- NOTE | 2020-01-18 12:23 | RAD REPORT ---
EXAM DESCRIPTION: CT - Pelvis Wo Cont - 01/18/2020 11:49 am CLINICAL HISTORY: Pelvic pain status post fall COMPARISON: None. TECHNIQUE: Computed axial tomography of the pelvis was obtained. Coronal and sagittal reconstruction performed All CT scans are performed using dose optimization technique as appropriate and may include automated exposure control or mA/KV adjustment according to patient size. FINDINGS: Bilateral hip arthroplasties have been performed. No fracture or dislocation seen Osteoporosis 4.2 x 2.5 centimeter fluid collection lies along the posterior aspect of right acetabulum which appea rs chronic and may represent bursitis IMPRESSION: No fracture seen
--- NOTE | 2020-01-18 12:39 | RAD REPORT ---
EXAM DESCRIPTION: RAD - Shoulder Right 2 View - 01/18/2020 11:54 am CLINICAL HISTORY: Right shoulder pain FINDINGS: No fracture or dislocation is seen. Marked osteoarthritis involves the glenohumeral joint
[2020-01-18 12:52] LABS: Absolute Lymphocytes (CBC) 1.5 K/uL (0.7-4.9); Basophils % 0.6 % (0-1.3); Hematocrit 38.8 % (36.0-45.0); Lymphocytes % 21.6 % (15.3-44.8); RBC Red Blood Cell Count 4.32 M/uL (3.86-4.86)
[2020-01-18 13:00] LABS: Potassium 4.1 mmol/L (3.5-5.1)
--- NOTE | 2020-01-18 13:43 | EDPHYS ---
Physician Documentation [facility] Name: Alina Karimi Age: 89 yrs Sex: Female : 1930 Arrival Date: 01/18/2020 Time: 11:08 Bed 5 Private MD: ED Physician Babatunde Garcia HPI: 01/17 12:12 This 89 yrs old Female presents to ER via EMS with complaints of Fall Injury. kb 12:11 Pt reports she slipped and fell, hitting head on a piece of furniture. Reports chronic kb right shoulder, back and bilateral hip pain. Cannot distinguish whether the pain is worse now. Denies LOC. . 12:12 Details of fall: The patient fell from an upright position, while walking. Onset: The kb symptoms/episode began/occurred just prior to arrival. Associated injuries: The patient sustained injury to the head, hematoma, pain, swelling, posterior aspect of right shoulder, painful injury, pelvis, painful injury. Severity of symptoms: At their worst the symptoms were moderate, in the emergency department the symptoms are unchanged. The patient has not experienced similar symptoms in the past. The patient has not recently seen a physician. Historical: - Allergies: 11:19 Iodine; em 11:19 PENICILLINS; em - PMHx: 11:19 Atrial Fib; chronic back pain; Chronic right shoulder pain; Diabetes - NIDDM; High em Cholesterol; Thyroid problem; - Immunization history:: Adult Immunizations up to date. - Immunization history: Last tetanus immunization: - up to date. - Social history:: Smoking status: Patient denies any tobacco usage or history of. ROS: 12:08 Constitutional: Negative for fever, chills, and weight loss, Neck: Negative for injury, kb pain, and swelling, Cardiovascular: Negative for chest pain, palpitations, and edema, Respiratory: Negative for shortness of breath, cough, wheezing, and pleuritic chest pain, Abdomen/GI: Negative for abdominal pain, nausea, vomiting, diarrhea, and constipation, Back: Negative for injury and pain. 12:08 MS/extremity: Positive for pain, of the pelvis and posterior aspect of right shoulder. 12:08 Skin: Positive for hematoma, of the left side of forehead and left eye. Exam: 12:08 Constitutional: This is a well developed, well nourished patient who is awake, alert, kb and in no acute distress. Neck: Trachea midline, no thyromegaly or masses palpated, and no cervical lymphadenopathy. Supple, full range of motion without nuchal rigidity, or vertebral point tenderness. No Meningismus. Chest/axilla: Normal chest wall appearance and motion. Nontender with no deformity. No lesions are appreciated. Cardiovascular: Regular rate and rhythm with a normal S1 and S2. No gallops, murmurs, or rubs. Normal PMI, no JVD. No pulse deficits. Respiratory: Lungs have equal breath sounds bilaterally, clear to auscultation and percussion. No rales, rhonchi or wheezes noted. No increased work of breathing, no retractions or nasal flaring. Abdomen/GI: Soft, non-tender, with normal bowel sounds. No distension or tympany. No guarding or rebound. No evidence of tenderness throughout. Back: No spinal tenderness. No costovertebral tenderness. Full range of motion. Neuro: Awake and alert, GCS 15, oriented to person, place, time, and situation. Cranial nerves II-XII grossly intact. Motor strength 5/5 in all extremities. Sensory grossly intact. Cerebellar exam normal. Normal gait. 12:08 Head/face: Noted is no obvious of injury or deformity except hematoma, that is moderate, of the left eye and left side of forehead. Vital Signs: 11:09 BP 156 / 67; Pulse 53; Resp 18; Temp 97.8; Pulse Ox 100% on R/A; Weight 74.84 kg; em Height 5 ft. 6 in. (167.64 cm); 12:23 BP 151 / 60; Pulse 50; Resp 16; Pulse Ox 100% on R/A; em 13:30 BP 141 / 71; Pulse 49; Resp 18; Pulse Ox 99% on R/A; em 14:23 BP 141 / 50; Pulse 49; Resp 18; Pulse Ox 100% on R/A; em 15:30 BP 113 / 69; Pulse 67; Resp 16; Pulse Ox 100% on R/A; em 11:09 Body Mass Index 26.63 (74.84 kg, 167.64 cm) em Rachel Coma Score: 11:09 Eye Response: spontaneous(4). Verbal Response: oriented(5). Motor Response: obeys em commands(6). Total: 15. 12:23 Eye Response: spontaneous(4). Verbal Response: oriented(5). Motor Response: obeys em commands(6). Total: 15. 13:30 Eye Response: spontaneous(4). Verbal Response: oriented(5). Motor Response: obeys em commands(6). Total: 15. 14:23 Eye Response: spontaneous(4). Verbal Response: oriented(5). Motor Response: obeys em commands(6). Total: 15. 15:30 Eye Response: spontaneous(4). Verbal Response: oriented(5). Motor Response: obeys em commands(6). Total: 15. MDM: 11:13 Patient medically screened. kb 12:08 Data reviewed: vital signs, nurses notes. Data interpreted: Pulse oximetry: on room air kb is 100 %. Interpretation: normal. Counseling: I had a detailed discussion with the patient and/or guardian regarding: the historical points, exam findings, and any diagnostic results supporting the discharge/admit diagnosis, radiology results, the need to transfer to another facility, for higher level of care, [facility] does not immediately have the required specialist. 01/17 12:13 Order name: CBC with Diff; Complete Time: 13:00 kb 01/17 12:13 Order name: Basic Metabolic Panel; Complete Time: 13:00 kb 01/17 11:14 Order name: CT Head C Spine; Complete Time: 12:13 kb 01/17 11:14 Order name: CT Pelvis wo Cont; Complete Time: 12:24 kb 01/17 11:14 Order name: Shoulder Right (2 View) XRAY; Complete Time: 12:40 kb 01/17 12:13 Order name: IV Start; Complete Time: 12:50 kb Administered Medications: No medications were administered Disposition: 01/18 10:27 Co-signature as Attending Physician, Babatunde Garcia MD I agree with the assessment and noe plan of care. Disposition: 01/18/20 13:42 Transfer ordered to [facility]. Diagnosis are Traumatic subdural hemorrhage - 3x1mm hematoma, Fall on same level from slipping, tripping and stumbling. - Reason for transfer: Higher level of care. - Accepting physician is Gustavo. - Condition is Stable. - Problem is new. - Symptoms are unchanged. Signatures: Dispatcher [employer] EDTita Jenkins FNP-C BASTING CLEANER-Babatunde Nuñez MD MD cha Munoz, Edgar, RN RN em Corrections: (The following items were deleted from the chart) 01/17 15:48 13:42 01/18/2020 13:42 Transfer ordered to [facility]. em Diagnosis is Traumatic subdural hemorrhage - 3x1mm hematoma; Fall on same level from slipping, tripping and stumbling. Reason for transfer: Higher level of care. Accepting physician is Gustavo. Condition is Stable. Problem is new. Symptoms are unchanged. kb
--- NOTE | 2020-01-18 13:43 | ER ---
Nurse's Notes [facility] Name: Alina Karimi Age: 89 yrs Sex: Female : 1930 Arrival Date: 01/18/2020 Time: 11:08 Bed 5 Private MD: Diagnosis: Traumatic subdural hemorrhage-3x1mm hematoma;Fall on same level from slipping, tripping and stumbling Presentation: 01/17 11:09 Chief complaint: EMS states: called out for slip and fall, pt reports pain on left side em of head, egg size hematoma noted above left eye, also reports pain in manuela. hips, and right shoulder, denies LOC, does take ASA. Care prior to arrival: Medication(s) given: Tylenol, 1000 mg, zofran 4 mg, fentanyl 100 mcg. Mechanism of Injury: Fall from standing position. Trauma event details: Injury occurred in the [facility], Injury occurred: at home. Injury occurred: January 18, 2020 Injury occurred at: 10:00. 11:09 Acuity: REMIGIO 3 em 11:09 Method Of Arrival: EMS: [facility] em 11:18 Coronavirus screen: Patient denies a cough. Patient denies shortness of breath or em difficulty breathing. Patient denies measured and/or subjective temperature greater than 100.4F prior to today's visit. Patient denies travel on a cruise ship or to a country the [facility] currently lists as an affected area. Patient denies contact with known and/or suspected case of COVID-19. Ebola Screen: Patient negative for fever greater than or equal to 101.5 degrees Fahrenheit, and additional compatible Ebola Virus Disease symptoms Patient denies exposure to infectious person. Patient denies travel to an Ebola-affected area in the 21 days before illness onset. No symptoms or risks identified at this time. Initial Sepsis Screen: Does the patient meet any 2 criteria? No. Patient's initial sepsis screen is negative. Does the patient have a suspected source of infection? No. Patient's initial sepsis screen is negative. Risk Assessment: Do you want to hurt yourself or someone else? Patient reports no desire to harm self or others. Onset of symptoms was January 18, 2020. Trauma Activation: Physician: ED Physician; Name: Jose; Notified At: 11:09; Arrived At: Physician: General Surgeon; Name: ; Notified At: 11:09; Arrived At: Physician: Radiology; Name: ; Notified At: 11:09; Arrived At: Physician: Respiratory; Name: ; Notified At: 11:09; Arrived At: Physician: Lab; Name: ; Notified At: 11:09; Arrived At: Historical: - Allergies: 11:19 Iodine; em 11:19 PENICILLINS; em - PMHx: 11:19 Atrial Fib; chronic back pain; Chronic right shoulder pain; Diabetes - NIDDM; High em Cholesterol; Thyroid problem; - Immunization history:: Adult Immunizations up to date. - Immunization history: Last tetanus immunization: - up to date. - Social history:: Smoking status: Patient denies any tobacco usage or history of. Screenin:09 Abuse screen: Denies threats or abuse. Nutritional screening: No deficits noted. em Tuberculosis screening: No symptoms or risk factors identified. Fall risk None identified. 11:19 Fall Risk Fall in past 12 months (25 points). Gait- Weak (10 pts.). Total Cruz Fall em Scale indicates High Risk Score (45 or more points). Side Rails Up X 2 Placed Close to Nursing Station Frequent Obs/Assessments Occuring. Primary Survey: 11:20 NO uncontrolled hemorrhage observed. A: The patient is alert. Airway: patent. em Breathing/Chest: Respiratory pattern: regular, Respiratory effort: spontaneous, unlabored, Breath sounds: clear, bilaterally. Chest inspection: symmetrical rise and fall of the chest. Circulation: Heart tones present. Pulses: palpable right dorsalis pedis artery and left dorsalis pedis artery. Skin color: pink, Skin temperature: warm. Disability Alert. Exposure/Environment: All clothing and personal items were removed. There is no evidence of uncontrolled external bleeding. Assessment: 11:09 General: Appears in no apparent distress. comfortable, Behavior is calm, cooperative, em appropriate for age, Denies fever. Pain: Complains of pain in posterior aspect of right shoulder and left eye and left side of forehead. Neuro: Level of Consciousness is awake, alert, obeys commands, Oriented to person, place, time, situation, Appropriate for age. Cardiovascular: Capillary refill < 3 seconds Patient's skin is warm and dry. Respiratory: Airway is patent Respiratory effort is even, unlabored, Respiratory pattern is regular, symmetrical. GI: Abdomen is flat, Patient currently denies nausea, vomiting. Derm: Skin is intact, is fragile, is thin, Skin is pink, warm \T\ dry. Skin temperature is warm. Musculoskeletal: Swelling present in forehead. 11:28 Reassessment: technology services manager Lien at bedside awaiting to take patient to CT. Pt on bedside ss commode at this time. 11:30 Reassessment: Patient appears in no apparent distress at this time. wheeled to CT via em stretcher. 12:10 Reassessment: Patient appears in no apparent distress at this time. Patient and/or em family updated on plan of care and expected duration. Pain level reassessed. Patient is alert, oriented x 3, equal unlabored respirations, skin warm/dry/pink. 13:30 Reassessment: Patient appears in no apparent distress at this time. assisted pt onto em bedpan, tolerated well. 14:46 Reassessment: report given to STEFFANIE Paniagua at [facility], facility won't take pt em until a covid result is negative due to not having a PUI bed available for pt, charge nurse and provider notified, charge nurse will call transfer center, pending transfer. 15:38 Reassessment: Patient appears in no apparent distress at this time. report given to [facility]. Vital Signs: 11:09 BP 156 / 67; Pulse 53; Resp 18; Temp 97.8; Pulse Ox 100% on R/A; Weight 74.84 kg; em Height 5 ft. 6 in. (167.64 cm); 12:23 BP 151 / 60; Pulse 50; Resp 16; Pulse Ox 100% on R/A; em 13:30 BP 141 / 71; Pulse 49; Resp 18; Pulse Ox 99% on R/A; em 14:23 BP 141 / 50; Pulse 49; Resp 18; Pulse Ox 100% on R/A; em 15:30 BP 113 / 69; Pulse 67; Resp 16; Pulse Ox 100% on R/A; em 11:09 Body Mass Index 26.63 (74.84 kg, 167.64 cm) em [place] Coma Score: 11:09 Eye Response: spontaneous(4). Verbal Response: oriented(5). Motor Response: obeys em commands(6). Total: 15. 12:23 Eye Response: spontaneous(4). Verbal Response: oriented(5). Motor Response: obeys em commands(6). Total: 15. 13:30 Eye Response: spontaneous(4). Verbal Response: oriented(5). Motor Response: obeys em commands(6). Total: 15. 14:23 Eye Response: spontaneous(4). Verbal Response: oriented(5). Motor Response: obeys em commands(6). Total: 15. 15:30 Eye Response: spontaneous(4). Verbal Response: oriented(5). Motor Response: obeys em commands(6). Total: 15. ED Course: 11:08 Patient arrived in ED. em 11:09 Patient has correct armband on for positive identification. Bed in low position. Call em light in reach. Side rails up X2. 11:09 Patient maintains SpO2 saturation greater than 95% on room air. em 11:09 Maintain EMS IV. Dressing intact. Good blood return noted. Site clean \T\ dry. Gauge \T\ em site: 20 RAC. 11:13 Tita Steele FNP-C is [facility]. kb 11:13 Babatunde Garcia MD is Attending Physician. kb 11:13 Triage completed. em 11:17 Thermoregulation: warm blanket given to patient. em 11:22 Nadeem More, RN is Primary Nurse. em 11:47 CT completed. Patient tolerated procedure well. Radiology exam delayed due to pt needed bq a bedpan before going to ct. Patient moved back from CT. Patient moved to radiology. 11:49 CT Head C Spine In Process Unspecified. EDMS 11:49 CT Pelvis wo Cont In Process Unspecified. EDMS 11:54 Shoulder Right (2 View) XRAY In Process Unspecified. EDMS 12:10 Initial lab(s) drawn, by me, sent to lab. Inserted saline lock: 20 gauge in left wrist, em using aseptic technique. Blood collected. 15:42 No provider procedures requiring assistance completed. Patient transferred, IV remains em in place. Administered Medications: No medications were administered Output: 13:30 Urine: 30ml (Voided); Total: 30ml. em Outcome: 13:42 ER care complete, transfer ordered by . kb 15:46 Transferred by ground EMS to [facility], Transfer form completed. em X-rays sent w/ patient. 15:46 Condition: good 15:46 Instructed on the need for transfer, Demonstrated understanding of instructions. 15:48 Patient left the ED. em Signatures: Dispatcher [employer] Tita Herrera, WOUND CARE CENTER CONSULTANT-C WOUND CARE CENTER CONSULTANT-Ckb Lien Avila bq Nadeem More RN RN em Kasandra Yoo RN RN ss Corrections: (The following items were deleted from the chart) 14:56 14:46 Reassessment: report given to STEFFANIE Paniagua at [facility], facility won't em take pt until covid was is negative due to not having a PUI bed available for pt, charge nurse and provider notified, charge nurse will call transfer center, pending transfer em 15:47 15:43 Discharged to home ambulatory, em em 15:47 15:43 Condition: good em em
[2020-01-18 15:56] VITALS: TEMP 97.8
[2020-01-18 16:02] VITALS: O2SAT 100
[2020-01-18 16:04] VITALS: BP 113/69
== END 2020-01-18 15:48 | disposition short-term general hospital (02) ==
LOC: ER 11:01
DX: S06.5X0A Traumatic subdural hemorrhage without loss of consciousness, initial encounter (principal); W01.190A Fall on same level from slipping, tripping and stumbling with subsequent striking against furniture, initial encounter; Y93.01 Activity, walking, marching and hiking; Y92.9 Unspecified place or not applicable; Z88.0 Allergy status to penicillin; Z91.048 Other nonmedicinal substance allergy status
CPT/HCPCS: 36415; 70450; 72125; 72192; 80048; 85025; 99285

== ENCOUNTER 2020-12-22 09:32 | Inpatient (IN) | payer OTHER ==
--- OUTSIDE RECORDS SUMMARY | 2020-12-22 09:39 | XMS REPORT | Continuity of Care Document ---
:1930 Author Organization [facility] t Address [address] [place] [address] [address] [place] [address] Care Team Providers Name Role Phone Pcp, Does Not Have A Primary Care Physician Nurse, Pob Immunization Attending Clinician Unavailable Vasquez Mercedes DO Attending Clinician GUSTAVO Attending Clinician Unavailable Gustavo KIRAN Attending Clinician Aneta Purvis MD Attending Clinician [phone] Rhonda Bloom MD Attending Clinician [phone] GUSTAVO Admitting Clinician Unavailable Payers Payer Name Policy Type Policy Effective Date Expiration Source Number Date MEDICAREMEDICARE PART [id number] 1996 Un iversity of A & 00:00:00 [facility] [id number] 1995- [facility] [phone]. [address] [address]Medicare MEDICAREMEDICARE A [id number] 2014 [facility] [id number] 2014- 00:00:00 [facility] PresentMedicare AETNA - MGD CAREAETNA [id number] 2013 [facility] - INDEMNITY NON 00:00:[address] YLEDUwlhiy09658/16/20 14-PresentComm Problems Condition Condition Condition Status Onset Resolution Last Treating Co mments Source Name Details Category Date Date Treatment Clinician Date Subdural Subdural Disease Active [facility] - 00[facility]: Medical 00 Center Diabetes Diabetes Disease Active 2014-07 [facility] mellitus mellitus 0-09 [facility] - due to due to 00:00: Medical underlying underlying 00 Ce nter condition condition with foot with foot ulcer ulcer Hallux Hallux Disease Active 2014-[address] [facility] valgus of valgus of 0-09 [facility] - left foot left foot 00:00: Medi rajiv 00 Center Acquired Acquired Disease Active 2014-07 [facility] hallux hallux 0-09 [facility] - rigidus of rigidus of 00:00: Me dical left foot left foot 00 Cent er Allergies, Adverse Reactions, Alerts Allergy Allergy Status Severity Reaction(s) Onset Inactive Treating Comm ents Source Name Type Date Date Clinician Iodine Propensi Active 2014-[address] And ty to 0-05 contrast [facility] - Iodide adverse 00:00: Medical [facility] Penicill Propensi Active 2014-[address] [facility] ins ty to 0-05 [facility] - adverse 00:00: Medical reaction 00 Center s Social History Social Habit Start Date Stop Date Quantity Comments Source Sex Assigned At [facility] Alcohol intake 2015-04-10 [facility] non-drinker of Medical Ce nter alcohol (finding) Tobacco use and 2015-04-10 2015-04-10 Never used [facility] - exposure 00:00:00 00:00:00 Medical Center Smoking Status Start Date Stop Date Source Never smoker [facility] edical [place] Medications Ordered Filled Start Stop Current Ordering Indication Dosage Frequency Signature Comments Components Source Medication Medication Date Date Medication? Clinician (SIG) Name Name sotaloL 2020-0 2020- No 40mg QD Take 0.5 [facility] (BETAPACE - 07-23 tablets [facility] - AF) 80 MG 00:00: 23:59 (40 mg Medic al tablet 00 :00 total) by Center mouth daily. insulin NPH 2019-[address] [facility] (HUMULIN,NO 7- subcutaneo Lilly kes - VOLIN) 100 18:23: usly 2 Medic al unit/mL 56 (two) Center injection times daily before meals Use as directed 20units am, 10 units pm . insulin 2020-0 Yes Q.5D Inject [facility] lispro 7- subcutaneo [facility] - (HUMALOG) 18:23: usly 2 Medica l 100 unit/mL 56 (two) Center injection times daily 10units in am and 8 units pm . levothyroxi 2019-0 Yes 50ug QD Take [address] ne 7-22 mcg by [facility]ukes - (SYNTHROID, 18:23: mouth Medic al LEVOTHROID) 56 daily. Center 50 MCG tablet amLODIPine 2019-0 Yes 5mg QD Take [address] (NORVASC) 5 7-22 by mouth Luke s - MG tablet 18:23: daily. Medica l 56 Center losartan 2019-0 Yes 100mg QD Take [address] (COZAAR) 7-22 mg by [facility] - 100 MG 18:23: mouth Medical tablet 56 daily. Center aspirin 81 2020-0 Yes 81mg QD Take [address] MG EC 7-22 by mouth [facility] - tablet 18:23: daily Is Medical 56 stopping Center aspirin today . omega-3 2020-0 Yes Take by [facility] fatty 7-22 mouth. [facility] - acids-vitam 18:23: Medica l in E 1,000 56 Center mg Cap multivitami 2020-0 Yes 1{tbl} QD Take [address] n per 7-22 tablet by [facility] - tablet 18:23: mouth Medical 56 daily. Center furosemide 2020-0 Yes 20mg Q.5D Take [address] (LASIX) 20 7-22 by mouth 2 Augusto es - MG tablet 18:23: (two) Medical 56 times Center daily. potassium 2020-0 Yes 10meq QD Take [address] chloride 7-22 mEq by [facility]ukes - (KLOR-CON) 18:23: mouth Medica l 10 MEQ CR 56 daily. Center tablet acetaminoph Yes 500mg Take [address] en 7-22 mg by [facility] - (TYLENOL) 18:23: mouth Medical 500 MG 56 every 6 Center tablet (six) hours as needed for Pain. sotalol AF 2019- No 40mg Q.5D Take [address] (BETAPACE 01-21 by mouth 2 Augusto es - AF) 80 MG 14:28: 00:00 (two) Medica l tablet 19 :00 times Center daily. Missing or 2019- No B [address] [facility] Non-Formula 01-21 vitamin . Lilly kes - ry 14:28: 00:00 Medical Medication 19 :00 [place] Immunizations Ordered Filled Immunization Date Status Comments [facility] Immunization Name Name SARS-COV-2 COVID-19 2020-11-05 Completed Unive rsity of PFIZER VACCINE 00:00:00 [facility] Vital Signs Vital Name Observation Time Observation Value Comments Source Systolic blood 2020-01-22 16:00:00 97 mm[Hg] [facility] Diastolic blood 2020-01-22 16:00:00 55 mm[Hg] [facility] S [facility] Heart rate 2020-01-22 16:00:00 52 /min [facility] Body temperature 2020-01-22 16:00:00 35.94 Jami [facility] Respiratory rate 2020-01-22 16:00:00 17 /min [facility] Oxygen saturation in 2020-01-22 16:00:00 98 /min [facility] Arterial blood by Medical Ce nter Pulse oximetry Body weight 2020-01-22 03:15:00 70.308 kg [facility] BMI 2020-01-22 03:15:00 24.28 kg/m2 [facility] Body height 2020-01-18 17:00:00 170.2 cm [facility] Procedures Procedure Date / Time Performing Clinician Source Performed SARS-COV-2 COVID-19 2020-11-05 16:21:25 Doctor Unassigned, No [facility] [place] VACCINE,0.3ML,IM Name Medical Branch (PFIZER) RHYTHM STRIP - SCAN 2020-01-23 13:00:36 [facility] POCT-GLUCOSE METER 2020-01-22 17:35:00 [facility] POCT-GLUCOSE METER 2020-01-22 11:23:00 [facility] BASIC METABOLIC PANEL 2020-01-22 09:40:00 [facility] ([facility] POCT-GLUCOSE METER 2020-01-22 08:40:00 [facility] POCT-GLUCOSE METER 2020-01-21 21:20:00 [facility] POCT-GLUCOSE METER 2020-01-21 17:30:00 [facility] POCT-GLUCOSE METER 2020-01-21 12:36:00 [facility] POCT-GLUCOSE METER 2020-01-21 08:44:00 [facility] CBC W/PLT COUNT & AUTO 2020-01-21 03:44:00 Sharon Palumbo [facility] POCT-GLUCOSE METER 2020-01-20 21:46:00 [facility] 2020-01-20 21:18:00 [facility] POCT-GLUCOSE METER 2020-01-20 17:40:00 [facility] POCT-GLUCOSE METER 2020-01-20 13:33:00 [facility] POCT-GLUCOSE METER 2020-01-20 08:50:00 Shiekh Sroujieh, [facility] POCT-GLUCOSE METER 2020-01-20 04:34:[address] [facility] CBC W/PLT COUNT & AUTO 2020-01-20 04:04:00 Sharon Palumbo [facility] URINALYSIS W/ REFLEX 2020-01-19 22:55:00 Wally Herrera [facility] - URINE CULTURE [facility] POCT-GLUCOSE METER 2020-01-19 16:41:[address] [facility] POCT-GLUCOSE METER 2020-01-19 09:09:00 Gustavo [facility] POCT-GLUCOSE METER 2020-01-19 07:42:00 Gustavo [facility] CT BRAIN WITHOUT IV 2020-01-19 04:44:00 Sharon Palumbo [facility] BASIC METABOLIC PANEL 2020-01-19 04:01:00 Sharon Palumbo [facility] (7) [facility] MAGNESIUM 2020-01-19 04:01:00 Sharon Palumbo [facility] PHOSPHORUS 2020-01-19 04:01:00 Sharon Palumbo [facility] CBC W/PLT COUNT & AUTO 2020-01-19 04:01:00 Sharon Palumbo [facility] HEMOGLOBIN A1C 2020-01-18 23:04:00 Sharon Palumbo [facility] POCT-GLUCOSE METER 2020-01-18 22:05:00 Luh [facility] HEPATIC FUNCTION PANEL 2020-01-18 21:10:00 Sharon Palumbo [facility] PROTHROMBIN TIME/INR 2020-01-18 21:09:00 Sharon Palumbo [facility] APTT 2020-01-18 21:09:00 Sharon Palumbo [facility] ECG 12-LEAD 2020-01-18 21:06:[address] [facility] St [facility] Center POCT-GLUCOSE METER 2020-01-18 21:04:00 Amish Chen [facility] CT BRAIN WITHOUT IV 2020-01-18 18:51:00 John Kemp [facility] SARS-COV2/RT-PCR ([facility] 2020-01-18 18:18:00 Gustavo Amishsir NA S t [facility] - & REF LABS) Medical Center Plan of Care Planned Activity Planned Date Details Comments Source Future Scheduled 2021-03-03 INFLUENZA VACCINE Univer [facility] Test 00:00:00 (Season Ended) [code Medical Branch = INFLUENZA VACCINE (Season Ended)] Future Scheduled 2020-03-[address] [facility] Test 00:00:00 (#1) [code = Medical Center INFLUENZA VACCINE (#1)] Future Scheduled 1997-02-[address] [facility] St L [facility] - Test 00:00:00 WELLNESS (YEAR 2 or Medical Center FIRST YEAR if no IPPE) [code = MEDICARE ANNUAL WELLNESS (YEAR 2 or FIRST YEAR if no IPPE)] Future Scheduled 1996-02-11 PNEUMOCOCCAL [facility]ACCINES [facility] 00:[facility]00 65+ (1 of 1 - PPSV23) Medica l Branch [code = PNEUMOCOCCAL VACCINES 65+ (1 of 1 - PPSV23)] Future Scheduled 1996-02-11 Medicare Annual [facility] Test 00:00:00 Wellness Visit Medical [facility] (procedure) [code = 512938250370466] Future Scheduled 1996-02-11 Screening for [facility] Test 00:00:00 osteoporosis Medical Branch (procedure) [code = 471651623] Future Scheduled 1996-02-11 PNEUMOCOCCAL 65+ YRS [facility] - Test 00:00:00 (1 of 1 - Medical Center [id number] PCV13) [code = PNEUMOCOCCAL 65+ YRS (1 of 1 - [id number]_Drmvico PCV13)] Future Scheduled 1981 Zoster Recombinant [facility] 00:00:00 Vaccine (SHINGRIX) (1 Medica l Branch of 2) [code = Zoster Recombinant Vaccine (SHINGRIX) (1 of 2)] Future Scheduled 1950 DTaP,Tdap,and Td [facility] [place] Test 00:00:00 Vaccines (1 - Tdap) Medical Branch [code = DTaP,Tdap,and Td Vaccines (1 - Tdap)] Future Scheduled 1947 [facility]COVID-19[facility] Vaccine (1) [code = Medical Branch SARS-CoV-2 (COVID-19) Vaccine (1)] Future Scheduled 1943 Depression screening [facility] Test 00:00:00 (procedure) [code = Medical Branch [id number]] Results Test Description Test Time Test Comments Results Result Comments Source POCT-GLUCOSE METER 2020-01-24 02:14:00 Test Item Value Reference Range Interpretation Comme nts POC-GLUCOSE METER ([facility]) 165 mg/dL 70-110 H : TESTED AT [address] (test code = 1538) [facility], [address]: Engineer And Geologist/Techni lulu ID = [id number] for Milian, Lizbeth POCT-GLUCOSE [id number] 02:13:00 Test Item Value Reference Range Interpretation Comments POC-GLUCOSE METER 329 mg/dL 70-110 H : TESTED A [facility] 6720 ([facility]) (test code [facility], = 1538) [address]: Engineer And Geologist/Techni lulu ID = [id number] for JAIM E STEFANI, SONAM POCT-GLUCOSE [id number] 02:13:00 Test Item Value Reference Range Interpretation Comments POC-GLUCOSE METER 267 mg/dL 70-110 H : TESTED A [facility] 6720 ([facility]) (test code = [facility], 1538) [address]: Engineer And Geologist/Techni lulu ID = [id number] for Sm ith, Lizbeth POCT-GLUCOSE [id number] 02:13:00 Test Item Value Reference Range Interpretation Comments POC-GLUCOSE METER 269 mg/dL 70-110 H : TESTED A [facility] 6720 ([facility]) (test code = [facility], 153) [address]: Engineer And Geologist/Techni lulu ID = [id number] for Sm ith, Lizbeth POC-Glucose [id number] 17:46:00 Test Item Value Reference Range Interpretation Comments POC-Glucose Meter (test 222 mg/dL 70-110 H : TE STED AT [facility] code = 1538) 6720 [facility], [address]: Engineer And Geologist/Techni lulu ID = [id number] for Lizbeth Miilan Lab Interpretation (test Abnormal code = 92966-1) [facility] [id number] 17:46:00 Test Item Value Reference Range Interpretation Comments POC-GLUCOSE METER 222 mg/dL 70-110 H : TESTED A T [facility] 6720 (BEAKER) (test code = MASSIMO Rondon [facility], 1538) [address]: Engineer And Geologist/Techni lulu ID = [id number] for Sm Lizbeth hyatt POCT-GLUCOSE [id number] 11:36:00 Test Item Value Reference Range Interpretation Comments POC-GLUCOSE METER 250 mg/dL 70-110 H : TESTED A T [facility] 6720 (BEAKER) (test code = [facility] Alcon [facility], 1538) [address]: Engineer And Geologist/Techni lulu ID = [id number] for Sm Angela hyatta Basic Metabolic [id number] 10:18:00 Test Item Value Reference Range Interpretation Comments Sodium (test code = 136 meq/L 704-295 7304-2) Potassium (test code = 4.3 meq/L 3.5-5.1 2823-3) Chloride (test code = 100 meq/L 98-107 2075-0) CO2 (test code = 27 meq/L 22-29 2028-9) BUN (test code = 32 mg/dL 7-21 H 3094-0) Creatinine (test code 1.08 mg/dL 0.57-1.25 = 2160-0) Glucose (test code = 230 mg/dL 70-105 H 2345-7) Calcium (test code = 8.7 mg/dL 8.4-10.2 51996-8) EGFR (test code = 48 mL/min/1.73 [place] [address]-2) NOT ACCURATE CREATININE CLEARANCE IN PREDICTING GLOMERULAR FILTRATION RATE . ESTIMATED GFR I S NOT APPLICABLE FOR DIALYSIS PATIENTS. REMBERTO (test code = REMBERTO) Engineer And Geologist ID - [id number] Lab Interpretation Abnormal (test code = 03281-2) [facility] [id number] 10:18:00 Test Item Value Reference Range Interpretation Comments SODIUM (BEAKER) 136 meq/L 136-145 (test code = 381) POTASSIUM (BEAKER) 4.3 meq/L 3.5-5.1 (test code = 379) CHLORIDE (BEAKER) 100 meq/L 98-107 (test code = 382) CO2 (BEAKER) (test 27 meq/L 22-29 code = 355) BLOOD UREA NITROGEN 32 mg/dL 7-21 H (BEAKER) (test code = 354) CREATININE (BEAKER) 1.08 mg/dL 0.57-1.25 (test code = 358) GLUCOSE RANDOM 230 mg/dL 70-105 H (BEAKER) (test code = 652) CALCIUM (BEAKER) 8.7 mg/dL 8.4-10.2 (test code = 697) EGFR (BEAKER) (test 48 mL/min/1.73 ESTIMA CARLYLE GFR IS code = 1092) sq m NOT ACCURATE CREATININE CLEARANCE IN PREDICTING GLOMERULAR FILTRATION RATE . ESTIMATED GFR I S NOT APPLICABLE FOR DIALYSIS PATIEN TS. Engineer And Geologist ID - EDASIPOCT-GLUCOSE [id number] 08:55:00 Test Item Value Reference Range Interpretation Comments POC-GLUCOSE METER 181 mg/dL 70-110 H : TESTED A T [facility] 6720 (BEAKER) (test code = [place], 1538) [address]: Engineer And Geologist/Techni ullu ID = [id number] for Sm ith, Lizbeth CBC with platelet count + automated [id number] 03:53:00 Test Item Value Reference Range Interpretation Comments WBC (test code = 6690-2) 6.3 See_Comment [A utomated message] The system Wrnch generated this result transmitted ref erence range: 3.5 - 10 .5 K/L. The refe rence range was not u sed to interpret this result as normal/abnor mal. RBC (test code = 789-8) 4.18 See_Comment [Au tomated message] The system Wrnch generated this result transmitted ref erence range: 3.93 - 5 .22 M/L. The refe rence range was not u sed to interpret this result as normal/abnor mal. MCHC (test code = 786-4) 31.8 See_Comment L [A utomated message] The system Wrnch generated this result transmitted ref erence range: 32.2 - 3 5.5 GM/DL. The refe rence range was not u sed to interpret this result as normal/abnor mal. Hematocrit (test code = 38.0 % 34.1-44.9 4544-3) MCV (test code = 787-2) 90.9 fL 79.4-94.8 MCH (test code = 785-6) 28.9 pg 25.6-32.2 RDW (test code = 788-0) 12.7 % 11.7-14.4 Platelets (test code = 181 See_Comment [Aut omated message] 777-3) The system Wrnch generated this result transmitted ref erence range: 150 - 45 0 K/CU MM. The referen ce range was not u sed to interpret this result as normal/abnor mal. MPV (test code = 11.9 fL 9.4-12.3 96550-9) nRBC (test code = 413) 0 See_Comment [Aut omated message] The system Wrnch generated this result transmitted ref erence range: 0 - 0 /1 00 WBC. The refere nce range was not u sed to interpret this result as normal/abnor mal. % Neutros (test code = 60 % 429) % Lymphs (test code = 27 % 430) % Monos (test code = 11 % 431) % Eos (test code = 432) 2 % % Baso (test code = 437) 1 % # Neutros (test code = 3.74 See_Comment [Aut omated message] 670) The system Wrnch generated this result transmitted ref erence range: 1.56 - 6 .13 K/L. The refe rence range was not u sed to interpret this result as normal/abnor mal. # Lymphs (test code = 1.66 See_Comment [Auto mated message] 414) The system Wrnch generated this result transmitted ref erence range: 1.18 - 3 .74 K/L. The refe rence range was not u sed to interpret this result as normal/abnor mal. # Monos (test code = 0.70 See_Comment H [Autom ated message] 415) The system Wrnch generated this result transmitted ref erence range: 0.24 - 0 .36 K/L. The refe rence range was not u sed to interpret this result as normal/abnor mal. # Eos (test code = 416) 0.10 See_Comment [Au tomated message] The system Wrnch generated this result transmitted ref erence range: 0.04 - 0 .36 K/L. The refe rence range was not u sed to interpret this result as normal/abnor mal. # Baso (test code = 417) 0.03 See_Comment [A utomated message] The system Wrnch generated this result transmitted ref erence range: 0.01 - 0 .08 K/L. The refe rence range was not u sed to interpret this result as normal/abnor mal. Immature 0 % 0-1 Granulocytes-Relative (test code = 2801) Lab Interpretation (test Abnormal code = 26837-8) [facility] W/PLT COUNT & AUTO [id number] 03:53:00 Test Item Value Reference Range Interpretation Comments WHITE BLOOD CELL COUNT (BEAKER) 6.3 K/ L 3.5-10.5 (test code = 775) RED BLOOD CELL COUNT (BEAKER) 4.18 M/ L 3.93-5.22 (test code = 761) HEMOGLOBIN (BEAKER) (test code = 12.1 GM/DL 11.2-15.7 410) HEMATOCRIT (BEAKER) (test code = 38.0 % 34.1-44.9 411) MEAN CORPUSCULAR VOLUME (BEAKER) 90.9 fL 79.4-94.8 (test code = 753) MEAN CORPUSCULAR HEMOGLOBIN 28.9 pg 25.6-32.2 (BEAKER) (test code = 751) MEAN CORPUSCULAR HEMOGLOBIN CONC 31.8 GM/DL 32.2-35.5 L (BEAKER) (test code = 752) RED CELL DISTRIBUTION WIDTH 12.7 % 11.7-14.4 (BEAKER) (test code = 412) PLATELET COUNT (BEAKER) (test 181 K/CU MM 150-450 code = 756) MEAN PLATELET VOLUME (BEAKER) 11.9 fL 9.4-12.3 (test code = 754) NUCLEATED RED BLOOD CELLS 0 /100 WBC 0-0 (BEAKER) (test code = 413) NEUTROPHILS RELATIVE PERCENT 60 % (BEAKER) (test code = 429) LYMPHOCYTES RELATIVE PERCENT 27 % (BEAKER) (test code = 430) MONOCYTES RELATIVE PERCENT 11 % (BEAKER) (test code = 431) EOSINOPHILS RELATIVE PERCENT 2 % (BEAKER) (test code = 432) BASOPHILS RELATIVE PERCENT 1 % (BEAKER) (test code = 437) NEUTROPHILS ABSOLUTE COUNT 3.74 K/ L 1.56-6.13 (BEAKER) (test code = 670) LYMPHOCYTES ABSOLUTE COUNT 1.66 K/ L 1.18-3.74 (BEAKER) (test code = 414) MONOCYTES ABSOLUTE COUNT (BEAKER) 0.70 K/ L 0.24-0.36 H (test code = 415) EOSINOPHILS ABSOLUTE COUNT 0.10 K/ L 0.04-0.36 (BEAKER) (test code = 416) BASOPHILS ABSOLUTE COUNT (BEAKER) 0.03 K/ L 0.01-0.08 (test code = 417) IMMATURE GRANULOCYTES-RELATIVE 0 % 0-1 PERCENT (BEAKER) (test code = 2801) CT, BRAIN, WITHOUT [id number] 22:10:00FINAL REPORT CT, BRAIN, WITHOUT CONTRAST CLINICAL INDICATION: AMS COMPARISON: January 19, 2020 TECHNIQUE: Noncontrast axial CT imaging of the brain and skull. Coronal and sagittalreformats obtained. DOSE REDUCTION: Dose modulation, iterative reconstruction, and/or weight-based adjustment of the mA/kV was utilized to reduce the radiation dose to as low as reasonably achievable. F INDINGS:Left parafalcine subdural hemorrhage is reduced in size measuring less than 1 mm in thickness. No new intracranial hemorrhage. No hydrocephalus, shift or acute cortical infarct. Parenchymal volume loss again noted. Remainder the examination is stable. Reduced left forehead and periorbital softtissue swelling. Calvarium is intact. IMPRESSION: Reduced frontal left parafalcine subdural hemorrhage, 1 mm thickness. If there is persistent clinical concern for intracranial pathology, MR examination is recommended for further characterization. Signed: Marcell Brady MDReport Verified Date/Time: 01/20/2020 22:10:21 CT brain without IV [id number] 22:10:00Interface, External Ris In - 01/20/2020 10:[address], BRAIN, WITHOUT CONTRAST CLINICAL INDICATION: AMS COMPARISON: January 19, 2020 TECHNIQUE: Noncontrast axial CT imaging of the brain and skull. Coronal and sagittal reformats obtained. DOSE REDUCTION: Dose modulation, iterative reconstruction, and/or weight-based adjustment of the mA/kV was utilized to reduce theradiation dose to as low as reasonably achievable. FINDINGS:Left parafalcine subdural hemorrhage is reduced in size measuring less than 1 mm in thickness. No new intracranial hemorrhage. No hydrocephalus, shift or acute cortical infarct. Parenchymal volume loss again noted. Remainder the examination is stable. Reduced left forehead and periorbital soft tissue swelling. Calvarium is intact. IMPRESSION: Reduced frontal left parafalcine subdural hemorrhage, 1 mm thickness. If there is persistent clinical concern for intracranial pathology, MR examination is recommended for further characterization. Signed: [facility] Verified Date/Time: 01/20/2020 22:10:21 [facility] [id number] 21:57:00 Test Item Value Reference Range Interpretation Comments POC-GLUCOSE METER 121 mg/dL 70-110 H : TESTED A T [facility] 6720 ([employer]) (test code = [employer] [facility], 1538) [address]: Engineer And Geologist/Techni lulu ID = [id number] for VIVIANA GARCIA POCT-GLUCOSE [id number] 17:53:00 Test Item Value Reference Range Interpretation Comments POC-GLUCOSE METER 118 mg/dL 70-110 H : TESTED A T [facility] 6720 (BEAKER) (test code = [facility] [employer] [facility], 1538) [address]: Engineer And Geologist/Techni lulu ID = [id number] for VIOLA KELLER POCT-GLUCOSE [id number] 13:58:00 Test Item Value Reference Range Interpretation Comments POC-GLUCOSE METER 73 mg/dL 70-110 : TESTED A T [facility] 6720 (BEAKER) (test code = [facility] [employer] [facility], 1538) [address]: Engineer And Geologist/Techni lulu ID = [id number] for VIOLA GOYAL POCT-GLUCOSE [id number] 13:04:00 Test Item Value Reference Range Interpretation Comments POC-GLUCOSE METER 184 mg/dL 70-110 H : TESTED A T [facility] 6720 (BEAKER) (test code = [facility], 1538) [address]: Engineer And Geologist/Techni lulu ID = [id number] for CARMEN REESE POCT-GLUCOSE [id number] 09:02:00 Test Item Value Reference Range Interpretation Comments POC-GLUCOSE METER 124 mg/dL 70-110 H : TESTED A T [facility] 6720 (BEAKER) (test code = [facility], 1538) [address]: Engineer And Geologist/Techni lulu ID = [id number] for KENYATTA RIVAS POCT-GLUCOSE [id number] 04:45:00 Test Item Value Reference Range Interpretation Comments POC-GLUCOSE METER 123 mg/dL 70-110 H : TESTED A T [facility] 6720 (BEAKER) (test code = [facility], 153) [address]: Engineer And Geologist/Techni lulu ID = [id number] for KASSIE BABIN CBC W/PLT COUNT & AUTO [id number] 04:32:00 Test Item Value Reference Range Interpretation Comments WHITE BLOOD CELL COUNT (BEAKER) 9.4 K/ L 3.5-10.5 (test code = 775) RED BLOOD CELL COUNT (BEAKER) 4.89 M/ L 3.93-5.22 (test code = 761) HEMOGLOBIN (BEAKER) (test code = 14.1 GM/DL 11.2-15.7 410) HEMATOCRIT (BEAKER) (test code = 43.6 % 34.1-44.9 411) MEAN CORPUSCULAR VOLUME (BEAKER) 89.2 fL 79.4-94.8 (test code = 753) MEAN CORPUSCULAR HEMOGLOBIN 28.8 pg 25.6-32.2 (BEAKER) (test code = 751) MEAN CORPUSCULAR HEMOGLOBIN CONC 32.3 GM/DL 32.2-35.5 (BEAKER) (test code = 752) RED CELL DISTRIBUTION WIDTH 12.2 % 11.7-14.4 (BEAKER) (test code = 412) PLATELET COUNT (BEAKER) (test 202 K/CU MM 150-450 code = 756) MEAN PLATELET VOLUME (BEAKER) 11.7 fL 9.4-12.3 (test code = 754) NUCLEATED RED BLOOD CELLS 0 /100 WBC 0-0 (BEAKER) (test code = 413) NEUTROPHILS RELATIVE PERCENT 72 % (BEAKER) (test code = 429) LYMPHOCYTES RELATIVE PERCENT 17 % (BEAKER) (test code = 430) MONOCYTES RELATIVE PERCENT 9 % (BEAKER) (test code = 431) EOSINOPHILS RELATIVE PERCENT 1 % (BEAKER) (test code = 432) BASOPHILS RELATIVE PERCENT 0 % (BEAKER) (test code = 437) NEUTROPHILS ABSOLUTE COUNT 6.72 K/ L 1.56-6.13 H (BEAKER) (test code = 670) LYMPHOCYTES ABSOLUTE COUNT 1.60 K/ L 1.18-3.74 (BEAKER) (test code = 414) MONOCYTES ABSOLUTE COUNT (BEAKER) 0.88 K/ L 0.24-0.36 H (test code = 415) EOSINOPHILS ABSOLUTE COUNT 0.09 K/ L 0.04-0.36 (BEAKER) (test code = 416) BASOPHILS ABSOLUTE COUNT (BEAKER) 0.04 K/ L 0.01-0.08 (test code = 417) IMMATURE GRANULOCYTES-RELATIVE 0 % 0-1 PERCENT (BEAKER) (test code = 2801) Urinalysis w/Microscopic + Reflex to [id number] 23:44:00 Test Item Value Reference Range Interpretation Comments Color, UA (test code Light Yellow = 5778-6) Clarity, UA (test Clear code = 5767-9) Specific [place], UA 1.008 1.001-1.035 (test code = 5811-5) pH, UA (test code = 7.0 5.0-8.0 5803-2) Protein, UA (test Negative Negative code = 97778-2) Glucose, UA (test 30 mg/dL Negative A code = 365) Ketones, UA (test Negative Negative code = 2514-8) Bilirubin, UA (test Negative Negative code = 20658-3) Blood, UA (test code Negative Negative = 96042-7) Nitrite, UA (test Negative Negative code = 5802-4) Leukocytes, UA (test Negative Negative code = 5799-2) Urobilinogen, UA 0.2 mg/dL 0.2-1 (test code = 71083-1) RBC, UA (test code = 0 See_Comment [Autom ated 24831-0) message] The system which generated this result transmit carlyle reference range : /HPF. The reference range was not used to interpret this result as normal/abnormal . WBC, UA (test code = <1 See_Comment [Autom ated 5821-4) message] The system which generated this result transmit carlyle reference range : /HPF. The reference range was not used to interpret this result as normal/abnormal . Bacteria, UA (test Rare code = 30705-2) Specimen Source (test code = 2795) REMBERTO (test code = REMBERTO) Engineer And Geologist ID - [auto]Engineer And Geologist ID - sophie Lab Interpretation Abnormal (test code = 60904-1) [facility] [id number] 23:44:00 Test Item Value Reference Range Interpretation Comments COLOR (BEAKER) (test code = 470) Light Yellow CLARITY (BEAKER) (test code = Clear 469) SPECIFIC GRAVITY UA (BEAKER) 1.008 1.001-1.035 (test code = 468) PH UA (BEAKER) (test code = 467) 7.0 5.0-8.0 PROTEIN UA (BEAKER) (test code = Negative Negative 464) GLUCOSE UA (BEAKER) (test code = 30 mg/dL Negative A 365) KETONES UA (BEAKER) (test code = Negative Negative 371) BILIRUBIN UA (BEAKER) (test code Negative Negative = 462) BLOOD UA (BEAKER) (test code = Negative Negative 461) NITRITE UA (BEAKER) (test code = Negative Negative 465) LEUKOCYTE ESTERASE UA (BEAKER) Negative Negative (test code = 466) UROBILINOGEN UA (BEAKER) (test 0.2 mg/dL 0.2-1.0 code = 463) RBC UA (BEAKER) (test code = 0 /HPF 519) WBC UA (BEAKER) (test code = < /HPF 520) BACTERIA (BEAKER) (test code = Rare 517) SOURCE(BEAKER) (test code = 2795) Engineer And Geologist ID - [auto]Engineer And Geologist ID - hankPOCT-GLUCOSE [id number] 18:16:00 Test Item Value Reference Range Interpretation Comments POC-GLUCOSE METER 168 mg/dL 70-110 H : TESTED A T [facility] 6720 (BEAKER) (test code = [facility], 1538) [address]: Engineer And Geologist/Techni lulu ID = [id number] for DESIRAE KIM ECG 12 [id number] 13:14:33Interface, External Ris In - 01/19/2020 1:14 PM CDTVentricular Rate 48 BPMAtrial Rate 48 BPMP-R Interval 198 msQRS Duration 84 msQ-T Interval 472 msQTC Calculation(Bazett) 421 msP [place] 53 degreesR [place] 65 degreesT [place] 73 degreesSinus bradycardiaOtherwise normal ECGNo previous ECGs availableConfirmedby Melissa MCKEON, WILLEM ([id number]) on 01/19/2020 1:14:31 [facility] [id number] 09:47:00 Test Item Value Reference Range Interpretation Comments POC-GLUCOSE METER 213 mg/dL 70-110 H : TESTED A T [facility] 6720 (BEAKER) (test code = [facility], 153) [address]: Engineer And Geologist/Techni lulu ID = [id number] for CONCHA MALONE Hemoglobin [id number] 08:19:00 Test Item Value Reference Range Interpretation Comments Hemoglobin A1C (test code = 4548-4) 8.0 % 4.3-6.1 H Lab Interpretation (test code = Abnormal 45104-7) [facility] [id number] 08:19:00 Test Item Value Reference Range Interpretation Comments HEMOGLOBIN A1C (BEAKER) (test code = 8.0 % 4.3-6.1 H 368) POCT-GLUCOSE [id number] 07:53:00 Test Item Value Reference Range Interpretation Comments POC-GLUCOSE METER 221 mg/dL 70-110 H : TESTED A T [facility] 6720 (BEAKER) (test code = [facility], 1538) [address]44[address]: Engineer And Geologist/Techni lulu ID = [id number] for KENNY ZAVALA CT, BRAIN, WITHOUT [id number] 06:10:00FINAL REPORT CT, BRAIN, WITHOUT CONTRAST CLINICAL INDICATION: Cerebral hemorrhage suspectedHead trauma, minor (Age > 65y) COMPARISON: January 18, 2020, nine hours prior TECHNIQUE: Noncontrast axial CT imaging of the brain and skull. Coronal and sagittal reformats obtained. DOSE REDUCTION: Dose modulation, iterative reconstruction, and/or weight-based adjustment of the mA/kV was utilized to reduce the radiation dose to as low as reasonably achievable. FINDINGS:Left frontal parafalcine 3 mm sessile hyperdensity is not significant change. Left periorbital soft tissue contusionis reduced. No hydrocephalus or intracranial mass. No acute cortical ischemic infarct. No calvarial fracture. Stable chronic microangiopathic ischemic changes and moderate brain parenchymal volume loss. Orbits, globes and paranasal sinuses are unremarkable. Clear mastoid air cells. IMPRESSION:Stable left parafalcine 3 mm hyperdensity consistent with acute subdural hematoma in the setting of trauma. Reduced left periorbital soft tissue contusion. Stable involutional and chronic ischemic changes. Signed: Marcell Brady MDReport Verified Date/Time: 01/19/2020 06:10:21 [id number] 04:47:00 Test Item Value Reference Range Interpretation Comments Magnesium (test code = 2.1 mg/dL 1.6-2.6 14631-6) REMBERTO (test code = REMBERTO) Engineer And Geologist ID - LUCY Sims on admission and Daily AM afterwardsOnce on admission and Daily AM afterwards Lab Interpretation Normal (test code = 09434-2) [facility] 04:47:00 Test Item Value Reference Range Interpretation Comments Phosphorus (test code = 3.5 mg/dL 2.3-4.7 2777-1) REMBERTO (test code = REMBERTO) Engineer And Geologist ID - LUCY LOncisoc on admission and Daily AM afterwardsOnce on admission and Daily AM afterwards Lab Interpretation Normal (test code = 74120-5) [facility] 04:47:00 Test Item Value Reference Range Interpretation Comments PHOSPHORUS (BEAKER) (test code = 3.5 mg/dL 2.3-4.7 604) Engineer And Geologist ID - LUCY Bethany on admission and Daily AM afterwardsOnce on admission and Daily AM [id number] 04:47:00 Test Item Value Reference Range Interpretation Comments MAGNESIUM (BEAKER) (test code = 2.1 mg/dL 1.6-2.6 627) Engineer And Geologist ID - LUCY Sims on admission and Daily AM afterwardsOnce on admission and Daily AM afterwardsBASIC METABOLIC [id number] 04:47:00 Test Item Value Reference Range Interpretation Comments SODIUM (BEAKER) 137 meq/L 136-145 (test code = 381) POTASSIUM (BEAKER) 4.0 meq/L 3.5-5.1 (test code = 379) CHLORIDE (BEAKER) 104 meq/L 98-107 (test code = 382) CO2 (BEAKER) (test 28 meq/L 22-29 code = 355) BLOOD UREA NITROGEN 21 mg/dL 7-21 (BEAKER) (test code = 354) CREATININE (BEAKER) 0.93 mg/dL 0.57-1.25 (test code = 358) GLUCOSE RANDOM 241 mg/dL 70-105 H (BEAKER) (test code = 652) CALCIUM (BEAKER) 8.8 mg/dL 8.4-10.2 (test code = 697) EGFR (BEAKER) (test 57 mL/min/1.73 ESTIMA CARLYLE GFR IS code = 1092) sq m NOT ACCURATE CREATININE CLEARANCE IN PREDICTING GLOMERULAR FILTRATION RATE . ESTIMATED GFR I S NOT APPLICABLE FOR DIALYSIS PATIEN TS. Engineer And Geologist ID - LUCY Sims on admission and Daily AM afterwardsOnce on admission and Daily AM afterwardsCBC W/PLT COUNT & AUTO [id number] 04:15:00 Test Item Value Reference Range Interpretation Comments WHITE BLOOD CELL COUNT (BEAKER) 6.4 K/ L 3.5-10.5 (test code = 775) RED BLOOD CELL COUNT (BEAKER) 4.18 M/ L 3.93-5.22 (test code = 761) HEMOGLOBIN (BEAKER) (test code = 12.3 GM/DL 11.2-15.7 410) HEMATOCRIT (BEAKER) (test code = 37.6 % 34.1-44.9 411) MEAN CORPUSCULAR VOLUME (BEAKER) 90.0 fL 79.4-94.8 (test code = 753) MEAN CORPUSCULAR HEMOGLOBIN 29.4 pg 25.6-32.2 (BEAKER) (test code = 751) MEAN CORPUSCULAR HEMOGLOBIN CONC 32.7 GM/DL 32.2-35.5 (BEAKER) (test code = 752) RED CELL DISTRIBUTION WIDTH 12.4 % 11.7-14.4 (BEAKER) (test code = 412) PLATELET COUNT (BEAKER) (test 165 K/CU MM 150-450 code = 756) MEAN PLATELET VOLUME (BEAKER) 12.1 fL 9.4-12.3 (test code = 754) NUCLEATED RED BLOOD CELLS 0 /100 WBC 0-0 (BEAKER) (test code = 413) NEUTROPHILS RELATIVE PERCENT 65 % (BEAKER) (test code = 429) LYMPHOCYTES RELATIVE PERCENT 22 % (BEAKER) (test code = 430) MONOCYTES RELATIVE PERCENT 11 % (BEAKER) (test code = 431) EOSINOPHILS RELATIVE PERCENT 2 % (BEAKER) (test code = 432) BASOPHILS RELATIVE PERCENT 1 % (BEAKER) (test code = 437) NEUTROPHILS ABSOLUTE COUNT 4.17 K/ L 1.56-6.13 (BEAKER) (test code = 670) LYMPHOCYTES ABSOLUTE COUNT 1.39 K/ L 1.18-3.74 (BEAKER) (test code = 414) MONOCYTES ABSOLUTE COUNT (BEAKER) 0.68 K/ L 0.24-0.36 H (test code = 415) EOSINOPHILS ABSOLUTE COUNT 0.13 K/ L 0.04-0.36 (BEAKER) (test code = 416) BASOPHILS ABSOLUTE COUNT (BEAKER) 0.03 K/ L 0.01-0.08 (test code = 417) IMMATURE GRANULOCYTES-RELATIVE 0 % 0-1 PERCENT (BEAKER) (test code = 2801) Hepatic function [id number] 21:34:00 Test Item Value Reference Range Interpretation Comments Protein, Total (test 6.7 See_Comment [Autom ated code = 2885-2) message] The system which generated this result transmit carlyle reference range : 6.0 - 8.3 gm/dL . The reference range was not u sed to interpret th is result as normal/abnormal . Albumin (test code = 3.7 g/dL 3.5-5 78160-0) Total Bilirubin (test 0.7 mg/dL 0.2-1.2 code = 1975-2) Bilirubin, Direct 0.3 mg/dL 0.1-0.5 (test code = 1968-7) Alkaline Phosphatase 106 U/L 40-150 (test code = 6768-6) AST (test code = 14 U/L 5-34 1920-8) ALT (test code = 10 U/L 6-55 1742-6) REMBERTO (test code = REBMERTO) Engineer And Geologist ID - NTP Lab Interpretation Normal (test code = 55981-5) [facility] [id number] 21:34:00 Test Item Value Reference Range Interpretation Comments TOTAL PROTEIN (BEAKER) (test code = 6.7 gm/dL 6.0-8.3 770) ALBUMIN (BEAKER) (test code = 1145) 3.7 g/dL 3.5-5.0 BILIRUBIN TOTAL (BEAKER) (test code 0.7 mg/dL 0.2-1.2 = 377) BILIRUBIN DIRECT (BEAKER) (test 0.3 mg/dL 0.1-0.5 code = 706) ALKALINE PHOSPHATASE (BEAKER) (test 106 U/L 40-150 code = 346) AST (SGOT) (BEAKER) (test code = 14 U/L 5-34 353) ALT (SGPT) (BEAKER) (test code = 10 U/L 6-55 347) Engineer And Geologist ID - NTPProthrombin time/[id number] 21:27:00 Test Item Value Reference Interpretation Comments Range Protime (test code = 13.2 See_Comment [Autom ated 5902-2) message] The system which generated this result transmitted reference range : 11.9 - 14.2 seconds. The reference range was not used to interpret this result as normal/abnormal . INR (test code = 1.0 See_Comment [Automated 6301-6) message] The system which generated this result transmitted reference range : <=5.9. The reference range was not used to interpret this result as normal/abnormal . REMBERTO (test code = Effective 11/28/2018: REMBERTO) PT Reference Range ChangeNew: 11.9-14.2 Previous: 11.7-14.7 RECOMMENDED COUMADIN/WARFARIN INR THERAPY RANGESSTANDARD DOSE: 2.0-3.0 Includes: PROPHYLAXIS for venous thrombosis, systemic embolization; TREATMENT for venous thrombosis and/or pulmonary embolus.HIGH RISK: Target INR is 2.5-3.5 for patients wiht mechanical heart valves. Lab Interpretation Normal (test code = 88881-1) [facility] 21:27:00 Test Item Value Reference Range Interpretation Comments PTT (test code = 89885-4) 26.6 See_Comment [ Automated message] The system Wrnch generated this result transmitted ref erence range: 22.5 - 3 6.0 seconds. The re ference range was not u sed to interpret this result as normal/abnor mal. Lab Interpretation (test Normal code = 52112-1) [facility]PROTHROMBIN TIME/[id number] 21:27:00 Test Item Value Reference Range Interpretation Comments PROTIME (BEFAIZA) (test code = 13.2 seconds 11.9-14.2 759) INR ([facility]) (test code = 370) 1.0 <=5.9 Effective 11/28/2018: PT Reference Range ChangeNew: 11.9-14.2 Previous: 11.7- 14.7RECOMMENDED COUMADIN/WARFARIN INR THERAPY RANGESSTANDARD DOSE: 2.0-3.0 Includes: PROPHYLAXIS for venous thrombosis, systemic embolization; TREATMENT for venous thrombosis and/or pulmonary embolus.HIGH RISK: Target INR is2.5-3.5 for patients wiht mechanical heart valves.[id number] 21:27:00 Test Item Value Reference Range Interpretation Comments PARTIAL THROMBOPLASTIN TIME 26.6 seconds 22.5-36.0 (BEAKER) (test code = 760) POCT-GLUCOSE [id number] 21:15:00 Test Item Value Reference Range Interpretation Comments POC-GLUCOSE METER 161 mg/dL 70-110 H : TESTED Caroline T [facility] 6720 ([facility]) (test code [facility], = 1538) [address]: Engineer And Geologist/Techni lulu ID = [id number] for PATRICIA PFEIFFER SARS-CoV2/RT-PCR (Symptomatic ONLY)2020-01-18 21:02:00 Test Item Value Reference Range Interpretation Comments SARS-COV2/RT-PCR Negative Not Detected, (test code = Negative 57444-0) SARS-COV-2 [facility] PERFORMING LAB (test code = 39317-4) REMBERTO (test code = Negative results do not REMBERTO) preclude SARS-CoV-2 infection and should not be used as the sole basis for patient management decisions. Negative results must be combined with clinical observations, patient history, and epidemiological information. A false negative result may occur if a specimen is improperly collected, transported or handled. The limit of detection for this assay is 250 copies/mL. This SARS CoV-2 test is a rapid, real-time RT-PCR test intended for the qualitative detection of nucleic acid from SARS-CoV-2 in a nasopharyngeal swab specimen collected from individuals suspected of COVID-19 by their healthcare provider. This test has not been Food and Drug Administration (FDA) cleared or approved and has been authorized by FDA under an Emergency Use Authorization (EUA). This EUA will be effective until the declaration that circumstances exist justifying the authorization of the emergency use of in vitro diagnostic tests for detection and/or diagnosis of COVID-19 is terminated under Section 564(b)(2) of the Act or the EUA is revoked under Section 564(g) of the Act. Fact Sheet for Healthcare Providers:https://www.BetUknow/Documents/Xper t%20Xpress%20SARS%20CoV- 2/Fact%20Sheets/302-3802 %09TSZT-DEV-0%20HEALTHCA RE%20PROVIDERS%20FACT%20 SHEET.pdf Fact Sheet for Healthcare Patients:https://www.charity: water/Documents/Xpert %20Xpress%20SARS%20CoV-2 /Fact%20Sheets/302-3801% 51IHEI-VDC-4%20PATIENT%2 0FACT%20SHEET.pdf Performing Laboratory:[facility] [place] [address] [facility] ([facility])2020-01-18 21:02:00 Test Item Value Reference Range Interpretation Comments SARS-COV2/RT-PCR (test code = Negative Not Detected, Negative 8367903) SARS-COV-2 PERFORMING LAB [facility] (test code = 2726259) Negative results do not preclude SARS-CoV-2 infection and should not be used as the sole basis for patient management decisions. Negative results must be combined with clinical observations, patient history, and epidemiological information. A false negative result may occur if a specimen is improperly collected, transported or handled.The limit of detection for this assay is 250 copies/mL.This SARS CoV-2 test is a rapid, real-time RT-PCR test intended for the qualitative detection of nucleic acid from SARS-CoV-2 in a nasopharyngeal swab specimen collected from individuals suspected of COVID-19 by their healthcare provider.This test has not been Food and Drug Administration (FDA) cleared or approved and has been authorized by FDA under an Emergency Use Authorization (EUA). This EUA will be effective until the declaration that circumstances exist justifying the authorization of the emergency use of in vitro diagnostic tests for detection and/or diagnosis of COVID-19 is terminated under Section 564(b)(2) of the Act or the EUA is revoked under Section 564(g) of the Act.Fact Sheet for Healthcare Pro viders:https://www.BaubleBar/Documents/Xpert%20Xpress%20SARS%20CoV-2/Fact%20Sh eets/302-3802%57FOAX-RUQ-9%20HEALTHCARE%20PROVIDERS%20FACT%20SHEET.pdfFact Sheet for Healthcare Patients:https://www.[employer]/Documents/Xpert%20Xpress%20SARS%20CoV-2/Fact%20Sheets/302-3801%20SARS-COV -2%20PATIENT%20FACT%20SHEET.pdfPerforming Laboratory:[address] [place], [place] [address]RF, BRAIN, WITHOUT [id number] 19:41:00FINAL REPORT EXAM: CT, BRAIN, WITHOUT CONTRAST CLINICAL INDICATION: Interval scan for acute subdural hematoma. TECHNIQUE: CT images from skull base to vertex without IV contrast. This exam was performed according to the departmental dose optimization program which includes automated exposure control, adjustment of the mA and/or kV according to the patient size, and/or use of an iterative reconstruction technique. COMPARISON: None available. FINDINGS: Parenchyma: No evidence of acute infarction. No intraparenchymal hemorrhage. No mass or mass effect. Mild generalized cerebralparenchymal volume loss. Mild chronic white matter ischemic changes. Extra-axial Collection: There is a small subdural hematoma along the left aspect of the anterior falx with thickness up to 0.4 cm (axial image 24). No significant mass effect. Ventricular System: Ex vacuo enlarged without hydrocephalus Osseous Structures: No acute osseous abnormality. Included Orbits: Prior bilateral lens surgery Paranasal Sinuses: Predominantly clear Tympanomastoid Cavities: Normal Other: Moderate left periorbital and left frontal scalp hematoma. IMPRESSION: 1. Small subdural hematoma along the left aspectof the anterior falx without significant mass effect. If available, comparison with prior imaging would be helpful to evaluate for stability/progression.2. Mild chronic ischemic and involutional changes. If there is persistent clinical concern for intracranial pathology, MR examination is recommended for further characterization. Signed: Pola [facility] Verified Date/Time: 01/18/2020 19:41:56
[2020-12-22] MEDS: NACHLORIDE 0.45% 1,000 ML IV SCH (10:00)
[2020-12-22] MEDS: CEFTRIAXONE/SWI 1gm 1 GM/10 ML SYR IV SCH (10:00)
[2020-12-22] MEDS ORDERED: ONDANSETRON 4 MG/2 ML VIAL IV PRN (10:00)
[2020-12-22] MEDS ORDERED: ACETAMINOPHEN 325 MG TABLET PO PRN (10:00)
[2020-12-22] MEDS ORDERED: POLYETHYL GLY 3350 17 GM/DOSE PO PRN (10:00)
[2020-12-22] MEDS ORDERED: LOPERAMIDE HCL 2 MG CAPSULE PO PRN (10:00)
[2020-12-22] MEDS ORDERED: ONDANSETRON 4 MG (ODT) TAB PO PRN (10:00)
[2020-12-22 10:29] VITALS: BMI 23.9
[2020-12-22] MEDS ORDERED: D50W 25 GM/50 ML SYRINGE IV PRN (10:38)
[2020-12-22] MEDS ORDERED: GLUCAGON 1 MG/VIAL IM PRN (10:38)
[2020-12-22] MEDS: INSULIN -REGULAR HUMAN 50 UNIT/0.5 ML ML SQ SCH ×3 (11:30→22:45)
--- NOTE | 2020-12-22 12:01 | RAD REPORT ---
EXAM DESCRIPTION: US - Lower Extremity Arterial Bilat - 12/22/2020 11:04 am CLINICAL HISTORY: Leg pain/chronic osteomyelitis COMPARISON: None FINDINGS: The common femoral and superficial femoral arteries bilaterally demonstrate biphasic waveforms. The right popliteal arterial waveform is biphasic. The left popliteal arterial waveform is monophasic . The posterior tibial and dorsalis pedis arteries demonstrate monophasic waveforms bilaterally. IMPRESSION: Hsrd-kc-ygosjbfz disease involving the mid and distal arteries left lower extremity Mild to moderate disease involving the distal arteries right lower extremity
--- NOTE | 2020-12-22 12:02 | RAD REPORT ---
EXAM DESCRIPTION: Khoa Bennett (2 Views)12/22/2020 11:49 am CLINICAL HISTORY: Infection COMPARISON: 2019 FINDINGS: The lungs appear clear of acute infiltrate. The heart is borderline enlarged IMPRESSION: No acute abnormalities displayed
[2020-12-22 13:34] LABS: Protime INR 0.98
[2020-12-22 13:35] LABS: ALT/SGPT 15 U/L (12-78); AST/SGOT 13 U/L (15-37); Albumin 3.7 g/dL (3.4-5.0); Alkaline Phosphatase 141 U/L (45-117); BUN Blood Urea Nitrogen 22 mg/dL (7-18); Bicarbonate 29 mmol/L (21-32); Bilirubin Direct < 0.1 mg/dL (0-0.2); Bilirubin Total 0.5 mg/dL (0.2-1.0); Glucose Level 102 mg/dL (74-106); Magnesium 2.2 mg/dL (1.8-2.4); Phosphorus 3.9 mg/dL (2.5-4.9); Potassium 3.7 mmol/L (3.5-5.1); Protein, Total 7.2 g/dL (6.4-8.2); Sodium Level 143 mmol/L (136-145)
[2020-12-22 14:05] LABS: Absolute Lymphocytes (CBC) 1.8 K/uL (0.7-4.9); Basophils % 0.6 % (0-1.3); Hematocrit 39.3 % (36.0-45.0); Lymphocytes % 28.1 % (15.3-44.8); MPV 10.7 fL (7.6-11.3)
--- NOTE | 2020-12-22 21:10 | P.SSS ---
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 THERE WAS AN ULCER OVER THIS THAT HAS HEALED BUT MRI SHOWS OM STILL IS ACTIVE. THIS IS THE REASON FOR TOE AMPUTATION. SHE HAS HAD SIMILAR AMPUTATION ON L SIDE. Allergies Penicillins Allergy (Intermediate, Verified 02/06/19 16:09) Itching/Hives/Rash iodine Allergy (Verified 02/06/19 16:09) Unknown Home Medications: Amlodipine Besylate 5 mg PO DAILY #30 tablet 02/20/19 Aspirin [Aspir-Low] 81 mg PO DAILY #30 tablet. 02/20/19 Furosemide 20 mg PO DAILY #30 tablet 02/20/19 Levothyroxine [Synthroid*] 50 mcg PO [id number] #30 tablet 02/20/19 Ciprofloxacin HCl 1 tab PO BID 07/30/20 Cyanocobalamin (Vitamin B-12) [Vitamin B-12] 1 tab PO DAILY 07/30/20 Insulin Lispro [Humalog] 0 units SQ SEECOM 07/30/20 Insulin NPH Human Isophane [Novolin N] 10 unit SQ BEDTIME 07/30/20 Insulin NPH Human Isophane [Novolin N] 15 unit SQ DAILY WITH BREAKFAST 07/30/20 Losartan Potassium 100 mg PO DAILY 07/30/20 Mupirocin Cream [Bactroban 2% Cream*] 1 jdoi TOP DAILY 07/30/20 Omeprazole [Prilosec] 1 cap PO DAILY 07/30/20 Sotalol HCl [Betapace AF] 1 tab PO BID 07/30/20 - Past Medical/Surgical History Diabetic: Yes -: HTN -: DM2 -: HTN -: heart problems -: diabetes -: hypothyroid -: neuopathy -: neuropathy -: cholelithiasis -: right and left hip replacements -: right knee replacement -: hysterectomy -: toe surg. -: left knee replacement -: bilateral carpal repair - Family History Father -: Diabetes Mother -: Heart disease, Hypertension Sister -: Heart disease, Diabetes, Cancer - Social History Smoking Status: Never smoker Alcohol use: No CD- Drugs: No Caffeine use: Yes Place of Residence: Home Review of Systems 10-point ROS is otherwise unremarkable Physical Examination - Vital Signs Temperature: 98.8 F Blood Pressure: 134/61 Pulse: 49 Respirations: 18 Pulse Ox (%): 97 - Physical Exam General: Oriented x3, Mild distress HEENT: Atraumatic, PERRLA, Mucous membr. moist/pink, EOMI, Sclerae nonicteric Neck: Supple, 2+ carotid pulse no bruit, No LAD, Without JVD or thyroid abnormality Respiratory: Clear to auscultation bilaterally, Normal air movement Cardiovascular: Regular rate/rhythm, Normal S1 S2 Gastrointestinal: Normal bowel sounds, No tenderness Musculoskeletal: No tenderness Integumentary: Diabetic ulcer (HAS HEALED BUT IT IS STARTING TO OPEN UP OSTEOMYELITIS CONTINUES.) Neurological: Normal gait, Normal speech, Normal strength at 5/5 x4 extr, Normal tone, Normal affect Lymphatics: No axilla or inguinal lymphadenopathy - Studies Laboratory Data (last 24 hrs) 12/22/20 12:22: Sodium 143, Potassium 3.7, BUN 22 H, Creatinine 0.86, Glucose 102, Phosphorus 3.9, Magnesium 2.2, Total Bilirubin 0.5, AST 13 L, ALT 15, Alkaline Phosphatase 141 H 12/22/20 12:22: PT 11.3, INR 0.98, APTT 27.1 12/22/20 12:22: WBC 6.50, Hgb 12.9, Hct 39.3, Plt Count 159 - Diagnosis (Problem(s)) (1) Osteomyelitis of great toe of right foot Current Visit: Yes Status: Chronic Plan: DISTAL PHALANX AMPUATION IN AM. SHE HAS MILD TO MODERATE PVD. IV ABX. PATIENT AGREES. (2) Diabetic Charcot's joint disease Current Visit: Yes Status: Chronic Plan: CHRONIC ISSUES FROM [employer] DM. A1C IS 7.0 - Disposition Disposition: ROUTINE DISCHARGE
[2020-12-22] MEDS: DIPHENHYDRAMINE 25 MG TAB/CAP PO PRN (23:09)
[2020-12-23 07:07] LABS: Absolute Lymphocytes (CBC) 1.8 K/uL (0.7-4.9); Basophils % 1.4 % (0-1.3); Hematocrit 37.6 % (36.0-45.0); Lymphocytes % 36.4 % (15.3-44.8); MPV 10.4 fL (7.6-11.3); RBC Red Blood Cell Count 4.32 M/uL (3.86-4.86)
[2020-12-23 07:13] LABS: Magnesium 2.3 mg/dL (1.8-2.4); Potassium 3.8 mmol/L (3.5-5.1)
[2020-12-23] MEDS: INSULIN -REGULAR HUMAN 50 UNIT/0.5 ML ML SQ SCH ×4 (07:30→20:40)
[2020-12-23] MEDS ORDERED: POTASSIUM CL SA 10 MEQ TAB PO ONE (08:00)
[2020-12-23] MEDS ORDERED: KCL 20 MEQ/100 mL IVPB 20 MEQ/100 ML BAG IV SCH (08:00)
[2020-12-23] MEDS: CEFTRIAXONE/SWI 1gm 1 GM/10 ML SYR IV SCH (08:59)
[2020-12-23] MEDS: ENOXAPARIN 40 MG/0.4 ML SQ SCH (09:00)
[2020-12-23] MEDS ORDERED: NA CHLORIDE 0.9% 1,000 ML ONE (10:48)
[2020-12-23] MEDS ORDERED: propofoL 200 MG/20 ML VIAL IV ONE (11:24)
[2020-12-23] MEDS ORDERED: MIDAZOLAM HCL 2 MG/2 ML INJ ONE (11:24)
[2020-12-23] MEDS ORDERED: ONDANSETRON 4 MG/2 ML VIAL ONE (11:25)
[2020-12-23] MEDS ORDERED: FENTANYL CITR 100 MCG/2 ML ONE (11:25)
[2020-12-23] MEDS ORDERED: LIDOCAINE 2% MPF 5 ML VIAL ONE (11:25)
[2020-12-23] MEDS ORDERED: GLYCOPYRROLATE 0.2 MG/ML SYR ONE (11:59)
[2020-12-23] MEDS ORDERED: EPHEDRINE SULF 50 MG/ML VIAL ONE (12:00)
--- NOTE | 2020-12-23 12:03 | P.OP ---
Preoperative diagnosis: RIGHT Great Toe Distal Phalanx Osteomyelitis Postoperative diagnosis: RIGHT Great Toe Distal Phalanx Osteomyelitis Primary procedure: Amputation of RIGHT Distal Phalanx of Great Toe Anesthesia: GETA + Local Estimated blood loss: <2cc Specimen: distal phalanx Findings: osteomyelitis of RIGHT great toe Complications: None Transferred to: Recovery Room Condition: Good
[2020-12-23] MEDS ORDERED: HYDROCODONE/APAP 5/325 MG TAB PO PRN (12:27)
--- NOTE | 2020-12-23 13:17 | OP ---
Date of Procedure: 12/23/2020 Surgeon: Percy Etienne MD, Preoperative Diagnosis: Right great toe distal phalanx osteomyelitis. Postoperative Diagnosis: Right great toe distal phalanx osteomyelitis. Procedure Performed: Amputation of distal phalanx of the right great toe. Anesthesia: General endotracheal plus local with 0.25% Marcaine. Estimated Blood Loss: Less than 2 mL. Specimen: Distal phalanx. Findings: Osteomyelitis of the right great toe. Complications: None. Disposition: The patient was transferred to recovery room in good condition. Procedure In Detail: After informed consent was obtained, the patient was brought to the operating r oom, prepped and draped in the usual sterile fashion after adequate anesthesia achieved. I demarcate d the area of the distal phalanx based on a plantar flap reconstruction. After this was done, the sk in was appropriately anesthetized and sharply incised with a 15 blade down to subcutaneous tissues fo llowing the pre-trace markings down to subcutaneous tissues. Electrocautery was used to dissect down through the subcutaneous fat and into the tissue planes. Ultimately, I entered the joint space betw een the distal phalanx and the proximal phalanx sharply and I used sharp dissection to remove the tis sues in between this plane and the distal phalanx was amputated after taking the appropriate distal h allucis longus tendon and other tendinous extensions of the both flexor and extensor compartments. A fter these were removed, additional tissue was debrided from the posterior plantar aspect. The speci mens were sent off for pathologic examination. Achieved hemostasis with electrocautery. At this poi nt, the area was copiously irrigated multiple times and suctioned until completely dry. Hemostasis w as achieved with electrocautery and then I reapproximated the flap based on the plantar flap to close over the dorsal aspect of the flap covering the now exposed distal interphalangeal joint. I used a periosteal elevator to push back the periosteum back on the distal phalanx and circumferentially irri gated the area once again and then reapproximated the tissues based on the plantar flap using a combi nation of vertical and horizontal mattress sutures with good approximation and apposition of the tiss ues. The area was then cleansed once again and petroleum gauze placed over the incision and a steril e dressing was placed over top. The patient tolerated the procedure well without evidence of complic ation and transferred to PACU in good condition. All counts were correct at the end of the case. GERA/JASS Voice ID: [id number] Report ID: [id number]
[2020-12-23] MEDS ORDERED: POTASSIUM 25 MEQ EFFERV TAB PO ONE (14:00)
[2020-12-23] MEDS: NACHLORIDE 0.45% 1,000 ML IV SCH (19:20)
[2020-12-23] MEDS: DIPHENHYDRAMINE 25 MG TAB/CAP PO PRN (20:42)
--- NOTE | 2020-12-23 21:08 | P.PN ---
Subjective Date of Service: 12/23/20 Chief Complaint: R FOOT OSTEOMYELITIS DR. STARR HAS DONE TOE AMPUTATION FOR CHRONIC REFRACTORY OSTEOMYELITIS R GREAT TOE. PATIENT STABLE. Physical Examination - Vital Signs Temperature: 97.8 F Blood Pressure: 143/63 Pulse: 59 Respirations: 18 Pulse Ox (%): 98 - Physical Exam General: Oriented x2, Mild distress HEENT: Atraumatic, PERRLA, EOMI Neck: Supple, JVD not distended Respiratory: Clear to auscultation bilaterally, Normal air movement Cardiovascular: Regular rate/rhythm, Normal S1 S2 Gastrointestinal: Normal bowel sounds, No tenderness Musculoskeletal: No tenderness Integumentary: No rashes Neurological: Normal speech, Normal tone, Normal affect Lymphatics: No axilla or inguinal lymphadenopathy - Studies Laboratory Data (last 24 hrs) 12/23/20 06:53: Sodium 142, Potassium 3.8, BUN 17, Creatinine 0.79, Glucose 132 H, Magnesium 2.3 12/23/20 06:53: WBC 5.00 D, Hgb 12.2, Hct 37.6, Plt Count 154 Microbiology Data (last 24 hrs): 12/22/20 12:15 Blood - Blood Anaerobic Blood Culture - Final Medications List Reviewed: Yes Assessment And Plan - Current Problems (Diagnosis) (1) Osteomyelitis of great toe of right foot Current Visit: Yes Status: Chronic Plan: DISTAL PHALANX AMPUATION IN AM. SHE HAS MILD TO MODERATE PVD. IV ABX. PATIENT AGREES. AMPUTATION OF TOE DONE TODAY. FU WITH DR. PALMER IN [facility] IF NEED. 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 A1C IS 7.0
[2020-12-23 22:55] LABS: Urine Appearance CLEAR (Clear); Urine Bilirubin NEGATIVE (Negative); Urine Blood NEGATIVE (Negative); Urine Color YELLOW (Yellow); Urine Glucose NEGATIVE (Negative); Urine Protein NEGATIVE (Negative); Urine Urobilinogen 0.2 mg/dL (0.2-1.0)
[2020-12-23 22:59] LABS: Urine Microscopic Reflex ORDER UMIC
[2020-12-24 00:07] LABS: Urine Bacteria 20-50 /HPF (<20); Urine RBC <5 /HPF (NONE SEEN)
[2020-12-24] MEDS ORDERED: WATER FOR INJ,STERILE 10 ML IM PRN ×3 (02:48→07:52)
[2020-12-24] MEDS ORDERED: ZIPRASIDONE MESYLA 20 MG/VIAL IM ONE ×4 (02:48→05:43)
[2020-12-24] MEDS ORDERED: WATER FOR INJ,STERILE 10 ML ONE ×2 (03:12→05:42)
[2020-12-24] MEDS ORDERED: ZIPRASIDONE MESYLA 20 MG/VIAL IM PRN (07:52)
[2020-12-24] MEDS: THIAMINE 200 MG/2 ML INJ IVP SCH (08:22)
[2020-12-24] MEDS: INSULIN -REGULAR HUMAN 50 UNIT/0.5 ML ML SQ SCH ×4 (08:22→20:09)
[2020-12-24] MEDS: CEFTRIAXONE/SWI 1gm 1 GM/10 ML SYR IV SCH (08:22)
[2020-12-24] MEDS: ENOXAPARIN 40 MG/0.4 ML SQ SCH (08:23)
[2020-12-24 08:59] LABS: Potassium 4.3 mmol/L (3.5-5.1)
[2020-12-24] MEDS ORDERED: GLUCAGON 1 MG/VIAL IM PRN (16:57)
[2020-12-24] MEDS ORDERED: INSULIN ASPART 100 UNIT/ML SQ SCH (17:00)
[2020-12-24] MEDS ORDERED: NPH (HUMAN) 100 UNITS/ML INSULIN SQ SCH (17:00)
[2020-12-24] MEDS ORDERED: D50W 25 GM/50 ML VIAL IV PRN (17:13)
[2020-12-24] MEDS: AMLODIPINE 5 MG TAB PO SCH (20:08)
[2020-12-24] MEDS: SOTALOL HCL 80 MG TAB PO SCH (20:08)
[2020-12-24] MEDS ORDERED: SOTALOL HCL 80 MG TAB PO SCH (21:00)
[2020-12-24] MEDS ORDERED: TRAMADOL HCL 50 MG TAB PO PRN (21:21)
--- NOTE | 2020-12-24 21:24 | P.PN ---
Subjective Date of Service: 12/24/20 Chief Complaint: AGITATED DR. STARR HAS DONE TOE AMPUTATION FOR CHRONIC REFRACTORY OSTEOMYELITIS R GREAT TOE. PATIENT STABLE. MAC HAS BEEN AGITATED AND CONFUSED ALL NIGHT. I WAS CALLED TWICE AND SHE GOT AIRAM FRAUSTO FOR CONFUSION, AGIATATON. THIS AM SHE IS NOT ORIENTED TO TIME PLACE OR PERSON AND FIDGETY WITH HER HANDS. Physical Examination - Vital Signs Temperature: 98.1 F Blood Pressure: 144/68 Pulse: 61 Respirations: 17 Pulse Ox (%): 97 - Physical Exam General: Mild distress, Confused HEENT: Atraumatic, PERRLA, EOMI Neck: Supple, JVD not distended Respiratory: Clear to auscultation bilaterally, Normal air movement Cardiovascular: Regular rate/rhythm, Normal S1 S2 Gastrointestinal: Normal bowel sounds, No tenderness Musculoskeletal: No tenderness Integumentary: No rashes Neurological: Normal speech, Normal tone, Normal affect Lymphatics: No axilla or inguinal lymphadenopathy - Studies Laboratory Data (last 24 hrs) 12/24/20 08:28: Sodium 139, Potassium 4.3, BUN 21 H, Creatinine 0.89, Glucose 214 H Microbiology Data (last 24 hrs): 12/22/20 12:15 Blood - Blood Anaerobic Blood Culture - Final Medications List Reviewed: Yes Assessment And Plan - Current Problems (Diagnosis) (1) Osteomyelitis of great toe of right foot Current Visit: Yes Status: Chronic Plan: DISTAL PHALANX AMPUATION IN AM. SHE HAS MILD TO MODERATE PVD. IV ABX. PATIENT AGREES. AMPUTATION OF TOE DONE TODAY. FU WITH DR. PALMER IN [facility] IF NEED. 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 I ADDED IV THIAMIN. AIRAM NAZARIO WILL FU IN AM. SHE LIVES WITH FAMILY.
[2020-12-25] MEDS: NACHLORIDE 0.45% 1,000 ML IV SCH (04:40)
[2020-12-25] MEDS ORDERED: LEVOTHYROXINE SOD 0.05 MG TABLET PO SCH (06:00)
[2020-12-25 07:20] VITALS: BP 140/67; TEMP 98.6; O2SAT 94
[2020-12-25] MEDS: INSULIN -REGULAR HUMAN 50 UNIT/0.5 ML ML SQ SCH (07:30)
[2020-12-25] MEDS ORDERED: NPH (HUMAN) 100 UNITS/ML INSULIN SQ SCH (08:00)
[2020-12-25] MEDS ORDERED: INSULIN LISPRO 100 UNIT/1 ML SQ SCH (08:00)
--- NOTE | 2020-12-25 08:02 | P.PN ---
Subjective Date of Service: 12/25/20 Chief Complaint: AGITATED Subjective: Improving Physical Examination - Vital Signs Temperature: 98.6 F Blood Pressure: 140/67 Pulse: 55 Respirations: 16 Pulse Ox (%): 94 - Physical Exam General: Alert, In no apparent distress Musculoskeletal: Other (amptuation site doing well, sutures in place, flaps viable) - Studies Laboratory Data (last 24 hrs) 12/24/20 08:28: Sodium 139, Potassium 4.3, BUN 21 H, Creatinine 0.89, Glucose 214 H Microbiology Data (last 24 hrs): 12/22/20 12:15 Blood - Blood Anaerobic Blood Culture - Final Medications List Reviewed: Yes Assessment And Plan - Current Problems (Diagnosis) (1) Osteomyelitis of great toe of right foot Current Visit: Yes Status: Chronic Plan: s/p amputation of RIGHT distal phanlanx of great toe - continue medical management - ok to DC home from surgical standpoint - home health arranged by my office - follow up in 10-14 days for suture removal - non weight bearing to right forefoot
--- NOTE | 2020-12-25 08:02 | P.PN ---
Subjective Date of Service: 12/24/20 Chief Complaint: AGITATED Subjective: Improving (Patient had some confusion, otherwise no surgical complaints) Physical Examination - Vital Signs Temperature: 98.6 F Blood Pressure: 140/67 Pulse: 55 Respirations: 16 Pulse Ox (%): 94 - Physical Exam General: Alert, In no apparent distress, Cooperative Musculoskeletal: Other (RIGHT great toe amputation site is clean and dry, flaps pink and viable with sutures in place) - Studies Laboratory Data (last 24 hrs) 12/24/20 08:28: Sodium 139, Potassium 4.3, BUN 21 H, Creatinine 0.89, Glucose 214 H Microbiology Data (last 24 hrs): 12/22/20 12:15 Blood - Blood Anaerobic Blood Culture - Final Medications List Reviewed: Yes Assessment And Plan - Current Problems (Diagnosis) (1) Osteomyelitis of great toe of right foot Current Visit: Yes Status: Chronic Plan: s/p amputation of RIGHT distal phanlanx of great toe - continue medical management - ok to DC home from surgical standpoint - home health arranged by my office - follow up in 10-14 days for suture removal - non weight bearing to right forefoot
[2020-12-25] MEDS: CEFTRIAXONE/SWI 1gm 1 GM/10 ML SYR IV SCH (08:06)
[2020-12-25] MEDS: ENOXAPARIN 40 MG/0.4 ML SQ SCH (08:06)
[2020-12-25] MEDS: SOTALOL HCL 80 MG TAB PO SCH (08:07)
[2020-12-25] MEDS: THIAMINE 200 MG/2 ML INJ IVP SCH (08:08)
[2020-12-25] MEDS: AMLODIPINE 5 MG TAB PO SCH (08:08)
[2020-12-25] MEDS ORDERED: EZETIMIBE 10 MG TAB PO SCH (09:00)
[2020-12-25] MEDS ORDERED: CYANOCOBALAMIN 1,000 MCG TAB PO SCH (09:00)
[2020-12-25] MEDS ORDERED: LOSARTAN POTASSIUM 50 MG TABLET PO SCH (09:00)
[2020-12-25] MEDS ORDERED: CYANOCOBALAMIN 500 MCG PO SCH (09:00)
[2020-12-25] MEDS ORDERED: HOME MED 1 EA UNK (Losartan Potassium [Losartan Potassium] 100 MG Tablet) PO SCH (09:00)
[2020-12-25] MEDS ORDERED: HOME MED 1 EA UNK (Omeprazole [Prilosec] 40 MG Capsule.Dr) PO SCH (09:00)
[2020-12-25] MEDS ORDERED: PANTOPRAZOLE 40MG TABLET PO SCH (09:00)
[2020-12-25] MEDS ORDERED: ASPIRIN EC 81 MG TAB PO SCH (09:00)
[2020-12-25 09:38] LABS: Vitamin D 1,25-Dihydroxy Total 41 pg/mL (18-72); Vitamin D,1,25-OH2, D2 <8 pg/mL
--- NOTE | 2020-12-25 12:01 | CON ---
Date of Consultation: 12/23/2020 Brief Hpi: The patient is an 89-year-old female with chronic osteomyelitis of the right great toe, w ho presents with pain and tenderness to the right great toe. She has been treating with long-term an tibiotics without significant improvement confirmed by imaging and as such, she was admitted with the pain and for surgical planning for amputation of the distal right great toe phalanx. Past Medical History: Significant for diabetes, Charcot arthritis, hypertension, degenerative joint disease, atrial fibrillation, peripheral vascular disease, multiple foot abscesses, Cuellar's esophag us, COVID-19, diabetic foot with osteomyelitis. Past Surgical History: Amputation of the left great toe due to similar infection. Home Medications: Amlodipine, Cipro, clonidine, doxycycline, gabapentin, insulin, ivermectin, levoth yroxine, losartan, Mycolog, Myrbetriq, neomycin, nystatin, omeprazole, KCl, Santyl, sotalol, spironol actone, tramadol, Zanaflex, Zetia, Melatonin, vitamin C, vitamin D, Zinc. Review of Systems: Ten-point review of systems other than HPI, denies. Physical Examination: General: She is awake, alert, oriented. Psychiatric: She is appropriate. Conversive. HEENT: Normocephalic, sclerae icteric. Mucous is moist. Oropharynx clear. Neck: Supple without JVD. Chest: Expansion without excursion. Cardiovascular: Regular rate and rhythm. Pulmonary: Clear auscultation bilaterally. Abdomen: Soft. Extremities: Focused examination of the extremity. She has an amputation well healed of the left gr eat toe. Focused examination of the right great toe finds a hammertoe appearance with tenderness in the distal phalanx. Focused examination of the right foot show the tenderness of the distal phalanx with a hammertoe appearance. In addition, there was some swelling and redness to the distal aspect o f the toe with an ulceration on the plantar aspect of the right great toe. Imaging: She had outpatient imaging performed as well, which included an MRI, which showed marked os teomyelitis involving the first distal phalanx on the right. She had a Doppler ultrasound, which celeste wed [id number] disease involving the mid distal arteries of the left lower extremity and mild-t o-moderate disease involving the distal arteries of the right lower extremity. Laboratory Data: She has a laboratory exam, which revealed a white blood cell count 5.0, hemoglobin 12.2, hematocrit of 37.6, platelet count was 154. Her coags showed a PT 11.3, INR 0.98, PTT 27.1. C hemistry showed a sodium of 142, potassium 3.8, chloride 110, carbon dioxide 28, BUN 17, creatinine 0 .7, glucose is 132. Assessment/plan: This is an 89-year-old female who comes with chronic osteomyelitis of the distal ri ght great toe: 1.IV fluid hydration. 2.Antibiotic coverage. 3.I have explained the risks, benefits, and alternatives of distal amputation of the distal aspect o f the right great toe, including but not limited to bleeding, infection, damage to the tissue, need f urther operations, possible higher level amputation. Patient agrees to proceed as indicated. Thank you for this interesting consult. GERA/JASS Voice ID: [id number] Report ID: [id number]
--- NOTE | 2020-12-25 22:03 | P.DS ---
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 THERE WAS AN ULCER OVER THIS THAT HAS HEALED BUT MRI SHOWS OM STILL IS ACTIVE. THIS IS THE REASON FOR TOE AMPUTATION. SHE HAS HAD SIMILAR AMPUTATION ON L SIDE. Hospital Course: MS LA UNDERWENT R GREAT TOE AMPUTATION FOR OSTEOMYELITIS THAT WAS REFRACTORY. SHE HAD AGITATION FROM ANESTHETIC FOR A DAY SHE HAS BASELINE MILD TO MODERATE DEMENTIA. SHE IS DISCHARGED IN STABLE CONDITION WITH GUARDED PROGNOSIS. Vital Signs/Physical Exam: Temp Pulse Resp BP Pulse Ox 98.6 F 55 16 140/67 94 12/25/20 08:02 12/25/20 08:08 12/25/20 08:02 12/25/20 08:08 12/25/20 08:02 Laboratory Data at Discharge: WBC 5.00 K/uL (4.3-10.9) D 12/23/20 06:53 Hgb 12.2 g/dL (12.0-15.0) 12/23/20 06:53 Hct 37.6 % (36.0-45.0) 12/23/20 06:53 Plt Count 154 K/uL (152-406) 12/23/20 06:53 PT 11.3 SECONDS (9.5-12.5) 12/22/20 12:22 INR 0.98 12/22/20 12:22 APTT 27.1 SECONDS (24.3-36.9) 12/22/20 12:22 Sodium 139 mmol/L (136-145) 12/24/20 08:28 Potassium 4.3 mmol/L (3.5-5.1) 12/24/20 08:28 BUN 21 mg/dL (7-18) H 12/24/20 08:28 Creatinine 0.89 mg/dL (0.55-1.3) 12/24/20 08:28 Glucose 214 mg/dL (74-106) H 12/24/20 08:28 Phosphorus 3.9 mg/dL (2.5-4.9) 12/22/20 12:22 Magnesium 2.3 mg/dL (1.8-2.4) 12/23/20 06:53 Total Bilirubin 0.5 mg/dL (0.2-1.0) 12/22/20 12:22 AST 13 U/L (15-37) L 12/22/20 12:22 ALT 15 U/L (12-78) 12/22/20 12:22 Alkaline Phosphatase 141 U/L (45-117) H 12/22/20 12:22 Home Medications: Aspirin [Aspir-Low] 81 mg PO DAILY #30 tablet. 02/20/19 Furosemide 20 mg PO DAILY #30 tablet 02/20/19 Levothyroxine [Synthroid*] 50 mcg PO [id number] #30 tablet 02/20/19 Cyanocobalamin (Vitamin B-12) [Vitamin B-12] 1 tab PO DAILY 07/30/20 Insulin NPH Human Isophane [Novolin N] 10 unit SQ DAILY AT SUPPER 07/30/20 Insulin NPH Human Isophane [Novolin N] 15 unit SQ DAILY WITH BREAKFAST 07/30/20 Losartan Potassium 100 mg PO DAILY 07/30/20 Omeprazole [Prilosec] 1 cap PO DAILY 07/30/20 Sotalol HCl [Betapace AF] 40 mg PO BID 07/30/20 Amlodipine Besylate 5 mg PO BID 12/24/20 Ezetimibe [Zetia*] 1 tab PO DAILY 12/24/20 Insulin Aspart [Novolog] 10 unit SQ TIDWM 12/24/20 Activity: Non-weight bearing (to RIGHT forefoot) Followup: Percy Etienne MD [ACTIVE - CAN ADMIT] -
== END 2020-12-25 10:07 | disposition home health service (06) | DRG 617 ==
LOC: 2ND 09:34 → OBSVTOIN 12-24 07:24
PROVIDERS: ADMIT Internal Medicine; ATTEND Internal Medicine
PROC: 0Y6P0Z3 Detachment at Right 1st Toe, Low, Open Approach (ICD-10-PCS; principal; 2020-12-23 10:30)
DX: E11.69 Type 2 diabetes mellitus with other specified complication (principal); M86.671 Other chronic osteomyelitis, right ankle and foot; E11.610 Type 2 diabetes mellitus with diabetic neuropathic arthropathy; G30.9 Alzheimer's disease, unspecified; F02.80 Dementia in other diseases classified elsewhere, unspecified severity, without behavioral disturbance, psychotic disturbance, mood disturbance, and anxiety; I73.9 Peripheral vascular disease, unspecified; I10 Essential (primary) hypertension; E03.9 Hypothyroidism, unspecified; R45.1 Restlessness and agitation; I48.91 Unspecified atrial fibrillation; Z88.0 Allergy status to penicillin; Z79.4 Long term (current) use of insulin; Z96.643 Presence of artificial hip joint, bilateral; Z89.412 Acquired absence of left great toe; Z86.16 Personal history of COVID-19; Z20.822 Contact with and (suspected) exposure to COVID-19
CPT/HCPCS: 36415; 71046; 80048; 80076; 81003; 81015; 82043; 82570; 82607; 82652; 82947; 83036; 83735; 84100; 84443; 85025; 85610; 85730; 87040; 87086; 87088; 88305; 88311; 93925; G0378; G0379; J0696; J1650; J1815; J2250; J2405; J2704; J3010; J3411; J3480; J3486; J7030; U0003